=== PATIENT | female | born 1960 ===

== ENCOUNTER → 2018-04-03 10:16 | Outpatient (CLI) | payer OTHER, MEDICAID, SELFPAY ==
--- NOTE | 2018-04-03 10:18 | DI.RAD.S_ITS ---
PROCEDURE: XR KNEE RT 3V INDICATIONS: Knee pain TECHNIQUE: 3 views of the knee were acquired. COMPARISON: None. FINDINGS: Bones: No fractures or dislocations. No suspicious bony lesions. Marginal bony spurring is present overall 3 compartments, most marked at the femoral patellar component with areas marked lateral subluxation of the patella with bony erosions over the posterior margin at the level of the lateral femoral condyle. Soft tissues: No joint effusion. No suspicious soft tissue calcifications. IMPRESSION: 1. No acute bony abnormality or joint effusion. 2. 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 on 04/03/2018 at 10:40 Approved by: Osmin Robertson M.D. on 04/03/2018 at 10:42
--- NOTE | 2018-04-03 10:18 | DI.RAD.S_ITS ---
PROCEDURE: XR KNEE LT 3V INDICATIONS: Knee pain TECHNIQUE: 3 views of the knee were acquired. COMPARISON: None. FINDINGS: Bones: No fractures or dislocations. No suspicious bony lesions. Marginal bone spurs are present overall 3 compartments, most marked at the femoral patellar level where there is mild lateral subluxation of the patella. Soft tissues: No joint effusion. No suspicious soft tissue calcifications. IMPRESSION: 1. No acute bony abnormality or joint effusion. 2. Tricompartmental osteoarthritis Dictated by: Osmin Robertson M.D. on 04/03/2018 at 10:39 Approved by: Osmin Robertson M.D. on 04/03/2018 at 10:40
== END ==
PROVIDERS: PCP Registered Nurse; Visit Provider Registered Nurse
DX: M17.0 Bilateral primary osteoarthritis of knee (principal); M25.561 Pain in right knee; M25.562 Pain in left knee
CPT/HCPCS: 73562

== ENCOUNTER → 2018-05-05 12:25 | Outpatient (CLI) | payer OTHER, MEDICAID, SELFPAY ==
--- NOTE | 2018-05-05 | DI.MG.S_ITS ---
BILATERAL DIGITAL SCREENING MAMMOGRAM 3D/2D WITH CAD: 05/05/2018 CLINICAL: Routine screening. Comparison is made to exams dated: 09/14/2016 mammogram, 08/07/2013 mammogram, and 10/10/2010 mammogram - [facility]. The tissue of both breasts is extremely dense, which lowers the sensitivity of mammography. Current study was also evaluated with a Computer Aided Detection (CAD) system. No significant masses, calcifications, or other findings are seen in either breast. There has been no significant interval change. IMPRESSION: NEGATIVE There is no mammographic evidence of malignancy. A 1 year screening mammogram is recommended. This exam was interpreted at Station ID: [id number]. NOTE: For mammograms, a report in lay terms will be sent to the patient. Approximately 15% of breast malignancies will not be visualized mammographically. In the management of a palpable breast mass, a negative mammogram must not discourage biopsy of a clinically suspicious lesion. Electronically Signed By: Moira barker/nikita:05/05/2018 16:21:59 copy to: Maida Mcmanus letter sent: Normal Exam ACR BI-RADS Category 1: Negative 3341F
== END ==
PROVIDERS: Family Provider Family Medicine; PCP Registered Nurse; Visit Provider Registered Nurse
DX: Z12.31 Encounter for screening mammogram for malignant neoplasm of breast (principal)
CPT/HCPCS: 77063; 77067

== ENCOUNTER → 2019-03-25 08:10 | Outpatient (CLI) | payer OTHER, MEDICAID, SELFPAY ==
[2019-03-25 10:00] LABS: Alanine Aminotransferase 17 IU/L (9-52); Albumin 4.6 g/dL (3.5-5.0); Albumin Globulin Ratio 1.7 (1.0-2.8); Alkaline Phosphatase 68 U/L (38-126); Aspartate Aminotransferase 24 IU/L (14-36); BUN Creatinine Ratio 18.2 (6-22); Bilirubin Total 0.8 mg/dL (0.2-1.3); Blood Urea Nitrogen 20 mg/dL (7-17); Calcium 9.5 mg/dL (8.4-10.2); Carbon Dioxide 27 mmol/L (22-32); Chloride 99 mmol/L (98-107); Cholesterol 238 mg/dL (140-199); Estimated Glomerular Filt Rate 51.2 mL/min (>60); Globulin 2.7 g/dL (1.7-4.1); Glucose 94 mg/dL (70-100); HDL Cholesterol 93 mg/dL (40-60); HEMOLYSIS < 15 (0-50); LDL Cholesterol Calculated 126 mg/dL (<100); Potassium 4.3 mmol/L (3.4-5.1); Sodium 137 mmol/L (137-145); Total Protein 7.3 g/dL (6.3-8.2); Triglycerides 93 mg/dL (35-150)
[2019-03-25 10:01] LABS: C-Reactive Protein Quant < 0.5 mg/dL (<1.0)
[2019-03-25 10:25] LABS: TSH w/ Reflex to FT4 2.48 uIU/mL (0.47-4.68)
[2019-03-25 10:59] LABS: Erythrocyte Sedimentation Rate 3 MM/HR (0-20)
[2019-03-27 11:26] LABS: CCP Antibody (IgG) < 16 Units (< 20)
[2019-03-27 18:41] LABS: ANA Screen, IFA Negative (Negative)
== END ==
PROVIDERS: PCP Registered Nurse; Visit Provider Registered Nurse
DX: Z13.9 Encounter for screening, unspecified (principal); M25.50 Pain in unspecified joint
CPT/HCPCS: 36415; 80053; 80061; 84443; 85651; 86038; 86140; 86200

== ENCOUNTER 2019-08-23 07:52 | Emergency (ER) | payer OTHER, MEDICAID, SELFPAY ==
[2019-08-23 07:55] VITALS: BP 147/70; PULSE 75; RESP 18; TEMP 36.7; O2SAT 98; BMI 25.8
--- NOTE | 2019-08-23 07:59 | ED_ITS ---
HPI - Neuro Symptoms/Deficit General Chief Complaint: Neuro Symptoms/Deficit Stated Complaint: burning tongue now droopy lip and cant blink R dolly Time Seen by Provider: 08/23/19 07:59 Source: patient, family and old records reviewed Mode of arrival: Ambulatory Limitations: no limitations History of Present Illness HPI Narrative: This is a 59-year-old female who comes in with complaint of burning of her right side of her tongue, droop of the right side of her mouth and inability to close her right eye. Patient states she started noticing symptoms within the last 48 hours and yesterday afternoon began to notice that she had liquids dribbling from the right side of her mouth and that when she smiled her face was drooping. She then started to realize that she couldn't close her right eyelid. Patient states she does not have any burning or facial pain she describes burning on the right side of her tongue and on the upper palate. She hasn't noticed any skin changes rashes or ulcerations. She has not had any fevers. She denies headaches, she denies vision changes. She states her right eye does feel dry but is nonpainful. She states no weakness or numbness of her upper extremity or lower extremity on the right or left side. No tingling was noted. Patient has not had symptoms similar to this in the past. She denies any medical issues otherwise. She states she has had appendectomy. She denies any drug allergies. No tobacco, occasional alcohol, no illicit. She is accompanied by her today. Related Data Home Medications Medication Instructions Recorded Confirmed [EYE DROPS] QDAY #0 05/01/11 06/04/19 pseudoephedrine-ibuprofen [Advil 1 tab PO PRN #0 05/01/11 06/04/19 Cold and Sinus] ASCORBIC ACID (VITAMIN C) 500 mg PO QDAY #0 05/08/11 06/04/19 ENZYMES (DIGESTIVE ENZYMES) 1 tab PO QDAY #0 05/08/11 06/04/19 VITAMIN D (Vitamin D3) 1,000 unit PO QDAY #0 05/08/11 06/04/19 Previous Rx's Medication Instructions Recorded CMP Estriol 0.2 See Rx Instructions .ROUTE 04/22/18 .COMPLEX #30 gram oxycodone-acetaminophen 5 mg-325 1 tab PO Q4-6H PRN #10 tab 02/05/19 mg tablet ranitidine HCl 150 mg tablet 150 mg PO QDAY #90 tab 02/05/19 erythromycin 0.5 inch EYE-RIGHT Q6H PRN #1 gram 08/23/19 gabapentin [Neurontin] 300 mg PO TID #30 cap 08/23/19 prednisone See Rx Instructions .ROUTE 08/23/19 .COMPLEX #39 each valacyclovir [Valtrex] 1,000 mg PO BID #14 tab 08/23/19 Allergies Allergy/AdvReac Type Severity Reaction Status Date / Time No Known Drug Allergies Allergy Verified 08/23/19 08:13 Review of Systems Review of Systems ROS Unobtainable: All systems reviewed & are unremarkable except as noted in HPI and below Patient History Medical History Bicornuate uterus (Chronic) Esophageal spasm (Chronic) Surgical History Status post breast biopsy (Resolved 06/2003) Status post breast biopsy (Resolved 09/2005) Status post dilation and curettage (Resolved 04/2011) Social History Smoking Status: Never smoker alcohol intake: current substance use type: does not use Smoking Status: Never smoker Exam Narrative Exam Narrative: GEN: well nourished, well appearing female, alert and oriented x 3, patient appears to be in mild distress. HEENT: Atraumatic, pupils are equal round reactive to light, extraocular movements are intact, patient had does have droop of the right eye, and has difficulty closing the eye passively or with resistance, nares are clear, TMs are clear with no fluid, there is no conjunctival pallor. Throat is clear without any exudates, erythema, tonsillar enlargement or uvular deviation, patient does have droop of the right mouth has decreased movement of the right cheek and forehead. No erythema, no rashes or skin changes to the face or oral mucosa, tongue, patient has one area of erythema that is somewhat circular and 1cm in size on the upper palate that is not raised, no lesions, no vesicles or ulcerations noted. No other lesions noted. HEART: Regular rate and rhythm without murmur, clicks, rubs. LUNGS:Lungs clear to auscultation, no wheezes, rales, crackles, chest moves symmetrically ABD:bowel sounds normal, soft, non-tender, no guarding, rebound, rigidity, no masses noted, no hepatosplenomegaly MSCL: Non-tender, no muscle atrophy, muscles strength 5/5 upper and lower extr emities, full range of motion, normal gait NEURO:CN 2-12 intact, sensation normal, reflexes 2/4 upper and lower extremities. finger nose finger test normal, heel blancas test normal, romberg normal SKIN: no changes noted otherwise. Initial Vital Signs Initial Vital Signs: Vital Signs Temperature 98.1 F 08/23/19 07:55 Pulse Rate 75 08/23/19 07:55 Respiratory Rate 18 08/23/19 07:55 Blood Pressure 147/70 H 08/23/19 07:55 Pulse Oximetry 98 08/23/19 07:55 Scores NIH Stroke Scale Level of Conciousness: Alert, keenly responsive Ask month/age: Answers both questions correctly. Open/close eyes, close hand: Performs both tasks correctly Best gaze horizontal: Normal Visual reyes: No visual loss Facial palsy: Complete paralysis, absence of movement in the upper and lower face (patient has some mild movement but clearly decreased compared to left.) Left arm drift: No drift for full 10 sec Right arm drift: No drift for full 10 sec Left leg drift: No drift for full 10 sec Right leg drift: No drift for full 10 sec Limb ataxia: Absent Sensory on face/arms/legs: Normal, no sensory loss Best language: No aphasia, normal Dysarthria: Normal Extinction or inattention: No abnormality Total NIH Stroke scale score: 3 Course Orders Ordered: Discontinued Medications Erythromycin (Erythromycin Ophth Oint) 1 applic EYE-RIGHT NOW ONE Stop: 08/23/19 08:31 Last Admin: 08/23/19 08:48 Dose: 1 applic Documented by: TOYIN Prednisone (Deltasone) 60 mg PO NOW ONE Stop: 08/23/19 08:31 Last Admin: 08/23/19 08:48 Dose: 60 mg Documented by: TOYIN Vital Signs Vital signs: Vital Signs - 8 hr 08/23/19 07:55 Temperature 98.1 F Pulse Rate 75 Respiratory Rate 18 Blood Pressure 147/70 H Pulse Oximetry 98 MDM - Neuro Symptoms/Deficit MDM Narrative Medical decision making narrative: Discussed with patient 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 We discussed the burning the right side of her tongue and mouth may be related to the nerve palsy. I do not see any changes to the oral mucosa that are suspicious for shingles type change. Patient does not have any other neurologic findings that are concerning for stroke or other intracranial cause of her symptoms at this time. Discussed with patient plan to start her on prednisone, Valtrex as well as eye protection secondary to her difficulty with closing. Plan for saline drops and erythromycin ointment and patching as needed. Patient is to follow-up with her primary care in the next week we discussed likelihood of resolution although there is always a chance that it will not. We discussed signs and symptoms to watch for and reasons to return emergently. Patient has been are both at bedside and aware of plan and all questions answered. Discharge Plan Departure Patient Disposition: Home Clinical Impression: Brantley's palsy Discharge Date/Time: 08/23/19 09:00 Instructions: DI for Brantley's Palsy Activity Restrictions/Additional Instructions: Follow up with your primary care physician in the next week for recheck. Call Saturday for an appointment. Take Valtrex as prescribed daily until gone. Take steroids once daily until gone. You may use saline drops for the affected eye every 2 hours as needed to maintain moisture. If this is not adequate you can tape or patch the eye to keep it closed either during the day as needed and I would recommend to do this nightly. You may put a small amount of erythromycin ointment in her eye when patching to help maintain moisture. Return to the emergency department for fevers, sudden severe headaches, new vision changes, new or developing pain in your eye, weakness or numbness of the opposite side of your face, weakness or numbness of your upper extremities, difficulty with gait or movement, dip stand loader or other new or concerning symptoms. Prescriptions: New valacyclovir [Valtrex] 1 gram tablet 1,000 mg PO BID Qty: 14 RF: 0 prednisone 10 mg tablets,dose pack See Rx Instructions .ROUTE .COMPLEX Qty: 39 RF: 0 erythromycin 5 mg/gram (0.5 %) ointment 0.5 inch EYE-RIGHT Q6H PRN (Reason: dry eye(s)) Qty: 1 RF: 0 gabapentin [Neurontin] 300 mg capsule 300 mg PO TID Qty: 30 RF: 0 No Action [EYE DROPS] QDAY Qty: 0 RF: 0 pseudoephedrine-ibuprofen [Advil Cold and Sinus] 200 MG/30 MG tablet 1 tab PO PRN Qty: 0 RF: 0 ASCORBIC ACID (VITAMIN C) 500 mg PO QDAY Qty: 0 RF: 0 ENZYMES (DIGESTIVE ENZYMES) 1 tab PO QDAY Qty: 0 RF: 0 VITAMIN D (Vitamin D3) 1,000 unit PO QDAY Qty: 0 RF: 0 CMP Estriol 0.2 See Rx Instructions .ROUTE .COMPLEX Qty: 30 RF: 3 oxycodone-acetaminophen 5-325 mg tablet 1 tab PO Q4-6H PRN (Reason: esophageal pain) Qty: 10 RF: 0 ranitidine HCl [Zantac] 150 mg tablet 150 mg PO QDAY Qty: 90 RF: 1 Referrals: Amaya Fuller ARNP [Primary Care Provider] -
[2019-08-23] MEDS: ERYTHROMYCIN OPHTH 1 GM OINT 1 APPLIC EYE-RIGHT (08:48)
[2019-08-23] MEDS: predniSONE 20 MG TABLET 60 MG PO (08:48)
== END 2019-08-23 09:00 | disposition home or self-care (01) ==
PROVIDERS: Emergency Provider Emergency Medicine; PCP Registered Nurse
DX: G51.0 Bell's palsy (principal); R20.8 Other disturbances of skin sensation
CPT/HCPCS: 99283

== ENCOUNTER → 2019-08-29 10:21 | Outpatient (CLI) | payer OTHER, MEDICAID, SELFPAY ==
--- NOTE | 2019-08-29 | DI.MG.S_ITS ---
BILATERAL DIGITAL SCREENING MAMMOGRAM 3D/2D WITH CAD: 08/29/2019 CLINICAL: Routine screening. Family history of breast cancer. Comparison is made to exams dated: 05/05/2018 mammogram, 09/14/2016 mammogram, and 08/18/2013 mammogram - [facility]. The tissue of both breasts is extremely dense, which lowers the sensitivity of mammography. Current study was also evaluated with a Computer Aided Detection (CAD) system. No significant masses, calcifications, or other findings are seen in either breast. There has been no significant interval change. IMPRESSION: NEGATIVE There is no mammographic evidence of malignancy. A 1 year screening mammogram is recommended. This exam was interpreted at Station ID: [id number]. NOTE: For mammograms, a report in lay terms will be sent to the patient. Approximately 15% of breast malignancies will not be visualized mammographically. In the management of a palpable breast mass, a negative mammogram must not discourage biopsy of a clinically suspicious lesion. Electronically Signed By: Moira barker/nikita:08/31/2019 10:35:35 copy to: Maida Mcmanus letter sent: Normal Exam ACR BI-RADS Category 1: Negative 3341F
== END ==
PROVIDERS: PCP Registered Nurse; Visit Provider Obstetrics & Gynecology
DX: Z12.31 Encounter for screening mammogram for malignant neoplasm of breast (principal); Z80.3 Family history of malignant neoplasm of breast
CPT/HCPCS: 77063; 77067

== ENCOUNTER → 2019-10-15 11:55 | Outpatient (CLI) | payer OTHER, MEDICAID, SELFPAY ==
[2019-10-15 13:13] LABS: BUN Creatinine Ratio 12.5 (6-22); Blood Urea Nitrogen 10 mg/dL (7-17); Calcium 10.2 mg/dL (8.4-10.2); Carbon Dioxide 25 mmol/L (22-32); Chloride 99 mmol/L (98-107); Cholesterol 255 mg/dL (140-199); Estimated Glomerular Filt Rate > 60.0 mL/min (>60); Glucose 100 mg/dL (70-100); HDL Cholesterol 97 mg/dL (40-60); HEMOLYSIS < 15 (0-50); LDL Cholesterol Calculated 141 mg/dL (<100); Potassium 4.4 mmol/L (3.4-5.1); Sodium 136 mmol/L (137-145); Triglycerides 85 mg/dL (35-150)
== END ==
PROVIDERS: PCP Registered Nurse; Referring Provider Registered Nurse; Visit Provider Registered Nurse
DX: E78.5 Hyperlipidemia, unspecified (principal)
CPT/HCPCS: 36415; 80048; 80061

== ENCOUNTER → 2019-11-10 12:52 | Outpatient (CLI) | payer OTHER, MEDICAID, SELFPAY ==
[2019-11-11 16:40] LABS: Fecal Immunochemical Test Negative (Negative)
== END ==
PROVIDERS: PCP Registered Nurse; Referring Provider Registered Nurse; Visit Provider Registered Nurse
DX: Z12.11 Encounter for screening for malignant neoplasm of colon (principal)
CPT/HCPCS: 82274

== ENCOUNTER 2019-12-10 14:18 | Emergency (ER) | payer OTHER, MEDICAID, SELFPAY ==
[2019-12-10 14:30] VITALS: BP 160/71; PULSE 72; RESP 14; TEMP 37.1; O2SAT 100
--- NOTE | 2019-12-10 14:45 | DI.RAD.S_ITS ---
PROCEDURE: XR KNEE RT 3V INDICATIONS: swelling and pain TECHNIQUE: 3 views of the knee were acquired. COMPARISON: [facility], CR, XR KNEE LT 3V, 04/03/2018, 9:57. FINDINGS: Bones: No fractures or dislocations. No suspicious bony lesions. Tricompartment degenerative arthritis, with advanced degenerative arthritis of the patellofemoral joint. Soft tissues: Moderate to large knee joint effusion. No suspicious soft tissue calcifications. IMPRESSION: 1. Tricompartment degenerative arthritis, advanced in the patellofemoral compartment. 2. Moderate to large knee joint effusion. Dictated by: Marshall Moeller M.D. on 12/10/2019 at 15:03 Approved by: Marshall Moeller M.D. on 12/10/2019 at 15:05
[2019-12-10 15:20] VITALS: BP 143/83; PULSE 68; RESP 16; O2SAT 100
--- NOTE | 2019-12-10 15:56 | ED.EXTPRO ---
HPI - Extremity Problem <KEITH Kessler - Last Filed: 12/10/19 20:55> General Chief complaint: Extremity Problem,Nontraumatic Stated complaint: right knee swelling today Time Seen by Provider: 12/10/19 14:26 Source: patient Mode of arrival: Wheelchair Limitations: no limitations History of Present Illness HPI Narrative: 59yo female history right knee arthritis, presents to the emergency department for right knee swelling and pain that started today. Patient states she did have a total knee replacement surgery scheduled for her right knee this month but it has been rescheduled due to the COVID-19. Patient denies any trauma to the area, redness, increased temp, fevers, chills, nausea, vomiting, diarrhea, or any other concerns. She states that she took prednisone in the past which significantly helped her joint pain. Patient also reports that she has noticed some intermittent hip pain with walking. Related Data Home Medications Medication Instructions Recorded Confirmed ibuprofen 800 mg PO Q8H PRN 12/10/19 12/10/19 Previous Rx's Medication Instructions Recorded oxycodone-acetaminophen [Percocet] 1 tab PO Q8H PRN #5 tab 12/10/19 prednisone 20 mg PO DAILY 5 Days #5 tab 12/10/19 Allergies Allergy/AdvReac Type Severity Reaction Status Date / Time No Known Drug Allergies Allergy Verified 12/10/19 14:29 Review of Systems <KEITH Kessler - Last Filed: 12/10/19 20:55> Review of Systems Narrative: REVIEW OF SYSTEMS: GENERAL: Denies fever or chills. HENT: No head trauma. EYES: No double vision or vision loss. CARDIOVASCULAR: No chest pain or syncope. RESPIRATORY: No shortness of breath or cough. GASTROINTESTINAL: No nausea, vomiting, diarrhea, or constipation. GENITOURINARY: No flank pain or dysuria. MUSCULOSKELETAL: Complains of right knee pain, see HPI. INTEGUMENTARY: No rash, lesions, or pruritus. NEURO: No numbness, tingling. Patient History <KEITH Kessler - Last Filed: 12/10/19 20:55> Medical History Brantley's palsy (Acute) Bicornuate uterus (Chronic) Esophageal spasm (Chronic) Surgical History Status post breast biopsy (Resolved 06/2003) Status post breast biopsy (Resolved 09/2005) Status post dilation and curettage (Resolved 04/2011) Social History Smoking Status: Never smoker alcohol intake: current substance use type: does not use Smoking Status: Never smoker alcohol intake frequency: 0-2 drinks per day Alcohol type: beer Substance Use Type: does not use Exam <KEITH Kessler - Last Filed: 12/10/19 20:55> Initial Vital Signs Initial Vital Signs: Vital Signs Temperature 98.7 F 12/10/19 14:30 Pulse Rate 72 12/10/19 14:30 Respiratory Rate 14 12/10/19 14:30 Blood Pressure 160/71 H 12/10/19 14:30 Pulse Oximetry 100 12/10/19 14:30 PHYSICAL EXAMINATION: GENERAL: Well groomed, alert, and cooperative. Answers questions promptly and appropriately. Vital signs noted. HENT: Normocephalic, atraumatic. EYES: Symmetrical, sclera white, no periorbital swelling. CARDIOVASCULAR: Regular rate. RESPIRATORY: Normal respiratory rate, trachea midline, airway patent. No stridor, nasal flaring or accessory muscle use. MUSCULOSKELETAL: Moderate to large right knee swelling, most swelling appears centralized above right knee joint, increased swelling to the lateral aspect of this area. Skin temp within normal limits, no erythema, bruising, lesions, or areas of significant tenderness. Decreased flexion due to swelling and pain. Patient has full extension. Mild tenderness along the medial aspect of joint line. Negative Edwardo sign. Negative drawer sign. Patient walks with limp due to right knee pain. EXTREMITIES: CMS intact. No pedal edema. No calf tenderness. SKIN: Warm, dry, soft, appropriate color for ethnicity. No lesions, rashes, or wounds. NEURO: Alert and Oriented X 3. No sensory deficits. PSYCH: Appropriate affect and mood. <Pari Deng DO - Last Filed: 12/11/19 07:44> Initial Vital Signs Initial Vital Signs: Vital Signs Temperature 98.7 F 12/10/19 14:30 Pulse Rate 72 12/10/19 14:30 Respiratory Rate 14 12/10/19 14:30 Blood Pressure 160/71 H 12/10/19 14:30 Pulse Oximetry 100 12/10/19 14:30 Course <KEITH Kessler - Last Filed: 12/10/19 20:55> Course Course Narrative: Patient was given an Hieu bandage in the emergency department to help with swelling and pain. She reported increased pain with ambulation, patient was given Percocet to help with pain. Orders Ordered: Discontinued Medications Oxycodone/Acetaminophen (Percocet 5/325) 1 tab PO NOW ONE Stop: 12/10/19 15:56 Last Admin: 12/10/19 16:08 Dose: 1 tab Documented by: CTRANAND Consultations Consultation #1: Patient staffed with Dr. Deng, discussed discharge plans. Vital Signs Vital signs: Vital Signs - 8 hr 12/10/19 14:30 12/10/19 15:20 12/10/19 16:20 Temperature 98.7 F Pulse Rate 72 68 66 Respiratory Rate 14 16 16 Blood Pressure 160/71 H 143/67 H Blood Pressure [Left Arm] 143/83 H Pulse Oximetry 100 100 100 <Pari Deng DO - Last Filed: 12/11/19 07:44> Orders Ordered: Discontinued Medications Oxycodone/Acetaminophen (Percocet 5/325) 1 tab PO NOW ONE Stop: 12/10/19 15:56 Last Admin: 12/10/19 16:08 Dose: 1 tab Documented by: CTRANAND Vital Signs Vital signs: Vital Signs - 8 hr 12/10/19 14:30 12/10/19 15:20 12/10/19 16:20 Temperature 98.7 F Pulse Rate 72 68 66 Respiratory Rate 14 16 16 Blood Pressure 160/71 H 143/67 H Blood Pressure [Left Arm] 143/83 H Pulse Oximetry 100 100 100 MDM - Extremity (Nontraumatic) <KEITH Kessler - Last Filed: 12/10/19 20:55> Medical Records Attestation: I reviewed the patient's medical records. Lab Data Attestation: I reviewed the patient's lab results. Imaging Data Extremity x-ray #1: Radiologist's Impression: [address] [address] XRay Report Signed Patient: Richa Nino [facility]#: [id number] : 2Acct:[id number] Age/Sex: 59 / FDate of Service: 12/10/19 Loc: ED Accession Number: [id number] Procedure: XR knee RT 3V Ordering Provider: Danelle Quiroz PROCEDURE: XR KNEE RT 3V INDICATIONS: swelling and pain TECHNIQUE: 3 views of the knee were acquired. COMPARISON: [facility], CR, XR KNEE LT 3V, 04/03/2018, 9:57. FINDINGS: Bones: No fractures or dislocations. No suspicious bony lesions. Tricompartment degenerative arthritis, with advanced degenerative arthritis of the patellofemoral joint. Soft tissues: Moderate to large knee joint effusion. No suspicious soft tissue calcifications. IMPRESSION: 1. Tricompartment degenerative arthritis, advanced in the patellofemoral compartment. 2. Moderate to large knee joint effusion. Dictated by: Marshall Moeller M.D. on 12/10/2019 at 15:03 Approved by: Marshall Moeller M.D. on 12/10/2019 at 15:[address] [facility] Narrative Medical decision making narrative: 59-year-old female presenting to the emergency department with right knee swelling that started today. Patient has a history of arthritis an is scheduled for a total knee replacement. Patient does report walking with increasing right sided hip pain over the past few days. I suspect patient's swelling is most likely due to inflammatory reaction related to arthritis, patient's hip pain may have further aggravated the knee as well. Less likely infectious etiology due to lack of increased skin temperature, lack of erythema, and lack of other systemic symptoms such as tachycardia, severe pain, or fevers. Less likely fracture due to negative x-ray, no reports of trauma. I discussed with patient that joints are not drained in the emergency department due to increased risk of infection and most likely swelling will immediately return as it appeared quickly this morning. After much discussion with patient, I suggested elevation, rest, and compression. Patient repeatedly continued to ask for prednisone which she states has helped in the past, after explaining the risks and benefits, patient was given a course of prednisone. Patient did report pain upon walking, she was given a few Percocet pills to help with pain over the next few days. She was encouraged to use a brace with a hinged to help with stabilization upon moving. She was encouraged to call the orthopedic inform them of new acute changes to schedule an appointment. Patient agreed to plan of care verbalized understanding. Discharge Plan Departure Patient Disposition: Home Clinical Impression: Knee swelling Discharge Date/Time: 12/10/19 16:20 Instructions: DI for Knee Effusion Activity Restrictions/Additional Instructions: Thank you for entrusting me with your care today. As discussed, your x-ray was negative for any acute fractures. The swelling is most likely caused by arthritis. I recommend using the Hieu-wrap daily, elevating your leg as much as possible, and taking ibuprofen as needed for pain and swelling. We discussed a course of prednisone and the risks associated with this medication, I have prescribed you a course of prednisone to decrease swelling. I do recommend calling the orthopedic in the next week, please inform them that you have been seen in the ER. Return emergency department for any new or worsening symptoms such as high fevers, redness, uncontrollable vomiting, or any other concerns. Your prescriptions were sent to [facility]. Prescriptions: New prednisone 20 mg tablet 20 mg PO DAILY 5 Days Qty: 5 RF: 0 oxycodone-acetaminophen [Percocet] 5-325 mg tablet 1 tab PO Q8H PRN (Reason: pain) Qty: 5 RF: 0 No Action ibuprofen 800 mg Tablet 800 mg PO Q8H PRN (Reason: Pain (Scale Score 1-3)) RF: 0 Referrals: Amaya Fuller ARNP [Primary Care Provider] -
[2019-12-10] MEDS: OXYCODONE/ACETAMINOPHEN 5/325 TABLET 1 TAB PO (16:08)
[2019-12-10 16:20] VITALS: BP 143/67; PULSE 66; RESP 16; O2SAT 100
--- NOTE | 2019-12-10 17:10 | PC.NURSE ---
6 Hieu wrap applied to right knee as ordered.Instructions given to as to application,verbalized understanding of instructions.CMS good to right foot following application.Good pedal/post tibial pulse.
== END 2019-12-10 16:20 | disposition home or self-care (01) ==
PROVIDERS: Emergency Provider Nurse Practitioner; PCP Registered Nurse
DX: M25.461 Effusion, right knee (principal); M17.11 Unilateral primary osteoarthritis, right knee
CPT/HCPCS: 73562; 99283; 99284

== ENCOUNTER → 2020-02-26 10:10 | Outpatient (CLI) | payer OTHER, MEDICAID, SELFPAY ==
--- NOTE | 2020-02-26 10:15 | DI.RAD.S_ITS ---
PROCEDURE: XR CHEST 2V INDICATIONS: Unintentional weight loss TECHNIQUE: 2 views of the chest were acquired. COMPARISON: [facility], , CHEST 2 VIEW, 12/21/2016, 12:52. FINDINGS: Surgical changes and devices: None. Lungs and pleura: Lungs are clear. No pleural effusions or pneumothorax. Mediastinum: Mediastinal contours are normal. Heart size is normal. Bones and chest wall: No suspicious bony abnormalities. Soft tissues appear unremarkable. IMPRESSION: No acute cardiopulmonary process demonstrated radiographically. Dictated by: Eitan James M.D. on 02/26/2020 at 10:50 Approved by: Eitan James M.D. on 02/26/2020 at 10:51
[2020-02-26 10:51] LABS: Bacteria Urine None Seen; RBC Urine None Seen (0-5/HPF); WBC Urine None Seen (0-5/HPF)
[2020-02-26 11:00] LABS: Add Manual Diff / Slide Review NO; Basophils Absolute Auto 0 /uL (0-100); Eosinophils Absolute Auto 0 /uL (0-450); Hematocrit 41.2 % (36-46); Lymphocytes Absolute Auto 1100 /uL (1100-4500); Lymphocytes Percent Auto 26.2 % (25-40); Mean Corpuscular Hemoglobin 29.5 PG (26-34); Mean Corpuscular Volume 86.9 fL (80-100); Monocytes Absolute Auto 400 /uL (0-900); Monocytes Percent Auto 9.8 % (3-14); Neutrophils Absolute Auto 2500 /uL (1500-7000); Platelet Count 269 X10^3/uL (150-400); Red Blood Cell Count 4.74 X10^6/uL (4.0-5.2); Red Cell Distribution Width 14.4 % (11.6-14.8); White Blood Cell Count 4.1 X10^3/uL (4.5-11.0)
[2020-02-26 11:04] LABS: Appearance Urine UA CLEAR; Bilirubin Urine UA NEGATIVE (NEGATIVE); Color Urine UA YELLOW; Glucose Urine UA NEGATIVE (Negative); Ketones Urine UA NEGATIVE (NEGATIVE); Leukocyte Esterase Urine UA NEGATIVE (NEGATIVE); Nitrite Urine UA NEGATIVE (Negative); Occult Blood Urine UA NEGATIVE (Negative); Protein Urine UA NEGATIVE (Negative); Specific Gravity Urine UA <=1.005 (1.000-1.035); Urobilinogen Urine UA 0.2 E.U./dL (0.2)
[2020-02-26 11:20] LABS: Culture Indicated Urine Cult Not Indicated; Squamous Epithelial Cell Urine 0-1 /HPF (0-5/HPF)
[2020-02-26 11:21] LABS: Erythrocyte Sedimentation Rate 1 MM/HR (0-20)
[2020-02-26 12:03] LABS: Alanine Aminotransferase 16 IU/L (<35); Albumin 4.6 g/dL (3.5-5.0); Albumin Globulin Ratio 1.8 (1.0-2.8); Alkaline Phosphatase 60 U/L (38-126); Aspartate Aminotransferase 23 IU/L (14-36); Bilirubin Total 0.7 mg/dL (0.2-1.3); Blood Urea Nitrogen 7 mg/dL (7-17); Calcium 9.8 mg/dL (8.4-10.2); Carbon Dioxide 26 mmol/L (22-32); Chloride 96 mmol/L (98-107); Estimated Glomerular Filt Rate > 60.0 mL/min (>60); Globulin 2.5 g/dL (1.7-4.1); Glucose 101 mg/dL (70-100); HEMOLYSIS < 15 (0-50); Lactate Dehydrogenase 346 U/L (313-618); Potassium 4.3 mmol/L (3.4-5.1); Sodium 132 mmol/L (137-145); Total Protein 7.1 g/dL (6.3-8.2)
[2020-02-26 12:06] LABS: C-Reactive Protein Quant < 0.5 mg/dL (<1.0)
[2020-02-26 12:10] LABS: Free T3, Triiodothyronine Free 3.45 pg/mL (2.77-5.27); Free T4, Direct Thyroxine 1.49 ng/dL (0.78-2.19)
[2020-02-26 12:24] LABS: Thyroid Stimulating Hormone 1.54 uIU/mL (0.47-4.68)
== END ==
PROVIDERS: PCP Nurse Practitioner; Referring Provider Nurse Practitioner; Visit Provider Nurse Practitioner
DX: F41.1 Generalized anxiety disorder (principal); G51.0 Bell's palsy; R63.4 Abnormal weight loss
CPT/HCPCS: 36415; 71046; 80053; 81001; 83615; 84439; 84443; 84481; 85025; 85651; 86140

== ENCOUNTER 2020-05-19 15:00 | Outpatient (RCR) | payer OTHER, MEDICAID, SELFPAY ==
--- NOTE | 2020-01-07 14:45 | PT.OIE ---
Current Diagnoses Unilateral primary osteoarthritis, right knee (01/07/20) Stiffness of right knee, not elsewhere classified (01/07/20) Muscle weakness (generalized) (01/07/20) Unsteadiness on feet (01/07/20) Other abnormalities of gait and mobility (01/07/20) Presence of right artificial knee joint (01/07/20) Past Medical History (Last Updated 12/15/19 @ 14:48 by KEITH Key) Brantley's palsy (Acute) Bicornuate uterus (Chronic) Esophageal spasm (Chronic) Generalized anxiety disorder (Acute) Past Surgical History (Last Reviewed 12/10/19 @ 20:48 by KEITH Kessler) Status post breast biopsy (Resolved 06/2003) Status post breast biopsy (Resolved 09/2005) Status post dilation and curettage (Resolved 04/2011) Visit Care Team Role Provider Type KEITH Key Attending Provider Advanced Assembler Hydraulic Backhoe Primary Care Provider Referring Provider Specialty: Medical Address: [address] [place] [address] Email: [email or web address] Physical Therapy Initial Evaluation PT-OP-A Visit Information Start: 01/07/20 07:59 Freq: Status: Active Protocol: Document 01/07/20 11:26 LRN (Rec: 01/07/20 12:39 LRN [id number]) Out-Patient Physical Therapy Visit Information Visit Information Visit Type Initial Evaluation Visit Start Time 11:26 Visit Stop Time 12:26 Total Visit Minutes 60 Visit Number 1 Evaluation Information Evaluation Date 01/07/20 Precautions Precautions Back pain due to scoliosis but currently no back pain. [place] Palsy - 08/23/19, R side of face. R eye effected with difficulty vision due to excessive tears. PT-OP-B Current Condition Start: 01/07/20 07:59 Freq: Status: Active Protocol: Document 01/07/20 11:26 LRN (Rec: 01/07/20 12:39 LRN [id number]) Current Condition History of Current Condition Onset Date 12/29/19 Current Complaints Swelling, tightness of knee, using walker History of Current Condition R TKA at [facility] on 12/29/19. She was at [facility] 2 nights, but since home has been doing ex's 1x/ day with assist of spouse. Pt is not sure what the exercises are that she has been doing. She notes considerable swelling & bruising in the R LE, and discomfort in area of bruising . She warns that due to her history of knee problems and dislocating patella's she is apprehensive and hesitant in doing exercises. L knee arthritis. Fatigues quickly since surgery. Prior Treatments and Tests Age 22 had R patella surgery to release lateral tendons ligaments to prevent patella from dislocating, no therapy at that time. She reports resolution of the dislocations but that she has purposely avoids exercises. She reports her L patella dislocated only one time in 2004. Developmental History Developmental History 12/10/19 R knee became swollen requiring ER visit and was told arthritis. Pt reports having difficulty ambulating requiring use of FWW since that time and subsequent R TKA (current diagnosis). Treatment Goals Patient/Caregiver Goals Functional Goals: Walk without a walker, do a squat, Dressing, sit to stand with ease, roll and move in bed without difficulty, stair ambulation with railing. Communtity Goals: One step w/ o railing. 150' gait without walker. Recreational Goals: Hike, power walk. Prior Functional Status Baseline Function- ADL's Independent Baseline Function- Mobility Independent Baseline Function- Gait Gait without assistive device. 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 Baseline Function- Recreation/Hobbies Power walk, hike w/o poles. Baseline Function- Other Trouble with stair ambulation due to pain. Current Functional Impairments (Reported) Functional Limitations- ADL's Walks with FWW. Difficulty stairs, dressing, sit to stand, rolling in bed, squatting. Functional Limitations- Mobility/Gait Walk as far as allowed. Doesn't tire but tissues tight , creates pain in medial R knee sometimes. Functional Limitations- Work/School Not working since Covid 19. Functional Limitations- Recreation/ Not able to power walk, hike. Hobbies Personal Factors Other Personal Factors That May Effect History of Patella Therapy/Recovery dislocations has caused apprehension and fear with exercising her LE's. History of Back pain. Current [place] Palsy affecting vision. PT-OP-C Subjective Start: 01/07/20 07:59 Freq: Status: Active Protocol: Document 01/07/20 11:26 LRN (Rec: 01/07/20 13:23 LRN [id number]) Patient Questionnaires Lower Extremity Functional Scale LEFS Score 17 LEFS Impairment 60 to 79% Impaired (Score 17- 31) OP-PT Pain Assessment Pain Assessment Grid Paper Pain Assessment Grid Completed Yes Location Right Medial Leg Pain Location Details Medial R lower leg with palpation and pressure Description Pressure,Tightness Other Pain Aggravating Factors Pressure palpation. Right Lateral Knee Pain Location Details Generalized Intensity 5 Scale Used Numeric (1 - 10) Description Aching,Tightness Frequency Frequent Pain Aggravating Factors Position,Changing Position,ADL 's,Activity,Exercise,Sitting, Walking,Stair Climbing, Dependent Position Pain Alleviating Factors Lying Supine,Rest PT-OP-D Balance Start: 01/07/20 07:59 Freq: Status: Active Protocol: Document 01/07/20 11:26 LRN (Rec: 01/07/20 13:35 LRN [id number]) Tinetti Balance Assessment Sitting Balance Sitting Balance Steady, safe Arising from Chair Ability to Arise Able, uses arms to help Attempts to Arise Arises on 1st attempt Standing Balance Immediate Standing Balance Steady with support Standing Balance Steady, wide stance Nudged Response Steady Standing with Eyes Closed Steady Turning Step Pattern Turning 360 Degrees Discontinuous steps Stability Turning 360 Degrees Steady Sitting Down Sitting Down Uses arms or unsteady Gait and Step Initiation of Gait No hesitancy Right Foot Step Length Does pass stance foot Right Foot Step Height Does not clear floor Left Foot Step Length Does pass stance foot Left Foot Step Height Completely clears floor Step Description Step Symmetry Step length not equal Step Continuity Steps appear continuous Gait Description Path Description Mild/moderate deviation Trunk Description Marked sway or uses aide Walking Stance Heels apart Scoring and Interpretation Tinetti Composite Score (points) 17 Interpretation of Scores High risk for falls(< 19) Tinetti Impairment Rating from Composite 40 to <60% Impaired (Score 12- Score 16) PT-OP-E Functional Tests Start: 01/07/20 07:59 Freq: Status: Active Protocol: Document 01/07/20 11:26 LRN (Rec: 01/07/20 13:23 LRN [id number]) Functional Tests Other 2' Step Test Name of Test 2' Step Test Score 36x Comment Norm is 57-107 steps for 60-64 year olds. Pt fatigued at end of test. PT-OP-G Mobility & Gait Start: 01/07/20 07:59 Freq: Status: Active Protocol: Document 01/07/20 11:26 LRN (Rec: 01/07/20 12:39 LRN [id number]) OP Mobility Evaluation Bed Mobility Rolling Pt avoids due to pain. Supine to and from Sit Pt requires assist to lift RLE onto plinth. Pt Independently transfer to sit using UE's to assist RLE. Transfers Sit to Stand Independent with R LE in full extension and use of UE's. OP Gait Assessment Gait Gait Assistance Required: Independent Distance (Feet) 100 Able to Maintain Weight Bearing Status Yes During Gait Assistive Devices Assistive Device Front Wheeled Walker Orthotic/Prosthetic Devices or Brace: No Gait Deviations General Gait Pattern Antalgic,Decreased Stride Length,Decreased Feet Clearance,Flexed Trunk,Lateral Trunk Lean,Wide Based Gait Factors Limiting Gait Function Factors Limiting Gait Function Decreased Activity Tolerance, Decreased Strength,Limited Range of Motion,Pain,Poor Balance Comments Gait Comments Pt R toes do not clear floor sometimes even with hip hiking . PT-OP-J Posture/Palpation/Skin Start: 01/07/20 07:59 Freq: Status: Active Protocol: Document 01/07/20 11:26 LRN (Rec: 01/07/20 13:05 LRN [id number]) Posture Evaluation Comments Posture Comments Standing: Pt weight bears more on LLE by ~20% per pt subjective report. Bandage covering anterior R knee, and covered by pt support hose. Palpation Assessment Location One Palpation Location R knee Palpation Findings Edema,Soft Tissue Tightness, Tenderness Palpation Details Pt wearing compressive hose. Mild increased temperature of medial lower leg. Generalized tenderness of R knee joint. Moderate swelling at the R knee joint. Minimal swelling in the R lower leg and upper thigh. PT-OP-K Range of Motion Start: 01/07/20 07:59 Freq: Status: Active Protocol: Document 01/07/20 11:26 LRN (Rec: 01/07/20 13:05 LRN [id number]) Knee Goniometric Range of Motion Knee Right Knee ROM WFL No Patient Position Supine Flexion Active (degrees) 45 Extension Passive (degrees) 0 Left Knee ROM WFL Yes Patient Position Supine Flexion Active (degrees) 130 Extension Active (degrees) 0 Knee ROM Limitations Comments R knee AROM (supine & sitting) : Unable to actively move knee into extension. Sitting: AROM: Left is 0-127 deg's Right: Unable to actively extend. Flex is 45 deg's. Ankle and Foot Goniometric Range of Motion Ankle and Foot Right Active Ankle/Foot ROM WFL No Testing Position Supine Dorsiflexion with Knee Extended 5 Plantarflexion 48 Left Active Ankle/Foot ROM WFL Yes Testing Position Supine Dorsiflexion with Knee Extended 15 Plantarflexion 48 PT-OP-M Strength Start: 01/07/20 07:59 Freq: Status: Active Protocol: Document 01/07/20 11:26 LRN (Rec: 01/07/20 13:05 LRN [id number]) Hip Strength Hip Manual Muscle Testing Right Flexion (L2) 1 Trace Extension (S1) 3 Fair Abduction 3+ Fair+ Adduction 3+ Fair+ Comments Hip AB/AD/Ext approximate measurement in modified position (supine) of due to recent surgery. Left Flexion (L2) 5 Normal Extension (S1) 4 Good Abduction 5 Normal Adduction 5 Normal Comments Hip AB/AD/Ext approximate measurement in modified position (supine) of due to recent surgery. Knee Strength Knee Manual Muscle Testing Right Flexion (S2) 3 Fair Extension (L3) 1 Trace Left Flexion (S2) 3+ Fair+ Extension (L3) 5 Normal Ankle/Foot Strength Ankle and Foot Manual Muscle Testing Right Dorsiflexion (L4) 5 Normal Plantarflexion (S1) 5 Normal Comments Normal strength within available range. Range of motion limited due to soft tissue tightness and pain of R lower leg/knee. Left Dorsiflexion (L4) 5 Normal Plantarflexion (S1) 5 Normal PT-OP-Q Treatments Start: 01/07/20 07:59 Freq: Status: Active Protocol: Document 01/07/20 11:26 LRN (Rec: 01/07/20 13:05 LRN [id number]) Self-Care/Home Management Treatment Education Patient Education Home Exercise Program,Pain Management Other Education Reviewed with pt home ex's and I/S pt in SLR, SAQ and heel slides in supine and sitting. Discussed use of RICE technique for edema control with elevation parameter in sitting and time of 8-10' for use of ice. Pt to cont wearing support hose. Educated pt in gait for RLE of toe off, knee flex and heel strike while leaving exercise room. Handouts issued to review on return. PT-OP-T Assessment and Plan Start: 01/07/20 07:59 Freq: Status: Active Protocol: Document 01/07/20 11:26 LRN (Rec: 01/07/20 12:39 LRN [id number]) Physical Therapy Assessment Rehab Potential Rehabilitation Potential Excellent Evaluation Complexity Number of Personal Factors/Comorbidities 3 or More Number of Body Systems Impaired 4 or More Clinical Presentation at Evaluation Evolving Impairments Impairments Activity Tolerance,Balance, Edema,Functional Mobility,Gait ,Pain,ROM,Strength,Transfers Goals Five Impairment Decreased function per LEFS score of 17/80 (60-79% impaired) Halfway Goal (LTG) Improve functional ability per LEFS score no less than 63/80 . LTG Duration 8 weeks (03/18/20) Four Impairment Decreased balance. 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 LTG Duration 8 weeks (03/18/20) Three Impairment Decreased R knee strength of ext 1/5, flex 3/5 (Left ext 5/ 5, flex 4/5) Short Term Goal (STG) Pt will be able to improve R knee extension strength to 3/5 and flexion 3+/5 in order to move in bed without difficulty , transfer in/out of bed without assist and ambulate with use of cane instead of walker. STG Duration 2 weeks (01/22/20) Halfway Goal (LTG) Pt will improve R knee strength 4/5 for ability to ambulate 1 step without use of railing, and home stairs with use of railing with 80% confidence. LTG Duration 8 weeks (03/18/20) Two Impairment Decreased supine R knee AROM 0 -45 deg's (Left is 0-130 deg's ) Short Term Goal (STG) Pt will be able to achieve R knee flexion of 90 deg's and will demonstrate ability to perform active knee extension and transfer sit to stand with minimal difficulty and dress without assist. STG Duration 2 weeks (01/22/20) [employer] Goal (LTG) Pt will be able to achieve active R knee flexion 115 deg' s to tolerate ambulation on level and stairs, and transfer sit to stand without pain, and to tolerate a functional squat with pain no greater than 1/10. LTG Duration 8 weeks (03/18/20) One Impairment Pt lacks appropriate self care HEP Short Term Goal (STG) Pt will be educated in a home exercise program (HEP) to address decreased R knee ROM/ strength and decreased R hip strength to improve transfer and gait; Balance training exercises. STG Duration 2 weeks (01/22/20) Halfway Goal (LTG) Pt will be independent in a self care HEP for progression towards functional squatting and progressing gait for hiking and power walking. LTG Duration 8 weeks (03/18/20) Assessment Summary Assessment Extra time was taken due to pt apprehension with moving of R knee and slowness of pt. in mobilizing on with therapeutic activities. Physical Therapy Plan Frequency and Duration Frequency of Treatment 2x/wk > 1x/week Plan of Care Start Date 01/07/20 Plan of Care End Date 03/18/20 Therapeutic Interventions Therapeutic Interventions Balance Training,Gait Training ,Home Exercise Program,Manual Therapy,Neuromuscular Re- education,Patient/Caregiver Education,Self-Care/Home Management,Soft Tissue Mobilization,Taping, Therapeutic Activities, Therapeutic Exercises Modalities Cold Pack/Ice Massage Next Visit Focus/Plan Next Note Type Treatment Note Next Visit Plan Review home exercises and self care program to reduce swelling/edema. Measure Circumference if bandage removed. Assess incision if bandage removed. Assess TUG. Gait training on level and stairs, ROM (R knee flex, ankle DF), strengthening (R knee/hip flex, Hip AB, ankle DF) ex's. Progress HEP to include balance and gait activities.
--- NOTE | 2020-01-07 16:12 | PT.OPPOC ---
Physical, Occupational & Speech Therapy At [facility] Current Diagnoses Unilateral primary osteoarthritis, right knee (01/07/20) Stiffness of right knee, not elsewhere classified (01/07/20) Muscle weakness (generalized) (01/07/20) Unsteadiness on feet (01/07/20) Other abnormalities of gait and mobility (01/07/20) Presence of right artificial knee joint (01/07/20) Visit Care Team Role Provider Type KEITH Key Attending Provider Advanced Fuel Pilot Engineer Primary Care Provider Referring Provider Specialty: Medical Address: [address] [place] [address], [facility] Email: [email or web address] Plan Of Care PT-OP-T Assessment and Plan Start: 01/07/20 07:59 Freq: Status: Active Protocol: Document 01/07/20 11:26 LRN (Rec: 01/07/20 12:39 LRN [id number]) Physical Therapy Assessment Rehab Potential Rehabilitation Potential Excellent Evaluation Complexity Number of Personal Factors/Comorbidities 3 or More Number of Body Systems Impaired 4 or More Clinical Presentation at Evaluation Evolving Impairments Impairments Activity Tolerance,Balance, Edema,Functional Mobility,Gait ,Pain,ROM,Strength,Transfers Goals Five Impairment Decreased function per LEFS score of 17/80 (60-79% impaired) Quality Checker Goal (LTG) Improve functional ability per LEFS score no less than 63/80 . LTG Duration 8 weeks (03/18/20) Four Impairment Decreased balance. 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 LTG Duration 8 weeks (03/18/20) Three Impairment Decreased R knee strength of ext 1/5, flex 3/5 (Left ext 5/ 5, flex 4/5) Short Term Goal (STG) Pt will be able to improve R knee extension strength to 3/5 and flexion 3+/5 in order to move in bed without difficulty , transfer in/out of bed without assist and ambulate with use of cane instead of walker. STG Duration 2 weeks (01/22/20) Quality Checker Goal (LTG) Pt will improve R knee strength 4/5 for ability to ambulate 1 step without use of railing, and home stairs with use of railing with 80% confidence. LTG Duration 8 weeks (03/18/20) Two Impairment Decreased supine R knee AROM 0 -45 deg's (Left is 0-130 deg's ) Short Term Goal (STG) Pt will be able to achieve R knee flexion of 90 deg's and will demonstrate ability to perform active knee extension and transfer sit to stand with minimal difficulty and dress without assist. STG Duration 2 weeks (01/22/20) Quality Checker Goal (LTG) Pt will be able to achieve active R knee flexion 115 deg' s to tolerate ambulation on level and stairs, and transfer sit to stand without pain, and to tolerate a functional squat with pain no greater than 1/10. LTG Duration 8 weeks (03/18/20) One Impairment Pt lacks appropriate self care HEP Short Term Goal (STG) Pt will be educated in a home exercise program (HEP) to address decreased R knee ROM/ strength and decreased R hip strength to improve transfer and gait; Balance training exercises. STG Duration 2 weeks (01/22/20) Quality Checker Goal (LTG) Pt will be independent in a self care HEP for progression towards functional squatting and progressing gait for hiking and power walking. LTG Duration 8 weeks (03/18/20) Assessment Summary Assessment Extra time was taken due to pt apprehension with moving of R knee and slowness of pt. in mobilizing on with therapeutic activities. Physical Therapy Plan Frequency and Duration Frequency of Treatment 2x/wk > 1x/week Plan of Care Start Date 01/07/20 Plan of Care End Date 03/18/20 Therapeutic Interventions Therapeutic Interventions Balance Training,Gait Training ,Home Exercise Program,Manual Therapy,Neuromuscular Re- education,Patient/Caregiver Education,Self-Care/Home Management,Soft Tissue Mobilization,Taping, Therapeutic Activities, Therapeutic Exercises Modalities Cold Pack/Ice Massage Next Visit Focus/Plan Next Note Type Treatment Note Next Visit Plan Review home exercises and self care program to reduce swelling/edema. Measure Circumference if bandage removed. Assess incision if bandage removed. Assess TUG. Gait training on level and stairs, ROM (R knee flex, ankle DF), strengthening (R knee/hip flex, Hip AB, ankle DF) ex's. Progress HEP to include balance and gait activities. Plan of Care Dates Plan of Care Start Date 01/07/20 Plan of Care End Date 03/18/20 Electronically Signed by: Moira Son, PT 01/07/20 [id number] Please Sign and Return: I have reviewed this Plan of Care and certify that the skilled therapy services above are required to meet the patient?s needs. Physician Signature Date Printed Name and Credentials Clinical Instructor Signature Printed Name and Credentials
--- NOTE | 2020-01-12 19:12 | PT.OTN ---
Current Diagnoses Unilateral primary osteoarthritis, right knee (01/12/20) Stiffness of right knee, not elsewhere classified (01/12/20) Muscle weakness (generalized) (01/12/20) Unsteadiness on feet (01/12/20) Other abnormalities of gait and mobility (01/12/20) Presence of right artificial knee joint (01/12/20) Physical Therapy Treatment Note PT-OP-A Visit Information Start: 01/07/20 07:59 Freq: Status: Active Protocol: Document 01/12/20 14:30 LRN (Rec: 01/12/20 15:18 LRN [id number]) Out-Patient Physical Therapy Visit Information Visit Information Visit Type Treatment Note Visit Start Time 14:31 Visit Stop Time 15:25 Total Visit Minutes 54 Visit Number 2 Evaluation Information Evaluation Date 01/07/20 Precautions Precautions Back pain due to scoliosis but currently no back pain. Norco Palsy - 08/23/19, R side of face. R eye effected with difficulty vision due to excessive tears. PT-OP-B Current Condition Start: 01/07/20 07:59 Freq: Status: Active Protocol: Document 01/07/20 11:26 LRN (Rec: 01/07/20 12:39 LRN [id number]) Current Condition History of Current Condition Onset Date 12/29/19 Current Complaints Swelling, tightness of knee, using walker History of Current Condition R TKA at [facility] on 12/29/19. She was at [facility] 2 nights, but since home has been doing ex's 1x/ day with assist of spouse. Pt is not sure what the exercises are that she has been doing. She notes considerable swelling & bruising in the R LE, and discomfort in area of bruising . She warns that due to her history of knee problems and dislocating patella's she is apprehensive and hesitant in doing exercises. L knee arthritis. Fatigues quickly since surgery. Prior Treatments and Tests Age 22 had R patella surgery to release lateral tendons ligaments to prevent patella from dislocating, no therapy at that time. She reports resolution of the dislocations but that she has purposely avoids exercises. She reports her L patella dislocated only one time in 2004. Developmental History Developmental History 12/10/19 R knee became swollen requiring ER visit and was told arthritis. Pt reports having difficulty ambulating requiring use of FWW since that time and subsequent R TKA (current diagnosis). Treatment Goals Patient/Caregiver Goals Functional Goals: Walk without a walker, do a squat, Dressing, sit to stand with ease, roll and move in bed without difficulty, stair ambulation with railing. Communtity Goals: One step w/ o railing. 150' gait without walker. Recreational Goals: Hike, power walk. Prior Functional Status Baseline Function- ADL's Independent Baseline Function- Mobility Independent Baseline Function- Gait Gait without assistive device. 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 Baseline Function- Recreation/Hobbies Power walk, hike w/o poles. Baseline Function- Other Trouble with stair ambulation due to pain. Current Functional Impairments (Reported) Functional Limitations- ADL's Walks with FWW. Difficulty stairs, dressing, sit to stand, rolling in bed, squatting. Functional Limitations- Mobility/Gait Walk as far as allowed. Doesn't tire but tissues tight , creates pain in medial R knee sometimes. Functional Limitations- Work/School Not working since Cov. Functional Limitations- Recreation/ Not able to power walk, hike. Hobbies Personal Factors Other Personal Factors That May Effect History of Patella Therapy/Recovery dislocations has caused apprehension and fear with exercising her LE's. History of Back pain. Current Norco Palsy affecting vision. PT-OP-C Subjective Start: 01/07/20 07:59 Freq: Status: Active Protocol: Document 01/12/20 14:30 LRN (Rec: 01/12/20 15:18 LRN [id number]) OP-PT Subjective Patient Comments Patient Comments Saw PA this morning and had bandage removed and was told to keep incision clean and dry . Bruising sensation in R lower leg is less. OP-PT Pain Assessment Pain Assessment Grid Paper Pain Assessment Grid Completed No: Pain [id number] PT-OP-D Balance Start: 01/07/20 07:59 Freq: Status: Active Protocol: Document 01/07/20 11:26 LRN (Rec: 01/07/20 13:35 LRN [id number]) Tinetti Balance Assessment Sitting Balance Sitting Balance Steady, safe Arising from Chair Ability to Arise Able, uses arms to help Attempts to Arise Arises on 1st attempt Standing Balance Immediate Standing Balance Steady with support Standing Balance Steady, wide stance Nudged Response Steady Standing with Eyes Closed Steady Turning Step Pattern Turning 360 Degrees Discontinuous steps Stability Turning 360 Degrees Steady Sitting Down Sitting Down Uses arms or unsteady Gait and Step Initiation of Gait No hesitancy Right Foot Step Length Does pass stance foot Right Foot Step Height Does not clear floor Left Foot Step Length Does pass stance foot Left Foot Step Height Completely clears floor Step Description Step Symmetry Step length not equal Step Continuity Steps appear continuous Gait Description Path Description Mild/moderate deviation Trunk Description Marked sway or uses aide Walking Stance Heels apart Scoring and Interpretation Tinetti Composite Score (points) 17 Interpretation of Scores High risk for falls(< 19) Tinetti Impairment Rating from Composite 40 to <60% Impaired (Score 12- Score 16) PT-OP-E Functional Tests Start: 01/07/20 07:59 Freq: Status: Active Protocol: Document 01/07/20 11:26 LRN (Rec: 01/07/20 13:23 LRN [id number]) Functional Tests Other 2' Step Test Name of Test 2' Step Test Score 36x Comment Norm is 57-107 steps for 60-64 year olds. Pt fatigued at end of test. PT-OP-G Mobility & Gait Start: 01/07/20 07:59 Freq: Status: Active Protocol: Document 01/07/20 11:26 LRN (Rec: 01/07/20 12:39 LRN [id number]) OP Mobility Evaluation Bed Mobility Rolling Pt avoids due to pain. Supine to and from Sit Pt requires assist to lift RLE onto plinth. Pt Independently transfer to sit using UE's to assist RLE. Transfers Sit to Stand Independent with R LE in full extension and use of UE's. OP Gait Assessment Gait Gait Assistance Required: Independent Distance (Feet) 100 Able to Maintain Weight Bearing Status Yes During Gait Assistive Devices Assistive Device Front Wheeled Walker Orthotic/Prosthetic Devices or Brace: No Gait Deviations General Gait Pattern Antalgic,Decreased Stride Length,Decreased Feet Clearance,Flexed Trunk,Lateral Trunk Lean,Wide Based Gait Factors Limiting Gait Function Factors Limiting Gait Function Decreased Activity Tolerance, Decreased Strength,Limited Range of Motion,Pain,Poor Balance Comments Gait Comments Pt R toes do not clear floor sometimes even with hip hiking . PT-OP-J Posture/Palpation/Skin Start: 01/07/20 07:59 Freq: Status: Active Protocol: Document 01/12/20 14:30 LRN (Rec: 01/12/20 15:18 LRN [id number]) Palpation Assessment Location One Palpation Location R knee Palpation Findings Edema,Soft Tissue Tightness, Tenderness Palpation Details Pt wearing compressive hose. Mild increased temperature of medial lower leg. Generalized tenderness of R knee joint. Moderate swelling at the R knee joint. Minimal swelling in the R lower leg and upper thigh. Skin Assessment Incisional Assessment Incision Appearance/Comments Areas of dried blood present along incision. Incision healed. PT-OP-K Range of Motion Start: 01/07/20 07:59 Freq: Status: Active Protocol: Document 01/12/20 14:30 LRN (Rec: 01/12/20 15:18 LRN [id number]) Knee Goniometric Range of Motion Knee Right Knee ROM WFL No Patient Position Supine Flexion Active (degrees) 45 Flexion Passive (degrees) 48 Extension Active (degrees) 15 Knee ROM Limitations Comments R knee AROM (supine): 15 deg' s ext lag. W/O shoes on. PT-OP-M Strength Start: 01/07/20 07:59 Freq: Status: Active Protocol: Document 01/07/20 11:26 LRN (Rec: 01/07/20 13:05 LRN [id number]) Hip Strength Hip Manual Muscle Testing Right Flexion (L2) 1 Trace Extension (S1) 3 Fair Abduction 3+ Fair+ Adduction 3+ Fair+ Comments Hip AB/AD/Ext approximate measurement in modified position (supine) of due to recent surgery. Left Flexion (L2) 5 Normal Extension (S1) 4 Good Abduction 5 Normal Adduction 5 Normal Comments Hip AB/AD/Ext approximate measurement in modified position (supine) of due to recent surgery. Knee Strength Knee Manual Muscle Testing Right Flexion (S2) 3 Fair Extension (L3) 1 Trace Left Flexion (S2) 3+ Fair+ Extension (L3) 5 Normal Ankle/Foot Strength Ankle and Foot Manual Muscle Testing Right Dorsiflexion (L4) 5 Normal Plantarflexion (S1) 5 Normal Comments Normal strength within available range. Range of motion limited due to soft tissue tightness and pain of R lower leg/knee. Left Dorsiflexion (L4) 5 Normal Plantarflexion (S1) 5 Normal PT-OP-Q Treatments Start: 01/07/20 07:59 Freq: Status: Active Protocol: Document 01/12/20 14:30 LRN (Rec: 01/12/20 15:18 LRN [id number]) Therapeutic Exercises Supine Exercises Ball roll up Supine Exercise Name Heel slide on Red T-Ball with & w/o assist Side right Equipment Used Red T-Ball, Blue strap Reps/Minutes 10x Comments Pt moves slowly and requires cuing for proper breathing. Heel slides Supine Exercise Name Heel slide manual assist Side right Reps/Minutes 8x Comments Pt needed much v. cuing for proper breathing and ROM assist SLR Supine Exercise Name SLR Side right Resistance Harbert Reps/Minutes 8x Comments Pt needed training for proper breathing and cuing for body positioning. SAQ Supine Exercise Name SAQ - ECC Side right Reps/Minutes 8x Comments Pt taught breathing with ex Standing Exercises Shallow squat Standing Exercise Name Shallow squat with at least 50 % WBing RLE Side bilateral Equipment Used FWW Reps/Minutes 8x Comments Pt needed correction for posturing and greater WBing on RLE Gait Training Gait Activity R toe ext/knee flex w/toe off phase Description Toe off phase: R toes ext & knee flex to decr hip hike Device Used FWW Level of Assistance SBA Surface Level Treatment Focus 12 Comments Pt needed cuing before and after treatment due to poor habit of walking with R leg straight. Self-Care/Home Management Treatment Education Other Education During supine ex's educated pt in self MWM for medial glide of patella to manage medial knee pain. Activities Self-Care/Home Management Activities Pt to have spouse assist with stabilization of R patella to prevent lateral movment or dislocation due to very weak medial quadricep. Pt to increase ex's to at least 10 reps without assist, and added standing shallow squats to HEP. Pt to continue RICE self treatment. PT-OP-R Modalities Start: 01/07/20 07:59 Freq: Status: Active Protocol: Document 01/12/20 14:30 LRN (Rec: 01/12/20 15:18 LRN [id number]) Hot Pack/Cold Pack Treatment Cold Pack Location R knee Patient Position Supine Treatment Duration (minutes) 10 Comments R leg elevated during treatment PT-OP-T Assessment and Plan Start: 01/07/20 07:59 Freq: Status: Active Protocol: Document 01/12/20 14:30 LRN (Rec: 01/12/20 15:18 LRN [id number]) Physical Therapy Assessment Goals Five Impairment Decreased function per LEFS score of 17/80 (60-79% impaired) [facility] Goal (LTG) Improve functional ability per LEFS score no less than 63/80 . LTG Duration 8 weeks (03/18/20) Four Impairment Decreased balance. (Pt not able to SLS on RLE or perform Rhomberg stance) [facility]ci Goal (LTG) Pt will be able to scrap drop engineer Rhomberg for 10 sec's without difficulty in order to walk safely 150' without a walker and return to low level hiking and power walk activities. LTG Duration 8 weeks (03/18/20) Three Impairment Decreased R knee strength of ext 1/5, flex 3/5 (Left ext 5/ 5, flex 4/5) Short Term Goal (STG) Pt will be able to improve R knee extension strength to 3/5 and flexion 3+/5 in order to move in bed without difficulty , transfer in/out of bed without assist and ambulate with use of cane instead of walker. (01/12/20: Pt able to lift leg onto plinth with difficulty). STG Duration 2 weeks (01/22/20) Program Director Substance Abuse Goal (LTG) Pt will improve R knee strength 4/5 for ability to ambulate 1 step without use of railing, and home stairs with use of railing with 80% confidence. LTG Duration 8 weeks (03/18/20) Two Impairment Decreased supine R knee AROM 0 -45 deg's (Left is 0-130 deg's ) Short Term Goal (STG) Pt will be able to achieve R knee flexion of 90 deg's and will demonstrate ability to perform active knee extension and transfer sit to stand with minimal difficulty and dress without assist. STG Duration 2 weeks (01/22/20) Program Director Substance Abuse Goal (LTG) Pt will be able to achieve active R knee flexion 115 deg' s to tolerate ambulation on level and stairs, and transfer sit to stand without pain, and to tolerate a functional squat with pain no greater than 1/10. LTG Duration 8 weeks (03/18/20) One Impairment Pt lacks appropriate self care HEP Short Term Goal (STG) Pt will be educated in a home exercise program (HEP) to address decreased R knee ROM/ strength and decreased R hip strength to improve transfer and gait; Balance training exercises. STG Duration 2 weeks (01/22/20) Program Director Substance Abuse Goal (LTG) Pt will be independent in a self care HEP for progression towards functional squatting and progressing gait for hiking and power walking. LTG Duration 8 weeks (03/18/20) Progress Towards Goals Progress Comments R knee AROM: pre therapy: 42 deg's, post therapy 45 deg's. PROM: post therapy: 48 deg's. Gt mechanics improved: Pt able walk without holding her R knee stiff and rigid, but she has a habit of walking stiff legged if not concentrating on gait. Assessment Summary Assessment Incision appears healed but scab formation still present indicating not yet fully healed. Pt improved R knee AROM from flex 42 to 45 deg's and passively tolerated 48 deg 's flexion. Walking improved from stiff legged to having a knee flex/toes ext prior to and during swing phase. Hip flex strength improved with pt able to SLR without assist 3x . Quad lag present indicating medial quad weakness. Slow progress in med quad strengthening expected due top pt's history of lateral dislocation of patella. Physical Therapy Plan Frequency and Duration Frequency of Treatment 2x/wk > 1x/week Plan of Care Start Date 01/07/20 Plan of Care End Date 03/18/20 Next Visit Focus/Plan Next Note Type Treatment Note Next Visit Plan Review standing squat and reps for indep SLR. Cont gait training. Measure knee circumference if support hose can be removed bilaterally. K-tape for edema. Assess TUG. ROM (R knee flex, ankle DF), Strengthening (R knee/hip flex , Hip AB, ankle DF) ex's. Progress HEP to include balance and gait activities. Gait training on stairs when appropriate,
--- NOTE | 2020-01-14 14:53 | PT.OTN ---
Current Diagnoses Unilateral primary osteoarthritis, right knee (01/14/20) Stiffness of right knee, not elsewhere classified (01/14/20) Muscle weakness (generalized) (01/14/20) Unsteadiness on feet (01/14/20) Other abnormalities of gait and mobility (01/14/20) Presence of right artificial knee joint (01/14/20) Physical Therapy Treatment Note PT-OP-A Visit Information Start: 01/07/20 07:59 Freq: Status: Active Protocol: Document 01/14/20 09:03 LRN (Rec: 01/14/20 09:50 LRN [id number]) Out-Patient Physical Therapy Visit Information Visit Information Visit Type Treatment Note Visit Start Time 09:03 Visit Stop Time 09:55 Total Visit Minutes 52 Visit Number 3 Evaluation Information Evaluation Date 01/07/20 Precautions Precautions Back pain due to scoliosis but currently no back pain. [place] Palsy - 08/23/19, R side of face. R eye effected with difficulty vision due to excessive tears. PT-OP-B Current Condition Start: 01/07/20 07:59 Freq: Status: Active Protocol: Document 01/07/20 11:26 LRN (Rec: 01/07/20 12:39 LRN [id number]) Current Condition History of Current Condition Onset Date 12/29/19 Current Complaints Swelling, tightness of knee, using walker History of Current Condition R TKA at [facility] on 12/29/19. She was at [facility] 2 nights, but since home has been doing ex's 1x/ day with assist of spouse. Pt is not sure what the exercises are that she has been doing. She notes considerable swelling & bruising in the R LE, and discomfort in area of bruising . She warns that due to her history of knee problems and dislocating patella's she is apprehensive and hesitant in doing exercises. L knee arthritis. Fatigues quickly since surgery. Prior Treatments and Tests Age 22 had R patella surgery to release lateral tendons ligaments to prevent patella from dislocating, no therapy at that time. She reports resolution of the dislocations but that she has purposely avoids exercises. She reports her L patella dislocated only one time in 2004. Developmental History Developmental History 12/10/19 R knee became swollen requiring ER visit and was told arthritis. Pt reports having difficulty ambulating requiring use of FWW since that time and subsequent R TKA (current diagnosis). Treatment Goals Patient/Caregiver Goals Functional Goals: Walk without a walker, do a squat, Dressing, sit to stand with ease, roll and move in bed without difficulty, stair ambulation with railing. Communtity Goals: One step w/ o railing. 150' gait without walker. Recreational Goals: Hike, power walk. Prior Functional Status Baseline Function- ADL's Independent Baseline Function- Mobility Independent Baseline Function- Gait Gait without assistive device. 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 Baseline Function- Recreation/Hobbies Power walk, hike w/o poles. Baseline Function- Other Trouble with stair ambulation due to pain. Current Functional Impairments (Reported) Functional Limitations- ADL's Walks with FWW. Difficulty stairs, dressing, sit to stand, rolling in bed, squatting. Functional Limitations- Mobility/Gait Walk as far as allowed. Doesn't tire but tissues tight , creates pain in medial R knee sometimes. Functional Limitations- Work/School Not working since Covid 19. Functional Limitations- Recreation/ Not able to power walk, hike. Hobbies Personal Factors Other Personal Factors That May Effect History of Patella Therapy/Recovery dislocations has caused apprehension and fear with exercising her LE's. History of Back pain. Current [place] Palsy affecting vision. PT-OP-C Subjective Start: 01/07/20 07:59 Freq: Status: Active Protocol: Document 01/14/20 09:03 LRN (Rec: 01/14/20 09:50 LRN [id number]) OP-PT Subjective Patient Comments Patient Comments States her knee is more swollen and has bruising in her R anterior knee and calf. PT-OP-D Balance Start: 01/07/20 07:59 Freq: Status: Active Protocol: Document 01/07/20 11:26 LRN (Rec: 01/07/20 13:35 LRN [id number]) Tinetti Balance Assessment Sitting Balance Sitting Balance Steady, safe Arising from Chair Ability to Arise Able, uses arms to help Attempts to Arise Arises on 1st attempt Standing Balance Immediate Standing Balance Steady with support Standing Balance Steady, wide stance Nudged Response Steady Standing with Eyes Closed Steady Turning Step Pattern Turning 360 Degrees Discontinuous steps Stability Turning 360 Degrees Steady Sitting Down Sitting Down Uses arms or unsteady Gait and Step Initiation of Gait No hesitancy Right Foot Step Length Does pass stance foot Right Foot Step Height Does not clear floor Left Foot Step Length Does pass stance foot Left Foot Step Height Completely clears floor Step Description Step Symmetry Step length not equal Step Continuity Steps appear continuous Gait Description Path Description Mild/moderate deviation Trunk Description Marked sway or uses aide Walking Stance Heels apart Scoring and Interpretation Tinetti Composite Score (points) 17 Interpretation of Scores High risk for falls(< 19) Tinetti Impairment Rating from Composite 40 to <60% Impaired (Score 12- Score 16) PT-OP-E Functional Tests Start: 01/07/20 07:59 Freq: Status: Active Protocol: Document 01/07/20 11:26 LRN (Rec: 01/07/20 13:23 LRN [id number]) Functional Tests Other 2' Step Test Name of Test 2' Step Test Score 36x Comment Norm is 57-107 steps for 60-64 year olds. Pt fatigued at end of test. PT-OP-G Mobility & Gait Start: 01/07/20 07:59 Freq: Status: Active Protocol: Document 01/07/20 11:26 LRN (Rec: 01/07/20 12:39 LRN [id number]) OP Mobility Evaluation Bed Mobility Rolling Pt avoids due to pain. Supine to and from Sit Pt requires assist to lift RLE onto plinth. Pt Independently transfer to sit using UE's to assist RLE. Transfers Sit to Stand Independent with R LE in full extension and use of UE's. OP Gait Assessment Gait Gait Assistance Required: Independent Distance (Feet) 100 Able to Maintain Weight Bearing Status Yes During Gait Assistive Devices Assistive Device Front Wheeled Walker Orthotic/Prosthetic Devices or Brace: No Gait Deviations General Gait Pattern Antalgic,Decreased Stride Length,Decreased Feet Clearance,Flexed Trunk,Lateral Trunk Lean,Wide Based Gait Factors Limiting Gait Function Factors Limiting Gait Function Decreased Activity Tolerance, Decreased Strength,Limited Range of Motion,Pain,Poor Balance Comments Gait Comments Pt R toes do not clear floor sometimes even with hip hiking . PT-OP-J Posture/Palpation/Skin Start: 01/07/20 07:59 Freq: Status: Active Protocol: Document 01/12/20 14:30 LRN (Rec: 01/12/20 15:18 LRN [id number]) Palpation Assessment Location One Palpation Location R knee Palpation Findings Edema,Soft Tissue Tightness, Tenderness Palpation Details Pt wearing compressive hose. Mild increased temperature of medial lower leg. Generalized tenderness of R knee joint. Moderate swelling at the R knee joint. Minimal swelling in the R lower leg and upper thigh. Skin Assessment Incisional Assessment Incision Appearance/Comments Areas of dried blood present along incision. Incision healed. PT-OP-K Range of Motion Start: 01/07/20 07:59 Freq: Status: Active Protocol: Document 01/14/20 09:03 LRN (Rec: 01/14/20 09:50 LRN [id number]) Knee Goniometric Range of Motion Knee Right Knee ROM WFL No Patient Position Supine Flexion Active (degrees) 45 Flexion Passive (degrees) 48 Extension Active (degrees) 35 Knee ROM Limitations Comments Sitting: active flex: 45 deg' s; active ext: lacking 35 deg' s PT-OP-M Strength Start: 01/07/20 07:59 Freq: Status: Active Protocol: Document 01/07/20 11:26 LRN (Rec: 01/07/20 13:05 LRN [id number]) Hip Strength Hip Manual Muscle Testing Right Flexion (L2) 1 Trace Extension (S1) 3 Fair Abduction 3+ Fair+ Adduction 3+ Fair+ Comments Hip AB/AD/Ext approximate measurement in modified position (supine) of due to recent surgery. Left Flexion (L2) 5 Normal Extension (S1) 4 Good Abduction 5 Normal Adduction 5 Normal Comments Hip AB/AD/Ext approximate measurement in modified position (supine) of due to recent surgery. Knee Strength Knee Manual Muscle Testing Right Flexion (S2) 3 Fair Extension (L3) 1 Trace Left Flexion (S2) 3+ Fair+ Extension (L3) 5 Normal Ankle/Foot Strength Ankle and Foot Manual Muscle Testing Right Dorsiflexion (L4) 5 Normal Plantarflexion (S1) 5 Normal Comments Normal strength within available range. Range of motion limited due to soft tissue tightness and pain of R lower leg/knee. Left Dorsiflexion (L4) 5 Normal Plantarflexion (S1) 5 Normal PT-OP-Q Treatments Start: 01/07/20 07:59 Freq: Status: Active Protocol: Document 01/14/20 09:03 LRN (Rec: 01/14/20 09:50 LRN [id number]) Therapeutic Exercises Supine Exercises Quad Sets leg on T-Ball Supine Exercise Name Quad Sets leg on T-Ball Side right Reps/Minutes 10x Ball roll up Supine Exercise Name Heel slide on Red T-Ball with & w/o assist Side right Equipment Used Red T-Ball, Blue strap Reps/Minutes 13x Comments Pt moves slowly and requires cuing for proper breathing. Heel slides Supine Exercise Name Heel slide manual assist Side right Reps/Minutes 15x Comments Pt needed much v. cuing for proper breathing and ROM assist SLR Supine Exercise Name SLR -Indep Side right Resistance [place] Reps/Minutes 10x Comments Independent lift SAQ Supine Exercise Name SAQ - Conc Side right Reps/Minutes 10x Comments Pt taught breathing only w/ initial lift. Manual Therapy Treatment Soft Tissue Mobilization LE lymph massage Body Location R LE Mobilization Type Manual Lymphatic Drainage Body Position Supine Comments Discussed mechanism of action and significance of sequencing for massage throughout massage. Self-Care/Home Management Treatment Education Patient Education Home Exercise Program Other Education Applied K-tape Patch test on R thigh and I/S pt to monitor closely. I/S pt in safe and proper removal of K-tape with I/S to remove with signs of allergic reaction (discussed symptoms). Pt I/S to remove tape by day 5 if still wearing . Activities Self-Care/Home Management Activities Instructed pt in Self lymphadema LE massage and Handout issued. I/S pt to focus on improving knee ROM I/S pt in modification of ball rolling ex to use wall for heel slides. PT-OP-R Modalities Start: 01/07/20 07:59 Freq: Status: Active Protocol: Document 01/14/20 09:03 LRN (Rec: 01/14/20 09:50 LRN [id number]) Hot Pack/Cold Pack Treatment Cold Pack Location R knee Patient Position Supine Treatment Duration (minutes) 10 Comments Cryocuff R leg elevated PT-OP-T Assessment and Plan Start: 01/07/20 07:59 Freq: Status: Active Protocol: Document 01/14/20 09:03 LRN (Rec: 01/14/20 14:49 LRN [id number]) Physical Therapy Assessment Goals Five Impairment Decreased function per LEFS score of 17/80 (60-79% impaired) Detention Goal (LTG) Improve functional ability per LEFS score no less than 63/80 . LTG Duration 8 weeks (03/18/20) Four Impairment Decreased balance. (Pt not able to SLS on RLE or perform [place] stance) Keeper Helper Goal (LTG) Pt will be able to [employer] consultant [place] for 10 sec's without difficulty in order to walk safely 150' without a walker and return to low level hiking and power walk activities. LTG Duration 8 weeks (03/18/20) Three Impairment Decreased R knee strength of ext 1/5, flex 3/5 (Left ext 5/ 5, flex 4/5) Short Term Goal (STG) Pt will be able to improve R knee extension strength to 3/5 and flexion 3+/5 in order to move in bed without difficulty , transfer in/out of bed without assist and ambulate with use of cane instead of walker. (01/14/20: Pt able to lift leg onto plinth independently with difficulty but able to perform indep SLR as exercise). STG Duration 2 weeks (01/22/20) Keeper Helper Goal (LTG) Pt will improve R knee strength 4/5 for ability to ambulate 1 step without use of railing, and home stairs with use of railing with 80% confidence. LTG Duration 8 weeks (03/18/20) Two Impairment Decreased supine R knee AROM 0 -45 deg's (Left is 0-130 deg's ) Short Term Goal (STG) Pt will be able to achieve R knee flexion of 90 deg's and will demonstrate ability to perform active knee extension and transfer sit to stand with minimal difficulty and dress without assist. STG Duration 2 weeks (01/22/20) Detention Goal (LTG) Pt will be able to achieve active R knee flexion 115 deg' s to tolerate ambulation on level and stairs, and transfer sit to stand without pain, and to tolerate a functional squat with pain no greater than 1/10. LTG Duration 8 weeks (03/18/20) One Impairment Pt lacks appropriate self care HEP Short Term Goal (STG) Pt will be educated in a home exercise program (HEP) to address decreased R knee ROM/ strength and decreased R hip strength to improve transfer and gait; Balance training exercises. STG Duration 2 weeks (01/22/20) Keeper Helper Goal (LTG) Pt will be independent in a self care HEP for progression towards functional squatting and progressing gait for hiking and power walking. LTG Duration 8 weeks (03/18/20) Progress Towards Goals Progress Towards Goals Slow Progress due to Activity Tolerance,Slow Progress due to Medical Issues Progress Comments Pt able to lift RLE independently in SLR and SAQ. ROM progress is slow. Assessment Summary Assessment Improved RLE strength (see above). Pt R knee flared, extension lag greater; therefore ROM not improved and held standing squats. Physical Therapy Plan Frequency and Duration Frequency of Treatment 2x/wk > 1x/week Plan of Care Start Date 01/07/20 Plan of Care End Date 03/18/20 Next Visit Focus/Plan Next Note Type Treatment Note Next Visit Plan Assess response to K-tape patch test. Review standing squat, increase ex tolerance. Gait training. Measure knee circumference if support hose can be removed bilaterally. K-tape for edema. Assess TUG. ROM (R knee flex, ankle DF), Strengthening (R knee/hip flex , Hip AB, ankle DF) ex's. Progress HEP to include balance and gait activities, and gait training on stairs when appropriate,
--- NOTE | 2020-01-21 13:01 | PT.OTN ---
Current Diagnoses Unilateral primary osteoarthritis, right knee (01/21/20) Stiffness of right knee, not elsewhere classified (01/21/20) Muscle weakness (generalized) (01/21/20) Unsteadiness on feet (01/21/20) Other abnormalities of gait and mobility (01/21/20) Presence of right artificial knee joint (01/21/20) Physical Therapy Treatment Note PT-OP-A Visit Information Start: 01/07/20 07:59 Freq: Status: Active Protocol: Document 01/21/20 08:10 LRN (Rec: 01/21/20 09:03 LRN [id number]) Out-Patient Physical Therapy Visit Information Visit Information Visit Type Treatment Note Visit Start Time 08:10 Visit Stop Time 09:00 Total Visit Minutes 50 Visit Number 4 Evaluation Information Evaluation Date 01/07/20 Precautions Precautions Back pain due to scoliosis but currently no back pain. Palmer Palsy - 08/23/19, R side of face. R eye effected with difficulty vision due to excessive tears. PT-OP-B Current Condition Start: 01/07/20 07:59 Freq: Status: Active Protocol: Document 01/07/20 11:26 LRN (Rec: 01/07/20 12:39 LRN [id number]) Current Condition History of Current Condition Onset Date 12/29/19 Current Complaints Swelling, tightness of knee, using walker History of Current Condition R TKA at [facility] on 12/29/19. She was at [facility] 2 nights, but since home has been doing ex's 1x/ day with assist of spouse. Pt is not sure what the exercises are that she has been doing. She notes considerable swelling & bruising in the R LE, and discomfort in area of bruising . She warns that due to her history of knee problems and dislocating patella's she is apprehensive and hesitant in doing exercises. L knee arthritis. Fatigues quickly since surgery. Prior Treatments and Tests Age 22 had R patella surgery to release lateral tendons ligaments to prevent patella from dislocating, no therapy at that time. She reports resolution of the dislocations but that she has purposely avoids exercises. She reports her L patella dislocated only one time in 2004. Developmental History Developmental History 12/10/19 R knee became swollen requiring ER visit and was told arthritis. Pt reports having difficulty ambulating requiring use of FWW since that time and subsequent R TKA (current diagnosis). Treatment Goals Patient/Caregiver Goals Functional Goals: Walk without a walker, do a squat, Dressing, sit to stand with ease, roll and move in bed without difficulty, stair ambulation with railing. Communtity Goals: One step w/ o railing. 150' gait without walker. Recreational Goals: Hike, power walk. Prior Functional Status Baseline Function- ADL's Independent Baseline Function- Mobility Independent Baseline Function- Gait Gait without assistive device. 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 Baseline Function- Recreation/Hobbies Power walk, hike w/o poles. Baseline Function- Other Trouble with stair ambulation due to pain. Current Functional Impairments (Reported) Functional Limitations- ADL's Walks with FWW. Difficulty stairs, dressing, sit to stand, rolling in bed, squatting. Functional Limitations- Mobility/Gait Walk as far as allowed. Doesn't tire but tissues tight , creates pain in medial R knee sometimes. Functional Limitations- Work/School Not working since Covid 19. Functional Limitations- Recreation/ Not able to power walk, hike. Hobbies Personal Factors Other Personal Factors That May Effect History of Patella Therapy/Recovery dislocations has caused apprehension and fear with exercising her LE's. History of Back pain. Current Palmer Palsy affecting vision. PT-OP-C Subjective Start: 01/07/20 07:59 Freq: Status: Active Protocol: Document 01/21/20 08:10 LRN (Rec: 01/21/20 09:03 LRN [id number]) OP-PT Subjective Patient Comments Patient Comments States her knee is feeling better. No problem with K- tape, didn't even know it was there. She is wanting to walk without walker in the home some of the time. PT-OP-D Balance Start: 01/07/20 07:59 Freq: Status: Active Protocol: Document 01/07/20 11:26 LRN (Rec: 01/07/20 13:35 LRN [id number]) Tinetti Balance Assessment Sitting Balance Sitting Balance Steady, safe Arising from Chair Ability to Arise Able, uses arms to help Attempts to Arise Arises on 1st attempt Standing Balance Immediate Standing Balance Steady with support Standing Balance Steady, wide stance Nudged Response Steady Standing with Eyes Closed Steady Turning Step Pattern Turning 360 Degrees Discontinuous steps Stability Turning 360 Degrees Steady Sitting Down Sitting Down Uses arms or unsteady Gait and Step Initiation of Gait No hesitancy Right Foot Step Length Does pass stance foot Right Foot Step Height Does not clear floor Left Foot Step Length Does pass stance foot Left Foot Step Height Completely clears floor Step Description Step Symmetry Step length not equal Step Continuity Steps appear continuous Gait Description Path Description Mild/moderate deviation Trunk Description Marked sway or uses aide Walking Stance Heels apart Scoring and Interpretation Tinetti Composite Score (points) 17 Interpretation of Scores High risk for falls(< 19) Tinetti Impairment Rating from Composite 40 to <60% Impaired (Score 12- Score 16) PT-OP-E Functional Tests Start: 01/07/20 07:59 Freq: Status: Active Protocol: Document 01/21/20 08:10 LRN (Rec: 01/21/20 12:59 LRN [id number]) Functional Tests Timed Up and Go (TUG) Score 19 Comments No AD, used hands, R leg held forw of L. L LE started 10' distance robb TUG Impairment Rating 80 to <100% Impaired (Score 18 -19) PT-OP-G Mobility & Gait Start: 01/07/20 07:59 Freq: Status: Active Protocol: Document 01/07/20 11:26 LRN (Rec: 01/07/20 12:39 LRN [id number]) OP Mobility Evaluation Bed Mobility Rolling Pt avoids due to pain. Supine to and from Sit Pt requires assist to lift RLE onto plinth. Pt Independently transfer to sit using UE's to assist RLE. Transfers Sit to Stand Independent with R LE in full extension and use of UE's. OP Gait Assessment Gait Gait Assistance Required: Independent Distance (Feet) 100 Able to Maintain Weight Bearing Status Yes During Gait Assistive Devices Assistive Device Front Wheeled Walker Orthotic/Prosthetic Devices or Brace: No Gait Deviations General Gait Pattern Antalgic,Decreased Stride Length,Decreased Feet Clearance,Flexed Trunk,Lateral Trunk Lean,Wide Based Gait Factors Limiting Gait Function Factors Limiting Gait Function Decreased Activity Tolerance, Decreased Strength,Limited Range of Motion,Pain,Poor Balance Comments Gait Comments Pt R toes do not clear floor sometimes even with hip hiking . PT-OP-J Posture/Palpation/Skin Start: 01/07/20 07:59 Freq: Status: Active Protocol: Document 01/12/20 14:30 LRN (Rec: 01/12/20 15:18 LRN [id number]) Palpation Assessment Location One Palpation Location R knee Palpation Findings Edema,Soft Tissue Tightness, Tenderness Palpation Details Pt wearing compressive hose. Mild increased temperature of medial lower leg. Generalized tenderness of R knee joint. Moderate swelling at the R knee joint. Minimal swelling in the R lower leg and upper thigh. Skin Assessment Incisional Assessment Incision Appearance/Comments Areas of dried blood present along incision. Incision healed. PT-OP-K Range of Motion Start: 01/07/20 07:59 Freq: Status: Active Protocol: Document 01/21/20 08:10 LRN (Rec: 01/21/20 12:58 LRN [id number]) Knee Goniometric Range of Motion Knee S/P therapy Right Knee ROM WFL No Patient Position Supine Flexion Active (degrees) 58 Extension Active (degrees) 15 Right Knee ROM WFL No Patient Position Supine Flexion Active (degrees) 55 Extension Active (degrees) 18 Knee ROM Limitations Comments Extension is lacking neutral positioning. PT-OP-M Strength Start: 01/07/20 07:59 Freq: Status: Active Protocol: Document 01/07/20 11:26 LRN (Rec: 01/07/20 13:05 LRN [id number]) Hip Strength Hip Manual Muscle Testing Right Flexion (L2) 1 Trace Extension (S1) 3 Fair Abduction 3+ Fair+ Adduction 3+ Fair+ Comments Hip AB/AD/Ext approximate measurement in modified position (supine) of due to recent surgery. Left Flexion (L2) 5 Normal Extension (S1) 4 Good Abduction 5 Normal Adduction 5 Normal Comments Hip AB/AD/Ext approximate measurement in modified position (supine) of due to recent surgery. Knee Strength Knee Manual Muscle Testing Right Flexion (S2) 3 Fair Extension (L3) 1 Trace Left Flexion (S2) 3+ Fair+ Extension (L3) 5 Normal Ankle/Foot Strength Ankle and Foot Manual Muscle Testing Right Dorsiflexion (L4) 5 Normal Plantarflexion (S1) 5 Normal Comments Normal strength within available range. Range of motion limited due to soft tissue tightness and pain of R lower leg/knee. Left Dorsiflexion (L4) 5 Normal Plantarflexion (S1) 5 Normal PT-OP-Q Treatments Start: 01/07/20 07:59 Freq: Status: Active Protocol: Document 01/21/20 08:10 LRN (Rec: 01/21/20 09:03 LRN [id number]) Therapeutic Exercises Supine Exercises Foot wall slides Supine Exercise Name Foot slides off wall Side right Equipment Used Towel on wall for foot to slide Reps/Minutes 4' Comments Extra time for set up and pt training. Heel slides Supine Exercise Name Heel slide manual assist Side right Reps/Minutes 15x Comments Pain at medial knee limiting flex SLR Supine Exercise Name SLR -Indep Side right Resistance [place] Reps/Minutes 15x 2 Comments Independent lift, cuing for proper breathing SAQ Supine Exercise Name SAQ - Conc Side right Reps/Minutes 10x 3 Comments Good breathing. Standing Exercises Shallow squat Standing Exercise Name Shallow squat with at least 50 % WBing RLE Side bilateral Equipment Used FWW Reps/Minutes 10x Comments Pt needed correction for posturing and greater WBing on RLE Gait Training Gait Activity R toe ext/knee flex w/toe off phase Description Toe off phase: R toes ext & knee flex to decr hip hike Device Used FWW Level of Assistance Liz > SBA Surface Level Treatment Focus 12 Comments Pt needed physical cuing for knee flex at toe off and through swing through throughtout therapy time. Self-Care/Home Management Treatment Education Patient Education Home Exercise Program Activities Self-Care/Home Management Activities Pt I/S to do standing squats without support, incr ex for goal of 10rep x 3, and to practice gait 3x/day minimal with use of walker for proper gait as trained. Pt main goal is to improve knee flexion. PT-OP-R Modalities Start: 01/07/20 07:59 Freq: Status: Active Protocol: Document 01/21/20 08:10 LRN (Rec: 01/21/20 09:03 LRN [id number]) Hot Pack/Cold Pack Treatment Cold Pack Location R knee Patient Position Supine Treatment Duration (minutes) 10 Comments Cryocuff R leg elevated PT-OP-T Assessment and Plan Start: 01/07/20 07:59 Freq: Status: Active Protocol: Document 01/21/20 08:10 LRN (Rec: 01/21/20 09:03 LRN [id number]) Physical Therapy Assessment Progress Towards Goals Progress Towards Goals Slow Progress due to Activity Tolerance Progress Comments Pt able to lift RLE independently with minimal difficulty. Knee flexion (sup ) improved to 55 deg's & ext ( sup) 18 deg's lag to start. Ending flex is 58 deg's & ext is lacking 15 deg's. Assessment Summary Assessment Improved ability to flex the R knee during gait after training and with pt concentrating on gait. Poor habitual gait when pt is talking. Review of lymph massage not needed. TUG is 19 sec's. Knee mobility and strength improving (see progress comments above). Physical Therapy Plan Frequency and Duration Frequency of Treatment 1x/Week Plan of Care Start Date 01/07/20 Plan of Care End Date 03/18/20 Next Visit Focus/Plan Next Note Type Treatment Note Next Visit Plan Assess response to K-tape patch test. Review standing squat, increase ex tolerance. Gait training. Measure knee circumference if support hose can be removed bilaterally. K-tape for edema. Assess TUG. ROM (R knee flex, ankle DF), Strengthening (R knee/hip flex , Hip AB, ankle DF) ex's. Progress HEP to include balance activities, and gait training on stairs when appropriate,
--- NOTE | 2020-01-28 19:21 | PT.OTN ---
Current Diagnoses Unilateral primary osteoarthritis, right knee (01/28/20) Stiffness of right knee, not elsewhere classified (01/28/20) Muscle weakness (generalized) (01/28/20) Unsteadiness on feet (01/28/20) Other abnormalities of gait and mobility (01/28/20) Presence of right artificial knee joint (01/28/20) Physical Therapy Treatment Note PT-OP-A Visit Information Start: 01/07/20 07:59 Freq: Status: Active Protocol: Document 01/28/20 08:17 LRN (Rec: 01/28/20 09:01 LRN [id number]) Out-Patient Physical Therapy Visit Information Visit Information Visit Type Treatment Note Visit Start Time 08:18 Visit Stop Time 09:06 Total Visit Minutes 58 Visit Number 5 Evaluation Information Evaluation Date 01/07/20 Precautions Precautions Back pain due to scoliosis but currently no back pain. [place] Palsy - 08/23/19, R side of face. R eye effected with difficulty vision due to excessive tears. PT-OP-B Current Condition Start: 01/07/20 07:59 Freq: Status: Active Protocol: Document 01/07/20 11:26 LRN (Rec: 01/07/20 12:39 LRN [id number]) Current Condition History of Current Condition Onset Date 12/29/19 Current Complaints Swelling, tightness of knee, using walker History of Current Condition R TKA at [facility] on 12/29/19. She was at [facility] 2 nights, but since home has been doing ex's 1x/ day with assist of spouse. Pt is not sure what the exercises are that she has been doing. She notes considerable swelling & bruising in the R LE, and discomfort in area of bruising . She warns that due to her history of knee problems and dislocating patella's she is apprehensive and hesitant in doing exercises. L knee arthritis. Fatigues quickly since surgery. Prior Treatments and Tests Age 22 had R patella surgery to release lateral tendons ligaments to prevent patella from dislocating, no therapy at that time. She reports resolution of the dislocations but that she has purposely avoids exercises. She reports her L patella dislocated only one time in 2004. Developmental History Developmental History 12/10/19 R knee became swollen requiring ER visit and was told arthritis. Pt reports having difficulty ambulating requiring use of FWW since that time and subsequent R TKA (current diagnosis). Treatment Goals Patient/Caregiver Goals Functional Goals: Walk without a walker, do a squat, Dressing, sit to stand with ease, roll and move in bed without difficulty, stair ambulation with railing. Communtity Goals: One step w/ o railing. 150' gait without walker. Recreational Goals: Hike, power walk. Prior Functional Status Baseline Function- ADL's Independent Baseline Function- Mobility Independent Baseline Function- Gait Gait without assistive device. 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 Baseline Function- Recreation/Hobbies Power walk, hike w/o poles. Baseline Function- Other Trouble with stair ambulation due to pain. Current Functional Impairments (Reported) Functional Limitations- ADL's Walks with FWW. Difficulty stairs, dressing, sit to stand, rolling in bed, squatting. Functional Limitations- Mobility/Gait Walk as far as allowed. Doesn't tire but tissues tight , creates pain in medial R knee sometimes. Functional Limitations- Work/School Not working since Covid 19. Functional Limitations- Recreation/ Not able to power walk, hike. Hobbies Personal Factors Other Personal Factors That May Effect History of Patella Therapy/Recovery dislocations has caused apprehension and fear with exercising her LE's. History of Back pain. Current [place] Palsy affecting vision. PT-OP-C Subjective Start: 01/07/20 07:59 Freq: Status: Active Protocol: Document 01/28/20 08:17 LRN (Rec: 01/28/20 09:01 LRN [id number]) OP-PT Subjective Patient Comments Patient Comments States she was standing and turned to reach something and upon return she felt pain in the medial knee that was similar to when her patella dislocated. She is concerned her kneecap will dislocate. She states her mobility has made a setback because of this incident. PT-OP-D Balance Start: 01/07/20 07:59 Freq: Status: Active Protocol: Document 01/07/20 11:26 LRN (Rec: 01/07/20 13:35 LRN [id number]) Tinetti Balance Assessment Sitting Balance Sitting Balance Steady, safe Arising from Chair Ability to Arise Able, uses arms to help Attempts to Arise Arises on 1st attempt Standing Balance Immediate Standing Balance Steady with support Standing Balance Steady, wide stance Nudged Response Steady Standing with Eyes Closed Steady Turning Step Pattern Turning 360 Degrees Discontinuous steps Stability Turning 360 Degrees Steady Sitting Down Sitting Down Uses arms or unsteady Gait and Step Initiation of Gait No hesitancy Right Foot Step Length Does pass stance foot Right Foot Step Height Does not clear floor Left Foot Step Length Does pass stance foot Left Foot Step Height Completely clears floor Step Description Step Symmetry Step length not equal Step Continuity Steps appear continuous Gait Description Path Description Mild/moderate deviation Trunk Description Marked sway or uses aide Walking Stance Heels apart Scoring and Interpretation Tinetti Composite Score (points) 17 Interpretation of Scores High risk for falls(< 19) Tinetti Impairment Rating from Composite 40 to <60% Impaired (Score 12- Score 16) PT-OP-E Functional Tests Start: 01/07/20 07:59 Freq: Status: Active Protocol: Document 01/21/20 08:10 LRN (Rec: 01/21/20 12:59 LRN [id number]) Functional Tests Timed Up and Go (TUG) Score 19 Comments No AD, used hands, R leg held forw of L. L LE started 10' distance robb TUG Impairment Rating 80 to <100% Impaired (Score 18 -19) PT-OP-G Mobility & Gait Start: 01/07/20 07:59 Freq: Status: Active Protocol: Document 01/07/20 11:26 LRN (Rec: 01/07/20 12:39 LRN [id number]) OP Mobility Evaluation Bed Mobility Rolling Pt avoids due to pain. Supine to and from Sit Pt requires assist to lift RLE onto plinth. Pt Independently transfer to sit using UE's to assist RLE. Transfers Sit to Stand Independent with R LE in full extension and use of UE's. OP Gait Assessment Gait Gait Assistance Required: Independent Distance (Feet) 100 Able to Maintain Weight Bearing Status Yes During Gait Assistive Devices Assistive Device Front Wheeled Walker Orthotic/Prosthetic Devices or Brace: No Gait Deviations General Gait Pattern Antalgic,Decreased Stride Length,Decreased Feet Clearance,Flexed Trunk,Lateral Trunk Lean,Wide Based Gait Factors Limiting Gait Function Factors Limiting Gait Function Decreased Activity Tolerance, Decreased Strength,Limited Range of Motion,Pain,Poor Balance Comments Gait Comments Pt R toes do not clear floor sometimes even with hip hiking . PT-OP-J Posture/Palpation/Skin Start: 01/07/20 07:59 Freq: Status: Active Protocol: Document 01/12/20 14:30 LRN (Rec: 01/12/20 15:18 LRN [id number]) Palpation Assessment Location One Palpation Location R knee Palpation Findings Edema,Soft Tissue Tightness, Tenderness Palpation Details Pt wearing compressive hose. Mild increased temperature of medial lower leg. Generalized tenderness of R knee joint. Moderate swelling at the R knee joint. Minimal swelling in the R lower leg and upper thigh. Skin Assessment Incisional Assessment Incision Appearance/Comments Areas of dried blood present along incision. Incision healed. PT-OP-K Range of Motion Start: 01/07/20 07:59 Freq: Status: Active Protocol: Document 01/28/20 08:17 LRN (Rec: 01/28/20 09:01 LRN [id number]) Knee Goniometric Range of Motion Knee Right Knee ROM WFL No Patient Position Sitting Flexion Active (degrees) 59 Extension Active (degrees) 5 PT-OP-M Strength Start: 01/07/20 07:59 Freq: Status: Active Protocol: Document 01/07/20 11:26 LRN (Rec: 01/07/20 13:05 LRN [id number]) Hip Strength Hip Manual Muscle Testing Right Flexion (L2) 1 Trace Extension (S1) 3 Fair Abduction 3+ Fair+ Adduction 3+ Fair+ Comments Hip AB/AD/Ext approximate measurement in modified position (supine) of due to recent surgery. Left Flexion (L2) 5 Normal Extension (S1) 4 Good Abduction 5 Normal Adduction 5 Normal Comments Hip AB/AD/Ext approximate measurement in modified position (supine) of due to recent surgery. Knee Strength Knee Manual Muscle Testing Right Flexion (S2) 3 Fair Extension (L3) 1 Trace Left Flexion (S2) 3+ Fair+ Extension (L3) 5 Normal Ankle/Foot Strength Ankle and Foot Manual Muscle Testing Right Dorsiflexion (L4) 5 Normal Plantarflexion (S1) 5 Normal Comments Normal strength within available range. Range of motion limited due to soft tissue tightness and pain of R lower leg/knee. Left Dorsiflexion (L4) 5 Normal Plantarflexion (S1) 5 Normal PT-OP-Q Treatments Start: 01/07/20 07:59 Freq: Status: Active Protocol: Document 01/28/20 08:17 LRN (Rec: 01/28/20 09:01 LRN [id number]) Cardio Equipment Recumbent Elliptical (Biodex) Duration (Minutes) 10 Resistance 0 Seat Position 14 Other Foot started at 2nd support from bottom robb and progressed to bottom. Therapeutic Exercises Standing Exercises Shallow squat Standing Exercise Name Shallow squat with at least 50 % WBing RLE Side bilateral Equipment Used FWW Reps/Minutes 15x Comments Advanced UE support to no support Gait Training Gait Activity R toe ext/knee flex w/toe off phase Description Working on R knee flexion during toe off and swing through Device Used FWW Level of Assistance Indep with walker Surface Level Distance/Duration 3' Comments Pt needed physical cuing for knee flex at toe off and through swing through throughtout therapy time. Manual Therapy Treatment Taping R knee stabilization Body Location Lateral side of patella Treatment Focus Lateral support to patella to stabilize in patella groove location. Comments 1 I-Strip with 60% tension. R knee Ms Relaxation Body Location R medial quad of knee Treatment Focus Facilitate R medial quad contraction Comments Medial Quads: Ms Facilitation , fan stips, extra tape needed due to anchor lifting R knee edema Body Location R knee Treatment Focus Edema management Type of Tape Kinesio Tape Skin Inspection Good Comments 2 I-strips on sides adjacent to scar. Neuro Re-Education Treatment Balance Activities Standing wgt shifting Details Standing wgt shifting Equipment Walker Reps/Duration 3' Comments Progressed from use of walker to hands hovering over walker. Self-Care/Home Management Treatment Education Patient Education Home Exercise Program Other Education Pt I/S in removal of K-tape within 5 days and showed pt how to remove properly. Activities Self-Care/Home Management Activities Handout issued for do's & don' ts of LE lymph massage. PT-OP-R Modalities Start: 01/07/20 07:59 Freq: Status: Active Protocol: Document 01/21/20 08:10 LRN (Rec: 01/21/20 09:03 LRN [id number]) Hot Pack/Cold Pack Treatment Cold Pack Location R knee Patient Position Supine Treatment Duration (minutes) 10 Comments Cryocuff R leg elevated PT-OP-T Assessment and Plan Start: 01/07/20 07:59 Freq: Status: Active Protocol: Document 01/28/20 08:17 LRN (Rec: 01/28/20 09:01 ELLIE [id number]) Physical Therapy Assessment Goals Five Impairment Decreased function per LEFS score of 17/80 (60-79% impaired) Half-Way Goal (LTG) Improve functional ability per LEFS score no less than 63/80 . LTG Duration 8 weeks (03/18/20) Four Impairment Decreased balance. (Pt not able to SLS on RLE or perform Rhomberg stance) Manager Stone Goal (LTG) Pt will be able to bellstand attendant Rhomberg for 10 sec's without difficulty in order to walk safely 150' without a walker and return to low level hiking and power walk activities. LTG Duration 8 weeks (03/18/20) Three Impairment Decreased R knee strength of ext 1/5, flex 3/5 (Left ext 5/ 5, flex 4/5) Short Term Goal (STG) Pt will be able to improve R knee extension strength to 3/5 and flexion 3+/5 in order to move in bed without difficulty , transfer in/out of bed without assist and ambulate with use of cane instead of walker. (01/14/20: Pt able to lift leg onto plinth independently with difficulty but able to perform indep SLR as exercise). 12/28/19: R knee ext is 3-/5. STG Duration 2 weeks (12/28/19 Improving strength) Half-Way Goal (LTG) Pt will improve R knee strength 4/5 for ability to ambulate 1 step without use of railing, and home stairs with use of railing with 80% confidence. LTG Duration 8 weeks (03/18/20) Two Impairment Decreased supine R knee AROM 0 -45 deg's (Left is 0-130 deg's ) Short Term Goal (STG) Pt will be able to achieve R knee flexion of 90 deg's and will demonstrate ability to perform active knee extension and transfer sit to stand with minimal difficulty and dress without assist. STG Duration 2 weeks (01/22/20) Half-Way Goal (LTG) Pt will be able to achieve active R knee flexion 115 deg' s to tolerate ambulation on level and stairs, and transfer sit to stand without pain, and to tolerate a functional squat with pain no greater than 1/10. LTG Duration 8 weeks (03/18/20) One Impairment Pt lacks appropriate self care HEP Short Term Goal (STG) Pt will be educated in a home exercise program (HEP) to address decreased R knee ROM/ strength and decreased R hip strength to improve transfer and gait; Balance training exercises. STG Duration 2 weeks (01/22/20) Half-Way Goal (LTG) Pt will be independent in a self care HEP for progression towards functional squatting and progressing gait for hiking and power walking. LTG Duration 8 weeks (03/18/20) Assessment Summary Assessment Pt was not able to achieve 90 deg's of R knee active flexion due to a setback from an incident at home (see subjective report). She did improve her R knee AROM to 5- 59 deg's post therapy. She can now do a standing squat without UE support. Pt is very apprehensive of all ex due to normal pain response following a TKA. Physical Therapy Plan Frequency and Duration Frequency of Treatment 1x/Week Plan of Care Start Date 01/07/20 Plan of Care End Date 03/18/20 Next Visit Focus/Plan Next Note Type Treatment Note Next Visit Plan `Cont Gait training towards a cane. `Measure knee circumference if support hose can be removed bilaterally. `K-tape for edema, facilitation of medial quad and medial patellar glide. `Progress ROM (R knee flex, ankle DF) `Strengthening (R knee/hip flex, Hip AB, ankle DF) ex's. `Progress HEP to include balance activities, and gait training on stairs when appropriate
--- NOTE | 2020-02-15 10:07 | PT.OTN ---
Current Diagnoses Unilateral primary osteoarthritis, right knee (02/15/20) Stiffness of right knee, not elsewhere classified (02/15/20) Muscle weakness (generalized) (02/15/20) Unsteadiness on feet (02/15/20) Other abnormalities of gait and mobility (02/15/20) Presence of right artificial knee joint (02/15/20) Physical Therapy Treatment Note PT-OP-A Visit Information Start: 01/07/20 07:59 Freq: Status: Active Protocol: Document 02/15/20 08:55 LRN (Rec: 02/15/20 10:07 LRN [id number]) Out-Patient Physical Therapy Visit Information Visit Information Visit Type Treatment Note Visit Start Time 08:55 Visit Stop Time 09:50 Total Visit Minutes 55 Visit Number 7 Evaluation Information Evaluation Date 01/07/20 Precautions Precautions Back pain due to scoliosis but currently no back pain. S [place] Palsy - 08/23/19, R side of face. R eye effected with difficulty vision due to excessive tears. PT-OP-B Current Condition Start: 01/07/20 07:59 Freq: Status: Active Protocol: Document 01/07/20 11:26 LRN (Rec: 01/07/20 12:39 LRN [id number]) Current Condition History of Current Condition Onset Date 12/29/19 Current Complaints Swelling, tightness of knee, using walker History of Current Condition R TKA at [facility] on 12/29/19. She was at [facility] 2 nights, but since home has been doing ex's 1x/ day with assist of spouse. Pt is not sure what the exercises are that she has been doing. She notes considerable swelling & bruising in the R LE, and discomfort in area of bruising . She warns that due to her history of knee problems and dislocating patella's she is apprehensive and hesitant in doing exercises. L knee arthritis. Fatigues quickly since surgery. Prior Treatments and Tests Age 22 had R patella surgery to release lateral tendons ligaments to prevent patella from dislocating, no therapy at that time. She reports resolution of the dislocations but that she has purposely avoids exercises. She reports her L patella dislocated only one time in 2004. Developmental History Developmental History 12/10/19 R knee became swollen requiring ER visit and was told arthritis. Pt reports having difficulty ambulating requiring use of FWW since that time and subsequent R TKA (current diagnosis). Treatment Goals Patient/Caregiver Goals Functional Goals: Walk without a walker, do a squat, Dressing, sit to stand with ease, roll and move in bed without difficulty, stair ambulation with railing. Communtity Goals: One step w/ o railing. 150' gait without walker. Recreational Goals: Hike, power walk. Prior Functional Status Baseline Function- ADL's Independent Baseline Function- Mobility Independent Baseline Function- Gait Gait without assistive device. 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 Baseline Function- Recreation/Hobbies Power walk, hike w/o poles. Baseline Function- Other Trouble with stair ambulation due to pain. Current Functional Impairments (Reported) Functional Limitations- ADL's Walks with FWW. Difficulty stairs, dressing, sit to stand, rolling in bed, squatting. Functional Limitations- Mobility/Gait Walk as far as allowed. Doesn't tire but tissues tight , creates pain in medial R knee sometimes. Functional Limitations- Work/School Not working since Covid 19. Functional Limitations- Recreation/ Not able to power walk, hike. Hobbies Personal Factors Other Personal Factors That May Effect History of Patella Therapy/Recovery dislocations has caused apprehension and fear with exercising her LE's. History of Back pain. Current [place] Palsy affecting vision. PT-OP-C Subjective Start: 01/07/20 07:59 Freq: Status: Active Protocol: Document 02/15/20 08:55 LRN (Rec: 02/15/20 10:07 LRN [id number]) OP-PT Subjective Patient Comments Patient Comments States she went to see her physician and was told if she did not improve then she would need another surgery ( manipulation), she states I don't want surgery. States she was at 60-70 degs and now can bend to 100 deg's. PT-OP-D Balance Start: 01/07/20 07:59 Freq: Status: Active Protocol: Document 01/07/20 11:26 LRN (Rec: 01/07/20 13:35 LRN [id number]) Tinetti Balance Assessment Sitting Balance Sitting Balance Steady, safe Arising from Chair Ability to Arise Able, uses arms to help Attempts to Arise Arises on 1st attempt Standing Balance Immediate Standing Balance Steady with support Standing Balance Steady, wide stance Nudged Response Steady Standing with Eyes Closed Steady Turning Step Pattern Turning 360 Degrees Discontinuous steps Stability Turning 360 Degrees Steady Sitting Down Sitting Down Uses arms or unsteady Gait and Step Initiation of Gait No hesitancy Right Foot Step Length Does pass stance foot Right Foot Step Height Does not clear floor Left Foot Step Length Does pass stance foot Left Foot Step Height Completely clears floor Step Description Step Symmetry Step length not equal Step Continuity Steps appear continuous Gait Description Path Description Mild/moderate deviation Trunk Description Marked sway or uses aide Walking Stance Heels apart Scoring and Interpretation Tinetti Composite Score (points) 17 Interpretation of Scores High risk for falls(< 19) Tinetti Impairment Rating from Composite 40 to <60% Impaired (Score 12- Score 16) PT-OP-E Functional Tests Start: 01/07/20 07:59 Freq: Status: Active Protocol: Document 01/21/20 08:10 LRN (Rec: 01/21/20 12:59 LRN [id number]) Functional Tests Timed Up and Go (TUG) Score 19 Comments No AD, used hands, R leg held forw of L. L LE started 10' distance robb TUG Impairment Rating 80 to <100% Impaired (Score 18 -19) PT-OP-G Mobility & Gait Start: 01/07/20 07:59 Freq: Status: Active Protocol: Document 01/07/20 11:26 LRN (Rec: 01/07/20 12:39 LRN [id number]) OP Mobility Evaluation Bed Mobility Rolling Pt avoids due to pain. Supine to and from Sit Pt requires assist to lift RLE onto plinth. Pt Independently transfer to sit using UE's to assist RLE. Transfers Sit to Stand Independent with R LE in full extension and use of UE's. OP Gait Assessment Gait Gait Assistance Required: Independent Distance (Feet) 100 Able to Maintain Weight Bearing Status Yes During Gait Assistive Devices Assistive Device Front Wheeled Walker Orthotic/Prosthetic Devices or Brace: No Gait Deviations General Gait Pattern Antalgic,Decreased Stride Length,Decreased Feet Clearance,Flexed Trunk,Lateral Trunk Lean,Wide Based Gait Factors Limiting Gait Function Factors Limiting Gait Function Decreased Activity Tolerance, Decreased Strength,Limited Range of Motion,Pain,Poor Balance Comments Gait Comments Pt R toes do not clear floor sometimes even with hip hiking . PT-OP-J Posture/Palpation/Skin Start: 01/07/20 07:59 Freq: Status: Active Protocol: Document 01/12/20 14:30 LRN (Rec: 01/12/20 15:18 LRN [id number]) Palpation Assessment Location One Palpation Location R knee Palpation Findings Edema,Soft Tissue Tightness, Tenderness Palpation Details Pt wearing compressive hose. Mild increased temperature of medial lower leg. Generalized tenderness of R knee joint. Moderate swelling at the R knee joint. Minimal swelling in the R lower leg and upper thigh. Skin Assessment Incisional Assessment Incision Appearance/Comments Areas of dried blood present along incision. Incision healed. PT-OP-K Range of Motion Start: 01/07/20 07:59 Freq: Status: Active Protocol: Document 02/15/20 08:55 LRN (Rec: 02/15/20 10:07 LRN [id number]) Knee Goniometric Range of Motion Knee Right Patient Position Supine Flexion Active (degrees) 98 Left Knee ROM WFL Yes Patient Position Supine Flexion Active (degrees) 122 Knee ROM Limitations Comments s/p therapy: R knee active flex supine is 98 degs. Passive flex on SCIfit 104 deg 's (passive sitting) PT-OP-M Strength Start: 01/07/20 07:59 Freq: Status: Active Protocol: Document 01/07/20 11:26 LRN (Rec: 01/07/20 13:05 LRN [id number]) Hip Strength Hip Manual Muscle Testing Right Flexion (L2) 1 Trace Extension (S1) 3 Fair Abduction 3+ Fair+ Adduction 3+ Fair+ Comments Hip AB/AD/Ext approximate measurement in modified position (supine) of due to recent surgery. Left Flexion (L2) 5 Normal Extension (S1) 4 Good Abduction 5 Normal Adduction 5 Normal Comments Hip AB/AD/Ext approximate measurement in modified position (supine) of due to recent surgery. Knee Strength Knee Manual Muscle Testing Right Flexion (S2) 3 Fair Extension (L3) 1 Trace Left Flexion (S2) 3+ Fair+ Extension (L3) 5 Normal Ankle/Foot Strength Ankle and Foot Manual Muscle Testing Right Dorsiflexion (L4) 5 Normal Plantarflexion (S1) 5 Normal Comments Normal strength within available range. Range of motion limited due to soft tissue tightness and pain of R lower leg/knee. Left Dorsiflexion (L4) 5 Normal Plantarflexion (S1) 5 Normal PT-OP-Q Treatments Start: 01/07/20 07:59 Freq: Status: Active Protocol: Document 02/15/20 08:55 LRN (Rec: 02/15/20 10:07 LRN [id number]) Cardio Equipment Recumbent Stepper (Sci-Fit) Duration (Minutes) 13 Resistance 1 Seat Position Started @ seat 12, ended @ 10 Therapeutic Exercises Prone Exercises R knee flex strengthening Prone Exercise Name Knee flex strengthening Side right Resistance 2# Equipment Used ankle wgt & towel roll above patella Reps/Minutes 10 x 5 R knee flex stretch Prone Exercise Name C/R stretch into Knee flex f/b AAROM x 10 Side right Sitting Exercises knee flex Sitting Exercise Name Knee flex strengthening Side right Resistance Lev 2 TB Comments Training for home ex LAQ Sitting Exercise Name LAQ holding full ext review w/ use of TB Side right Reps/Minutes 5x Comments Foot held at 2 O'Clock position Gait Training Gait Activity Proper wgt shift/posture Description Weight shifting yamilex with proper mechanics Device Used SPC Level of Assistance phy cuing Surface firm Distance/Duration 50' x6 Treatment Focus Shifting COG over foot and proper UB posture. Comments 25' Self-Care/Home Management Treatment Activities Self-Care/Home Management Activities Verbal review of HEP: Shallow squats LAQ, knee flex with TB Prone knee flex stretch and strengthening with ideas given for resistance and straight line of pull with TB. PT-OP-R Modalities Start: 01/07/20 07:59 Freq: Status: Active Protocol: Document 02/09/20 09:05 LRN (Rec: 02/09/20 09:53 LRN [id number]) Hot Pack/Cold Pack Treatment Cold Pack Location R knee Patient Position Supine Treatment Duration (minutes) 10 Comments R Leg on wedge for full tolerated flexion. PT-OP-T Assessment and Plan Start: 01/07/20 07:59 Freq: Status: Active Protocol: Document 02/15/20 08:55 LRN (Rec: 02/15/20 10:07 LRN [id number]) Physical Therapy Assessment Goals Five Impairment Decreased function per LEFS score of 17/80 (60-79% impaired) Mcc Goal (LTG) Improve functional ability per LEFS score no less than 63/80 . LTG Duration 8 weeks (03/18/20) Four Impairment Decreased balance. 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 LTG Duration 8 weeks (03/18/20) Three Impairment Decreased R knee strength of ext 1/5, flex 3/5 (Left ext 5/ 5, flex 4/5) Short Term Goal (STG) Pt will be able to improve R knee extension strength to 3/5 and flexion 3+/5 in order to move in bed without difficulty , transfer in/out of bed without assist and ambulate with use of cane instead of walker. (01/14/20: Pt able to lift leg onto plinth independently with difficulty but able to perform indep SLR as exercise). 12/28/19: R knee ext is 3-/5. STG Duration 2 weeks (12/28/19 Improving strength) Wood Model Maker Goal (LTG) Pt will improve R knee strength 4/5 for ability to ambulate 1 step without use of railing, and home stairs with use of railing with 80% confidence. LTG Duration 8 weeks (03/18/20) Two Impairment Decreased supine R knee AROM 0 -45 deg's (Left is 0-130 deg's ) Short Term Goal (STG) Pt will be able to achieve R knee flexion of 90 deg's and will demonstrate ability to perform active knee extension and transfer sit to stand with minimal difficulty and dress without assist. STG Duration 2 weeks (01/22/20) (02/15/20: GOAL MET) Mcc Goal (LTG) Pt will be able to achieve active R knee flexion 115 deg' s to tolerate ambulation on level and stairs, and transfer sit to stand without pain, and to tolerate a functional squat with pain no greater than 1/10. LTG Duration 8 weeks (03/18/20) 02/15/20: Flex is 98 deg's) One Impairment Pt lacks appropriate self care HEP Short Term Goal (STG) Pt will be educated in a home exercise program (HEP) to address decreased R knee ROM/ strength and decreased R hip strength to improve transfer and gait; Balance training exercises. (6/22/20: Pt I/S in knee ROM & strengthening, discussed ankle/hip strenghtening in standing & started wgt shift for balance). STG Duration 2 weeks (01/22/20) (02/15/20 Goal partially met; needs balance program) Mcc Goal (LTG) Pt will be independent in a self care HEP for progression towards functional squatting and progressing gait for hiking and power walking. LTG Duration 8 weeks (03/18/20) (03/18/20) Progress Towards Goals Progress Towards Goals Progressing Toward Goals Progress Comments R knee flex: supine is PROM: 104 deg's; AROM: 98 deg's ( initial was 45 deg's; last session sitting was 60 deg's). Assessment Summary Assessment Pt has greatly improved in R knee mobility. Gait greatly improved with training. Pt using FWW but can use cane safely, pt having trouble progressing due to fear of falling and giving out of LLE. Physical Therapy Plan Frequency and Duration Frequency of Treatment 1x/Week Plan of Care Start Date 01/07/20 Plan of Care End Date 03/18/20 Next Visit Focus/Plan Next Note Type Treatment Note Next Visit Plan Check if more visits provided by insurance. Need LEFS, TUG, Pain Assessment. If this is the last visit, assess progress to goals, stair ambulation & focus on issuing HEP for progression of strengthening and ROM of R knee and for strengthening of hip/ankle as needed. Review proper gait.
--- NOTE | 2020-02-23 17:50 | PT.OTN ---
Current Diagnoses Unilateral primary osteoarthritis, right knee (02/23/20) Stiffness of right knee, not elsewhere classified (02/23/20) Muscle weakness (generalized) (02/23/20) Unsteadiness on feet (02/23/20) Other abnormalities of gait and mobility (02/23/20) Presence of right artificial knee joint (02/23/20) Physical Therapy Treatment Note PT-OP-A Visit Information Start: 01/07/20 07:59 Freq: Status: Active Protocol: Document 02/23/20 09:45 LRN (Rec: 02/23/20 10:35 LRN [id number]) Out-Patient Physical Therapy Visit Information Visit Information Visit Type Treatment Note Visit Note 12 more visits authorized. Visit Start Time 09:45 Visit Stop Time 10:45 Total Visit Minutes 60 Visit Number 8 Evaluation Information Evaluation Date 01/07/20 Precautions Precautions Back pain due to scoliosis but currently no back pain. [place] Palsy - 08/23/19, R side of face. R eye effected with difficulty vision due to excessive tears. PT-OP-B Current Condition Start: 01/07/20 07:59 Freq: Status: Active Protocol: Document 01/07/20 11:26 LRN (Rec: 01/07/20 12:39 LRN [id number]) Current Condition History of Current Condition Onset Date 12/29/19 Current Complaints Swelling, tightness of knee, using walker History of Current Condition R TKA at [facility] on 12/29/19. She was at [facility] 2 nights, but since home has been doing ex's 1x/ day with assist of spouse. Pt is not sure what the exercises are that she has been doing. She notes considerable swelling & bruising in the R LE, and discomfort in area of bruising . She warns that due to her history of knee problems and dislocating patella's she is apprehensive and hesitant in doing exercises. L knee arthritis. Fatigues quickly since surgery. Prior Treatments and Tests Age 22 had R patella surgery to release lateral tendons ligaments to prevent patella from dislocating, no therapy at that time. She reports resolution of the dislocations but that she has purposely avoids exercises. She reports her L patella dislocated only one time in 2004. Developmental History Developmental History 12/10/19 R knee became swollen requiring ER visit and was told arthritis. Pt reports having difficulty ambulating requiring use of FWW since that time and subsequent R TKA (current diagnosis). Treatment Goals Patient/Caregiver Goals Functional Goals: Walk without a walker, do a squat, Dressing, sit to stand with ease, roll and move in bed without difficulty, stair ambulation with railing. Communtity Goals: One step w/ o railing. 150' gait without walker. Recreational Goals: Hike, power walk. Prior Functional Status Baseline Function- ADL's Independent Baseline Function- Mobility Independent Baseline Function- Gait Gait without assistive device. 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 Baseline Function- Recreation/Hobbies Power walk, hike w/o poles. Baseline Function- Other Trouble with stair ambulation due to pain. Current Functional Impairments (Reported) Functional Limitations- ADL's Walks with FWW. Difficulty stairs, dressing, sit to stand, rolling in bed, squatting. Functional Limitations- Mobility/Gait Walk as far as allowed. Doesn't tire but tissues tight , creates pain in medial R knee sometimes. Functional Limitations- Work/School Not working since Covid 19. Functional Limitations- Recreation/ Not able to power walk, hike. Hobbies Personal Factors Other Personal Factors That May Effect History of Patella Therapy/Recovery dislocations has caused apprehension and fear with exercising her LE's. History of Back pain. Current [place] Palsy affecting vision. PT-OP-C Subjective Start: 01/07/20 07:59 Freq: Status: Active Protocol: Document 02/23/20 09:45 LRN (Rec: 02/23/20 10:35 LRN [id number]) OP-PT Subjective Patient Comments Patient Comments States she measured her ROM this morning at 120 deg's. States yesterday was first time going out to stores, a couple hours. R hip has been bothering her. Patient Questionnaires Lower Extremity Functional Scale LEFS Score 31 LEFS Impairment 60 to 79% Impaired (Score 17- 31) PT-OP-D Balance Start: 01/07/20 07:59 Freq: Status: Active Protocol: Document 01/07/20 11:26 LRN (Rec: 01/07/20 13:35 LRN [id number]) Tinetti Balance Assessment Sitting Balance Sitting Balance Steady, safe Arising from Chair Ability to Arise Able, uses arms to help Attempts to Arise Arises on 1st attempt Standing Balance Immediate Standing Balance Steady with support Standing Balance Steady, wide stance Nudged Response Steady Standing with Eyes Closed Steady Turning Step Pattern Turning 360 Degrees Discontinuous steps Stability Turning 360 Degrees Steady Sitting Down Sitting Down Uses arms or unsteady Gait and Step Initiation of Gait No hesitancy Right Foot Step Length Does pass stance foot Right Foot Step Height Does not clear floor Left Foot Step Length Does pass stance foot Left Foot Step Height Completely clears floor Step Description Step Symmetry Step length not equal Step Continuity Steps appear continuous Gait Description Path Description Mild/moderate deviation Trunk Description Marked sway or uses aide Walking Stance Heels apart Scoring and Interpretation Tinetti Composite Score (points) 17 Interpretation of Scores High risk for falls(< 19) Tinetti Impairment Rating from Composite 40 to <60% Impaired (Score 12- Score 16) PT-OP-E Functional Tests Start: 01/07/20 07:59 Freq: Status: Active Protocol: Document 01/21/20 08:10 LRN (Rec: 01/21/20 12:59 LRN [id number]) Functional Tests Timed Up and Go (TUG) Score 19 Comments No AD, used hands, R leg held forw of L. L LE started 10' distance robb TUG Impairment Rating 80 to <100% Impaired (Score 18 -19) PT-OP-G Mobility & Gait Start: 01/07/20 07:59 Freq: Status: Active Protocol: Document 01/07/20 11:26 LRN (Rec: 01/07/20 12:39 LRN [id number]) OP Mobility Evaluation Bed Mobility Rolling Pt avoids due to pain. Supine to and from Sit Pt requires assist to lift RLE onto plinth. Pt Independently transfer to sit using UE's to assist RLE. Transfers Sit to Stand Independent with R LE in full extension and use of UE's. OP Gait Assessment Gait Gait Assistance Required: Independent Distance (Feet) 100 Able to Maintain Weight Bearing Status Yes During Gait Assistive Devices Assistive Device Front Wheeled Walker Orthotic/Prosthetic Devices or Brace: No Gait Deviations General Gait Pattern Antalgic,Decreased Stride Length,Decreased Feet Clearance,Flexed Trunk,Lateral Trunk Lean,Wide Based Gait Factors Limiting Gait Function Factors Limiting Gait Function Decreased Activity Tolerance, Decreased Strength,Limited Range of Motion,Pain,Poor Balance Comments Gait Comments Pt R toes do not clear floor sometimes even with hip hiking . PT-OP-J Posture/Palpation/Skin Start: 01/07/20 07:59 Freq: Status: Active Protocol: Document 01/12/20 14:30 LRN (Rec: 01/12/20 15:18 LRN [id number]) Palpation Assessment Location One Palpation Location R knee Palpation Findings Edema,Soft Tissue Tightness, Tenderness Palpation Details Pt wearing compressive hose. Mild increased temperature of medial lower leg. Generalized tenderness of R knee joint. Moderate swelling at the R knee joint. Minimal swelling in the R lower leg and upper thigh. Skin Assessment Incisional Assessment Incision Appearance/Comments Areas of dried blood present along incision. Incision healed. PT-OP-K Range of Motion Start: 01/07/20 07:59 Freq: Status: Active Protocol: Document 02/23/20 09:45 LRN (Rec: 02/23/20 10:35 LRN [id number]) Knee Goniometric Range of Motion Knee S/P therapy Right Patient Position Supine Flexion Active (degrees) 125 Flexion Passive (degrees) 127 Extension Active (degrees) 0 Knee ROM Limitations Comments R knee AROM: Sitting: pre therapy: flex 110 deg's, passive flex 117 deg's; Post therapy: flex 115 deg's, passsive flex 120 deg's. PT-OP-M Strength Start: 01/07/20 07:59 Freq: Status: Active Protocol: Document 02/23/20 09:45 LRN (Rec: 02/23/20 17:49 LRN [id number]) Knee Strength Knee Manual Muscle Testing Right Flexion (S2) 4+ Good+ Extension (L3) 5 Normal PT-OP-Q Treatments Start: 01/07/20 07:59 Freq: Status: Active Protocol: Document 02/23/20 09:45 LRN (Rec: 02/23/20 10:35 LRN [id number]) Cardio Equipment Recumbent Stepper (Sci-Fit) Duration (Minutes) 10 Resistance 3 Seat Position Seat started 10, ended 9. Therapeutic Exercises Sitting Exercises Ankle IV Sitting Exercise Name Ankle IV Side right Equipment Used Lev 2 TB Reps/Minutes 3' Comments Extra time needed for training on positioning and use of TB Ankle EV Sitting Exercise Name Ankle EV Side right Equipment Used Lev 2 TB Reps/Minutes 3' Comments Extra time needed for training on positioning and use of TB Standing Exercises Ankle DF Standing Exercise Name Active ankle DF Side bilateral Reps/Minutes 10x 3 Ankle PF Standing Exercise Name Active ankle PF Side bilateral Reps/Minutes 10x 3 Hamstring curl Side bilateral Reps/Minutes 6' Shallow squat Standing Exercise Name Squats Reps/Minutes 10 x Gait Training Gait Activity R toe ext/knee flex w/toe off phase Description Working on R knee flexion during toe off and swing through Device Used cane/no assist device Level of Assistance SBA Surface Level Distance/Duration 5' Treatment Focus see below Comments Pt needed physical cuing for knee toe off and through swing through throughout therapy time. Self-Care/Home Management Treatment Education Patient Education Home Exercise Program Activities Self-Care/Home Management Activities Issued & reviewed HEP: Ankle PF/DF/EV/IV strengthening with Lev 2 TB issued for EV/IV. PT-OP-R Modalities Start: 01/07/20 07:59 Freq: Status: Active Protocol: Document 02/23/20 09:45 LRN (Rec: 02/23/20 17:25 LRN [id number]) Hot Pack/Cold Pack Treatment Cold Pack Location R knee Patient Position Supine Treatment Duration (minutes) 10 Comments R Leg on wedge for edema. PT-OP-T Assessment and Plan Start: 01/07/20 07:59 Freq: Status: Active Protocol: Document 02/23/20 09:45 LRN (Rec: 02/23/20 10:35 LRN [id number]) Physical Therapy Assessment Goals Five Impairment Decreased function per LEFS score of 17/80 (60-79% impaired) Lining Repairer Goal (LTG) Improve functional ability per LEFS score no less than 63/80 . (02/23/20: LEFS is 31/80; ) LTG Duration 8 weeks (03/18/20) 02/23/20: Improving. Four Impairment Decreased balance. 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 LTG Duration 8 weeks (03/18/20) Three Impairment Decreased R knee strength of ext 1/5, flex 3/5 (Left ext 5/ 5, flex 4/5) Short Term Goal (STG) Pt will be able to improve R knee extension strength to 3/5 and flexion 3+/5 in order to move in bed without difficulty , transfer in/out of bed without assist and ambulate with use of cane instead of walker. (01/14/20: Pt able to lift leg onto plinth independently with difficulty but able to perform indep SLR as exercise). 12/28/19: R knee ext is 3-/5. STG Duration 2 weeks (02/23/20: MET GOAL) Lining Repairer Goal (LTG) Pt will improve R knee strength 4/5 for ability to ambulate 1 step without use of railing, and home stairs with use of railing with 80% confidence. LTG Duration 8 weeks (03/18/20) Two Impairment Decreased supine R knee AROM 0 -45 deg's (Left is 0-130 deg's ) Short Term Goal (STG) Pt will be able to achieve R knee flexion of 90 deg's and will demonstrate ability to perform active knee extension and transfer sit to stand with minimal difficulty and dress without assist. STG Duration 2 weeks (01/22/20) (02/15/20: GOAL MET) Lining Repairer Goal (LTG) Pt will be able to achieve active R knee flexion 115 deg' s to tolerate ambulation on level and stairs, and transfer sit to stand without pain, and to tolerate a functional squat with pain no greater than 1/10. LTG Duration 8 weeks (03/18/20) (02/23/20: Flex is 110 deg's) One Impairment Pt lacks appropriate self care HEP Short Term Goal (STG) Pt will be educated in a home exercise program (HEP) to address decreased R knee ROM/ strength and decreased R hip strength to improve transfer and gait; Balance training exercises. (02/15/20: Pt I/S in knee ROM & strengthening, discussed ankle/hip strenghtening in standing & started wgt shift for balance). STG Duration 2 weeks (01/22/20) (02/15/20 Goal partially met; needs balance program) Lining Repairer Goal (LTG) Pt will be independent in a self care HEP for progression towards functional squatting and progressing gait for hiking and power walking. LTG Duration 8 weeks (03/18/20) (03/18/20) Progress Towards Goals Progress Towards Goals Progressing Toward Goals Progress Comments R knee ROM improved: AROM (sitting) flexion: 110 to 115 degs; (sup) is 125 degs) PROM (sitting) flexion: 117 to 120 deg's. (sup is 127 degs) Assessment Summary Assessment Pt demonstrates good R knee AROM/PROM and her quad strength is 5/5 with MMT. Functionally she feels weak in the knees; therefore affecting her balance and stability with gait. Her R hamstring strength has improved from 3/5 to 4+/5. Physical Therapy Plan Frequency and Duration Frequency of Treatment 1x/Week Plan of Care Start Date 01/07/20 Plan of Care End Date 03/18/20 Next Visit Focus/Plan Next Note Type Treatment Note Next Visit Plan Continue with 12 more visits authorized. Assess TUG. Assess stair ambulation & focus on issuing HEP for progression of strengthening of R knee, hip/ankle. Continue gait training.
--- NOTE | 2020-03-01 17:40 | PT.OTN ---
Current Diagnoses Unilateral primary osteoarthritis, right knee (03/01/20) Stiffness of right knee, not elsewhere classified (03/01/20) Muscle weakness (generalized) (03/01/20) Unsteadiness on feet (03/01/20) Other abnormalities of gait and mobility (03/01/20) Presence of right artificial knee joint (03/01/20) Physical Therapy Treatment Note PT-OP-A Visit Information Start: 01/07/20 07:59 Freq: Status: Active Protocol: Document 03/01/20 09:49 LRN (Rec: 03/01/20 10:30 LRN [id number]) Out-Patient Physical Therapy Visit Information Visit Information Visit Type Treatment Note Visit Start Time 09:49 Visit Stop Time 10:37 Total Visit Minutes 58 Visit Number 9 Evaluation Information Evaluation Date 01/07/20 Precautions Precautions Back pain due to scoliosis but currently no back pain. [place] Palsy - 08/23/19, R side of face. R eye effected with difficulty vision due to excessive tears. PT-OP-B Current Condition Start: 01/07/20 07:59 Freq: Status: Active Protocol: Document 01/07/20 11:26 LRN (Rec: 01/07/20 12:39 LRN [id number]) Current Condition History of Current Condition Onset Date 12/29/19 Current Complaints Swelling, tightness of knee, using walker History of Current Condition R TKA at [facility] on 12/29/19. She was at [facility] 2 nights, but since home has been doing ex's 1x/ day with assist of spouse. Pt is not sure what the exercises are that she has been doing. She notes considerable swelling & bruising in the R LE, and discomfort in area of bruising . She warns that due to her history of knee problems and dislocating patella's she is apprehensive and hesitant in doing exercises. L knee arthritis. Fatigues quickly since surgery. Prior Treatments and Tests Age 22 had R patella surgery to release lateral tendons ligaments to prevent patella from dislocating, no therapy at that time. She reports resolution of the dislocations but that she has purposely avoids exercises. She reports her L patella dislocated only one time in 2004. Developmental History Developmental History 12/10/19 R knee became swollen requiring ER visit and was told arthritis. Pt reports having difficulty ambulating requiring use of FWW since that time and subsequent R TKA (current diagnosis). Treatment Goals Patient/Caregiver Goals Functional Goals: Walk without a walker, do a squat, Dressing, sit to stand with ease, roll and move in bed without difficulty, stair ambulation with railing. Communtity Goals: One step w/ o railing. 150' gait without walker. Recreational Goals: Hike, power walk. Prior Functional Status Baseline Function- ADL's Independent Baseline Function- Mobility Independent Baseline Function- Gait Gait without assistive device. 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 Baseline Function- Recreation/Hobbies Power walk, hike w/o poles. Baseline Function- Other Trouble with stair ambulation due to pain. Current Functional Impairments (Reported) Functional Limitations- ADL's Walks with FWW. Difficulty stairs, dressing, sit to stand, rolling in bed, squatting. Functional Limitations- Mobility/Gait Walk as far as allowed. Doesn't tire but tissues tight , creates pain in medial R knee sometimes. Functional Limitations- Work/School Not working since Covid 19. Functional Limitations- Recreation/ Not able to power walk, hike. Hobbies Personal Factors Other Personal Factors That May Effect History of Patella Therapy/Recovery dislocations has caused apprehension and fear with exercising her LE's. History of Back pain. Current [place] Palsy affecting vision. PT-OP-C Subjective Start: 01/07/20 07:59 Freq: Status: Active Protocol: Document 03/01/20 09:49 LRN (Rec: 03/01/20 10:30 LRN [id number]) OP-PT Subjective Patient Comments Patient Comments Walking without cane, only sometimes. States sometimes has knee pain standing. Sometimes the knee pops, without pain. Walks consciously taking longer steps. PT-OP-D Balance Start: 01/07/20 07:59 Freq: Status: Active Protocol: Document 01/07/20 11:26 LRN (Rec: 01/07/20 13:35 LRN [id number]) Tinetti Balance Assessment Sitting Balance Sitting Balance Steady, safe Arising from Chair Ability to Arise Able, uses arms to help Attempts to Arise Arises on 1st attempt Standing Balance Immediate Standing Balance Steady with support Standing Balance Steady, wide stance Nudged Response Steady Standing with Eyes Closed Steady Turning Step Pattern Turning 360 Degrees Discontinuous steps Stability Turning 360 Degrees Steady Sitting Down Sitting Down Uses arms or unsteady Gait and Step Initiation of Gait No hesitancy Right Foot Step Length Does pass stance foot Right Foot Step Height Does not clear floor Left Foot Step Length Does pass stance foot Left Foot Step Height Completely clears floor Step Description Step Symmetry Step length not equal Step Continuity Steps appear continuous Gait Description Path Description Mild/moderate deviation Trunk Description Marked sway or uses aide Walking Stance Heels apart Scoring and Interpretation Tinetti Composite Score (points) 17 Interpretation of Scores High risk for falls(< 19) Tinetti Impairment Rating from Composite 40 to <60% Impaired (Score 12- Score 16) PT-OP-E Functional Tests Start: 01/07/20 07:59 Freq: Status: Active Protocol: Document 01/21/20 08:10 LRN (Rec: 01/21/20 12:59 LRN [id number]) Functional Tests Timed Up and Go (TUG) Score 19 Comments No AD, used hands, R leg held forw of L. L LE started 10' distance robb TUG Impairment Rating 80 to <100% Impaired (Score 18 -19) PT-OP-G Mobility & Gait Start: 01/07/20 07:59 Freq: Status: Active Protocol: Document 01/07/20 11:26 LRN (Rec: 01/07/20 12:39 LRN [id number]) OP Mobility Evaluation Bed Mobility Rolling Pt avoids due to pain. Supine to and from Sit Pt requires assist to lift RLE onto plinth. Pt Independently transfer to sit using UE's to assist RLE. Transfers Sit to Stand Independent with R LE in full extension and use of UE's. OP Gait Assessment Gait Gait Assistance Required: Independent Distance (Feet) 100 Able to Maintain Weight Bearing Status Yes During Gait Assistive Devices Assistive Device Front Wheeled Walker Orthotic/Prosthetic Devices or Brace: No Gait Deviations General Gait Pattern Antalgic,Decreased Stride Length,Decreased Feet Clearance,Flexed Trunk,Lateral Trunk Lean,Wide Based Gait Factors Limiting Gait Function Factors Limiting Gait Function Decreased Activity Tolerance, Decreased Strength,Limited Range of Motion,Pain,Poor Balance Comments Gait Comments Pt R toes do not clear floor sometimes even with hip hiking . PT-OP-J Posture/Palpation/Skin Start: 01/07/20 07:59 Freq: Status: Active Protocol: Document 01/12/20 14:30 LRN (Rec: 01/12/20 15:18 LRN [id number]) Palpation Assessment Location One Palpation Location R knee Palpation Findings Edema,Soft Tissue Tightness, Tenderness Palpation Details Pt wearing compressive hose. Mild increased temperature of medial lower leg. Generalized tenderness of R knee joint. Moderate swelling at the R knee joint. Minimal swelling in the R lower leg and upper thigh. Skin Assessment Incisional Assessment Incision Appearance/Comments Areas of dried blood present along incision. Incision healed. PT-OP-K Range of Motion Start: 01/07/20 07:59 Freq: Status: Active Protocol: Document 03/01/20 09:49 LRN (Rec: 03/01/20 10:30 LRN [id number]) Knee Goniometric Range of Motion Knee S/P therapy Right Patient Position Supine Flexion Active (degrees) 128 Extension Active (degrees) 0 Right Patient Position Sitting Flexion Active (degrees) 125 PT-OP-M Strength Start: 01/07/20 07:59 Freq: Status: Active Protocol: Document 02/23/20 09:45 LRN (Rec: 02/23/20 17:49 LRN [id number]) Knee Strength Knee Manual Muscle Testing Right Flexion (S2) 4+ Good+ Extension (L3) 5 Normal PT-OP-Q Treatments Start: 01/07/20 07:59 Freq: Status: Active Protocol: Document 03/01/20 09:49 LRN (Rec: 03/01/20 10:30 LRN [id number]) Cardio Equipment Recumbent Stepper (Sci-Fit) Duration (Minutes) 10 Resistance 3 Seat Position Seat started 9, ended 8. Therapeutic Exercises Sidelying Exercises Hip AD Sidelying Exercise Name Hip AD Reps/Minutes 15 x 2 Comments Controlling descent R hip AB Sidelying Exercise Name R hip AB Side right Reps/Minutes 15 x 2 Standing Exercises Step ups Standing Exercise Name Step ups on 6 step Side bilateral Reps/Minutes 15 x each Ankle DF Standing Exercise Name Active ankle DF Side bilateral Reps/Minutes 15x 2 Ankle PF Standing Exercise Name Active ankle PF with start position: heel off step Side bilateral Resistance Stairs Reps/Minutes 15x 2 Hamstring curl Standing Exercise Name Hamstring curl hanging onto banister Side bilateral Resistance 2# Equipment Used Stair banister Reps/Minutes 10x 3 Gait Training Gait Activity Stairs Description Stair training Device Used 6 steps Distance/Duration Progressively removed UE support to build pt confidence . PT-OP-R Modalities Start: 01/07/20 07:59 Freq: Status: Active Protocol: Document 03/01/20 09:49 LRN (Rec: 03/01/20 10:30 LRN [id number]) Hot Pack/Cold Pack Treatment Cold Pack Location R knee Patient Position Supine Treatment Duration (minutes) 10 Comments R Leg on wedge for edema. PT-OP-T Assessment and Plan Start: 01/07/20 07:59 Freq: Status: Active Protocol: Document 03/01/20 09:49 LRN (Rec: 03/01/20 10:30 LRN [id number]) Physical Therapy Assessment Goals Five Impairment Decreased function per LEFS score of 17/80 (60-79% impaired) Ignition Expert Goal (LTG) Improve functional ability per LEFS score no less than 63/80 . (02/23/20: LEFS is 31/80; ) LTG Duration 8 weeks (03/18/20) 02/23/20: Improving. Four Impairment Decreased balance. (Pt not able to SLS on RLE or perform Rhomberg stance) Mcc Goal (LTG) Pt will be able to residential finish carpenter Rhomberg for 10 sec's without difficulty in order to walk safely 150' without a walker and return to low level hiking and power walk activities. LTG Duration 8 weeks (03/18/20) Three Impairment Decreased R knee strength of ext 1/5, flex 3/5 (Left ext 5/ 5, flex 4/5) Short Term Goal (STG) Pt will be able to improve R knee extension strength to 3/5 and flexion 3+/5 in order to move in bed without difficulty , transfer in/out of bed without assist and ambulate with use of cane instead of walker. (01/14/20: Pt able to lift leg onto plinth independently with difficulty but able to perform indep SLR as exercise). 12/28/19: R knee ext is 3-/5. STG Duration 2 weeks (02/23/20: MET GOAL) Mcc Goal (LTG) Pt will improve R knee strength 4/5 for ability to ambulate 1 step without use of railing, and home stairs with use of railing with 80% confidence. (03/01/20: Normal stair ambulation with 1 railing, low confidence level) LTG Duration 8 weeks (03/18/20) Two Impairment Decreased supine R knee AROM 0 -45 deg's (Left is 0-130 deg's ) Short Term Goal (STG) Pt will be able to achieve R knee flexion of 90 deg's and will demonstrate ability to perform active knee extension and transfer sit to stand with minimal difficulty and dress without assist. STG Duration 2 weeks (01/22/20) (02/15/20: GOAL MET) Mcc Goal (LTG) Pt will be able to achieve active R knee flexion 115 deg' s to tolerate ambulation on level and stairs, and transfer sit to stand without pain, and to tolerate a functional squat with pain no greater than 1/10. LTG Duration 8 weeks (03/18/20) (02/23/20: Flex is 110 deg's) One Impairment Pt lacks appropriate self care HEP Short Term Goal (STG) Pt will be educated in a home exercise program (HEP) to address decreased R knee ROM/ strength and decreased R hip strength to improve transfer and gait; Balance training exercises. (02/15/20: Pt I/S in knee ROM & strengthening, discussed ankle/hip strenghtening in standing & started wgt shift for balance). STG Duration 2 weeks (01/22/20) (02/15/20 Goal partially met; needs balance program) Ignition Expert Goal (LTG) Pt will be independent in a self care HEP for progression towards functional squatting and progressing gait for hiking and power walking. LTG Duration 8 weeks (03/18/20) (03/18/20) Progress Towards Goals Progress Towards Goals Progressing Toward Goals Progress Comments Pt ambs without an assistive device. R knee AROM improved from ( sitting) 125 deg's to (supine) 128 deg's. Goal #3: STG: Progressing. Pt able to stair ambulate with 1 rail, but confidence level is low. Assessment Summary Assessment Pt has Trendelenburg type gait on R, good equal step lengths when conscientiously walking. Pt attends first time today without assistive device. R knee AROM improving. Physical Therapy Plan Frequency and Duration Frequency of Treatment 1x/Week Plan of Care Start Date 01/07/20 Plan of Care End Date 03/18/20 Next Visit Focus/Plan Next Note Type Progress Note Next Visit Plan Continue with 11 more visits authorized. Assess TUG & progress to LTG of Goal #2 Focus on issuing HEP for hip AB strengthening & progression of strengthening of R knee. Balance training (Rhomberg/SLS ) Gait training level & stairs.
--- NOTE | 2020-03-08 17:07 | PT.OTN ---
Current Diagnoses Unilateral primary osteoarthritis, right knee (03/08/20) Stiffness of right knee, not elsewhere classified (03/08/20) Muscle weakness (generalized) (03/08/20) Unsteadiness on feet (03/08/20) Other abnormalities of gait and mobility (03/08/20) Presence of right artificial knee joint (03/08/20) Physical Therapy Treatment Note PT-OP-A Visit Information Start: 01/07/20 07:59 Freq: Status: Active Protocol: Document 03/08/20 09:52 LRN (Rec: 03/08/20 10:36 LRN [id number]) Out-Patient Physical Therapy Visit Information Visit Information Visit Type Progress Note Visit Start Time 09:52 Visit Stop Time 10:43 Total Visit Minutes 51 Visit Number 10 Evaluation Information Evaluation Date 01/07/20 Precautions Precautions Back pain due to scoliosis but currently no back pain. [place] Palsy - 08/23/19, R side of face. R eye effected with difficulty vision due to excessive tears. PT-OP-B Current Condition Start: 01/07/20 07:59 Freq: Status: Active Protocol: Document 01/07/20 11:26 LRN (Rec: 01/07/20 12:39 LRN [id number]) Current Condition History of Current Condition Onset Date 12/29/19 Current Complaints Swelling, tightness of knee, using walker History of Current Condition R TKA at [facility] on 12/29/19. She was at [facility] 2 nights, but since home has been doing ex's 1x/ day with assist of spouse. Pt is not sure what the exercises are that she has been doing. She notes considerable swelling & bruising in the R LE, and discomfort in area of bruising . She warns that due to her history of knee problems and dislocating patella's she is apprehensive and hesitant in doing exercises. L knee arthritis. Fatigues quickly since surgery. Prior Treatments and Tests Age 22 had R patella surgery to release lateral tendons ligaments to prevent patella from dislocating, no therapy at that time. She reports resolution of the dislocations but that she has purposely avoids exercises. She reports her L patella dislocated only one time in 2004. Developmental History Developmental History 12/10/19 R knee became swollen requiring ER visit and was told arthritis. Pt reports having difficulty ambulating requiring use of FWW since that time and subsequent R TKA (current diagnosis). Treatment Goals Patient/Caregiver Goals Functional Goals: Walk without a walker, do a squat, Dressing, sit to stand with ease, roll and move in bed without difficulty, stair ambulation with railing. Communtity Goals: One step w/ o railing. 150' gait without walker. Recreational Goals: Hike, power walk. Prior Functional Status Baseline Function- ADL's Independent Baseline Function- Mobility Independent Baseline Function- Gait Gait without assistive device. 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 Baseline Function- Recreation/Hobbies Power walk, hike w/o poles. Baseline Function- Other Trouble with stair ambulation due to pain. Current Functional Impairments (Reported) Functional Limitations- ADL's Walks with FWW. Difficulty stairs, dressing, sit to stand, rolling in bed, squatting. Functional Limitations- Mobility/Gait Walk as far as allowed. Doesn't tire but tissues tight , creates pain in medial R knee sometimes. Functional Limitations- Work/School Not working since Covid 19. Functional Limitations- Recreation/ Not able to power walk, hike. Hobbies Personal Factors Other Personal Factors That May Effect History of Patella Therapy/Recovery dislocations has caused apprehension and fear with exercising her LE's. History of Back pain. Current [place] Palsy affecting vision. PT-OP-C Subjective Start: 01/07/20 07:59 Freq: Status: Active Protocol: Document 03/08/20 09:52 LRN (Rec: 03/08/20 10:36 LRN [id number]) OP-PT Subjective Patient Comments Patient Comments Has questions to discuss at start regarding swelling, increased heat, ROM. States the L knee limits more than the R sometimes. States she is 50% confident in stair ambulation. Patient Questionnaires Lower Extremity Functional Scale LEFS Score 33 LEFS Impairment 40 to 59% Impaired (Score 32- 47) PT-OP-D Balance Start: 01/07/20 07:59 Freq: Status: Active Protocol: Document 01/07/20 11:26 LRN (Rec: 01/07/20 13:35 LRN [id number]) Tinetti Balance Assessment Sitting Balance Sitting Balance Steady, safe Arising from Chair Ability to Arise Able, uses arms to help Attempts to Arise Arises on 1st attempt Standing Balance Immediate Standing Balance Steady with support Standing Balance Steady, wide stance Nudged Response Steady Standing with Eyes Closed Steady Turning Step Pattern Turning 360 Degrees Discontinuous steps Stability Turning 360 Degrees Steady Sitting Down Sitting Down Uses arms or unsteady Gait and Step Initiation of Gait No hesitancy Right Foot Step Length Does pass stance foot Right Foot Step Height Does not clear floor Left Foot Step Length Does pass stance foot Left Foot Step Height Completely clears floor Step Description Step Symmetry Step length not equal Step Continuity Steps appear continuous Gait Description Path Description Mild/moderate deviation Trunk Description Marked sway or uses aide Walking Stance Heels apart Scoring and Interpretation Tinetti Composite Score (points) 17 Interpretation of Scores High risk for falls(< 19) Tinetti Impairment Rating from Composite 40 to <60% Impaired (Score 12- Score 16) PT-OP-E Functional Tests Start: 01/07/20 07:59 Freq: Status: Active Protocol: Document 01/21/20 08:10 LRN (Rec: 01/21/20 12:59 LRN [id number]) Functional Tests Timed Up and Go (TUG) Score 19 Comments No AD, used hands, R leg held forw of L. L LE started 10' distance robb TUG Impairment Rating 80 to <100% Impaired (Score 18 -19) PT-OP-G Mobility & Gait Start: 01/07/20 07:59 Freq: Status: Active Protocol: Document 01/07/20 11:26 LRN (Rec: 01/07/20 12:39 LRN [id number]) OP Mobility Evaluation Bed Mobility Rolling Pt avoids due to pain. Supine to and from Sit Pt requires assist to lift RLE onto plinth. Pt Independently transfer to sit using UE's to assist RLE. Transfers Sit to Stand Independent with R LE in full extension and use of UE's. OP Gait Assessment Gait Gait Assistance Required: Independent Distance (Feet) 100 Able to Maintain Weight Bearing Status Yes During Gait Assistive Devices Assistive Device Front Wheeled Walker Orthotic/Prosthetic Devices or Brace: No Gait Deviations General Gait Pattern Antalgic,Decreased Stride Length,Decreased Feet Clearance,Flexed Trunk,Lateral Trunk Lean,Wide Based Gait Factors Limiting Gait Function Factors Limiting Gait Function Decreased Activity Tolerance, Decreased Strength,Limited Range of Motion,Pain,Poor Balance Comments Gait Comments Pt R toes do not clear floor sometimes even with hip hiking . PT-OP-J Posture/Palpation/Skin Start: 01/07/20 07:59 Freq: Status: Active Protocol: Document 01/12/20 14:30 LRN (Rec: 01/12/20 15:18 LRN [id number]) Palpation Assessment Location One Palpation Location R knee Palpation Findings Edema,Soft Tissue Tightness, Tenderness Palpation Details Pt wearing compressive hose. Mild increased temperature of medial lower leg. Generalized tenderness of R knee joint. Moderate swelling at the R knee joint. Minimal swelling in the R lower leg and upper thigh. Skin Assessment Incisional Assessment Incision Appearance/Comments Areas of dried blood present along incision. Incision healed. PT-OP-K Range of Motion Start: 01/07/20 07:59 Freq: Status: Active Protocol: Document 03/08/20 09:52 LRN (Rec: 03/08/20 10:36 LRN [id number]) Knee Goniometric Range of Motion Knee L knee supine Knee ROM WFL Yes Patient Position Supine Flexion Active (degrees) 137 Extension Active (degrees) 0 R knee supine Knee ROM WFL No Patient Position Supine Flexion Active (degrees) 133 Extension Active (degrees) 3 S/P therapy Right Patient Position Sitting Right Knee ROM WFL No Patient Position Sitting Flexion Active (degrees) 115 Extension Active (degrees) 3 Left Knee ROM WFL Yes Patient Position Sitting Flexion Active (degrees) 121 Extension Active (degrees) 0 PT-OP-M Strength Start: 01/07/20 07:59 Freq: Status: Active Protocol: Document 02/23/20 09:45 LRN (Rec: 02/23/20 17:49 LRN [id number]) Knee Strength Knee Manual Muscle Testing Right Flexion (S2) 4+ Good+ Extension (L3) 5 Normal PT-OP-Q Treatments Start: 01/07/20 07:59 Freq: Status: Active Protocol: Document 03/08/20 09:52 LRN (Rec: 03/08/20 10:36 LRN [id number]) Cardio Equipment Recumbent Stepper (Sci-Fit) Duration (Minutes) 8 Seat Position Started 8 Other Leaving L LE out of stirrup due to knee pain. Therapeutic Exercises Supine Exercises R knee ext stretch Supine Exercise Name Ankle on 08/27 roll for stretch into ext f/b active QS Side right Reps/Minutes 4' Comments Training w/pt on max stretch position and guidelines to holding. Heel slides Supine Exercise Name Heel slides Side bilateral Reps/Minutes 4x R, 1x L Comments ROM taken Sitting Exercises knee flex Sitting Exercise Name Active R knee flex stretch Side right Reps/Minutes 10x Comments Slow cautious movement with hold at end. ROM taken x 2 LAQ Sitting Exercise Name LAQ w/extension hold Side right Reps/Minutes 10x Comments ROM measurement taken Standing Exercises Step ups Standing Exercise Name Step ups on 6 & 8 step Side bilateral Reps/Minutes 15 x each Gait Training Gait Activity Stairs Description Stair training Device Used 6 steps Distance/Duration 10' Treatment Focus Improving pt confidence in stair ambulation Comments Easier to lead with LLE than RLE. Started using 1 railing and ended using no railing. Neuro Re-Education Treatment Balance Activities Tandem Stance Details Tandem Stance Surface Level Reps/Duration 3' Comments Pt able to stand > 1' with either foot behind. Rhomberg stance Details Rhomberg stance Surface Level Reps/Duration 3' Comments Pt able to stand > 1 minute without LOB. Self-Care/Home Management Treatment Education Patient Education Home Exercise Program Activities Self-Care/Home Management Activities Discussed at length swelling in R knee and self care actions pt can take (RICE, various compression devices, activity tolerance and modifications, ROM precaution for too much flex) PT-OP-R Modalities Start: 01/07/20 07:59 Freq: Status: Active Protocol: Document 03/08/20 09:52 LRN (Rec: 03/08/20 10:36 LRN [id number]) Hot Pack/Cold Pack Treatment Cold Pack Location R knee Patient Position Supine Treatment Duration (minutes) 10 Comments R Leg on wedge for edema. PT-OP-T Assessment and Plan Start: 01/07/20 07:59 Freq: Status: Active Protocol: Document 03/08/20 09:52 LRN (Rec: 03/08/20 10:36 LRN [id number]) Physical Therapy Assessment Goals Five Impairment Decreased function per LEFS score of 17/80 (60-79% impaired) Prison Goal (LTG) Improve functional ability per LEFS score no less than 63/80 . (03/08/20: LEFS is 33/80; ) LTG Duration 8 weeks (03/18/20) 03/08/20: Improving. Four Impairment Decreased balance. 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 LTG Duration 03/18/20 (03/08/20: Rhomberg goal met, pt not returned to activities) Three Impairment Decreased R knee strength of ext 1/5, flex 3/5 (Left ext 5/ 5, flex 4/5) Short Term Goal (STG) Pt will be able to improve R knee extension strength to 3/5 and flexion 3+/5 in order to move in bed without difficulty , transfer in/out of bed without assist and ambulate with use of cane instead of walker. (01/14/20: Pt able to lift leg onto plinth independently with difficulty but able to perform indep SLR as exercise). 12/28/19: R knee ext is 3-/5. STG Duration 2 weeks (02/23/20: MET GOAL) Part Time Goal (LTG) Pt will improve R knee strength 4/5 for ability to ambulate 1 step without use of railing, and home stairs with use of railing with 80% confidence. (03/08/20: Normal stair ambulation with 50% confidence .) LTG Duration 8 weeks (03/18/20) Two Impairment Decreased supine R knee AROM 0 -45 deg's (Left is 0-130 deg's ) Short Term Goal (STG) Pt will be able to achieve R knee flexion of 90 deg's and will demonstrate ability to perform active knee extension and transfer sit to stand with minimal difficulty and dress without assist. STG Duration 2 weeks (01/22/20) (02/15/20: MET GOAL) Part Time Goal (LTG) Pt will be able to achieve active R knee flexion 115 deg' s to tolerate ambulation on level and stairs, and transfer sit to stand without pain, and to tolerate a functional squat with pain no greater than 1/10. LTG Duration 8 weeks (03/18/20) (03/08/20: MET GOAL) One Impairment Pt lacks appropriate self care HEP Short Term Goal (STG) Pt will be educated in a home exercise program (HEP) to address decreased R knee ROM/ strength and decreased R hip strength to improve transfer and gait; Balance training exercises. (02/15/20: Pt I/S in knee ROM & strengthening, discussed ankle/hip strenghtening in standing & started wgt shift for balance). STG Duration 2 weeks (01/22/20) (02/15/20 Goal partially met; needs balance program) Part Time Goal (LTG) Pt will be independent in a self care HEP for progression towards functional squatting and progressing gait for hiking and power walking. LTG Duration 8 weeks (03/18/20) Progress Towards Goals Progress Comments Pt ambs without assist device and minimal to no limp. Goal #2: STG & LTG: MET. R knee AROM improved from ( sitting) 115 deg's, Supine 133 deg's. Goal #3: STG: Progressing. Pt able to stair ambulate with 1 rail, confidence level is 50%. Goal #4: Balance improved, not returned to activities yet . Goal #5: LEFS score is improving. Assessment Summary Assessment Pt level of confidence in stair ambulation is improving. Function improved in past 2 weeks per LEFS score or 33, 40 -59% impaired (was 31, 60-79% impaired). Physical Therapy Plan Frequency and Duration Frequency of Treatment 1x/Week Plan of Care Start Date 01/07/20 Plan of Care End Date 03/18/20 Next Visit Focus/Plan Next Note Type Treatment Note Next Visit Plan 9 more visits authorized. Progress to LTG of Goal #2 Focus on issuing HEP for hip AB strengthening & progression of strengthening of R knee. Balance training (Rhomberg/SLS ) Gait training level & stairs.
--- NOTE | 2020-03-15 17:51 | PT.OTN ---
Current Diagnoses Unilateral primary osteoarthritis, right knee (03/15/20) Stiffness of right knee, not elsewhere classified (03/15/20) Muscle weakness (generalized) (03/15/20) Unsteadiness on feet (03/15/20) Other abnormalities of gait and mobility (03/15/20) Presence of right artificial knee joint (03/15/20) Physical Therapy Treatment Note PT-OP-A Visit Information Start: 01/07/20 07:59 Freq: Status: Active Protocol: Document 03/15/20 09:49 LRN (Rec: 03/15/20 10:33 LRN [id number]) Out-Patient Physical Therapy Visit Information Visit Information Visit Type Treatment Note Visit Note 9 vists since last PN Visit Start Time 09:49 Visit Stop Time 10:39 Total Visit Minutes 50 Visit Number 11 Evaluation Information Evaluation Date 01/07/20 Precautions Precautions Back pain due to scoliosis but currently no back pain. Warren Palsy - 08/23/19, R side of face. R eye effected with difficulty vision due to excessive tears. PT-OP-B Current Condition Start: 01/07/20 07:59 Freq: Status: Active Protocol: Document 01/07/20 11:26 LRN (Rec: 01/07/20 12:39 LRN [id number]) Current Condition History of Current Condition Onset Date 12/29/19 Current Complaints Swelling, tightness of knee, using walker History of Current Condition R TKA at [facility] on 12/29/19. She was at [facility] 2 nights, but since home has been doing ex's 1x/ day with assist of spouse. Pt is not sure what the exercises are that she has been doing. She notes considerable swelling & bruising in the R LE, and discomfort in area of bruising . She warns that due to her history of knee problems and dislocating patella's she is apprehensive and hesitant in doing exercises. L knee arthritis. Fatigues quickly since surgery. Prior Treatments and Tests Age 22 had R patella surgery to release lateral tendons ligaments to prevent patella from dislocating, no therapy at that time. She reports resolution of the dislocations but that she has purposely avoids exercises. She reports her L patella dislocated only one time in 2004. Developmental History Developmental History 12/10/19 R knee became swollen requiring ER visit and was told arthritis. Pt reports having difficulty ambulating requiring use of FWW since that time and subsequent R TKA (current diagnosis). Treatment Goals Patient/Caregiver Goals Functional Goals: Walk without a walker, do a squat, Dressing, sit to stand with ease, roll and move in bed without difficulty, stair ambulation with railing. Communtity Goals: One step w/ o railing. 150' gait without walker. Recreational Goals: Hike, power walk. Prior Functional Status Baseline Function- ADL's Independent Baseline Function- Mobility Independent Baseline Function- Gait Gait without assistive device. 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 Baseline Function- Recreation/Hobbies Power walk, hike w/o poles. Baseline Function- Other Trouble with stair ambulation due to pain. Current Functional Impairments (Reported) Functional Limitations- ADL's Walks with FWW. Difficulty stairs, dressing, sit to stand, rolling in bed, squatting. Functional Limitations- Mobility/Gait Walk as far as allowed. Doesn't tire but tissues tight , creates pain in medial R knee sometimes. Functional Limitations- Work/School Not working since Covid . Functional Limitations- Recreation/ Not able to power walk, hike. Hobbies Personal Factors Other Personal Factors That May Effect History of Patella Therapy/Recovery dislocations has caused apprehension and fear with exercising her LE's. History of Back pain. Current Warren Palsy affecting vision. PT-OP-C Subjective Start: 01/07/20 07:59 Freq: Status: Active Protocol: Document 03/15/20 09:49 LRN (Rec: 03/15/20 10:33 LRN [id number]) OP-PT Subjective Patient Comments Patient Comments Sore in the R knee because of doing lots of cleaning. Walking still not normal because she has to think about it. Feeling stronger every day, working strength. Saw Orthopedic surgeon 03/09/20 and thought everything looked good. No further follow up visits planned. PT-OP-D Balance Start: 01/07/20 07:59 Freq: Status: Active Protocol: Document 01/07/20 11:26 LRN (Rec: 01/07/20 13:35 LRN [id number]) Tinetti Balance Assessment Sitting Balance Sitting Balance Steady, safe Arising from Chair Ability to Arise Able, uses arms to help Attempts to Arise Arises on 1st attempt Standing Balance Immediate Standing Balance Steady with support Standing Balance Steady, wide stance Nudged Response Steady Standing with Eyes Closed Steady Turning Step Pattern Turning 360 Degrees Discontinuous steps Stability Turning 360 Degrees Steady Sitting Down Sitting Down Uses arms or unsteady Gait and Step Initiation of Gait No hesitancy Right Foot Step Length Does pass stance foot Right Foot Step Height Does not clear floor Left Foot Step Length Does pass stance foot Left Foot Step Height Completely clears floor Step Description Step Symmetry Step length not equal Step Continuity Steps appear continuous Gait Description Path Description Mild/moderate deviation Trunk Description Marked sway or uses aide Walking Stance Heels apart Scoring and Interpretation Tinetti Composite Score (points) 17 Interpretation of Scores High risk for falls(< 19) Tinetti Impairment Rating from Composite 40 to <60% Impaired (Score 12- Score 16) PT-OP-E Functional Tests Start: 01/07/20 07:59 Freq: Status: Active Protocol: Document 01/21/20 08:10 LRN (Rec: 01/21/20 12:59 LRN [id number]) Functional Tests Timed Up and Go (TUG) Score 19 Comments No AD, used hands, R leg held forw of L. L LE started 10' distance robb TUG Impairment Rating 80 to <100% Impaired (Score 18 -19) PT-OP-G Mobility & Gait Start: 01/07/20 07:59 Freq: Status: Active Protocol: Document 01/07/20 11:26 LRN (Rec: 01/07/20 12:39 LRN [id number]) OP Mobility Evaluation Bed Mobility Rolling Pt avoids due to pain. Supine to and from Sit Pt requires assist to lift RLE onto plinth. Pt Independently transfer to sit using UE's to assist RLE. Transfers Sit to Stand Independent with R LE in full extension and use of UE's. OP Gait Assessment Gait Gait Assistance Required: Independent Distance (Feet) 100 Able to Maintain Weight Bearing Status Yes During Gait Assistive Devices Assistive Device Front Wheeled Walker Orthotic/Prosthetic Devices or Brace: No Gait Deviations General Gait Pattern Antalgic,Decreased Stride Length,Decreased Feet Clearance,Flexed Trunk,Lateral Trunk Lean,Wide Based Gait Factors Limiting Gait Function Factors Limiting Gait Function Decreased Activity Tolerance, Decreased Strength,Limited Range of Motion,Pain,Poor Balance Comments Gait Comments Pt R toes do not clear floor sometimes even with hip hiking . PT-OP-J Posture/Palpation/Skin Start: 01/07/20 07:59 Freq: Status: Active Protocol: Document 01/12/20 14:30 LRN (Rec: 01/12/20 15:18 LRN [id number]) Palpation Assessment Location One Palpation Location R knee Palpation Findings Edema,Soft Tissue Tightness, Tenderness Palpation Details Pt wearing compressive hose. Mild increased temperature of medial lower leg. Generalized tenderness of R knee joint. Moderate swelling at the R knee joint. Minimal swelling in the R lower leg and upper thigh. Skin Assessment Incisional Assessment Incision Appearance/Comments Areas of dried blood present along incision. Incision healed. PT-OP-K Range of Motion Start: 01/07/20 07:59 Freq: Status: Active Protocol: Document 03/08/20 09:52 LRN (Rec: 03/08/20 10:36 LRN [id number]) Knee Goniometric Range of Motion Knee L knee supine Knee ROM WFL Yes Patient Position Supine Flexion Active (degrees) 137 Extension Active (degrees) 0 R knee supine Knee ROM WFL No Patient Position Supine Flexion Active (degrees) 133 Extension Active (degrees) 3 S/P therapy Right Patient Position Sitting Right Knee ROM WFL No Patient Position Sitting Flexion Active (degrees) 115 Extension Active (degrees) 3 Left Knee ROM WFL Yes Patient Position Sitting Flexion Active (degrees) 121 Extension Active (degrees) 0 PT-OP-M Strength Start: 01/07/20 07:59 Freq: Status: Active Protocol: Document 02/23/20 09:45 LRN (Rec: 02/23/20 17:49 LRN [id number]) Knee Strength Knee Manual Muscle Testing Right Flexion (S2) 4+ Good+ Extension (L3) 5 Normal PT-OP-Q Treatments Start: 01/07/20 07:59 Freq: Status: Active Protocol: Document 03/15/20 09:49 LRN (Rec: 03/15/20 10:33 LRN [id number]) Cardio Equipment Recumbent Stepper (Sci-Fit) Duration (Minutes) 10 Seat Position 8 Other Leaving L LE out Gym Equipment Shuttle Recovery Unilateral Squats Details R knee Resistance 50#, 37# Shuttle Recovery Platform Stable Reps/Time 10x, 30x respectively Therapeutic Exercises Standing Exercises Hip AD Standing Exercise Name Hip AD to neutral Side bilateral Resistance Lev 2 TB Equipment Used Stair railing Reps/Minutes 15x each Hip AB Standing Exercise Name Hip AB Side bilateral Resistance Lev 2 TB Equipment Used Stair railing Reps/Minutes 15x each Hip Ext Standing Exercise Name Hip Ext Side bilateral Resistance Lev 2 TB Equipment Used Stair railing Reps/Minutes 15 x each Step ups Standing Exercise Name Step ups 8 step Side bilateral Reps/Minutes 15 x 2 Comments Modified 2nd set: up R, down R , due to L knee pain. Gait Training Gait Activity Stairs Description Stair training Device Used 8 steps ups and step backs Distance/Duration 10' Treatment Focus Improving pt confidence in stair ambulation Comments Easier to lead with RLE due to L knee pain. Neuro Re-Education Treatment Balance Activities Rhomberg stance Details Rhomberg stance: Arms across chest: EO, EC, on foam EO Surface Level Reps/Duration 10' Comments Pt able to stand > 1 minute without LOB. PT-OP-R Modalities Start: 01/07/20 07:59 Freq: Status: Active Protocol: Document 03/08/20 09:52 LRN (Rec: 03/08/20 10:36 LRN [id number]) Hot Pack/Cold Pack Treatment Cold Pack Location R knee Patient Position Supine Treatment Duration (minutes) 10 Comments R Leg on wedge for edema. PT-OP-T Assessment and Plan Start: 01/07/20 07:59 Freq: Status: Active Protocol: Document 03/15/20 09:49 LRN (Rec: 03/15/20 10:33 LRN [id number]) Physical Therapy Assessment Goals Five Impairment Decreased function per LEFS score of 17/80 (60-79% impaired) [facility] Goal (LTG) Improve functional ability per LEFS score no less than 63/80 . (03/08/20: LEFS is 33/80; ) LTG Duration 8 weeks (03/18/20) 03/08/20: Improving. Four Impairment Decreased balance. (Pt not able to SLS on RLE or perform Rhomberg stance) [facility] Goal (LTG) Pt will be able to machine trimmer Rhomberg for 10 sec's without difficulty in order to walk safely 150' without a walker and return to low level hiking and power walk activities. LTG Duration 03/18/20 (03/08/20: Rhomberg goal met, pt not returned to activities) Three Impairment Decreased R knee strength of ext 1/5, flex 3/5 (Left ext 5/ 5, flex 4/5) Short Term Goal (STG) Pt will be able to improve R knee extension strength to 3/5 and flexion 3+/5 in order to move in bed without difficulty , transfer in/out of bed without assist and ambulate with use of cane instead of walker. (01/14/20: Pt able to lift leg onto plinth independently with difficulty but able to perform indep SLR as exercise). 12/28/19: R knee ext is 3-/5. STG Duration 2 weeks (02/23/20: MET GOAL) [facility] Goal (LTG) Pt will improve R knee strength 4/5 for ability to ambulate 1 step without use of railing, and home stairs with use of railing with 80% confidence. (03/08/20: Normal stair ambulation with 50% confidence .) LTG Duration 8 weeks (03/18/20) Two Impairment Decreased supine R knee AROM 0 -45 deg's (Left is 0-130 deg's ) Short Term Goal (STG) Pt will be able to achieve R knee flexion of 90 deg's and will demonstrate ability to perform active knee extension and transfer sit to stand with minimal difficulty and dress without assist. STG Duration 2 weeks (01/22/20) (02/15/20: MET GOAL) Child Welfare Social Worker Goal (LTG) Pt will be able to achieve active R knee flexion 115 deg' s to tolerate ambulation on level and stairs, and transfer sit to stand without pain, and to tolerate a functional squat with pain no greater than 1/10. LTG Duration 8 weeks (03/18/20) (03/08/20: MET GOAL) One Impairment Pt lacks appropriate self care HEP Short Term Goal (STG) Pt will be educated in a home exercise program (HEP) to address decreased R knee ROM/ strength and decreased R hip strength to improve transfer and gait; Balance training exercises. (02/15/20: Pt I/S in knee ROM & strengthening, discussed ankle/hip strenghtening in standing & started wgt shift for balance). STG Duration 2 weeks (01/22/20) (02/15/20 Goal partially met; needs balance program) [facility] Goal (LTG) Pt will be independent in a self care HEP for progression towards functional squatting and progressing gait for hiking and power walking. LTG Duration 8 weeks (03/18/20) Progress Towards Goals Progress Comments Pt does not appear to limp when she is concentration on gait. Assessment Summary Assessment Pt appears to be walking normal, but she does feel she has to think out her gait in order to be normal. Pt was able to amb 8 steps (like at home) with use of railing on one side and is limited mainly by opposite knee (left side). Physical Therapy Plan Frequency and Duration Frequency of Treatment 1x/Week Plan of Care Start Date 01/07/20 Plan of Care End Date 03/18/20 Next Visit Focus/Plan Next Note Type Progress Note Next Visit Plan 8 more visits authorized. Progress to LTG of Goal #3 Encourage pt to begin power walking Focus on issuing HEP for hip AB strengthening & progression of strengthening of R knee. Balance training (Rhomberg/SLS ) Gait training level & stairs.
--- NOTE | 2020-03-24 17:23 | PT.OTN ---
Current Diagnoses Unilateral primary osteoarthritis, right knee (03/24/20) Stiffness of right knee, not elsewhere classified (03/24/20) Muscle weakness (generalized) (03/24/20) Unsteadiness on feet (03/24/20) Other abnormalities of gait and mobility (03/24/20) Presence of right artificial knee joint (03/24/20) Physical Therapy Treatment Note PT-OP-A Visit Information Start: 01/07/20 07:59 Freq: Status: Active Protocol: Document 03/24/20 14:22 LRN (Rec: 03/24/20 15:01 LRN [id number]) Out-Patient Physical Therapy Visit Information Visit Information Visit Type Progress Note Visit Start Time 14:22 Visit Stop Time 15:11 Total Visit Minutes 49 Visit Number 12 Evaluation Information Evaluation Date 01/07/20 Precautions Precautions Back pain due to scoliosis but currently no back pain. [place] Palsy - 08/23/19, R side of face. R eye effected with difficulty vision due to excessive tears. PT-OP-B Current Condition Start: 01/07/20 07:59 Freq: Status: Active Protocol: Document 01/07/20 11:26 LRN (Rec: 01/07/20 12:39 LRN [id number]) Current Condition History of Current Condition Onset Date 12/29/19 Current Complaints Swelling, tightness of knee, using walker History of Current Condition R TKA at [facility] on 12/29/19. She was at [facility] 2 nights, but since home has been doing ex's 1x/ day with assist of spouse. Pt is not sure what the exercises are that she has been doing. She notes considerable swelling & bruising in the R LE, and discomfort in area of bruising . She warns that due to her history of knee problems and dislocating patella's she is apprehensive and hesitant in doing exercises. L knee arthritis. Fatigues quickly since surgery. Prior Treatments and Tests Age 22 had R patella surgery to release lateral tendons ligaments to prevent patella from dislocating, no therapy at that time. She reports resolution of the dislocations but that she has purposely avoids exercises. She reports her L patella dislocated only one time in 2004. Developmental History Developmental History 12/10/19 R knee became swollen requiring ER visit and was told arthritis. Pt reports having difficulty ambulating requiring use of FWW since that time and subsequent R TKA (current diagnosis). Treatment Goals Patient/Caregiver Goals Functional Goals: Walk without a walker, do a squat, Dressing, sit to stand with ease, roll and move in bed without difficulty, stair ambulation with railing. Communtity Goals: One step w/ o railing. 150' gait without walker. Recreational Goals: Hike, power walk. Prior Functional Status Baseline Function- ADL's Independent Baseline Function- Mobility Independent Baseline Function- Gait Gait without assistive device. 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 Baseline Function- Recreation/Hobbies Power walk, hike w/o poles. Baseline Function- Other Trouble with stair ambulation due to pain. Current Functional Impairments (Reported) Functional Limitations- ADL's Walks with FWW. Difficulty stairs, dressing, sit to stand, rolling in bed, squatting. Functional Limitations- Mobility/Gait Walk as far as allowed. Doesn't tire but tissues tight , creates pain in medial R knee sometimes. Functional Limitations- Work/School Not working since Covid 19. Functional Limitations- Recreation/ Not able to power walk, hike. Hobbies Personal Factors Other Personal Factors That May Effect History of Patella Therapy/Recovery dislocations has caused apprehension and fear with exercising her LE's. History of Back pain. Current [place] Palsy affecting vision. PT-OP-C Subjective Start: 01/07/20 07:59 Freq: Status: Active Protocol: Document 03/24/20 14:22 LRN (Rec: 03/24/20 15:01 LRN [id number]) OP-PT Subjective Patient Comments Patient Comments Started working a week ago tomorrow. States her L knee is more the problem than the surgical side. So surgery planned for L knee at the end of March. States she believes she can do her low level hike and can probably do power walking, although hasn' t yet. [place] Palsy limits her stair ambulation confidence more than anything. States she has on avg 60% confidence in her gait. She still worries of lack of strength in her legs, L>R. PT-OP-D Balance Start: 01/07/20 07:59 Freq: Status: Active Protocol: Document 01/07/20 11:26 LRN (Rec: 01/07/20 13:35 LRN [id number]) Tinetti Balance Assessment Sitting Balance Sitting Balance Steady, safe Arising from Chair Ability to Arise Able, uses arms to help Attempts to Arise Arises on 1st attempt Standing Balance Immediate Standing Balance Steady with support Standing Balance Steady, wide stance Nudged Response Steady Standing with Eyes Closed Steady Turning Step Pattern Turning 360 Degrees Discontinuous steps Stability Turning 360 Degrees Steady Sitting Down Sitting Down Uses arms or unsteady Gait and Step Initiation of Gait No hesitancy Right Foot Step Length Does pass stance foot Right Foot Step Height Does not clear floor Left Foot Step Length Does pass stance foot Left Foot Step Height Completely clears floor Step Description Step Symmetry Step length not equal Step Continuity Steps appear continuous Gait Description Path Description Mild/moderate deviation Trunk Description Marked sway or uses aide Walking Stance Heels apart Scoring and Interpretation Tinetti Composite Score (points) 17 Interpretation of Scores High risk for falls(< 19) Tinetti Impairment Rating from Composite 40 to <60% Impaired (Score 12- Score 16) PT-OP-E Functional Tests Start: 01/07/20 07:59 Freq: Status: Active Protocol: Document 01/21/20 08:10 LRN (Rec: 01/21/20 12:59 LRN [id number]) Functional Tests Timed Up and Go (TUG) Score 19 Comments No AD, used hands, R leg held forw of L. L LE started 10' distance robb TUG Impairment Rating 80 to <100% Impaired (Score 18 -19) PT-OP-G Mobility & Gait Start: 01/07/20 07:59 Freq: Status: Active Protocol: Document 01/07/20 11:26 LRN (Rec: 01/07/20 12:39 LRN [id number]) OP Mobility Evaluation Bed Mobility Rolling Pt avoids due to pain. Supine to and from Sit Pt requires assist to lift RLE onto plinth. Pt Independently transfer to sit using UE's to assist RLE. Transfers Sit to Stand Independent with R LE in full extension and use of UE's. OP Gait Assessment Gait Gait Assistance Required: Independent Distance (Feet) 100 Able to Maintain Weight Bearing Status Yes During Gait Assistive Devices Assistive Device Front Wheeled Walker Orthotic/Prosthetic Devices or Brace: No Gait Deviations General Gait Pattern Antalgic,Decreased Stride Length,Decreased Feet Clearance,Flexed Trunk,Lateral Trunk Lean,Wide Based Gait Factors Limiting Gait Function Factors Limiting Gait Function Decreased Activity Tolerance, Decreased Strength,Limited Range of Motion,Pain,Poor Balance Comments Gait Comments Pt R toes do not clear floor sometimes even with hip hiking . PT-OP-J Posture/Palpation/Skin Start: 01/07/20 07:59 Freq: Status: Active Protocol: Document 01/12/20 14:30 LRN (Rec: 01/12/20 15:18 LRN [id number]) Palpation Assessment Location One Palpation Location R knee Palpation Findings Edema,Soft Tissue Tightness, Tenderness Palpation Details Pt wearing compressive hose. Mild increased temperature of medial lower leg. Generalized tenderness of R knee joint. Moderate swelling at the R knee joint. Minimal swelling in the R lower leg and upper thigh. Skin Assessment Incisional Assessment Incision Appearance/Comments Areas of dried blood present along incision. Incision healed. PT-OP-K Range of Motion Start: 01/07/20 07:59 Freq: Status: Active Protocol: Document 03/24/20 14:22 LRN (Rec: 03/24/20 15:01 LRN [id number]) Knee Goniometric Range of Motion Knee Right Patient Position Supine Flexion Active (degrees) 131 Hyper-Extension Active 3 Left Knee ROM WFL Yes Patient Position Supine Flexion Active (degrees) 133 Hyper-Extension Active 8 PT-OP-M Strength Start: 01/07/20 07:59 Freq: Status: Active Protocol: Document 03/24/20 14:22 LRN (Rec: 03/24/20 15:01 LRN [id number]) Knee Strength Knee Manual Muscle Testing Right Flexion (S2) 5 Normal Extension (L3) 5 Normal Left Flexion (S2) 4+ Good+ Extension (L3) 4+ Good+ PT-OP-Q Treatments Start: 01/07/20 07:59 Freq: Status: Active Protocol: Document 03/24/20 14:22 LRN (Rec: 03/24/20 15:01 LRN [id number]) Cardio Equipment Recumbent Stepper (Sci-Fit) Duration (Minutes) 10 Seat Position 8 Other Leaving L LE out Therapeutic Exercises Supine Exercises Heel slides Supine Exercise Name Heel slides with knee flex stretch Side right Comments ROM: Flex 131 deg's, Ext 0 deg's. Sitting Exercises knee flex Sitting Exercise Name Knee flex strengthening Side right Equipment Used 6# Reps/Minutes 15x 2 Comments MMT taken LAQ Sitting Exercise Name LAQ w/extension hold Side right Equipment Used 6# Reps/Minutes 30 Comments MMT taken Gait Training Gait Activity Stairs Description Stair training Device Used 8 & 6 steps ups and step backs Distance/Duration 10' Treatment Focus Improving pt confidence in stair ambulation Comments Easier to lead with RLE due to L knee pain. Neuro Re-Education Treatment Balance Activities Quick stair stepping Details Stairs up/downs with increasing speed Equipment 6 steps Reps/Duration 4' Comments Practiced progressive increase in speed of gait on stairs to improve coordination and proprioception with stair ambulation. Rhomberg stance Details Rhomberg stance: Arms across chest: EO, EC, on foam EO Surface Level Reps/Duration 3' Comments Pt able to stand > 1 minute without LOB. PT-OP-R Modalities Start: 01/07/20 07:59 Freq: Status: Active Protocol: Document 03/24/20 14:22 LRN (Rec: 03/24/20 17:05 LRN [id number]) Hot Pack/Cold Pack Treatment Cold Pack Location R knee Patient Position Supine Treatment Duration (minutes) 10 Comments R Leg on wedge for edema. PT-OP-T Assessment and Plan Start: 01/07/20 07:59 Freq: Status: Active Protocol: Document 03/24/20 14:22 LRN (Rec: 03/24/20 15:01 LRN [id number]) Physical Therapy Assessment Rehab Potential Rehabilitation Potential Excellent Evaluation Complexity Number of Personal Factors/Comorbidities 3 or More Number of Body Systems Impaired 4 or More Clinical Presentation at Evaluation Evolving Impairments Impairments Activity Tolerance,Balance, Edema,Functional Mobility,Gait ,Strength Goals Five Impairment Decreased function per LEFS score of 17/80 (60-79% impaired) [facility] Goal (LTG) Improve functional ability per LEFS score no less than 63/80 . (03/08/20: LEFS is 33/80; ) LTG Duration 04/15/20 03/08/20: Improving. Four Impairment Decreased balance. (Pt not able to SLS on RLE or perform Rhomberg stance) Call Center Dispatcher Goal (LTG) Pt will be able to reference investigator Rhomberg for 10 sec's without difficulty in order to walk safely 150' without a walker and return to low level hiking and power walk activities. LTG Duration 03/18/20 (03/24/20: MET GOALS for Romberg) Three Impairment Decreased R knee strength of ext 1/5, flex 3/5 (Left ext 5/ 5, flex 4/5) Short Term Goal (STG) Pt will be able to improve R knee extension strength to 3/5 and flexion 3+/5 in order to move in bed without difficulty , transfer in/out of bed without assist and ambulate with use of cane instead of walker. (01/14/20: Pt able to lift leg onto plinth independently with difficulty but able to perform indep SLR as exercise). 12/28/19: R knee ext is 3-/5. STG Duration 2 weeks (02/23/20: MET GOAL) Call Center Dispatcher Goal (LTG) Pt will improve R knee strength 4/5 for ability to ambulate 1 step without use of railing, and home stairs with use of railing with 80% confidence. (03/24/20: Normal stair ambulation with 60% confidence .) LTG Duration 04/15/20 (03/24/20: Improving) Two Impairment Decreased supine R knee AROM 0 -45 deg's (Left is 0-130 deg's ) Short Term Goal (STG) Pt will be able to achieve R knee flexion of 90 deg's and will demonstrate ability to perform active knee extension and transfer sit to stand with minimal difficulty and dress without assist. STG Duration 2 weeks (01/22/20) (02/15/20: MET GOAL) [facility] Goal (LTG) Pt will be able to achieve active R knee flexion 115 deg' s to tolerate ambulation on level and stairs, and transfer sit to stand without pain, and to tolerate a functional squat with pain no greater than 1/10. LTG Duration 8 weeks (03/18/20) (03/08/20: MET GOAL) One Impairment Pt lacks appropriate self care HEP Short Term Goal (STG) Pt will be educated in a home exercise program (HEP) to address decreased R knee ROM/ strength and decreased R hip strength to improve transfer and gait; Balance training exercises. (02/15/20: Pt I/S in knee ROM & strengthening, discussed ankle/hip strenghtening in standing & started wgt shift for balance). STG Duration 2 weeks (01/22/20) (02/15/20 Goal partially met; needs balance program) [facility] Goal (LTG) Pt will be independent in a self care HEP for progression towards functional squatting and progressing gait for hiking and power walking. LTG Duration 04/15/20 Assessment Summary Assessment Pt gait is much improved, pt ambulating without an assistive device safely with a very slow and cautious gait. Her R knee AROM is almost normal compared to the left LE . She could benefit from continued skille physical therapy for progression of her HEP and progression with her balance and coordination to improve her functional ability and confidence level for gait on level and stairs. Physical Therapy Plan Frequency and Duration Frequency of Treatment 1x/Week Plan of Care Start Date 01/07/20 Plan of Care End Date 04/18/20 Therapeutic Interventions Therapeutic Interventions Balance Training,Home Exercise Program,Manual Therapy, Neuromuscular Re-education, Patient/Caregiver Education, Self-Care/Home Management, Therapeutic Activities, Therapeutic Exercises Modalities Cold Pack/Ice Massage Next Visit Focus/Plan Next Note Type Discharge Summary Next Visit Plan (7 more visits authorized) Reassess return to prior level of function of hiking and power walking. Progress to LTG of Goal #3, Gait training level & stairs. Issue HEP for hip AB strengthening & R knee strengthening if needed for DC to HEP.
--- NOTE | 2020-05-19 16:31 | PT.OTN ---
Current Diagnoses Unilateral primary osteoarthritis, right knee (05/19/20) Stiffness of right knee, not elsewhere classified (05/19/20) Muscle weakness (generalized) (05/19/20) Unsteadiness on feet (05/19/20) Other abnormalities of gait and mobility (05/19/20) Presence of right artificial knee joint (05/19/20) Physical Therapy Treatment Note PT-OP-A Visit Information Start: 01/07/20 07:59 Freq: Status: Active Protocol: Document 05/19/20 15:07 LRN (Rec: 05/19/20 16:31 LRN [id number]) Out-Patient Physical Therapy Visit Information Visit Information Visit Type Treatment Note Visit Start Time 15:07 Visit Stop Time 15:08 Total Visit Minutes 61 Visit Number 13 Evaluation Information Evaluation Date 01/07/20 Precautions Precautions Back pain due to scoliosis but currently no back pain. [place] Palsy - 08/23/19, R side of face. R eye effected with difficulty vision due to excessive tears. PT-OP-B Current Condition Start: 01/07/20 07:59 Freq: Status: Active Protocol: Document 01/07/20 11:26 LRN (Rec: 01/07/20 12:39 LRN [id number]) Current Condition History of Current Condition Onset Date 12/29/19 Current Complaints Swelling, tightness of knee, using walker History of Current Condition R TKA at [facility] on 12/29/19. She was at [facility] 2 nights, but since home has been doing ex's 1x/ day with assist of spouse. Pt is not sure what the exercises are that she has been doing. She notes considerable swelling & bruising in the R LE, and discomfort in area of bruising . She warns that due to her history of knee problems and dislocating patella's she is apprehensive and hesitant in doing exercises. L knee arthritis. Fatigues quickly since surgery. Prior Treatments and Tests Age 22 had R patella surgery to release lateral tendons ligaments to prevent patella from dislocating, no therapy at that time. She reports resolution of the dislocations but that she has purposely avoids exercises. She reports her L patella dislocated only one time in 2004. Developmental History Developmental History 12/10/19 R knee became swollen requiring ER visit and was told arthritis. Pt reports having difficulty ambulating requiring use of FWW since that time and subsequent R TKA (current diagnosis). Treatment Goals Patient/Caregiver Goals Functional Goals: Walk without a walker, do a squat, Dressing, sit to stand with ease, roll and move in bed without difficulty, stair ambulation with railing. Communtity Goals: One step w/ o railing. 150' gait without walker. Recreational Goals: Hike, power walk. Prior Functional Status Baseline Function- ADL's Independent Baseline Function- Mobility Independent Baseline Function- Gait Gait without assistive device. 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 Baseline Function- Recreation/Hobbies Power walk, hike w/o poles. Baseline Function- Other Trouble with stair ambulation due to pain. Current Functional Impairments (Reported) Functional Limitations- ADL's Walks with FWW. Difficulty stairs, dressing, sit to stand, rolling in bed, squatting. Functional Limitations- Mobility/Gait Walk as far as allowed. Doesn't tire but tissues tight , creates pain in medial R knee sometimes. Functional Limitations- Work/School Not working since Covid . Functional Limitations- Recreation/ Not able to power walk, hike. Hobbies Personal Factors Other Personal Factors That May Effect History of Patella Therapy/Recovery dislocations has caused apprehension and fear with exercising her LE's. History of Back pain. Current [place] Palsy affecting vision. PT-OP-C Subjective Start: 01/07/20 07:59 Freq: Status: Active Protocol: Document 05/19/20 15:07 LRN (Rec: 05/19/20 16:31 LRN [id number]) OP-PT Subjective Patient Comments Patient Comments May 31, 2020 is planned for L TKA. States her R knee has been stiff. Has great ROM and nothing if doing stationary. Can walk stairs and squat without issue. Wallking is an issue because of stiffness. Was able to hike 1/4 mile and did great. Patient Questionnaires Lower Extremity Functional Scale LEFS Score 42 LEFS Impairment 40 to 59% Impaired (Score 32- 47) PT-OP-D Balance Start: 01/07/20 07:59 Freq: Status: Active Protocol: Document 01/07/20 11:26 LRN (Rec: 01/07/20 13:35 LRN [id number]) Tinetti Balance Assessment Sitting Balance Sitting Balance Steady, safe Arising from Chair Ability to Arise Able, uses arms to help Attempts to Arise Arises on 1st attempt Standing Balance Immediate Standing Balance Steady with support Standing Balance Steady, wide stance Nudged Response Steady Standing with Eyes Closed Steady Turning Step Pattern Turning 360 Degrees Discontinuous steps Stability Turning 360 Degrees Steady Sitting Down Sitting Down Uses arms or unsteady Gait and Step Initiation of Gait No hesitancy Right Foot Step Length Does pass stance foot Right Foot Step Height Does not clear floor Left Foot Step Length Does pass stance foot Left Foot Step Height Completely clears floor Step Description Step Symmetry Step length not equal Step Continuity Steps appear continuous Gait Description Path Description Mild/moderate deviation Trunk Description Marked sway or uses aide Walking Stance Heels apart Scoring and Interpretation Tinetti Composite Score (points) 17 Interpretation of Scores High risk for falls(< 19) Tinetti Impairment Rating from Composite 40 to <60% Impaired (Score 12- Score 16) PT-OP-E Functional Tests Start: 01/07/20 07:59 Freq: Status: Active Protocol: Document 05/19/20 15:07 LRN (Rec: 05/19/20 16:31 LRN [id number]) Functional Tests Timed Up and Go (TUG) Score 10.27 Comments 2nd attempt. 9 sec with use of hands TUG Impairment Rating 0% Impaired (Score 10) Other 2' Step Test Name of Test 2' Step Test Score 68 PT-OP-G Mobility & Gait Start: 01/07/20 07:59 Freq: Status: Active Protocol: Document 05/19/20 15:07 LRN (Rec: 05/19/20 16:31 LRN [id number]) OP Gait Assessment Comments Gait Comments Gait with heavy trunk lean left, decreased lateral sway of hips L>R. Pt holds her R knee stiff out of habit. Stair Climbing Evaluation Comments Stair Climbing Comments Normal gait pattern with use of one rail. PT-OP-J Posture/Palpation/Skin Start: 01/07/20 07:59 Freq: Status: Active Protocol: Document 01/12/20 14:30 LRN (Rec: 01/12/20 15:18 LRN [id number]) Palpation Assessment Location One Palpation Location R knee Palpation Findings Edema,Soft Tissue Tightness, Tenderness Palpation Details Pt wearing compressive hose. Mild increased temperature of medial lower leg. Generalized tenderness of R knee joint. Moderate swelling at the R knee joint. Minimal swelling in the R lower leg and upper thigh. Skin Assessment Incisional Assessment Incision Appearance/Comments Areas of dried blood present along incision. Incision healed. PT-OP-K Range of Motion Start: 01/07/20 07:59 Freq: Status: Active Protocol: Document 05/19/20 15:07 LRN (Rec: 05/19/20 16:31 LRN [id number]) Knee Goniometric Range of Motion Knee R knee flex sitting Patient Position Sitting Flexion Passive (degrees) 130 Comments L knee is: Flex 132 deg's. L knee supine Patient Position Supine Flexion Active (degrees) 141 Flexion Passive (degrees) 142 Extension Active (degrees) 0 R knee supine Patient Position Supine Flexion Active (degrees) 128 Flexion Passive (degrees) 129 Extension Active (degrees) 0 PT-OP-M Strength Start: 01/07/20 07:59 Freq: Status: Active Protocol: Document 05/19/20 15:07 LRN (Rec: 05/19/20 16:31 LRN [id number]) Knee Strength Knee Manual Muscle Testing Right Comments Generally 5/5 Left Flexion (S2) 5 Normal Extension (L3) 4+ Good+ PT-OP-Q Treatments Start: 01/07/20 07:59 Freq: Status: Active Protocol: Document 05/19/20 15:07 LRN (Rec: 05/19/20 16:31 LRN [id number]) Cardio Equipment Recumbent Stepper (Sci-Fit) Duration (Minutes) 10 Resistance 3 Seat Position 14 Therapeutic Exercises Supine Exercises R knee ext stretch Supine Exercise Name Adithya knee ext Side bilateral Reps/Minutes 2' Comments ROM measurment taken Heel slides Supine Exercise Name Knee flex stretch Side bilateral Reps/Minutes 6' Comments AROM/PROM measurements taken Sitting Exercises knee flex Sitting Exercise Name Knee flex stretching Side right Reps/Minutes 3' Gait Training Gait Activity Stairs Description Stair training Device Used 8 steps ups and step backs Distance/Duration 5' Treatment Focus Improving pt confidence in stair ambulation Comments Easier to lead with RLE due to L knee pain. Proper wgt shift/posture Description Weight shifting adithya with proper mechanics Device Used Hand railing Level of Assistance phy cuing Surface firm Distance/Duration 15' Treatment Focus Shifting COG over foot and proper UB posture. Self-Care/Home Management Treatment Education Patient Education Home Exercise Program Activities Self-Care/Home Management Activities Issued & reviewed HEP: Balance chair holding exercises. PT-OP-R Modalities Start: 01/07/20 07:59 Freq: Status: Active Protocol: Document 05/19/20 15:07 LRN (Rec: 05/19/20 16:31 LRN [id number]) Hot Pack/Cold Pack Treatment Cold Pack Location Adithya knees Patient Position Prone Comments Legs on bolster PT-OP-T Assessment and Plan Start: 01/07/20 07:59 Freq: Status: Active Protocol: Document 05/19/20 15:07 LRN (Rec: 05/19/20 16:31 LRN [id number]) Physical Therapy Assessment Goals Five Impairment Decreased function per LEFS score of 17/80 (60-79% impaired) Manager Banking Goal (LTG) Improve functional ability per LEFS score no less than 63/80 . (05/19/20: LEFS is 42/80) LTG Duration 04/15/20 (05/19/20: NOT MET GOAL) Four Impairment Decreased balance. (Pt not able to SLS on RLE or perform Rhomberg stance) Manager Banking Goal (LTG) Pt will be able to dip stand loader Rhomberg for 10 sec's without difficulty in order to walk safely 150' without a walker and return to low level hiking and power walk activities. (05/19/20: SLS: 41 secs left, 59 secs right) LTG Duration 03/18/20 (03/24/20: MET GOALS for Romberg) Three Impairment Decreased R knee strength of ext 1/5, flex 3/5 (Left ext 5/ 5, flex 4/5) Short Term Goal (STG) Pt will be able to improve R knee extension strength to 3/5 and flexion 3+/5 in order to move in bed without difficulty , transfer in/out of bed without assist and ambulate with use of cane instead of walker. (01/14/20: Pt able to lift leg onto plinth independently with difficulty but able to perform indep SLR as exercise). 12/28/19: R knee ext is 3-/5. STG Duration 2 weeks (02/23/20: MET GOAL) Care Home Goal (LTG) Pt will improve R knee strength 4/5 for ability to ambulate 1 step without use of railing, and home stairs with use of railing with 80% confidence. (03/24/20: Normal stair ambulation with 60% confidence .) LTG Duration 04/15/20 (05/19/20: NOT MET GOAL. 75% confidence, because of L knee) Two Impairment Decreased supine R knee AROM 0 -45 deg's (Left is 0-130 deg's ) Short Term Goal (STG) Pt will be able to achieve R knee flexion of 90 deg's and will demonstrate ability to perform active knee extension and transfer sit to stand with minimal difficulty and dress without assist. STG Duration 2 weeks (01/22/20) (02/15/20: MET GOAL) Manager Banking Goal (LTG) Pt will be able to achieve active R knee flexion 115 deg' s to tolerate ambulation on level and stairs, and transfer sit to stand without pain, and to tolerate a functional squat with pain no greater than 1/10. LTG Duration 8 weeks (03/18/20) (03/08/20: MET GOAL) One Impairment Pt lacks appropriate self care HEP Short Term Goal (STG) Pt will be educated in a home exercise program (HEP) to address decreased R knee ROM/ strength and decreased R hip strength to improve transfer and gait; Balance training exercises. (02/15/20: Pt I/S in knee ROM & strengthening, discussed ankle/hip strenghtening in standing & started wgt shift for balance, added balance ex' s 05/19/20). STG Duration 2 weeks (01/22/20) (05/19/20: MET GOAL) Manager Banking Goal (LTG) Pt will be independent in a self care HEP for progression towards functional squatting and progressing gait for hiking and power walking. (05/19/20: Can do hikes and strolls. Not able to power walk because muscles don't feel fluid.) LTG Duration 04/15/20 (05/19/20: NOT MET. Pt has not returned to power walking) Progress Towards Goals Progress Comments Balance improved, Rhomberg not assessed, but much improvement in SLS: R is 59, L is 41 sec. Function improved per LEFS from 17/80 to 42/80. Stability with gait improved per TUG score 19 to 10.2. Endurance improved per 2 minute step test from 36 to 68 steps. Assessment Summary Assessment Pt was seen today after being on her HEP since her last visit on 03/24/20. She shows improvement in balance, function, stability with gait and endurance. She has improved on a self care HEP and should be able to continue towards meeting her balance and functional goals not yet achieved. If she is diligent in her home program I believe she could meet her goal prior to her planned L TKA surgery. Physical Therapy Plan Discharge Physical Therapy Discharge Comments Pt is being discharged to her HEP due to her good progress she has made on her independent HEP and due to her pending L TKA. The pt has done very well with therapy. Thank you for your referral.
== END 2020-05-27 09:15 ==
LOC: PHYS 15:00
PROVIDERS: PCP Registered Nurse; Referring Provider Registered Nurse; Visit Provider Registered Nurse
DX: M17.11 Unilateral primary osteoarthritis, right knee (principal); Z96.651 Presence of right artificial knee joint; M62.81 Muscle weakness (generalized); M25.661 Stiffness of right knee, not elsewhere classified; R26.89 Other abnormalities of gait and mobility; R26.81 Unsteadiness on feet
CPT/HCPCS: 97010; 97110; 97112; 97116; 97140; 97162; 97535

== ENCOUNTER → 2020-09-13 10:12 | Outpatient (CLI) | payer OTHER, MEDICAID, SELFPAY ==
[2020-09-13 11:41] LABS: Add Manual Diff / Slide Review NO; Basophils Absolute Auto 0 /uL (0-100); Basophils Percent Auto 1.1 % (0-2); Eosinophils Absolute Auto 100 /uL (0-450); Eosinophils Percent Auto 3.2 % (2-4); Hematocrit 41.7 % (36-46); Hemoglobin 14.1 g/dL (12.0-16.0); Lymphocytes Absolute Auto 1200 /uL (1100-4500); Lymphocytes Percent Auto 35.6 % (25-40); Mean Corpuscular HGB Conc 33.9 % (30-36); Mean Corpuscular Hemoglobin 29.4 PG (26-34); Mean Corpuscular Volume 86.7 fL (80-100); Monocytes Absolute Auto 400 /uL (0-900); Neutrophils Absolute Auto 1600 /uL (1500-7000); Neutrophils Percent Auto 48.1 % (50-75); Platelet Count 211 X10^3/uL (150-400); Red Blood Cell Count 4.81 X10^6/uL (4.0-5.2); Red Cell Distribution Width 14.4 % (11.6-14.8); White Blood Cell Count 3.4 X10^3/uL (4.5-11.0)
[2020-09-13 11:57] LABS: Erythrocyte Sedimentation Rate 1 MM/HR (0-20)
[2020-09-13 11:57] LABS: Hemoglobin A1C% w Est Avg Glu 5.6 % (4.0-6.0)
[2020-09-13 12:11] LABS: Alanine Aminotransferase 23 IU/L (<35); Albumin 4.4 g/dL (3.5-5.0); Albumin Globulin Ratio 1.7 (1.0-2.8); Alkaline Phosphatase 64 U/L (38-126); Aspartate Aminotransferase 32 IU/L (14-36); BUN Creatinine Ratio 18.5 (6-22); Bilirubin Total 0.6 mg/dL (0.2-1.3); Blood Urea Nitrogen 15 mg/dL (7-17); Calcium 9.5 mg/dL (8.4-10.2); Carbon Dioxide 31 mmol/L (22-32); Chloride 100 mmol/L (98-107); Estimated Glomerular Filt Rate > 60.0 mL/min (>60); Globulin 2.6 g/dL (1.7-4.1); Glucose 99 mg/dL (70-100); HEMOLYSIS < 15 (0-50); Potassium 4.2 mmol/L (3.4-5.1); Sodium 134 mmol/L (137-145)
[2020-09-13 12:25] LABS: Cholesterol 229 mg/dL (140-199); HDL Cholesterol 88 mg/dL (40-60); LDL Cholesterol Calculated 126 mg/dL (<100); Rheumatoid Factor 8.7 IU/mL (<12.0); Triglycerides 77 mg/dL (35-150)
[2020-09-13 12:28] LABS: C-Reactive Protein Quant < 0.5 mg/dL (<1.0)
[2020-09-13 12:39] LABS: Free T3, Triiodothyronine Free 3.18 pg/mL (2.77-5.27); Free T4, Direct Thyroxine 1.14 ng/dL (0.78-2.19)
[2020-09-13 12:52] LABS: Thyroid Stimulating Hormone 2.04 uIU/mL (0.47-4.68)
== END ==
PROVIDERS: Family Provider Nurse Practitioner; PCP Nurse Practitioner; Referring Provider Nurse Practitioner; Visit Provider Nurse Practitioner
DX: E87.1 Hypo-osmolality and hyponatremia (principal); F32.9 Major depressive disorder, single episode, unspecified; F41.1 Generalized anxiety disorder; R63.4 Abnormal weight loss; R73.9 Hyperglycemia, unspecified; E78.5 Hyperlipidemia, unspecified; M25.50 Pain in unspecified joint
CPT/HCPCS: 36415; 80053; 80061; 83036; 84439; 84443; 84481; 85025; 85651; 86140; 86430

== ENCOUNTER 2020-09-20 10:30 | Outpatient (RCR) | payer OTHER, MEDICAID, SELFPAY ==
--- NOTE | 2020-06-07 11:00 | PT.OIE ---
Current Diagnoses Unilateral primary osteoarthritis, left knee (06/07/20) Muscle weakness (generalized) (06/07/20) Unsteadiness on feet (06/07/20) Past Medical History (Last Reviewed 03/17/20 @ 16:12 by KEITH Krueger) Brantley's palsy (Acute) Bicornuate uterus (Chronic) Depression (Acute) Esophageal spasm (Chronic) Generalized anxiety disorder (Acute) Hyperglycemia (Acute) Hyponatremia (Acute) Patient new to provider (Acute) Unintentional weight loss (Acute) Past Surgical History (Last Reviewed 03/17/20 @ 16:12 by KEITH Krueger) Status post breast biopsy (Resolved 06/2003) Status post breast biopsy (Resolved 09/2005) Status post dilation and curettage (Resolved 04/2011) Visit Care Team Role Provider Type KEITH Krueger Family Provider Advanced Environmental Lead Primary Care Provider Specialty: Family Practice Address: [address] [place] [address], [facility] Email: [email or web address] Marcelo Daley DO Attending Provider Non-Staff Referring Provider Specialty: Orthopedics Address: [address] [place] [address], [id number] Email: Physical Therapy Initial Evaluation PT-OP-A Visit Information Start: 06/07/20 08:05 Freq: Status: Active Protocol: Document 06/07/20 09:03 LRN (Rec: 06/07/20 10:31 LRN [id number]) Out-Patient Physical Therapy Visit Information Visit Information Visit Type Initial Evaluation Visit Start Time 09:03 Visit Stop Time 09:55 Total Visit Minutes 52 Visit Number 1 Evaluation Information Evaluation Date 06/07/20 Precautions Precautions Hx of back pain due to scoliosis. Stowell Palsy - 08/23/19, R side of face. R eye effected with difficulty vision due to excessive tears. PT-OP-B Current Condition Start: 06/07/20 08:05 Freq: Status: Active Protocol: Document 06/07/20 09:03 LRN (Rec: 06/07/20 10:31 LRN [id number]) Current Condition History of Current Condition Onset Date 05/31/20 Current Complaints L knee, lower leg & medial thigh throbbing pain. History of Current Condition Elective surgery for L TKA from history of patella dislocation causing arthritis Prior Treatments and Tests None Future Testing and Treatments Planned F/U post-operative visit on with Dr. Foster in Nov for 6 week f/u visit. Developmental History Developmental History According to pt: L knee dislocation history causing arthritis and bone on bone condition. Treatment Goals Patient/Caregiver Goals Work out in gym: Use bike or stepper with 2-3/ 10 pain. Stairs without difficulty using 1 rail. Strength: Stair amb 100% confidence with railing Walk to/from grocery/[employer] ( 30') store without walker. Use of cane in 2 weeks. L knee ROM: transfer normal, ease of getting into a car. Prior Functional Status Baseline Function- ADL's Independent Baseline Function- Mobility Independent Baseline Function- Gait Gait without assistive device. Current Functional Impairments (Reported) Functional Limitations- ADL's Not able to cook/food prep. Not able to grocery shop. Functional Limitations- Mobility/Gait Walker needed for gait. Use of hands to transfer. Needs self-assist to L LE to get in/out of bed. Showers with stool and grab bars. Functional Limitations- Work/School Not able to perform some form of employed work. Personal Factors Other Personal Factors That May Effect History of Patella Therapy/Recovery dislocations has caused apprehension and fear with exercising her LE's. History of Back pain. Current Stowell Palsy affecting vision. R TKA surgery 01/07/20 PT-OP-C Subjective Start: 06/07/20 08:05 Freq: Status: Active Protocol: Document 06/07/20 09:03 LRN (Rec: 06/07/20 10:31 LRN [id number]) Patient Questionnaires Lower Extremity Functional Scale LEFS Score 16 LEFS Impairment 80 to 99% Impaired (Score 1-16 ) OP-PT Pain Assessment Pain Assessment Grid Paper Pain Assessment Grid Completed Yes Location L knee Pain Location Details Around the entire L knee joint , calf and medial thigh Intensity 5 Scale Used Numeric (0 - 10) Description Throbbing Description- Other Less pain with elevation of leg. Frequency Constant Pain Alleviating Factors Cold,Massage,Elevation Other Pain Alleviating Factors Hydrocodone PT-OP-G Mobility & Gait Start: 06/07/20 08:05 Freq: Status: Active Protocol: Document 06/07/20 09:03 LRN (Rec: 06/07/20 10:31 LRN [id number]) OP Mobility Evaluation Transfers Sit to Stand Independent with use of hands and holding L knee in full extension. Bed to Chair Transfers Assist needed to lift L LE onto plinth. OP Gait Assessment Gait Gait Assistance Required: Independent Distance (Feet) 150 Able to Maintain Weight Bearing Status Yes During Gait Assistive Devices Assistive Device Front Wheeled Walker Gait Deviations General Gait Pattern Antalgic Factors Limiting Gait Function Factors Limiting Gait Function Decreased Activity Tolerance, Decreased Strength,Limited Range of Motion,Pain,Poor Balance PT-OP-J Posture/Palpation/Skin Start: 06/07/20 08:05 Freq: Status: Active Protocol: Document 06/07/20 09:03 LRN (Rec: 06/07/20 10:31 LRN [id number]) Posture Evaluation Position Standing Evaluation View Lateral Weight Distribution Weight Shifted Right Hip Posture (L) Flexed,(R) Flexed Palpation Assessment Location Two Palpation Location Lower leg Palpation Findings Edema One Palpation Location L knee Palpation Findings Edema,Muscle Guarding, Tenderness PT-OP-K Range of Motion Start: 06/07/20 08:05 Freq: Status: Active Protocol: Document 06/07/20 09:03 LRN (Rec: 06/07/20 10:31 LRN [id number]) Hip Goniometric Range of Motion Hip Left Active Hip ROM WFL No Testing Position Supine Flexion w/Knee Flexed 60 Straight Leg Raise 0 Knee Goniometric Range of Motion Knee L knee supine Knee ROM WFL No Patient Position Supine Flexion Active (degrees) 65 Extension Active (degrees) 0 R knee supine Knee ROM WFL Yes Patient Position Supine Flexion Active (degrees) 122 Hyper-Extension Active 0 Right Patient Position Sitting Flexion Active (degrees) 112 Extension Active (degrees) 0 Comments AROM Left Patient Position Sitting Flexion Active (degrees) 70 Extension Active (degrees) 40 Comments AROM Ankle and Foot Goniometric Range of Motion Ankle and Foot Right Active Ankle/Foot ROM WFL Yes Testing Position Supine Dorsiflexion with Knee Extended 17 Comments Shoes on Left Active Testing Position Supine Dorsiflexion with Knee Extended 10 Comments Shoes on PT-OP-M Strength Start: 06/07/20 08:05 Freq: Status: Active Protocol: Document 06/07/20 09:03 LRN (Rec: 06/07/20 10:31 LRN [id number]) Hip Strength Hip Manual Muscle Testing Right Flexion (L2) 5 Normal Extension (S1) 4 Good Left Flexion (L2) 1 Trace Extension (S1) 3- Fair- Abduction 3- Fair- Adduction 3- Fair- Comments Hip AD assessed in supine Knee Strength Knee Manual Muscle Testing Right Flexion (S2) 5 Normal Extension (L3) 5 Normal Left Flexion (S2) 2+ Poor+ Extension (L3) 2- Poor- Ankle/Foot Strength Ankle and Foot Manual Muscle Testing Left Comments Generally 5/5 Right Comments Generally 5/5 PT-OP-Q Treatments Start: 06/07/20 08:05 Freq: Status: Active Protocol: Document 06/07/20 09:03 LRN (Rec: 06/07/20 10:31 LRN [id number]) Self-Care/Home Management Treatment Education Patient Education Pain Management Other Education Reviewed with pt edema management of compression, cryotherapy, rest with LLE elevation, ankle pumps. PT-OP-R Modalities Start: 06/07/20 08:05 Freq: Status: Active Protocol: Document 06/07/20 09:03 LRN (Rec: 06/07/20 10:31 LRN [id number]) Hot Pack/Cold Pack Treatment Cold Pack Location L knee Patient Position Hooklying Treatment Duration (minutes) 8 Patient Tolerance Good Comments Leg in elevation on bolster PT-OP-T Assessment and Plan Start: 06/07/20 08:05 Freq: Status: Active Protocol: Document 06/07/20 09:03 LRN (Rec: 06/07/20 10:31 LRN [id number]) Physical Therapy Assessment Rehab Potential Rehabilitation Potential Good Evaluation Complexity Number of Personal Factors/Comorbidities 3 or More Number of Body Systems Impaired 3 Clinical Presentation at Evaluation Evolving Impairments Impairments Activity Tolerance,Balance, Edema,Functional Mobility,Gait ,Pain,ROM,Soft Tissue Mobility ,Strength,Transfers Goals Six Impairment Decreased endurance (pt not leaving home) Short Term Goal (STG) Pt will be able to tolerate 10 ' on stationary exercise bike. STG Duration 08/21/20 Supervisor Laboratory Animal Facility Goal (LTG) Pt will be able to ambulate around a large warehouse store 30 minutes; without walker prior to fatigue. LTG Duration 09/05/20 Five Impairment Decreased function per LEFS score of 16 (prior level was 42) Supervisor Laboratory Animal Facility Goal (LTG) Improve functional ability per LEFS score to no less than 42 . LTG Duration 09/05/20 Four Impairment Decreased balance (not able to perform SLS or Rhomberg stance). Short Term Goal (STG) Pt will be able to calender wind up helper Rhomberg for 10 sec's without difficulty in order to walk safely 150' with a cane or without a walker. STG Duration 07/25/20 Supervisor Laboratory Animal Facility Goal (LTG) Pt will be able to L SLS at prior level (SLS 41 secs left, 59 secs right). LTG Duration 09/05/20 Three Impairment Decreased L knee strength ( Flex 2+/5, Ext 2-/5, R is generally 5/5) Short Term Goal (STG) Pt will be able to improve L knee extension strength to 3/5 and flexion 3+/5 in order to transfer in/out of bed (lift L leg independently onto the plinth) without assist and ambulate safely with use of cane. STG Duration 08/21/20 Supervisor Laboratory Animal Facility Goal (LTG) Pt will be able to improve L knee strength to 4/5 for ability to ambulate stairs with use of railing with 100% confidence. LTG Duration 09/05/20 Two Impairment Decreased L knee mobility ( Supine AROM in deg's: 40-70 L , 0-112 R) Short Term Goal (STG) Pt will be able to achieve L knee passive flexion of 100 deg's and will demonstrate the ability to perform active knee ext to at most 10 deg's lacking (sitting) for independent transfer sit to stand with minimal difficulty and minor use of hands, ability to tolerate riding a stationary bike going full revolution, and ease of getting into a car. STG Duration 08/21/20 Jail Goal (LTG) Pt will be able to achieve active L knee flexion 115 deg' s to tolerate ambulation on stairs with one rail without difficulty, transfer sit <> stand without pain, and tolerate full revolution on ex bike with pain no greater than 2-3/10. 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 LTG Duration 09/05/20 Assessment Summary Assessment Pt presents to therapy s/p L TKA on 05/31/20. As expected the pt is limited in L knee mobility, strength and function and per LEFS scoring she is 80<90% impaired. There is moderate plus amount of swelling in her LLE,but the pt is being conscientious about minimizing the swelling using the RICE method. The lower leg edema 15 cm below fibular head is: 38 cm girth right; 40 cm girth left (measure with legs not resting on surface). The pt demonstrates a dysfunctional gait with a walker, with shortened step length with the left and holding her LLE in full extension. The pt will benefit from skilled physical therapy to address her areas of dysfunction and return her to her prior level of function . Physical Therapy Plan Frequency and Duration Plan of Care Start Date 06/07/20 Plan of Care End Date 09/05/20 Therapeutic Interventions Therapeutic Interventions Balance Training,Gait Training ,Home Exercise Program,Joint Mobilizations,Manual Therapy, Neuromuscular Re-education, Patient/Caregiver Education, Self-Care/Home Management,Soft Tissue Mobilization,Taping, Therapeutic Activities, Therapeutic Exercises Modalities Cold Pack/Ice Massage,Hot Packs Next Visit Focus/Plan Next Note Type Treatment Note Next Visit Plan TUG, Stair and balance training, L knee ROM and progressive strengthening appropriate for s/p L TKA rehab. As tolerated, progress the pt onto back/forth motion on the upright bike for ROM & gradually aerobic ex. End with time for cryotherapy if pt chooses.
--- NOTE | 2020-06-07 11:00 | PT.OPPOC ---
Physical, Occupational & Speech Therapy At [facility] Current Diagnoses Unilateral primary osteoarthritis, left knee (06/07/20) Muscle weakness (generalized) (06/07/20) Unsteadiness on feet (06/07/20) Visit Care Team Role Provider Type KEITH Krueger Family Provider Advanced [employer] Associate Primary Care Provider Specialty: Family Practice Address: [address] [place] [address], [id number] Email: [email or web address] Marcelo Daley DO Attending Provider Non-Staff Referring Provider Specialty: Orthopedics Address: [address] [place] [address], [place], [address] Email: Plan Of Care PT-OP-T Assessment and Plan Start: 06/07/20 08:05 Freq: Status: Active Protocol: Document 06/07/20 09:03 LRN (Rec: 06/07/20 10:31 LRN [id number]) Physical Therapy Assessment Rehab Potential Rehabilitation Potential Good Evaluation Complexity Number of Personal Factors/Comorbidities 3 or More Number of Body Systems Impaired 3 Clinical Presentation at Evaluation Evolving Impairments Impairments Activity Tolerance,Balance, Edema,Functional Mobility,Gait ,Pain,ROM,Soft Tissue Mobility ,Strength,Transfers Goals Six Impairment Decreased endurance (pt not leaving home) Short Term Goal (STG) Pt will be able to tolerate 10 ' on stationary exercise bike. STG Duration 08/21/20 Senior Living Goal (LTG) Pt will be able to ambulate around a large [employer] store 30 minutes; without walker prior to fatigue. LTG Duration 09/05/20 Five Impairment Decreased function per LEFS score of 16 (prior level was 42) President And Chief Operating Officer Goal (LTG) Improve functional ability per LEFS score to no less than 42 . LTG Duration 09/05/20 Four Impairment Decreased balance (not able to perform SLS or Rhomberg stance). Short Term Goal (STG) Pt will be able to inclusion special education teacher Rhomberg for 10 sec's without difficulty in order to walk safely 150' with a cane or without a walker. STG Duration 07/25/20 Senior Living Goal (LTG) Pt will be able to L SLS at prior level (SLS 41 secs left, 59 secs right). LTG Duration 09/05/20 Three Impairment Decreased L knee strength ( Flex 2+/5, Ext 2-/5, R is generally 5/5) Short Term Goal (STG) Pt will be able to improve L knee extension strength to 3/5 and flexion 3+/5 in order to transfer in/out of bed (lift L leg independently onto the plinth) without assist and ambulate safely with use of cane. STG Duration 08/21/20 President And Chief Operating Officer Goal (LTG) Pt will be able to improve L knee strength to 4/5 for ability to ambulate stairs with use of railing with 100% confidence. LTG Duration 09/05/20 Two Impairment Decreased L knee mobility ( Supine AROM in deg's: 40-70 L , 0-112 R) Short Term Goal (STG) Pt will be able to achieve L knee passive flexion of 100 deg's and will demonstrate the ability to perform active knee ext to at most 10 deg's lacking (sitting) for independent transfer sit to stand with minimal difficulty and minor use of hands, ability to tolerate riding a stationary bike going full revolution, and ease of getting into a car. STG Duration 08/21/20 Senior Living Goal (LTG) Pt will be able to achieve active L knee flexion 115 deg' s to tolerate ambulation on stairs with one rail without difficulty, transfer sit <> stand without pain, and tolerate full revolution on ex bike with pain no greater than 2-3/10. LTG Duration 09/05/20 One Impairment Limited tolerance to HEP President And Chief Operating Officer Goal (LTG) Pt will be independent in a self care HEP for continued ROM and strengthening to achieve alf pt goal of returning to ex in a local gym , riding an outdoor bike, and hiking. LTG Duration 09/05/20 Assessment Summary Assessment Pt presents to therapy s/p L TKA on 05/31/20. As expected the pt is limited in L knee mobility, strength and function and per LEFS scoring she is 80<90% impaired. There is moderate plus amount of swelling in her LLE,but the pt is being conscientious about minimizing the swelling using the RICE method. The lower leg edema 15 cm below fibular head is: 38 cm girth right; 40 cm girth left (measure with legs not resting on surface). The pt demonstrates a dysfunctional gait with a walker, with shortened step length with the left and holding her LLE in full extension. The pt will benefit from skilled physical therapy to address her areas of dysfunction and return her to her prior level of function . Physical Therapy Plan Frequency and Duration Plan of Care Start Date 06/07/20 Plan of Care End Date 09/05/20 Therapeutic Interventions Therapeutic Interventions Balance Training,Gait Training ,Home Exercise Program,Joint Mobilizations,Manual Therapy, Neuromuscular Re-education, Patient/Caregiver Education, Self-Care/Home Management,Soft Tissue Mobilization,Taping, Therapeutic Activities, Therapeutic Exercises Modalities Cold Pack/Ice Massage,Hot Packs Next Visit Focus/Plan Next Note Type Treatment Note Next Visit Plan TUG, Stair and balance training, L knee ROM and progressive strengthening appropriate for s/p L TKA rehab. As tolerated, progress the pt onto back/forth motion on the upright bike for ROM & gradually aerobic ex. End with time for cryotherapy if pt chooses. Plan of Care Dates Plan of Care Start Date 06/07/20 Plan of Care End Date 09/05/20 Electronically Signed by: Moira Son, PT 06/07/20 1100 Please Sign and Return: I have reviewed this Plan of Care and certify that the skilled therapy services above are required to meet the patient?s needs. Physician Signature Date Printed Name and Credentials Clinical Instructor Signature Printed Name and Credentials
--- NOTE | 2020-06-09 13:26 | PT.OTN ---
Current Diagnoses Unilateral primary osteoarthritis, left knee (06/09/20) Muscle weakness (generalized) (06/09/20) Unsteadiness on feet (06/09/20) Physical Therapy Treatment Note PT-OP-A Visit Information Start: 06/07/20 08:05 Freq: Status: Active Protocol: Document 06/09/20 10:38 LRN (Rec: 06/09/20 11:29 LRN [id number]) Out-Patient Physical Therapy Visit Information Visit Information Visit Type Treatment Note Visit Start Time 10:36 Visit Stop Time 11:28 Total Visit Minutes 52 Visit Number 2 Evaluation Information Evaluation Date 06/07/20 Precautions Precautions Hx of back pain due to scoliosis. [place] Palsy - 08/23/19, R side of face. R eye effected with difficulty vision due to excessive tears. PT-OP-B Current Condition Start: 06/07/20 08:05 Freq: Status: Active Protocol: Document 06/07/20 09:03 LRN (Rec: 06/07/20 10:31 LRN [id number]) Current Condition History of Current Condition Onset Date 05/31/20 Current Complaints L knee, lower leg & medial thigh throbbing pain. History of Current Condition Elective surgery for L TKA from history of patella dislocation causing arthritis Prior Treatments and Tests None Future Testing and Treatments Planned F/U post-operative visit on with Dr. Foster in [place] for 6 week f/u visit. Developmental History Developmental History According to pt: L knee dislocation history causing arthritis and bone on bone condition. Treatment Goals Patient/Caregiver Goals Work out in gym: Use bike or stepper with 2-3/ 10 pain. Stairs without difficulty using 1 rail. Strength: Stair amb 100% confidence with railing Walk to/from grocery/[employer] ( 30') store without walker. Use of cane in 2 weeks. L knee ROM: transfer normal, ease of getting into a car. Prior Functional Status Baseline Function- ADL's Independent Baseline Function- Mobility Independent Baseline Function- Gait Gait without assistive device. Current Functional Impairments (Reported) Functional Limitations- ADL's Not able to cook/food prep. Not able to grocery shop. Functional Limitations- Mobility/Gait Walker needed for gait. Use of hands to transfer. Needs self-assist to L LE to get in/out of bed. Showers with stool and grab bars. Functional Limitations- Work/School Not able to perform some form of employed work. Personal Factors Other Personal Factors That May Effect History of Patella Therapy/Recovery dislocations has caused apprehension and fear with exercising her LE's. History of Back pain. Current [place] Palsy affecting vision. R TKA surgery 01/07/20 PT-OP-C Subjective Start: 06/07/20 08:05 Freq: Status: Active Protocol: Document 06/09/20 10:38 LRN (Rec: 06/09/20 11:29 LRN [id number]) OP-PT Subjective Patient Comments Patient Comments Last session did really good. Day before did a really good PT session at home , but yesterday needed to take it easy and didn't do ex. Feels better today after 1 day of rest. PT-OP-E Functional Tests Start: 06/07/20 08:05 Freq: Status: Active Protocol: Document 06/09/20 10:38 LRN (Rec: 06/09/20 11:29 LRN [id number]) Functional Tests Timed Up and Go (TUG) Score 28.36 Comments Use of UE's, walker, gait w/ straight L LE. TUG Impairment Rating 100% Impaired (Score 20) PT-OP-G Mobility & Gait Start: 06/07/20 08:05 Freq: Status: Active Protocol: Document 06/07/20 09:03 LRN (Rec: 06/07/20 10:31 LRN [id number]) OP Mobility Evaluation Transfers Sit to Stand Independent with use of hands and holding L knee in full extension. Bed to Chair Transfers Assist needed to lift L LE onto plinth. OP Gait Assessment Gait Gait Assistance Required: Independent Distance (Feet) 150 Able to Maintain Weight Bearing Status Yes During Gait Assistive Devices Assistive Device Front Wheeled Walker Gait Deviations General Gait Pattern Antalgic Factors Limiting Gait Function Factors Limiting Gait Function Decreased Activity Tolerance, Decreased Strength,Limited Range of Motion,Pain,Poor Balance PT-OP-J Posture/Palpation/Skin Start: 06/07/20 08:05 Freq: Status: Active Protocol: Document 06/07/20 09:03 LRN (Rec: 06/07/20 10:31 LRN [id number]) Posture Evaluation Position Standing Evaluation View Lateral Weight Distribution Weight Shifted Right Hip Posture (L) Flexed,(R) Flexed Palpation Assessment Location Two Palpation Location Lower leg Palpation Findings Edema One Palpation Location L knee Palpation Findings Edema,Muscle Guarding, Tenderness PT-OP-K Range of Motion Start: 06/07/20 08:05 Freq: Status: Active Protocol: Document 06/09/20 10:38 LRN (Rec: 06/09/20 11:29 LRN [id number]) Knee Goniometric Range of Motion Knee L knee supine Knee ROM WFL No Patient Position Supine knee over bolster Flexion Active (degrees) 74 Extension Active (degrees) 22 PT-OP-M Strength Start: 06/07/20 08:05 Freq: Status: Active Protocol: Document 06/07/20 09:03 LRN (Rec: 06/07/20 10:31 LRN [id number]) Hip Strength Hip Manual Muscle Testing Right Flexion (L2) 5 Normal Extension (S1) 4 Good Left Flexion (L2) 1 Trace Extension (S1) 3- Fair- Abduction 3- Fair- Adduction 3- Fair- Comments Hip AD assessed in supine Knee Strength Knee Manual Muscle Testing Right Flexion (S2) 5 Normal Extension (L3) 5 Normal Left Flexion (S2) 2+ Poor+ Extension (L3) 2- Poor- Ankle/Foot Strength Ankle and Foot Manual Muscle Testing Left Comments Generally 5/5 Right Comments Generally 5/5 PT-OP-Q Treatments Start: 06/07/20 08:05 Freq: Status: Active Protocol: Document 06/09/20 10:38 LRN (Rec: 06/09/20 11:29 LRN [id number]) Cardio Equipment Recumbent Bicycle Duration (Minutes) 6 Resistance 0 Seat Position 11 Other Back forth motion only. Therapeutic Exercises Supine Exercises Bridging Supine Exercise Name Bridging Side bilateral Reps/Minutes 2' Quad Sets leg on T-Ball Supine Exercise Name Quad set Side left Equipment Used Small Blue T-Ball Reps/Minutes 3' Heel slides Supine Exercise Name Heel slides Side left Equipment Used towel for foot to slide on Reps/Minutes 3' SLR Supine Exercise Name Assisted SLR Side left Reps/Minutes 3' SAQ Supine Exercise Name SAQ Side left Equipment Used Bolster Reps/Minutes 3' Sitting Exercises knee flex Sitting Exercise Name Active knee flex Side left Reps/Minutes 3' LAQ Sitting Exercise Name LAQ: Active and active assisted Side left Reps/Minutes 3' Gait Training Gait Activity Flex of L knee on swing through phase Description L knee flexion on swing through Device Used FWW Level of Assistance V cuing Surface Level Treatment Focus L knee flexion Comments Tends to hold LLE rigidly straight. PT-OP-R Modalities Start: 06/07/20 08:05 Freq: Status: Active Protocol: Document 06/09/20 10:38 LRN (Rec: 06/09/20 13:23 LRN [id number]) Hot Pack/Cold Pack Treatment Cold Pack Location L knee Patient Position Hooklying Treatment Duration (minutes) 10 Patient Tolerance Good Comments Bolster under legs PT-OP-T Assessment and Plan Start: 06/07/20 08:05 Freq: Status: Active Protocol: Document 06/09/20 10:38 LRN (Rec: 06/09/20 11:29 LRN [id number]) Physical Therapy Assessment Goals Six Impairment Decreased endurance (pt not leaving home) Short Term Goal (STG) Pt will be able to tolerate 10 ' on stationary exercise bike. STG Duration 08/21/20 Manager Market Development Goal (LTG) Pt will be able to ambulate around a large [employer] store 30 minutes; without walker prior to fatigue. LTG Duration 09/05/20 Five Impairment Decreased function per LEFS score of 16 (prior level was 42) Half-Way Goal (LTG) Improve functional ability per LEFS score to no less than 42 . LTG Duration 09/05/20 Four Impairment Decreased balance (not able to perform SLS or Rhomberg stance). 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 STG Duration 07/25/20 Half-Way Goal (LTG) Pt will be able to L SLS at prior level (SLS 41 secs left, 59 secs right). LTG Duration 09/05/20 Three Impairment Decreased L knee strength ( Flex 2+/5, Ext 2-/5, R is generally 5/5) Short Term Goal (STG) Pt will be able to improve L knee extension strength to 3/5 and flexion 3+/5 in order to transfer in/out of bed (lift L leg independently onto the plinth) without assist and ambulate safely with use of cane. STG Duration 08/21/20 Half-Way Goal (LTG) Pt will be able to improve L knee strength to 4/5 for ability to ambulate stairs with use of railing with 100% confidence. LTG Duration 09/05/20 Two Impairment Decreased L knee mobility ( Supine AROM in deg's: 40-70 L , 0-112 R) Short Term Goal (STG) Pt will be able to achieve L knee passive flexion of 100 deg's and will demonstrate the ability to perform active knee ext to at most 10 deg's lacking (sitting) for independent transfer sit to stand with minimal difficulty and minor use of hands, ability to tolerate riding a stationary bike going full revolution, and ease of getting into a car. STG Duration 08/21/20 Manager Market Development Goal (LTG) Pt will be able to achieve active L knee flexion 115 deg' s to tolerate ambulation on stairs with one rail without difficulty, transfer sit <> stand without pain, and tolerate full revolution on ex bike with pain no greater than 2-3/10. 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 LTG Duration 09/05/20 Progress Towards Goals Progress Comments AROM supine improved to 22-74 deg's from 40-65 deg's Assessment Summary Assessment L knee AROM improving. Good tolerance to ex, pt was able to perform new ex's. Pt stability with gait is poor per TUG score of 28.36 sec's. Pt feels her knee will be sore later today. Physical Therapy Plan Frequency and Duration Frequency of Treatment 2x/Week Plan of Care Start Date 06/07/20 Plan of Care End Date 09/05/20 Next Visit Focus/Plan Next Note Type Treatment Note Next Visit Plan Stair and balance training, L knee ROM and progressive strengthening appropriate for s/p L TKA rehab. As tolerated , progress the pt onto back/ forth motion on the upright bike for ROM & gradually aerobic ex. End with time for cryotherapy if pt chooses.
--- NOTE | 2020-06-14 11:19 | PT.OTN ---
Current Diagnoses Unilateral primary osteoarthritis, left knee (06/14/20) Muscle weakness (generalized) (06/14/20) Unsteadiness on feet (06/14/20) Physical Therapy Treatment Note PT-OP-A Visit Information Start: 06/07/20 08:05 Freq: Status: Active Protocol: Document 06/14/20 10:33 LRN (Rec: 06/14/20 11:18 LRN [id number]) Out-Patient Physical Therapy Visit Information Visit Information Visit Type Treatment Note Visit Start Time 10:33 Visit Stop Time 11:13 Total Visit Minutes 40 Visit Number 3 Evaluation Information Evaluation Date 06/07/20 Precautions Precautions Hx of back pain due to scoliosis. [place] Palsy - 08/23/19, R side of face. R eye effected with difficulty vision due to excessive tears. PT-OP-B Current Condition Start: 06/07/20 08:05 Freq: Status: Active Protocol: Document 06/07/20 09:03 LRN (Rec: 06/07/20 10:31 LRN [id number]) Current Condition History of Current Condition Onset Date 05/31/20 Current Complaints L knee, lower leg & medial thigh throbbing pain. History of Current Condition Elective surgery for L TKA from history of patella dislocation causing arthritis Prior Treatments and Tests None Future Testing and Treatments Planned F/U post-operative visit on with Dr. Foster in [place] for 6 week f/u visit. Developmental History Developmental History According to pt: L knee dislocation history causing arthritis and bone on bone condition. Treatment Goals Patient/Caregiver Goals Work out in gym: Use bike or stepper with 2-3/ 10 pain. Stairs without difficulty using 1 rail. Strength: Stair amb 100% confidence with railing Walk to/from grocery/[employer] ( 30') store without walker. Use of cane in 2 weeks. L knee ROM: transfer normal, ease of getting into a car. Prior Functional Status Baseline Function- ADL's Independent Baseline Function- Mobility Independent Baseline Function- Gait Gait without assistive device. Current Functional Impairments (Reported) Functional Limitations- ADL's Not able to cook/food prep. Not able to grocery shop. Functional Limitations- Mobility/Gait Walker needed for gait. Use of hands to transfer. Needs self-assist to L LE to get in/out of bed. Showers with stool and grab bars. Functional Limitations- Work/School Not able to perform some form of employed work. Personal Factors Other Personal Factors That May Effect History of Patella Therapy/Recovery dislocations has caused apprehension and fear with exercising her LE's. History of Back pain. Current [place] Palsy affecting vision. R TKA surgery 01/07/20 PT-OP-C Subjective Start: 06/07/20 08:05 Freq: Status: Active Protocol: Document 06/14/20 10:33 LRN (Rec: 06/14/20 11:18 LRN [id number]) OP-PT Subjective Patient Comments Patient Comments No complaints. PT-OP-E Functional Tests Start: 06/07/20 08:05 Freq: Status: Active Protocol: Document 06/09/20 10:38 LRN (Rec: 06/09/20 11:29 LRN [id number]) Functional Tests Timed Up and Go (TUG) Score 28.36 Comments Use of UE's, walker, gait w/ straight L LE. TUG Impairment Rating 100% Impaired (Score 20) PT-OP-G Mobility & Gait Start: 06/07/20 08:05 Freq: Status: Active Protocol: Document 06/07/20 09:03 LRN (Rec: 06/07/20 10:31 LRN [id number]) OP Mobility Evaluation Transfers Sit to Stand Independent with use of hands and holding L knee in full extension. Bed to Chair Transfers Assist needed to lift L LE onto plinth. OP Gait Assessment Gait Gait Assistance Required: Independent Distance (Feet) 150 Able to Maintain Weight Bearing Status Yes During Gait Assistive Devices Assistive Device Front Wheeled Walker Gait Deviations General Gait Pattern Antalgic Factors Limiting Gait Function Factors Limiting Gait Function Decreased Activity Tolerance, Decreased Strength,Limited Range of Motion,Pain,Poor Balance PT-OP-J Posture/Palpation/Skin Start: 06/07/20 08:05 Freq: Status: Active Protocol: Document 06/07/20 09:03 LRN (Rec: 06/07/20 10:31 LRN [id number]) Posture Evaluation Position Standing Evaluation View Lateral Weight Distribution Weight Shifted Right Hip Posture (L) Flexed,(R) Flexed Palpation Assessment Location Two Palpation Location Lower leg Palpation Findings Edema One Palpation Location L knee Palpation Findings Edema,Muscle Guarding, Tenderness PT-OP-K Range of Motion Start: 06/07/20 08:05 Freq: Status: Active Protocol: Document 06/14/20 10:33 LRN (Rec: 06/14/20 11:18 LRN [id number]) Knee Goniometric Range of Motion Knee L knee supine Knee ROM WFL No Patient Position Supine Flexion Active (degrees) 92 Flexion Passive (degrees) 95 Extension Active (degrees) 15 Extension Passive (degrees) 0 Right Patient Position Sitting Flexion Active (degrees) 112 Extension Active (degrees) 0 Comments AROM Left Patient Position Sitting Flexion Active (degrees) 98 Extension Active (degrees) 15 PT-OP-M Strength Start: 06/07/20 08:05 Freq: Status: Active Protocol: Document 06/07/20 09:03 LRN (Rec: 06/07/20 10:31 LRN [id number]) Hip Strength Hip Manual Muscle Testing Right Flexion (L2) 5 Normal Extension (S1) 4 Good Left Flexion (L2) 1 Trace Extension (S1) 3- Fair- Abduction 3- Fair- Adduction 3- Fair- Comments Hip AD assessed in supine Knee Strength Knee Manual Muscle Testing Right Flexion (S2) 5 Normal Extension (L3) 5 Normal Left Flexion (S2) 2+ Poor+ Extension (L3) 2- Poor- Ankle/Foot Strength Ankle and Foot Manual Muscle Testing Left Comments Generally 5/5 Right Comments Generally 5/5 PT-OP-Q Treatments Start: 06/07/20 08:05 Freq: Status: Active Protocol: Document 06/14/20 10:33 LRN (Rec: 06/14/20 11:18 LRN [id number]) Cardio Equipment Recumbent Stepper (Sci-Fit) Duration (Minutes) 8 Resistance 0 Seat Position 13 Therapeutic Exercises Supine Exercises Isolated QS Supine Exercise Name QS in isolation of Gluteal ms Side left Equipment Used towel roll under ankle Reps/Minutes 3' Bridging Supine Exercise Name Bridging Side bilateral Reps/Minutes 2' R knee ext stretch Supine Exercise Name Knee ext stretch Side left Equipment Used Towel roll under ankle Reps/Minutes 2' Quad Sets leg on T-Ball Supine Exercise Name Quad set Side left Equipment Used Small T-Ball Reps/Minutes 3' Ball roll up Supine Exercise Name T-Ball Flex/Ext Side left Equipment Used Sm Red T-Ball & gait belt Reps/Minutes 10x Comments Pt moves slow and cautious. Heel slides Supine Exercise Name Heel slides inclined ~45 deg's Side left Equipment Used Gait belt & towel for foot to slide on Reps/Minutes 3' SLR Supine Exercise Name Assisted SLR Side left Reps/Minutes 3' SAQ Supine Exercise Name SAQ Side left Equipment Used Bolster Reps/Minutes 3' Sitting Exercises knee flex Sitting Exercise Name Active knee flex Side left Reps/Minutes 3' LAQ Sitting Exercise Name LAQ: Active and active assisted Side left Reps/Minutes 3' Gait Training Gait Activity Flex of L knee on swing through phase Description L knee flexion on swing through Device Used FWW Level of Assistance V cuing Surface Level Treatment Focus L knee flexion Comments Holds LLE rigidly straight. Training while walking between ex's. PT-OP-R Modalities Start: 06/07/20 08:05 Freq: Status: Active Protocol: Document 06/09/20 10:38 LRN (Rec: 06/09/20 13:23 LRN [id number]) Hot Pack/Cold Pack Treatment Cold Pack Location L knee Patient Position Hooklying Treatment Duration (minutes) 10 Patient Tolerance Good Comments Bolster under legs PT-OP-T Assessment and Plan Start: 06/07/20 08:05 Freq: Status: Active Protocol: Document 06/14/20 10:33 LRN (Rec: 06/14/20 11:18 LRN [id number]) Physical Therapy Assessment Goals Six Impairment Decreased endurance (pt not leaving home) Short Term Goal (STG) Pt will be able to tolerate 10 ' on stationary exercise bike. 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 LTG Duration 09/05/20 Five Impairment Decreased function per LEFS score of 16 (prior level was 42) See Supervisor Goal (LTG) Improve functional ability per LEFS score to no less than 42 . LTG Duration 09/05/20 Four Impairment Decreased balance (not able to perform SLS or Rhomberg stance). Short Term Goal (STG) Pt will be able to photovoltaic testing technician Rhomberg for 10 sec's without difficulty in order to walk safely 150' with a cane or without a walker. STG Duration 07/25/20 Half-Way Goal (LTG) Pt will be able to L SLS at prior level (SLS 41 secs left, 59 secs right). LTG Duration 09/05/20 Three Impairment Decreased L knee strength ( Flex 2+/5, Ext 2-/5, R is generally 5/5) Short Term Goal (STG) Pt will be able to improve L knee extension strength to 3/5 and flexion 3+/5 in order to transfer in/out of bed (lift L leg independently onto the plinth) without assist and ambulate safely with use of cane. STG Duration 08/21/20 See Supervisor Goal (LTG) Pt will be able to improve L knee strength to 4/5 for ability to ambulate stairs with use of railing with 100% confidence. LTG Duration 09/05/20 Two Impairment Decreased L knee mobility ( Supine AROM in deg's: 40-70 L , 0-112 R) Short Term Goal (STG) Pt will be able to achieve L knee passive flexion of 100 deg's and will demonstrate the ability to perform active knee ext to at most 10 deg's lacking (sitting) for independent transfer sit to stand with minimal difficulty and minor use of hands, ability to tolerate riding a stationary bike going full revolution, and ease of getting into a car. STG Duration 08/21/20 Half-Way Goal (LTG) Pt will be able to achieve active L knee flexion 115 deg' s to tolerate ambulation on stairs with one rail without difficulty, transfer sit <> stand without pain, and tolerate full revolution on ex bike with pain no greater than 2-3/10. 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 LTG Duration 09/05/20 Progress Towards Goals Progress Comments AROM supine improved to 15-92 deg's from 22-74 deg's. Assessment Summary Assessment Pt getting a comfortable stretch on the [place]. Good tolerance to ex, with pt noting she was going to be sore later. L knee ROM improving. Physical Therapy Plan Frequency and Duration Frequency of Treatment 2x/Week Plan of Care Start Date 06/07/20 Plan of Care End Date 09/05/20 Next Visit Focus/Plan Next Note Type Treatment Note Next Visit Plan L knee ROM and progressive strengthening appropriate for s/p L TKA rehab. Progress the pt with back/forth motion on the upright bike or Recumbent bike for ROM & gradually increase aerobic ex. Stair and balance training. End with time for cryotherapy if pt chooses.
--- NOTE | 2020-06-17 17:24 | PT.OTN ---
Current Diagnoses Unilateral primary osteoarthritis, left knee (06/17/20) Muscle weakness (generalized) (06/17/20) Unsteadiness on feet (06/17/20) Physical Therapy Treatment Note PT-OP-A Visit Information Start: 06/07/20 08:05 Freq: Status: Active Protocol: Document 06/17/20 17:11 MA (Rec: 06/17/20 17:24 MA [email or web address]) Out-Patient Physical Therapy Visit Information Visit Information Visit Type Treatment Note Visit Start Time 16:01 Visit Stop Time 16:45 Total Visit Minutes 44 Visit Number 4 Number of SENIOR COPYWRITER Visits 1 PT-OP-B Current Condition Start: 06/07/20 08:05 Freq: Status: Active Protocol: Document 06/07/20 09:03 LRN (Rec: 06/07/20 10:31 LRN [id number]) Current Condition History of Current Condition Onset Date 05/31/20 Current Complaints L knee, lower leg & medial thigh throbbing pain. History of Current Condition Elective surgery for L TKA from history of patella dislocation causing arthritis Prior Treatments and Tests None Future Testing and Treatments Planned F/U post-operative visit on with Dr. Foster in Nov for 6 week f/u visit. Developmental History Developmental History According to pt: L knee dislocation history causing arthritis and bone on bone condition. Treatment Goals Patient/Caregiver Goals Work out in gym: Use bike or stepper with 2-3/ 10 pain. Stairs without difficulty using 1 rail. Strength: Stair amb 100% confidence with railing Walk to/from grocery/[employer] ( 30') store without walker. Use of cane in 2 weeks. L knee ROM: transfer normal, ease of getting into a car. Prior Functional Status Baseline Function- ADL's Independent Baseline Function- Mobility Independent Baseline Function- Gait Gait without assistive device. Current Functional Impairments (Reported) Functional Limitations- ADL's Not able to cook/food prep. Not able to grocery shop. Functional Limitations- Mobility/Gait Walker needed for gait. Use of hands to transfer. Needs self-assist to L LE to get in/out of bed. Showers with stool and grab bars. Functional Limitations- Work/School Not able to perform some form of employed work. Personal Factors Other Personal Factors That May Effect History of Patella Therapy/Recovery dislocations has caused apprehension and fear with exercising her LE's. History of Back pain. Current [place] Palsy affecting vision. R TKA surgery 01/07/20 PT-OP-C Subjective Start: 06/07/20 08:05 Freq: Status: Active Protocol: Document 06/17/20 17:11 MA (Rec: 06/17/20 17:24 MA [email or web address]) OP-PT Subjective Patient Comments Patient Comments Pt says she saw for two week post op follow up and had 98 degrees of knee flexion on the L PT-OP-E Functional Tests Start: 06/07/20 08:05 Freq: Status: Active Protocol: Document 06/09/20 10:38 LRN (Rec: 06/09/20 11:29 LRN [id number]) Functional Tests Timed Up and Go (TUG) Score 28.36 Comments Use of UE's, walker, gait w/ straight L LE. TUG Impairment Rating 100% Impaired (Score 20) PT-OP-G Mobility & Gait Start: 06/07/20 08:05 Freq: Status: Active Protocol: Document 06/07/20 09:03 LRN (Rec: 06/07/20 10:31 LRN [id number]) OP Mobility Evaluation Transfers Sit to Stand Independent with use of hands and holding L knee in full extension. Bed to Chair Transfers Assist needed to lift L LE onto plinth. OP Gait Assessment Gait Gait Assistance Required: Independent Distance (Feet) 150 Able to Maintain Weight Bearing Status Yes During Gait Assistive Devices Assistive Device Front Wheeled Walker Gait Deviations General Gait Pattern Antalgic Factors Limiting Gait Function Factors Limiting Gait Function Decreased Activity Tolerance, Decreased Strength,Limited Range of Motion,Pain,Poor Balance PT-OP-J Posture/Palpation/Skin Start: 06/07/20 08:05 Freq: Status: Active Protocol: Document 06/07/20 09:03 LRN (Rec: 06/07/20 10:31 LRN [id number]) Posture Evaluation Position Standing Evaluation View Lateral Weight Distribution Weight Shifted Right Hip Posture (L) Flexed,(R) Flexed Palpation Assessment Location Two Palpation Location Lower leg Palpation Findings Edema One Palpation Location L knee Palpation Findings Edema,Muscle Guarding, Tenderness PT-OP-K Range of Motion Start: 06/07/20 08:05 Freq: Status: Active Protocol: Document 06/14/20 10:33 LRN (Rec: 06/14/20 11:18 LRN [id number]) Knee Goniometric Range of Motion Knee L knee supine Knee ROM WFL No Patient Position Supine Flexion Active (degrees) 92 Flexion Passive (degrees) 95 Extension Active (degrees) 15 Extension Passive (degrees) 0 Right Patient Position Sitting Flexion Active (degrees) 112 Extension Active (degrees) 0 Comments AROM Left Patient Position Sitting Flexion Active (degrees) 98 Extension Active (degrees) 15 PT-OP-M Strength Start: 06/07/20 08:05 Freq: Status: Active Protocol: Document 06/07/20 09:03 LRN (Rec: 06/07/20 10:31 LRN [id number]) Hip Strength Hip Manual Muscle Testing Right Flexion (L2) 5 Normal Extension (S1) 4 Good Left Flexion (L2) 1 Trace Extension (S1) 3- Fair- Abduction 3- Fair- Adduction 3- Fair- Comments Hip AD assessed in supine Knee Strength Knee Manual Muscle Testing Right Flexion (S2) 5 Normal Extension (L3) 5 Normal Left Flexion (S2) 2+ Poor+ Extension (L3) 2- Poor- Ankle/Foot Strength Ankle and Foot Manual Muscle Testing Left Comments Generally 5/5 Right Comments Generally 5/5 PT-OP-Q Treatments Start: 06/07/20 08:05 Freq: Status: Active Protocol: Document 06/17/20 17:11 MA (Rec: 06/17/20 17:24 MA [email or web address]) Cardio Equipment Recumbent Stepper (Sci-Fit) Duration (Minutes) 8 Resistance 0 Seat Position 13 Therapeutic Exercises Supine Exercises R knee ext stretch Supine Exercise Name Knee ext stretch Side left Equipment Used Towel roll under ankle Reps/Minutes 2' Quad Sets leg on T-Ball Supine Exercise Name Quad set Side left Equipment Used Small T-Ball Reps/Minutes 3' Heel slides Supine Exercise Name Heel slides inclined ~45 deg's Side left Equipment Used Gait belt & towel for foot to slide on Reps/Minutes 3' SLR Supine Exercise Name Assisted SLR Side left Equipment Used gait belt Reps/Minutes 3' Gait Training Gait Activity Stairs Distance/Duration 3x4 steps Comments Stair training Neuro Re-Education Treatment Balance Activities SLS Details SLS LLE Comments first time-23 seconds Second time-32sec CGA Tandem Stance Reps/Duration 60 seconds Comments RLE infront of LLE Coordination Activities Hip/Knee Flexion Details LLE single leg october Comments Standing RLE, flexing L knee/ hip to practice stepping due to pt's decreased knee flexion during gait PT-OP-R Modalities Start: 06/07/20 08:05 Freq: Status: Active Protocol: Document 06/09/20 10:38 LRN (Rec: 06/09/20 13:23 LRN [id number]) Hot Pack/Cold Pack Treatment Cold Pack Location L knee Patient Position Hooklying Treatment Duration (minutes) 10 Patient Tolerance Good Comments Bolster under legs PT-OP-T Assessment and Plan Start: 06/07/20 08:05 Freq: Status: Active Protocol: Document 06/17/20 17:11 MA (Rec: 06/17/20 17:24 MA [email or web address]) Physical Therapy Assessment Goals Six Impairment Decreased endurance (pt not leaving home) Short Term Goal (STG) Pt will be able to tolerate 10 ' on stationary exercise bike. STG Duration 08/21/20 Half-Way Goal (LTG) Pt will be able to ambulate around a large [email or web address] store 30 minutes; without walker prior to fatigue. LTG Duration 09/05/20 Five Impairment Decreased function per LEFS score of 16 (prior level was 42) Tax Audit Manager Goal (LTG) Improve functional ability per LEFS score to no less than 42 . LTG Duration 09/05/20 Four Impairment Decreased balance (not able to perform SLS or Rhomberg stance). Short Term Goal (STG) Pt will be able to greenhouse instructor Rhomberg for 10 sec's without difficulty in order to walk safely 150' with a cane or without a walker. STG Duration 07/25/20 Half-Way Goal (LTG) Pt will be able to L SLS at prior level (SLS 41 secs left, 59 secs right). LTG Duration 09/05/20 Three Impairment Decreased L knee strength ( Flex 2+/5, Ext 2-/5, R is generally 5/5) Short Term Goal (STG) Pt will be able to improve L knee extension strength to 3/5 and flexion 3+/5 in order to transfer in/out of bed (lift L leg independently onto the plinth) without assist and ambulate safely with use of cane. STG Duration 08/21/20 Tax Audit Manager Goal (LTG) Pt will be able to improve L knee strength to 4/5 for ability to ambulate stairs with use of railing with 100% confidence. LTG Duration 09/05/20 Two Impairment Decreased L knee mobility ( Supine AROM in deg's: 40-70 L , 0-112 R) Short Term Goal (STG) Pt will be able to achieve L knee passive flexion of 100 deg's and will demonstrate the ability to perform active knee ext to at most 10 deg's lacking (sitting) for independent transfer sit to stand with minimal difficulty and minor use of hands, ability to tolerate riding a stationary bike going full revolution, and ease of getting into a car. STG Duration 08/21/20 Tax Audit Manager Goal (LTG) Pt will be able to achieve active L knee flexion 115 deg' s to tolerate ambulation on stairs with one rail without difficulty, transfer sit <> stand without pain, and tolerate full revolution on ex bike with pain no greater than 2-3/10. LTG Duration 09/05/20 One Impairment Limited tolerance to HEP Tax Audit Manager Goal (LTG) Pt will be independent in a self care HEP for continued ROM and strengthening to achieve senior living pt goal of returning to ex in a local gym , riding an outdoor bike, and hiking. LTG Duration 09/05/20 Assessment Summary Assessment Pt continues to have decreased hip/knee flexion during gait on LLE. No increased pain during stair training or SLS balance work. Pt was able to get full knee extension and ~ 95 degrees of knee flexion during ther ex Physical Therapy Plan Frequency and Duration Frequency of Treatment 2x/Week Plan of Care Start Date 06/07/20 Plan of Care End Date 09/05/20 Next Visit Focus/Plan Next Note Type Treatment Note Next Visit Plan Continue work on L knee ROM and progressive strengthening exercises. Work on gait training exercises to increase L hip/knee flexion during swing phase of gait.
--- NOTE | 2020-06-21 11:36 | PT.OTN ---
Current Diagnoses Unilateral primary osteoarthritis, left knee (06/21/20) Muscle weakness (generalized) (06/21/20) Unsteadiness on feet (06/21/20) Physical Therapy Treatment Note PT-OP-A Visit Information Start: 06/07/20 08:05 Freq: Status: Active Protocol: Document 06/21/20 10:29 LRN (Rec: 06/21/20 11:34 LRN [id number]) Out-Patient Physical Therapy Visit Information Visit Information Visit Type Treatment Note Visit Start Time 10: Visit Stop Time 11:16 Total Visit Minutes 46 Visit Number 5 Evaluation Information Evaluation Date 06/07/20 Precautions Precautions Hx of back pain due to scoliosis. [place] Palsy - 08/23/19, R side of face. R eye effected with difficulty vision due to excessive tears. PT-OP-B Current Condition Start: 06/07/20 08:05 Freq: Status: Active Protocol: Document 06/07/20 09:03 LRN (Rec: 06/07/20 10:31 LRN [id number]) Current Condition History of Current Condition Onset Date 05/31/20 Current Complaints L knee, lower leg & medial thigh throbbing pain. History of Current Condition Elective surgery for L TKA from history of patella dislocation causing arthritis Prior Treatments and Tests None Future Testing and Treatments Planned F/U post-operative visit on with Dr. Foster in [place] for 6 week f/u visit. Developmental History Developmental History According to pt: L knee dislocation history causing arthritis and bone on bone condition. Treatment Goals Patient/Caregiver Goals Work out in gym: Use bike or stepper with 2-3/ 10 pain. Stairs without difficulty using 1 rail. Strength: Stair amb 100% confidence with railing Walk to/from grocery/[employer] ( 30') store without walker. Use of cane in 2 weeks. L knee ROM: transfer normal, ease of getting into a car. Prior Functional Status Baseline Function- ADL's Independent Baseline Function- Mobility Independent Baseline Function- Gait Gait without assistive device. Current Functional Impairments (Reported) Functional Limitations- ADL's Not able to cook/food prep. Not able to grocery shop. Functional Limitations- Mobility/Gait Walker needed for gait. Use of hands to transfer. Needs self-assist to L LE to get in/out of bed. Showers with stool and grab bars. Functional Limitations- Work/School Not able to perform some form of employed work. Personal Factors Other Personal Factors That May Effect History of Patella Therapy/Recovery dislocations has caused apprehension and fear with exercising her LE's. History of Back pain. Current [place] Palsy affecting vision. R TKA surgery 01/07/20 PT-OP-C Subjective Start: 06/07/20 08:05 Freq: Status: Active Protocol: Document 06/21/20 10:29 LRN (Rec: 06/21/20 11:34 LRN [id number]) OP-PT Subjective Patient Comments Patient Comments Not too sore after last session. Looks forward to therapy. Able to stand on legs 20-30' before the back of the leg starts to hurt too much requiring her to sit. States her balance is better. She isn't using the walker everywhere in the home. Swelling is much better than the other, PT-OP-E Functional Tests Start: 06/07/20 08:05 Freq: Status: Active Protocol: Document 06/09/20 10:38 LRN (Rec: 06/09/20 11:29 LRN [id number]) Functional Tests Timed Up and Go (TUG) Score 28.36 Comments Use of UE's, walker, gait w/ straight L LE. TUG Impairment Rating 100% Impaired (Score 20) PT-OP-G Mobility & Gait Start: 06/07/20 08:05 Freq: Status: Active Protocol: Document 06/21/20 10:29 LRN (Rec: 06/21/20 11:34 LRN [id number]) OP Mobility Evaluation Bed Mobility Supine to and from Sit Independent with lifting and moving L LE. Transfers Sit to Stand Independent PT-OP-J Posture/Palpation/Skin Start: 06/07/20 08:05 Freq: Status: Active Protocol: Document 06/07/20 09:03 LRN (Rec: 06/07/20 10:31 LRN [id number]) Posture Evaluation Position Standing Evaluation View Lateral Weight Distribution Weight Shifted Right Hip Posture (L) Flexed,(R) Flexed Palpation Assessment Location Two Palpation Location Lower leg Palpation Findings Edema One Palpation Location L knee Palpation Findings Edema,Muscle Guarding, Tenderness PT-OP-K Range of Motion Start: 06/07/20 08:05 Freq: Status: Active Protocol: Document 06/21/20 10:29 LRN (Rec: 06/21/20 11:34 LRN [id number]) Knee Goniometric Range of Motion Knee L knee supine Knee ROM WFL No Patient Position Supine Flexion Active (degrees) 105 Flexion Passive (degrees) 101 Extension Active (degrees) 4 Extension Passive (degrees) 0 Comments PROM flex measured with foot on TBall. AROM measured at max heel slide. PT-OP-M Strength Start: 06/07/20 08:05 Freq: Status: Active Protocol: Document 06/07/20 09:03 LRN (Rec: 06/07/20 10:31 LRN [id number]) Hip Strength Hip Manual Muscle Testing Right Flexion (L2) 5 Normal Extension (S1) 4 Good Left Flexion (L2) 1 Trace Extension (S1) 3- Fair- Abduction 3- Fair- Adduction 3- Fair- Comments Hip AD assessed in supine Knee Strength Knee Manual Muscle Testing Right Flexion (S2) 5 Normal Extension (L3) 5 Normal Left Flexion (S2) 2+ Poor+ Extension (L3) 2- Poor- Ankle/Foot Strength Ankle and Foot Manual Muscle Testing Left Comments Generally 5/5 Right Comments Generally 5/5 PT-OP-Q Treatments Start: 06/07/20 08:05 Freq: Status: Active Protocol: Document 06/21/20 10:29 LRN (Rec: 06/21/20 11:34 LRN [id number]) Cardio Equipment Recumbent Stepper (Sci-Fit) Duration (Minutes) 9 Resistance 2 Seat Position 11 Therapeutic Exercises Supine Exercises Quad Sets leg on T-Ball Supine Exercise Name Quad set Side left Equipment Used Small T-Ball Reps/Minutes 2' Ball roll up Supine Exercise Name T-Ball Flex/Ext Side left Equipment Used Sm Red T-Ball & gait belt Reps/Minutes 4' Comments Pt moves slow and cautious. Heel slides Supine Exercise Name Heel slides inclined ~45 deg's Side left Equipment Used Gait belt & towel for foot to slide on Reps/Minutes 3' SLR Supine Exercise Name Independent SLR Side left Reps/Minutes 4' Comments Extra time for determining lift ex tolerance SAQ Supine Exercise Name SAQ Side left Equipment Used Bolster Reps/Minutes 3' Sidelying Exercises Hip AD Sidelying Exercise Name Assisted Hip AD Side left Reps/Minutes 10x R hip AB Sidelying Exercise Name Hip AB Side left Reps/Minutes 10x Comments Phys cuing needed to start for proper form with ex Sitting Exercises knee flex Sitting Exercise Name Active knee flex Side left Equipment Used Lev 1 TB Reps/Minutes 3' Standing Exercises Gastroc stretch Standing Exercise Name Runners stretch Side left Reps/Minutes 2' Gait Training Gait Activity Flex of L knee on swing through phase Description L knee flexion on swing through Device Used FWW Level of Assistance V cuing Surface Level Treatment Focus L knee flexion Comments Holds LLE rigidly straight. Training while walking between ex's. Self-Care/Home Management Treatment Education Patient Education Home Exercise Program Activities Self-Care/Home Management Activities Issued & reviewed HEP: Gastroc stretch, strengthening : sidelie hip AB/AD & sitting knee flex with TBand. PT-OP-R Modalities Start: 06/07/20 08:05 Freq: Status: Active Protocol: Document 06/09/20 10:38 LRN (Rec: 06/09/20 13:23 LRN [id number]) Hot Pack/Cold Pack Treatment Cold Pack Location L knee Patient Position Hooklying Treatment Duration (minutes) 10 Patient Tolerance Good Comments Bolster under legs PT-OP-T Assessment and Plan Start: 06/07/20 08:05 Freq: Status: Active Protocol: Document 06/21/20 10:29 LRN (Rec: 06/21/20 11:34 LRN [id number]) Physical Therapy Assessment Goals Six Impairment Decreased endurance (pt not leaving home) Short Term Goal (STG) Pt will be able to tolerate 10 ' on stationary exercise bike. STG Duration 08/21/20 Data Management Engineer Goal (LTG) Pt will be able to ambulate around a large [email or web address] store 30 minutes; without walker prior to fatigue. LTG Duration 09/05/20 Five Impairment Decreased function per LEFS score of 16 (prior level was 42) Nursing Home Goal (LTG) Improve functional ability per LEFS score to no less than 42 . LTG Duration 09/05/20 Four Impairment Decreased balance (not able to perform SLS or Rhomberg stance). Short Term Goal (STG) Pt will be able to product marketing coordinator Rhomberg for 10 sec's without difficulty in order to walk safely 150' with a cane or without a walker. STG Duration 07/25/20 (Late Entry: : MET GOAL) Data Management Engineer Goal (LTG) Pt will be able to L SLS at prior level (SLS 41 secs left, 59 secs right). LTG Duration 09/05/20 Two Impairment Decreased L knee mobility ( Supine AROM in deg's: 40-70 L , 0-112 R) Short Term Goal (STG) Pt will be able to achieve L knee passive flexion of 100 deg's and will demonstrate the ability to perform active knee ext to at most 10 deg's lacking (sitting) for independent transfer sit to stand with minimal difficulty and minor use of hands, ability to tolerate riding a stationary bike going full revolution, and ease of getting into a car. STG Duration 08/21/20 (06/21/20: Partially Met, not full revolution on ex bike) Data Management Engineer Goal (LTG) Pt will be able to achieve active L knee flexion 115 deg' s to tolerate ambulation on stairs with one rail without difficulty, transfer sit <> stand without pain, and tolerate full revolution on ex bike with pain no greater than 2-3/10. 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 LTG Duration 09/05/20 (06/21/20: Progressing) Progress Towards Goals Progress Comments AROM supine improved from 15- 92 deg's to 4-105 deg's. Last session left SLS improved from 23 to 32 secs during therapy with CGA. Assessment Summary Assessment L knee ROM improving, moved seat up in [employer] from 13 to 11 for greater knee flexion. Pt continues to need gait training for changing habit of holding L leg stiff with gait . Physical Therapy Plan Frequency and Duration Frequency of Treatment 2x/Week Plan of Care Start Date 06/07/20 Plan of Care End Date 09/05/20 Next Visit Focus/Plan Next Note Type Treatment Note Next Visit Plan Try ex bike for full revolution. Review balance ex 's. Continue work on L knee ROM and progressive strengthening exercises appropriate for s/p L TKA rehab. Work on gait training exercises to increase L hip/ knee flexion during swing phase of gait. Gradually increase aerobic ex. Stair and balance training. End with time for cryotherapy if pt chooses.
--- NOTE | 2020-06-24 13:03 | PT.OTN ---
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 Visit Start Time 12:17 Visit Stop Time 13:03 Total Visit Minutes 46 Visit Number 6 Number of MARKETING SALES MANAGER Visits 1 PT-OP-B Current Condition Start: 06/07/20 08:05 Freq: Status: Active Protocol: Document 06/07/20 09:03 LRN (Rec: 06/07/20 10:31 LRN [id number]) Current Condition History of Current Condition Onset Date 05/31/20 Current Complaints L knee, lower leg & medial thigh throbbing pain. History of Current Condition Elective surgery for L TKA from history of patella dislocation causing arthritis Prior Treatments and Tests None Future Testing and Treatments Planned F/U post-operative visit on with Dr. Foster in Nov for 6 week f/u visit. Developmental History Developmental History According to pt: L knee dislocation history causing arthritis and bone on bone condition. Treatment Goals Patient/Caregiver Goals Work out in gym: Use bike or stepper with 2-3/ 10 pain. Stairs without difficulty using 1 rail. Strength: Stair amb 100% confidence with railing Walk to/from grocery/[employer] ( 30') store without walker. Use of cane in 2 weeks. L knee ROM: transfer normal, ease of getting into a car. Prior Functional Status Baseline Function- ADL's Independent Baseline Function- Mobility Independent Baseline Function- Gait Gait without assistive device. Current Functional Impairments (Reported) Functional Limitations- ADL's Not able to cook/food prep. Not able to grocery shop. Functional Limitations- Mobility/Gait Walker needed for gait. Use of hands to transfer. Needs self-assist to L LE to get in/out of bed. Showers with stool and grab bars. Functional Limitations- Work/School Not able to perform some form of employed work. Personal Factors Other Personal Factors That May Effect History of Patella Therapy/Recovery dislocations has caused apprehension and fear with exercising her LE's. History of Back pain. Current [place] Palsy affecting vision. R TKA surgery 01/07/20 PT-OP-C Subjective Start: 06/07/20 08:05 Freq: Status: Active Protocol: Document 06/24/20 12:17 SP (Rec: 06/24/20 16:34 SP [id number]) OP-PT Subjective Patient Comments Patient Comments Pt states she is stiff. Trying to walk with increased knee flexion, compliant w/ exercises. No concerns. PT-OP-E Functional Tests Start: 06/07/20 08:05 Freq: Status: Active Protocol: Document 06/09/20 10:38 LRN (Rec: 06/09/20 11:29 LRN [id number]) Functional Tests Timed Up and Go (TUG) Score 28.36 Comments Use of UE's, walker, gait w/ straight L LE. TUG Impairment Rating 100% Impaired (Score 20) PT-OP-G Mobility & Gait Start: 06/07/20 08:05 Freq: Status: Active Protocol: Document 06/21/20 10:29 LRN (Rec: 06/21/20 11:34 LRN [id number]) OP Mobility Evaluation Bed Mobility Supine to and from Sit Independent with lifting and moving L LE. Transfers Sit to Stand Independent PT-OP-J Posture/Palpation/Skin Start: 06/07/20 08:05 Freq: Status: Active Protocol: Document 06/07/20 09:03 LRN (Rec: 06/07/20 10:31 LRN [id number]) Posture Evaluation Position Standing Evaluation View Lateral Weight Distribution Weight Shifted Right Hip Posture (L) Flexed,(R) Flexed Palpation Assessment Location Two Palpation Location Lower leg Palpation Findings Edema One Palpation Location L knee Palpation Findings Edema,Muscle Guarding, Tenderness PT-OP-K Range of Motion Start: 06/07/20 08:05 Freq: Status: Active Protocol: Document 06/24/20 12:17 SP (Rec: 06/24/20 16:36 SP [id number]) Knee Goniometric Range of Motion Knee L knee supine Knee ROM WFL No Patient Position Supine Flexion Active (degrees) 112 Flexion Passive (degrees) 114 Extension Active (degrees) 0 Extension Passive (degrees) 0 Comments PROM flex measured with foot on TBall w/strap assist. AROM ext measured at max heel slide. PT-OP-M Strength Start: 06/07/20 08:05 Freq: Status: Active Protocol: Document 06/07/20 09:03 LRN (Rec: 06/07/20 10:31 LRN [id number]) Hip Strength Hip Manual Muscle Testing Right Flexion (L2) 5 Normal Extension (S1) 4 Good Left Flexion (L2) 1 Trace Extension (S1) 3- Fair- Abduction 3- Fair- Adduction 3- Fair- Comments Hip AD assessed in supine Knee Strength Knee Manual Muscle Testing Right Flexion (S2) 5 Normal Extension (L3) 5 Normal Left Flexion (S2) 2+ Poor+ Extension (L3) 2- Poor- Ankle/Foot Strength Ankle and Foot Manual Muscle Testing Left Comments Generally 5/5 Right Comments Generally 5/5 PT-OP-Q Treatments Start: 06/07/20 08:05 Freq: Status: Active Protocol: Document 06/24/20 12:17 SP (Rec: 06/24/20 16:34 SP [id number]) Cardio Equipment Recumbent Stepper (Sci-Fit) Duration (Minutes) 9 Resistance 2 Seat Position 11 Other 35 rpm, 0.87 mi Therapeutic Exercises Supine Exercises Quad Sets leg on T-Ball Supine Exercise Name Quad set Side left Equipment Used blue lao ball Reps/Minutes 2' Ball roll up Supine Exercise Name lao ball flex/ext Side left Equipment Used blue lao ball Reps/Minutes 3' SLR Supine Exercise Name Independent SLR Side left Reps/Minutes 5 sec hold x 5, 5 rep Comments cued tke quality w/ controlled pacing PT-OP-R Modalities Start: 06/07/20 08:05 Freq: Status: Active Protocol: Document 06/09/20 10:38 LRN (Rec: 06/09/20 13:23 LRN [id number]) Hot Pack/Cold Pack Treatment Cold Pack Location L knee Patient Position Hooklying Treatment Duration (minutes) 10 Patient Tolerance Good Comments Bolster under legs PT-OP-T Assessment and Plan Start: 06/07/20 08:05 Freq: Status: Active Protocol: Document 06/24/20 12:17 SP (Rec: 06/24/20 16:34 SP [id number]) Physical Therapy Assessment Goals Six Impairment Decreased endurance (pt not leaving home) Short Term Goal (STG) Pt will be able to tolerate 10 ' on stationary exercise bike. 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 LTG Duration 09/05/20 Five Impairment Decreased function per LEFS score of 16 (prior level was 42) Long-Term Goal (LTG) Improve functional ability per LEFS score to no less than 42 . LTG Duration 09/05/20 Four Impairment Decreased balance (not able to perform SLS or Rhomberg stance). 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 STG Duration 07/25/20 (Late Entry: : MET GOAL) Long-Term Goal (LTG) Pt will be able to L SLS at prior level (SLS 41 secs left, 59 secs right). LTG Duration 09/05/20 Three Impairment Decreased L knee strength ( Flex 2+/5, Ext 2-/5, R is generally 5/5) Short Term Goal (STG) Pt will be able to improve L knee extension strength to 3/5 and flexion 3+/5 in order to transfer in/out of bed (lift L leg independently onto the plinth) without assist and ambulate safely with use of cane. STG Duration 08/21/20 Tin Can Laborer Goal (LTG) Pt will be able to improve L knee strength to 4/5 for ability to ambulate stairs with use of railing with 100% confidence. LTG Duration 09/05/20 Two Impairment Decreased L knee mobility ( Supine AROM in deg's: 40-70 L , 0-112 R) Short Term Goal (STG) Pt will be able to achieve L knee passive flexion of 100 deg's and will demonstrate the ability to perform active knee ext to at most 10 deg's lacking (sitting) for independent transfer sit to stand with minimal difficulty and minor use of hands, ability to tolerate riding a stationary bike going full revolution, and ease of getting into a car. STG Duration 08/21/20 (06/21/20: Partially Met, not full revolution on ex bike) Tin Can Laborer Goal (LTG) Pt will be able to achieve active L knee flexion 115 deg' s to tolerate ambulation on stairs with one rail without difficulty, transfer sit <> stand without pain, and tolerate full revolution on ex bike with pain no greater than 2-3/10. 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 LTG Duration 09/05/20 (06/21/20: Progressing) Assessment Summary Assessment Pt improved in L knee flexion ROM: 7 deg AROM, 9 deg PROM using strap foot over ball, extension gained 4 deg passive and active (0 deg) propped ankle propped on rolled towel. Tx focused and spent more time on supine HEP review with proper form durign ther ex today, cued quad facilitation during SLR able to complete today with 0 deg lag small range and increased focus. Educated if notes a knee bend then to stop, verbal understanding. Physical Therapy Plan Frequency and Duration Frequency of Treatment 2x/Week Plan of Care Start Date 06/07/20 Plan of Care End Date 09/05/20 Therapeutic Interventions Therapeutic Interventions Balance Training,Gait Training ,Home Exercise Program,Joint Mobilizations,Manual Therapy, Neuromuscular Re-education, Patient/Caregiver Education, Self-Care/Home Management,Soft Tissue Mobilization,Taping, Therapeutic Activities, Therapeutic Exercises Modalities Cold Pack/Ice Massage,Hot Packs Next Visit Focus/Plan Next Note Type Treatment Note Next Visit Plan Assess response to last tx. Try ex bike for full revolution. Review balance ex 's. Continue work on L knee ROM and progressive strengthening exercises appropriate for s/p L TKA rehab. Work on gait training exercises to increase L hip/ knee flexion during swing phase of gait. Gradually increase aerobic ex. Stair and balance training. End with time for cryotherapy if pt chooses.
--- NOTE | 2020-06-28 11:23 | PT.OTN ---
Current Diagnoses Unilateral primary osteoarthritis, left knee (06/28/20) Muscle weakness (generalized) (06/28/20) Unsteadiness on feet (06/28/20) Physical Therapy Treatment Note PT-OP-A Visit Information Start: 06/07/20 08:05 Freq: Status: Active Protocol: Document 06/28/20 10:38 LRN (Rec: 06/28/20 11:20 LRN [id number]) Out-Patient Physical Therapy Visit Information Visit Information Visit Type Treatment Note Visit Start Time 10:38 Visit Stop Time 11:19 Total Visit Minutes 41 Visit Number 7 Evaluation Information Evaluation Date 06/07/20 Precautions Precautions Hx of back pain due to scoliosis. [place] Palsy - 08/23/19, R side of face. R eye effected with difficulty vision due to excessive tears. PT-OP-B Current Condition Start: 06/07/20 08:05 Freq: Status: Active Protocol: Document 06/07/20 09:03 LRN (Rec: 06/07/20 10:31 LRN [id number]) Current Condition History of Current Condition Onset Date 05/31/20 Current Complaints L knee, lower leg & medial thigh throbbing pain. History of Current Condition Elective surgery for L TKA from history of patella dislocation causing arthritis Prior Treatments and Tests None Future Testing and Treatments Planned F/U post-operative visit on with Dr. Foster in [place] for 6 week f/u visit. Developmental History Developmental History According to pt: L knee dislocation history causing arthritis and bone on bone condition. Treatment Goals Patient/Caregiver Goals Work out in gym: Use bike or stepper with 2-3/ 10 pain. Stairs without difficulty using 1 rail. Strength: Stair amb 100% confidence with railing Walk to/from grocery/[employer] ( 30') store without walker. Use of cane in 2 weeks. L knee ROM: transfer normal, ease of getting into a car. Prior Functional Status Baseline Function- ADL's Independent Baseline Function- Mobility Independent Baseline Function- Gait Gait without assistive device. Current Functional Impairments (Reported) Functional Limitations- ADL's Not able to cook/food prep. Not able to grocery shop. Functional Limitations- Mobility/Gait Walker needed for gait. Use of hands to transfer. Needs self-assist to L LE to get in/out of bed. Showers with stool and grab bars. Functional Limitations- Work/School Not able to perform some form of employed work. Personal Factors Other Personal Factors That May Effect History of Patella Therapy/Recovery dislocations has caused apprehension and fear with exercising her LE's. History of Back pain. Current [place] Palsy affecting vision. R TKA surgery 01/07/20 PT-OP-C Subjective Start: 06/07/20 08:05 Freq: Status: Active Protocol: Document 06/28/20 10:38 LRN (Rec: 06/28/20 11:20 LRN [id number]) OP-PT Subjective Patient Comments Patient Comments Switched to the cane. Uses hands to transfer sit to stand . Can get into car pretty normally. PT-OP-E Functional Tests Start: 06/07/20 08:05 Freq: Status: Active Protocol: Document 06/28/20 10:38 LRN (Rec: 06/28/20 11:20 LRN [id number]) Functional Tests Other SLS Name of Test SLS Score Left is 5 secs with arms across chest. 27 secs arms free to move. PT-OP-G Mobility & Gait Start: 06/07/20 08:05 Freq: Status: Active Protocol: Document 06/21/20 10:29 LRN (Rec: 06/21/20 11:34 LRN [id number]) OP Mobility Evaluation Bed Mobility Supine to and from Sit Independent with lifting and moving L LE. Transfers Sit to Stand Independent PT-OP-J Posture/Palpation/Skin Start: 06/07/20 08:05 Freq: Status: Active Protocol: Document 06/07/20 09:03 LRN (Rec: 06/07/20 10:31 LRN [id number]) Posture Evaluation Position Standing Evaluation View Lateral Weight Distribution Weight Shifted Right Hip Posture (L) Flexed,(R) Flexed Palpation Assessment Location Two Palpation Location Lower leg Palpation Findings Edema One Palpation Location L knee Palpation Findings Edema,Muscle Guarding, Tenderness PT-OP-K Range of Motion Start: 06/07/20 08:05 Freq: Status: Active Protocol: Document 06/28/20 10:38 LRN (Rec: 06/28/20 11:20 LRN [id number]) Knee Goniometric Range of Motion Knee L knee supine Knee ROM WFL No Patient Position Supine Flexion Active (degrees) 118 Flexion Passive (degrees) 120 Comments ROM measured with foot on table. PT-OP-M Strength Start: 06/07/20 08:05 Freq: Status: Active Protocol: Document 06/07/20 09:03 LRN (Rec: 06/07/20 10:31 LRN [id number]) Hip Strength Hip Manual Muscle Testing Right Flexion (L2) 5 Normal Extension (S1) 4 Good Left Flexion (L2) 1 Trace Extension (S1) 3- Fair- Abduction 3- Fair- Adduction 3- Fair- Comments Hip AD assessed in supine Knee Strength Knee Manual Muscle Testing Right Flexion (S2) 5 Normal Extension (L3) 5 Normal Left Flexion (S2) 2+ Poor+ Extension (L3) 2- Poor- Ankle/Foot Strength Ankle and Foot Manual Muscle Testing Left Comments Generally 5/5 Right Comments Generally 5/5 PT-OP-Q Treatments Start: 06/07/20 08:05 Freq: Status: Active Protocol: Document 06/28/20 10:38 LRN (Rec: 06/28/20 11:20 LRN [id number]) Cardio Equipment Recumbent Stepper (Sci-Fit) Duration (Minutes) 10 Resistance 2 Seat Position 11 - 6', 10 - 4' Other 35 rpm Therapeutic Exercises Supine Exercises Bridging Supine Exercise Name Bridging Reps/Minutes 30x Heel slides Supine Exercise Name Heel slides SLR Supine Exercise Name Independent SLR Side left Reps/Minutes 5 sec hold x 5, 5 rep Comments cued tke quality w/ controlled pacing SAQ Supine Exercise Name SAQ Side left Resistance 2# Equipment Used Bolster Reps/Minutes 15x 2 Sitting Exercises LAQ Sitting Exercise Name LAQ Side left Equipment Used 2# Reps/Minutes 15x Comments R leg used to visually improve ROM of left Gait Training Gait Activity Stairs Description Up/Down 4 steps with railing for balance Distance/Duration 3' Treatment Focus Balance, proper gait Comments Step over step gait PT-OP-R Modalities Start: 06/07/20 08:05 Freq: Status: Active Protocol: Document 06/09/20 10:38 LRN (Rec: 06/09/20 13:23 LRN [id number]) Hot Pack/Cold Pack Treatment Cold Pack Location L knee Patient Position Hooklying Treatment Duration (minutes) 10 Patient Tolerance Good Comments Bolster under legs PT-OP-T Assessment and Plan Start: 06/07/20 08:05 Freq: Status: Active Protocol: Document 06/28/20 10:38 LRN (Rec: 06/28/20 11:20 LRN [id number]) Physical Therapy Assessment Goals Six Impairment Decreased endurance (pt not leaving home) Short Term Goal (STG) Pt will be able to tolerate 10 ' on stationary exercise bike. STG Duration 08/21/20 Halfway Goal (LTG) Pt will be able to ambulate around a large warehouse store 30 minutes; without walker prior to fatigue. LTG Duration 09/05/20 Five Impairment Decreased function per LEFS score of 16 (prior level was 42) Halfway Goal (LTG) Improve functional ability per LEFS score to no less than 42 . LTG Duration 09/05/20 Four Impairment Decreased balance (not able to perform SLS or Rhomberg stance). 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 STG Duration 07/25/20 (Late Entry: : MET GOAL) Cook Specialty [employer] Goal (LTG) Pt will be able to L SLS at prior level (SLS 41 secs left, 59 secs right). (06/28/20: Left SLS is 5 secs with hands across chest). LTG Duration 09/05/20 Three Impairment Decreased L knee strength ( Flex 2+/5, Ext 2-/5, R is generally 5/5) Short Term Goal (STG) Pt will be able to improve L knee extension strength to 3/5 and flexion 3+/5 in order to transfer in/out of bed (lift L leg independently onto the plinth) without assist and ambulate safely with use of cane. STG Duration 08/21/20 (06/28/20: MET GOAL) Halfway Goal (LTG) Pt will be able to improve L knee strength to 4/5 for ability to ambulate stairs with use of railing with 100% confidence. LTG Duration 09/05/20 Two Impairment Decreased L knee mobility ( Supine AROM in deg's: 40-70 L , 0-112 R) Short Term Goal (STG) Pt will be able to achieve L knee passive flexion of 100 deg's and will demonstrate the ability to perform active knee ext to at most 10 deg's lacking (sitting) for independent transfer sit to stand with minimal difficulty and minor use of hands, ability to tolerate riding a stationary bike going full revolution, and ease of getting into a car. STG Duration 08/21/20 (06/21/20: Partially Met, not full revolution on ex bike) Halfway Goal (LTG) Pt will be able to achieve active L knee flexion 115 deg' s to tolerate ambulation on stairs with one rail without difficulty, transfer sit <> stand without pain, and tolerate full revolution on ex bike with pain no greater than 2-3/10. LTG Duration 09/05/20 One Impairment Limited tolerance to HEP Halfway Goal (LTG) Pt will be independent in a self care HEP for continued ROM and strengthening to achieve long-term pt goal of returning to ex in a local gym , riding an outdoor bike, and hiking. LTG Duration 09/05/20 (06/21/20: Progressing) Progress Towards Goals Progress Comments AROM supine improved from 4- 105 deg's to 2-118 deg's. Assessment Summary Assessment L SLS was poor with hands across chest at 5 secs, with hands free to move 27 secs. L knee AROM improved (see progress above). Pt able to tolerate step over step gait on 4 stairs. Physical Therapy Plan Frequency and Duration Frequency of Treatment 2x/Week Plan of Care Start Date 06/07/20 Plan of Care End Date 09/05/20 Next Visit Focus/Plan Next Note Type Treatment Note Next Visit Plan Try ex bike for full revolution. Add SLS balance ex's. Continue work on L knee ROM and progressive strengthening exercises appropriate for s/p L TKA rehab. Work on gait training on strairs, progressing to 6 step & exercises to increase L hip/knee flexion during swing phase of gait. End with time for cryotherapy if pt chooses .
--- NOTE | 2020-07-01 13:49 | PT.OTN ---
Current Diagnoses Unilateral primary osteoarthritis, left knee (07/01/20) Muscle weakness (generalized) (07/01/20) Unsteadiness on feet (07/01/20) Physical Therapy Treatment Note PT-OP-A Visit Information Start: 06/07/20 08:05 Freq: Status: Active Protocol: Document 07/01/20 10:40 LRN (Rec: 07/01/20 11:21 LRN [id number]) Out-Patient Physical Therapy Visit Information Visit Information Visit Type Treatment Note Visit Start Time 10:40 Visit Stop Time 11:20 Total Visit Minutes 40 Visit Number 8 Evaluation Information Evaluation Date 06/07/20 Precautions Precautions Hx of back pain due to scoliosis. [place] Palsy - 08/23/19, R side of face. R eye effected with difficulty vision due to excessive tears. PT-OP-B Current Condition Start: 06/07/20 08:05 Freq: Status: Active Protocol: Document 06/07/20 09:03 LRN (Rec: 06/07/20 10:31 LRN [id number]) Current Condition History of Current Condition Onset Date 05/31/20 Current Complaints L knee, lower leg & medial thigh throbbing pain. History of Current Condition Elective surgery for L TKA from history of patella dislocation causing arthritis Prior Treatments and Tests None Future Testing and Treatments Planned F/U post-operative visit on with Dr. Foster in [place] for 6 week f/u visit. Developmental History Developmental History According to pt: L knee dislocation history causing arthritis and bone on bone condition. Treatment Goals Patient/Caregiver Goals Work out in gym: Use bike or stepper with 2-3/ 10 pain. Stairs without difficulty using 1 rail. Strength: Stair amb 100% confidence with railing Walk to/from grocery/[employer] ( 30') store without walker. Use of cane in 2 weeks. L knee ROM: transfer normal, ease of getting into a car. Prior Functional Status Baseline Function- ADL's Independent Baseline Function- Mobility Independent Baseline Function- Gait Gait without assistive device. Current Functional Impairments (Reported) Functional Limitations- ADL's Not able to cook/food prep. Not able to grocery shop. Functional Limitations- Mobility/Gait Walker needed for gait. Use of hands to transfer. Needs self-assist to L LE to get in/out of bed. Showers with stool and grab bars. Functional Limitations- Work/School Not able to perform some form of employed work. Personal Factors Other Personal Factors That May Effect History of Patella Therapy/Recovery dislocations has caused apprehension and fear with exercising her LE's. History of Back pain. Current [place] Palsy affecting vision. R TKA surgery 01/07/20 PT-OP-C Subjective Start: 06/07/20 08:05 Freq: Status: Active Protocol: Document 07/01/20 10:40 LRN (Rec: 07/01/20 11:21 LRN [id number]) OP-PT Subjective Patient Comments Patient Comments Progressing. Walked ~20' in [employer]. PT-OP-E Functional Tests Start: 06/07/20 08:05 Freq: Status: Active Protocol: Document 06/28/20 10:38 LRN (Rec: 06/28/20 11:20 LRN [id number]) Functional Tests Other SLS Name of Test SLS Score Left is 5 secs with arms across chest. 27 secs arms free to move. PT-OP-G Mobility & Gait Start: 06/07/20 08:05 Freq: Status: Active Protocol: Document 06/21/20 10:29 LRN (Rec: 06/21/20 11:34 LRN [id number]) OP Mobility Evaluation Bed Mobility Supine to and from Sit Independent with lifting and moving L LE. Transfers Sit to Stand Independent PT-OP-J Posture/Palpation/Skin Start: 06/07/20 08:05 Freq: Status: Active Protocol: Document 06/07/20 09:03 LRN (Rec: 06/07/20 10:31 LRN [id number]) Posture Evaluation Position Standing Evaluation View Lateral Weight Distribution Weight Shifted Right Hip Posture (L) Flexed,(R) Flexed Palpation Assessment Location Two Palpation Location Lower leg Palpation Findings Edema One Palpation Location L knee Palpation Findings Edema,Muscle Guarding, Tenderness PT-OP-K Range of Motion Start: 06/07/20 08:05 Freq: Status: Active Protocol: Document 06/28/20 10:38 LRN (Rec: 06/28/20 11:20 LRN [id number]) Knee Goniometric Range of Motion Knee L knee supine Knee ROM WFL No Patient Position Supine Flexion Active (degrees) 118 Flexion Passive (degrees) 120 Comments ROM measured with foot on table. PT-OP-M Strength Start: 06/07/20 08:05 Freq: Status: Active Protocol: Document 06/07/20 09:03 LRN (Rec: 06/07/20 10:31 LRN [id number]) Hip Strength Hip Manual Muscle Testing Right Flexion (L2) 5 Normal Extension (S1) 4 Good Left Flexion (L2) 1 Trace Extension (S1) 3- Fair- Abduction 3- Fair- Adduction 3- Fair- Comments Hip AD assessed in supine Knee Strength Knee Manual Muscle Testing Right Flexion (S2) 5 Normal Extension (L3) 5 Normal Left Flexion (S2) 2+ Poor+ Extension (L3) 2- Poor- Ankle/Foot Strength Ankle and Foot Manual Muscle Testing Left Comments Generally 5/5 Right Comments Generally 5/5 PT-OP-Q Treatments Start: 06/07/20 08:05 Freq: Status: Active Protocol: Document 07/01/20 10:40 LRN (Rec: 07/01/20 11:21 LRN [id number]) Cardio Equipment Bicycle (Upright) Duration (Minutes) 8 Resistance 0 Seat Position 7 Therapeutic Exercises Supine Exercises Bridging Supine Exercise Name Bridging Reps/Minutes 30x Ball roll up Supine Exercise Name brazilian ball flex/ext Side left Equipment Used blue brazilian ball Reps/Minutes 3' Heel slides Supine Exercise Name Heel slides Side left Equipment Used belt to assist Reps/Minutes 30x, hold at end-range SLR Supine Exercise Name Independent SLR Side left Reps/Minutes 10x 3 SAQ Supine Exercise Name SAQ Side left Resistance 3# Equipment Used Bolster Reps/Minutes 15x Sitting Exercises knee flex Sitting Exercise Name Knee flex stretch Side left Reps/Minutes 3' LAQ Sitting Exercise Name LAQ Side left Equipment Used 2# Reps/Minutes 15x Comments R leg used to visually improve ROM of left Standing Exercises Hamstring curl Standing Exercise Name Hamstring Curls Side left Reps/Minutes 3' (15x 2) PT-OP-R Modalities Start: 06/07/20 08:05 Freq: Status: Active Protocol: Document 06/09/20 10:38 LRN (Rec: 06/09/20 13:23 LRN [id number]) Hot Pack/Cold Pack Treatment Cold Pack Location L knee Patient Position Hooklying Treatment Duration (minutes) 10 Patient Tolerance Good Comments Bolster under legs PT-OP-T Assessment and Plan Start: 06/07/20 08:05 Freq: Status: Active Protocol: Document 07/01/20 10:40 LRN (Rec: 07/01/20 11:21 LRN [id number]) Physical Therapy Assessment Goals Six Impairment Decreased endurance (pt not leaving home) Short Term Goal (STG) Pt will be able to tolerate 10 ' on stationary exercise bike. STG Duration 08/21/20 Fdc Goal (LTG) Pt will be able to ambulate around a large warehouse store 30 minutes; without walker prior to fatigue. LTG Duration 09/05/20 Five Impairment Decreased function per LEFS score of 16 (prior level was 42) Fdc Goal (LTG) Improve functional ability per LEFS score to no less than 42 . LTG Duration 09/05/20 Four Impairment Decreased balance (not able to perform SLS or Rhomberg stance). Short Term Goal (STG) Pt will be able to technician support engineer Rhomberg for 10 sec's without difficulty in order to walk safely 150' with a cane or without a walker. STG Duration 07/25/20 (Late Entry: : MET GOAL) Pin Drafting Machine Operator Goal (LTG) Pt will be able to L SLS at prior level (SLS 41 secs left, 59 secs right). (06/28/20: Left SLS is 5 secs with hands across chest). LTG Duration 09/05/20 Three Impairment Decreased L knee strength ( Flex 2+/5, Ext 2-/5, R is generally 5/5) Short Term Goal (STG) Pt will be able to improve L knee extension strength to 3/5 and flexion 3+/5 in order to transfer in/out of bed (lift L leg independently onto the plinth) without assist and ambulate safely with use of cane. STG Duration 08/21/20 (06/28/20: MET GOAL) Pin Drafting Machine Operator Goal (LTG) Pt will be able to improve L knee strength to 4/5 for ability to ambulate stairs with use of railing with 100% confidence. LTG Duration 09/05/20 Two Impairment Decreased L knee mobility ( Supine AROM in deg's: 40-70 L , 0-112 R) Short Term Goal (STG) Pt will be able to achieve L knee passive flexion of 100 deg's and will demonstrate the ability to perform active knee ext to at most 10 deg's lacking (sitting) for independent transfer sit to stand with minimal difficulty and minor use of hands, ability to tolerate riding a stationary bike going full revolution, and ease of getting into a car. STG Duration 08/21/20 (06/21/20: Partially Met, not full revolution on ex bike) Fdc Goal (LTG) Pt will be able to achieve active L knee flexion 115 deg' s to tolerate ambulation on stairs with one rail without difficulty, transfer sit <> stand without pain, and tolerate full revolution on ex bike with pain no greater than 2-3/10. LTG Duration 09/05/20 One Impairment Limited tolerance to HEP Pin Drafting Machine Operator Goal (LTG) Pt will be independent in a self care HEP for continued ROM and strengthening to achieve buttermaker pt goal of returning to ex in a local gym , riding an outdoor bike, and hiking. LTG Duration 09/05/20 (06/21/20: Progressing) Progress Towards Goals Progress Comments AROM L knee: 0-120. PROM is 0-121 Assessment Summary Assessment Pt able to actively straighten L knee to 0 deg's. Pt able to tolerate full revolution around upright bike at a normal seat setting with end- range stretch at L knee. Pt going straight home and will ice at home. Physical Therapy Plan Frequency and Duration Frequency of Treatment 2x/Week Plan of Care Start Date 06/07/20 Plan of Care End Date 09/05/20 Next Visit Focus/Plan Next Note Type Treatment Note Next Visit Plan Add SLS balance ex's. Lower seat on upright bike. Continue work on L knee ROM and progressive strengthening exercises appropriate for s/p L TKA rehab. Work on gait training on strairs, progressing to 6 step & exercises to increase L hip/ knee flexion during swing phase of gait. End with time for cryotherapy if pt chooses.
--- NOTE | 2020-07-05 13:32 | PT.OTN ---
Current Diagnoses Unilateral primary osteoarthritis, left knee (07/05/20) Muscle weakness (generalized) (07/05/20) Unsteadiness on feet (07/05/20) Physical Therapy Treatment Note PT-OP-A Visit Information Start: 06/07/20 08:05 Freq: Status: Active Protocol: Document 07/05/20 12:45 LRN (Rec: 07/05/20 13:32 LRN [id number]) Out-Patient Physical Therapy Visit Information Visit Information Visit Type Treatment Note Visit Start Time 12:45 Visit Stop Time 13:30 Total Visit Minutes 45 Visit Number 9 Evaluation Information Evaluation Date 06/07/20 Precautions Precautions Hx of back pain due to scoliosis. [place] Palsy - 08/23/19, R side of face. R eye effected with difficulty vision due to excessive tears. PT-OP-B Current Condition Start: 06/07/20 08:05 Freq: Status: Active Protocol: Document 06/07/20 09:03 LRN (Rec: 06/07/20 10:31 LRN [id number]) Current Condition History of Current Condition Onset Date 05/31/20 Current Complaints L knee, lower leg & medial thigh throbbing pain. History of Current Condition Elective surgery for L TKA from history of patella dislocation causing arthritis Prior Treatments and Tests None Future Testing and Treatments Planned F/U post-operative visit on with Dr. Foster in [place] for 6 week f/u visit. Developmental History Developmental History According to pt: L knee dislocation history causing arthritis and bone on bone condition. Treatment Goals Patient/Caregiver Goals Work out in gym: Use bike or stepper with 2-3/ 10 pain. Stairs without difficulty using 1 rail. Strength: Stair amb 100% confidence with railing Walk to/from grocery/[employer] ( 30') store without walker. Use of cane in 2 weeks. L knee ROM: transfer normal, ease of getting into a car. Prior Functional Status Baseline Function- ADL's Independent Baseline Function- Mobility Independent Baseline Function- Gait Gait without assistive device. Current Functional Impairments (Reported) Functional Limitations- ADL's Not able to cook/food prep. Not able to grocery shop. Functional Limitations- Mobility/Gait Walker needed for gait. Use of hands to transfer. Needs self-assist to L LE to get in/out of bed. Showers with stool and grab bars. Functional Limitations- Work/School Not able to perform some form of employed work. Personal Factors Other Personal Factors That May Effect History of Patella Therapy/Recovery dislocations has caused apprehension and fear with exercising her LE's. History of Back pain. Current [place] Palsy affecting vision. R TKA surgery 01/07/20 PT-OP-C Subjective Start: 06/07/20 08:05 Freq: Status: Active Protocol: Document 07/05/20 12:45 LRN (Rec: 07/05/20 13:32 LRN [id number]) OP-PT Subjective Patient Comments Patient Comments Stiff, ran out of Celebrix medication. Stair (8) ambulation was difficulty, required use of railing. Alternate legs up, one step down. PT-OP-E Functional Tests Start: 06/07/20 08:05 Freq: Status: Active Protocol: Document 06/28/20 10:38 LRN (Rec: 06/28/20 11:20 LRN [id number]) Functional Tests Other SLS Name of Test SLS Score Left is 5 secs with arms across chest. 27 secs arms free to move. PT-OP-G Mobility & Gait Start: 06/07/20 08:05 Freq: Status: Active Protocol: Document 06/21/20 10:29 LRN (Rec: 06/21/20 11:34 LRN [id number]) OP Mobility Evaluation Bed Mobility Supine to and from Sit Independent with lifting and moving L LE. Transfers Sit to Stand Independent PT-OP-J Posture/Palpation/Skin Start: 06/07/20 08:05 Freq: Status: Active Protocol: Document 06/07/20 09:03 LRN (Rec: 06/07/20 10:31 LRN [id number]) Posture Evaluation Position Standing Evaluation View Lateral Weight Distribution Weight Shifted Right Hip Posture (L) Flexed,(R) Flexed Palpation Assessment Location Two Palpation Location Lower leg Palpation Findings Edema One Palpation Location L knee Palpation Findings Edema,Muscle Guarding, Tenderness PT-OP-K Range of Motion Start: 06/07/20 08:05 Freq: Status: Active Protocol: Document 07/05/20 12:45 LRN (Rec: 07/05/20 13:32 LRN [id number]) Knee Goniometric Range of Motion Knee L knee supine Knee ROM WFL No Patient Position Supine Flexion Active (degrees) 120 Flexion Passive (degrees) 122 Comments ROM measured with foot on table. PT-OP-M Strength Start: 06/07/20 08:05 Freq: Status: Active Protocol: Document 06/07/20 09:03 LRN (Rec: 06/07/20 10:31 LRN [id number]) Hip Strength Hip Manual Muscle Testing Right Flexion (L2) 5 Normal Extension (S1) 4 Good Left Flexion (L2) 1 Trace Extension (S1) 3- Fair- Abduction 3- Fair- Adduction 3- Fair- Comments Hip AD assessed in supine Knee Strength Knee Manual Muscle Testing Right Flexion (S2) 5 Normal Extension (L3) 5 Normal Left Flexion (S2) 2+ Poor+ Extension (L3) 2- Poor- Ankle/Foot Strength Ankle and Foot Manual Muscle Testing Left Comments Generally 5/5 Right Comments Generally 5/5 PT-OP-Q Treatments Start: 06/07/20 08:05 Freq: Status: Active Protocol: Document 07/05/20 12:45 LRN (Rec: 07/05/20 13:32 LRN [id number]) Cardio Equipment Bicycle (Upright) Duration (Minutes) 9 Resistance 3 Seat Position 7 Gym Equipment Shuttle Recovery Unilateral Squats Details 100#, 75#, 62# Resistance 62# alternating legs Shuttle Recovery Platform Stable Reps/Time Pt not able to alessia 100#, lessened alessia to 75# (few reps) Bilateral Squats Details 90/90 Resistance 100# Shuttle Recovery Platform Stable Reps/Time 10x Therapeutic Exercises Supine Exercises Heel slides Supine Exercise Name Heel slides Side left Equipment Used belt to assist Reps/Minutes 30x, hold at end-range Sitting Exercises knee flex Sitting Exercise Name Knee flex strengthening Side left Equipment Used Lev2 TB Reps/Minutes 10x 3 LAQ Sitting Exercise Name LAQ Side left Equipment Used 3# Reps/Minutes 10x Comments R leg used to visually improve ROM of left Standing Exercises Step ups/down Standing Exercise Name 6 & 8 steps Reps/Minutes 6 & 8 step: 10x each Comments Attempting to hover with 6 steps, use of railiing w/8 steps. CKC knee ext Standing Exercise Name CKC Knee ext (TB around posterior knee for QS) Side left Reps/Minutes 10 hold x 10 PT-OP-R Modalities Start: 06/07/20 08:05 Freq: Status: Active Protocol: Document 06/09/20 10:38 LRN (Rec: 06/09/20 13:23 LRN [id number]) Hot Pack/Cold Pack Treatment Cold Pack Location L knee Patient Position Hooklying Treatment Duration (minutes) 10 Patient Tolerance Good Comments Bolster under legs PT-OP-T Assessment and Plan Start: 06/07/20 08:05 Freq: Status: Active Protocol: Document 07/05/20 12:45 LRN (Rec: 07/05/20 13:32 LRN [id number]) Physical Therapy Assessment Goals Six Impairment Decreased endurance (pt not leaving home) Short Term Goal (STG) Pt will be able to tolerate 10 ' on stationary exercise bike. STG Duration 08/21/20 Custom Bow Maker Goal (LTG) Pt will be able to ambulate around a large warehouse store 30 minutes; without walker prior to fatigue. LTG Duration 09/05/20 Five Impairment Decreased function per LEFS score of 16 (prior level was 42) Shelter Goal (LTG) Improve functional ability per LEFS score to no less than 42 . LTG Duration 09/05/20 Four Impairment Decreased balance (not able to perform SLS or Rhomberg stance). Short Term Goal (STG) Pt will be able to ceramics test engineer Rhomberg for 10 sec's without difficulty in order to walk safely 150' with a cane or without a walker. STG Duration 07/25/20 (Late Entry: : MET GOAL) Custom Bow Maker Goal (LTG) Pt will be able to L SLS at prior level (SLS 41 secs left, 59 secs right). (06/28/20: Left SLS is 5 secs with hands across chest). LTG Duration 09/05/20 Three Impairment Decreased L knee strength ( Flex 2+/5, Ext 2-/5, R is generally 5/5) Short Term Goal (STG) Pt will be able to improve L knee extension strength to 3/5 and flexion 3+/5 in order to transfer in/out of bed (lift L leg independently onto the plinth) without assist and ambulate safely with use of cane. STG Duration 08/21/20 (06/28/20: MET GOAL) Custom Bow Maker Goal (LTG) Pt will be able to improve L knee strength to 4/5 for ability to ambulate stairs with use of railing with 100% confidence. LTG Duration 09/05/20 Two Impairment Decreased L knee mobility ( Supine AROM in deg's: 40-70 L , 0-112 R) Short Term Goal (STG) Pt will be able to achieve L knee passive flexion of 100 deg's and will demonstrate the ability to perform active knee ext to at most 10 deg's lacking (sitting) for independent transfer sit to stand with minimal difficulty and minor use of hands, ability to tolerate riding a stationary bike going full revolution, and ease of getting into a car. STG Duration 08/21/20 (06/21/20: Partially Met, not full revolution on ex bike) Custom Bow Maker Goal (LTG) Pt will be able to achieve active L knee flexion 115 deg' s to tolerate ambulation on stairs with one rail without difficulty, transfer sit <> stand without pain, and tolerate full revolution on ex bike with pain no greater than 2-3/10. LTG Duration 09/05/20 One Impairment Limited tolerance to HEP Shelter Goal (LTG) Pt will be independent in a self care HEP for continued ROM and strengthening to achieve intermediate pt goal of returning to ex in a local gym , riding an outdoor bike, and hiking. LTG Duration 09/05/20 (06/21/20: Progressing) Assessment Summary Assessment Max tolerance with unilateral squats on shuttle was 65#, tolerating 10 reps max. Physical Therapy Plan Frequency and Duration Frequency of Treatment 2x/Week Plan of Care Start Date 06/07/20 Plan of Care End Date 09/05/20 Next Visit Focus/Plan Next Note Type Treatment Note Next Visit Plan Add SLS balance ex's. Lower seat on upright bike. Continue work on L knee ROM and progressive strengthening exercises appropriate for s/p L TKA rehab. Work on gait training on strairs, progressing to 8 steps with hands hovering & exercises to increase L hip/knee flexion during swing phase of gait. End with time for cryotherapy if pt chooses.
--- NOTE | 2020-07-08 12:34 | PT.OTN ---
Current Diagnoses Unilateral primary osteoarthritis, left knee (07/08/20) Muscle weakness (generalized) (07/08/20) Unsteadiness on feet (07/08/20) Physical Therapy Treatment Note PT-OP-A Visit Information Start: 06/07/20 08:05 Freq: Status: Active Protocol: Document 07/08/20 10:36 LRN (Rec: 07/08/20 09:51 LRN [id number]) Out-Patient Physical Therapy Visit Information Visit Information Visit Type Progress Note Visit Start Time 10:36 Visit Stop Time 11:21 Total Visit Minutes 45 Visit Number 10 Evaluation Information Evaluation Date 06/07/20 Precautions Precautions Hx of back pain due to scoliosis. [place] Palsy - 08/23/19, R side of face. R eye effected with difficulty vision due to excessive tears. PT-OP-B Current Condition Start: 06/07/20 08:05 Freq: Status: Active Protocol: Document 06/07/20 09:03 LRN (Rec: 06/07/20 10:31 LRN [id number]) Current Condition History of Current Condition Onset Date 05/31/20 Current Complaints L knee, lower leg & medial thigh throbbing pain. History of Current Condition Elective surgery for L TKA from history of patella dislocation causing arthritis Prior Treatments and Tests None Future Testing and Treatments Planned F/U post-operative visit on with Dr. Foster in [place] for 6 week f/u visit. Developmental History Developmental History According to pt: L knee dislocation history causing arthritis and bone on bone condition. Treatment Goals Patient/Caregiver Goals Work out in gym: Use bike or stepper with 2-3/ 10 pain. Stairs without difficulty using 1 rail. Strength: Stair amb 100% confidence with railing Walk to/from grocery/[employer] ( 30') store without walker. Use of cane in 2 weeks. L knee ROM: transfer normal, ease of getting into a car. Prior Functional Status Baseline Function- ADL's Independent Baseline Function- Mobility Independent Baseline Function- Gait Gait without assistive device. Current Functional Impairments (Reported) Functional Limitations- ADL's Not able to cook/food prep. Not able to grocery shop. Functional Limitations- Mobility/Gait Walker needed for gait. Use of hands to transfer. Needs self-assist to L LE to get in/out of bed. Showers with stool and grab bars. Functional Limitations- Work/School Not able to perform some form of employed work. Personal Factors Other Personal Factors That May Effect History of Patella Therapy/Recovery dislocations has caused apprehension and fear with exercising her LE's. History of Back pain. Current [place] Palsy affecting vision. R TKA surgery 01/07/20 PT-OP-C Subjective Start: 06/07/20 08:05 Freq: Status: Active Protocol: Document 07/08/20 10:36 LRN (Rec: 07/08/20 09:51 LRN [id number]) OP-PT Subjective Patient Comments Patient Comments States she feels she walks better without the cane. Patient Questionnaires Lower Extremity Functional Scale LEFS Score 33 LEFS Impairment 40 to 59% Impaired (Score 32- 47) OP-PT Pain Assessment Pain Assessment Grid Paper Pain Assessment Grid Completed Yes Location L knee Pain Location Details Posterior L knee (4/5 anteriorly, 3/5 lateral & medially) Intensity 5 Scale Used Numeric (0 - 10) PT-OP-E Functional Tests Start: 06/07/20 08:05 Freq: Status: Active Protocol: Document 06/28/20 10:38 LRN (Rec: 06/28/20 11:20 LRN [id number]) Functional Tests Other SLS Name of Test SLS Score Left is 5 secs with arms across chest. 27 secs arms free to move. PT-OP-G Mobility & Gait Start: 06/07/20 08:05 Freq: Status: Active Protocol: Document 06/21/20 10:29 LRN (Rec: 06/21/20 11:34 LRN [id number]) OP Mobility Evaluation Bed Mobility Supine to and from Sit Independent with lifting and moving L LE. Transfers Sit to Stand Independent PT-OP-J Posture/Palpation/Skin Start: 06/07/20 08:05 Freq: Status: Active Protocol: Document 06/07/20 09:03 LRN (Rec: 06/07/20 10:31 LRN [id number]) Posture Evaluation Position Standing Evaluation View Lateral Weight Distribution Weight Shifted Right Hip Posture (L) Flexed,(R) Flexed Palpation Assessment Location Two Palpation Location Lower leg Palpation Findings Edema One Palpation Location L knee Palpation Findings Edema,Muscle Guarding, Tenderness PT-OP-K Range of Motion Start: 06/07/20 08:05 Freq: Status: Active Protocol: Document 07/08/20 10:36 LRN (Rec: 07/08/20 11:20 LRN [id number]) Knee Goniometric Range of Motion Knee L knee supine Knee ROM WFL No Patient Position Supine Flexion Active (degrees) 122 Flexion Passive (degrees) 122 Extension Active (degrees) 0 Extension Passive (degrees) 0 Comments ROM measured with foot on table. R knee supine Knee ROM WFL Yes Patient Position Supine Flexion Active (degrees) 128 Hyper-Extension Active 2 PT-OP-M Strength Start: 06/07/20 08:05 Freq: Status: Active Protocol: Document 06/07/20 09:03 LRN (Rec: 06/07/20 10:31 LRN [id number]) Hip Strength Hip Manual Muscle Testing Right Flexion (L2) 5 Normal Extension (S1) 4 Good Left Flexion (L2) 1 Trace Extension (S1) 3- Fair- Abduction 3- Fair- Adduction 3- Fair- Comments Hip AD assessed in supine Knee Strength Knee Manual Muscle Testing Right Flexion (S2) 5 Normal Extension (L3) 5 Normal Left Flexion (S2) 2+ Poor+ Extension (L3) 2- Poor- Ankle/Foot Strength Ankle and Foot Manual Muscle Testing Left Comments Generally 5/5 Right Comments Generally 5/5 PT-OP-Q Treatments Start: 06/07/20 08:05 Freq: Status: Active Protocol: Document 07/08/20 10:36 LRN (Rec: 07/08/20 11:20 LRN [id number]) Cardio Equipment Recumbent Bicycle Duration (Minutes) 10 Resistance 5 Seat Position 8 Therapeutic Exercises Supine Exercises Isolated QS Supine Exercise Name QS Side left Reps/Minutes Hold 10 x 10 Heel slides Supine Exercise Name Heel slides Side left Equipment Used belt to assist Reps/Minutes 10x, hold at end-range Comments PROM: flex is 122 degs Sitting Exercises knee flex Sitting Exercise Name Knee flex strengthening Side left Equipment Used Lev2 TB Reps/Minutes 10x 3 LAQ Sitting Exercise Name LAQ Side left Equipment Used 3# Reps/Minutes 15x 2 Comments R leg used to visually improve ROM of left Standing Exercises CKC knee ext Standing Exercise Name CKC Knee ext (TB around posterior knee for QS) Side left Reps/Minutes 10 hold x 15 Comments Independent standing Shallow squat Standing Exercise Name Shallow Squat Side left Reps/Minutes 15x Gait Training Gait Activity Flex of L knee on swing through phase Description L knee flexion on swing through Device Used SPC Level of Assistance V cuing Surface Level Treatment Focus L knee flexion Comments Holds LLE rigidly straight. Training while walking between ex's. PT-OP-R Modalities Start: 06/07/20 08:05 Freq: Status: Active Protocol: Document 07/08/20 10:36 LRN (Rec: 07/08/20 12:27 LRN [id number]) Hot Pack/Cold Pack Treatment Cold Pack Location L knee Patient Position Sitting Treatment Duration (minutes) 5 Comments Cold pack to knee while pt completed Questionnaire forms. PT-OP-T Assessment and Plan Start: 06/07/20 08:05 Freq: Status: Active Protocol: Document 07/08/20 10:36 LRN (Rec: 07/08/20 11: LRN [id number]) Physical Therapy Assessment Rehab Potential Rehabilitation Potential Good Evaluation Complexity Number of Personal Factors/Comorbidities 3 or More Number of Body Systems Impaired 3 Clinical Presentation at Evaluation Evolving Impairments Impairments Activity Tolerance,Balance, Edema,Functional Mobility,Gait ,Pain,ROM,Soft Tissue Mobility ,Strength,Transfers Goals Six Impairment Decreased endurance (pt not leaving home) Short Term Goal (STG) Pt will be able to tolerate 10 ' on stationary exercise bike. STG Duration 08/21/20 (07/08/20: MET GOAL) Medical Management Trainer Goal (LTG) Pt will be able to ambulate around a large warehouse store 30 minutes; without walker prior to fatigue. LTG Duration 09/05/20 Five Impairment Decreased function per LEFS score of 16 (prior level was 42) Mcfp Goal (LTG) Improve functional ability per LEFS score to no less than 42 . (07/08/20: LEFS score is 33) LTG Duration 09/05/20 (07/08/20: Improving) Four Impairment Decreased balance (not able to perform SLS or Rhomberg stance). Short Term Goal (STG) Pt will be able to accounts administrator Rhomberg for 10 sec's without difficulty in order to walk safely 150' with a cane or without a walker. STG Duration 07/25/20 (Late Entry: : MET GOAL) Medical Management Trainer Goal (LTG) Pt will be able to L SLS at prior level (SLS 41 secs left, 59 secs right). (06/28/20: Left SLS is 5 secs with hands across chest). LTG Duration 09/05/20 Three Impairment Decreased L knee strength ( Flex 2+/5, Ext 2-/5, R is generally 5/5) Short Term Goal (STG) Pt will be able to improve L knee extension strength to 3/5 and flexion 3+/5 in order to transfer in/out of bed (lift L leg independently onto the plinth) without assist and ambulate safely with use of cane. STG Duration 08/21/20 (06/28/20: MET GOAL) Medical Management Trainer Goal (LTG) Pt will be able to improve L knee strength to 4/5 for ability to ambulate stairs with use of railing with 100% confidence. LTG Duration 09/05/20 Two Impairment Decreased L knee mobility ( Supine AROM in deg's: 40-70 L , 0-112 R) Short Term Goal (STG) Pt will be able to achieve L knee passive flexion of 100 deg's and will demonstrate the ability to perform active knee ext to at most 10 deg's lacking (sitting) for independent transfer sit to stand with minimal difficulty and minor use of hands, ability to tolerate riding a stationary bike going full revolution, and ease of getting into a car. (07/08/20 : 80% with ease STG Duration 08/21/20 (07/08/20: Partially Met, 80% better with getting into car) Mcfp Goal (LTG) Pt will be able to achieve active L knee flexion 125 deg' s to tolerate ambulation on stairs with one rail without difficulty, transfer sit <> stand without pain, and tolerate full revolution on ex bike with pain no greater than 2-3/10. LTG Duration 09/05/20 One Impairment Limited tolerance to HEP Mcfp Goal (LTG) Pt will be independent in a self care HEP for continued ROM and strengthening to achieve long term care phlebotomist pt goal of returning to ex in a local gym , riding an outdoor bike, and hiking. LTG Duration 09/05/20 (06/21/20: Progressing) Progress Towards Goals Progress Comments STG #6 MET. Pt now able to tolerate 10' on ex bike with full revolution. Assessment Summary Assessment Pt L knee AROM & PROM is improving (see above). Her strength is also slowly improving. The pt has the most trouble with her gait mechanics due to her habitual holding of her knees straight as she walks. She is able to change her gait mechanics with considerable concentration; therefore further therapy to improve gait mechanics, & L knee ROM and strength is appropriate. Physical Therapy Plan Frequency and Duration Frequency of Treatment 2x/Week Plan of Care Start Date 06/07/20 Plan of Care End Date 09/05/20 Therapeutic Interventions Therapeutic Interventions Balance Training,Gait Training ,Home Exercise Program,Joint Mobilizations,Manual Therapy, Neuromuscular Re-education, Patient/Caregiver Education, Self-Care/Home Management,Soft Tissue Mobilization,Taping, Therapeutic Activities, Therapeutic Exercises Modalities Cold Pack/Ice Massage,Hot Packs Next Visit Focus/Plan Next Note Type Treatment Note Next Visit Plan Add SLS balance ex's. Lower seat on upright bike. Continue work on L knee ROM and progressive strengthening exercises appropriate for s/p L TKA rehab. Work on gait training on strairs, progressing to 8 steps with hands hovering & exercises to increase L hip/knee flexion during swing phase of gait. End with time for cryotherapy if pt chooses.
--- NOTE | 2020-07-12 11:15 | PT.OTN ---
Current Diagnoses Unilateral primary osteoarthritis, left knee (07/12/20) Muscle weakness (generalized) (07/12/20) Unsteadiness on feet (07/12/20) Physical Therapy Treatment Note PT-OP-A Visit Information Start: 06/07/20 08:05 Freq: Status: Active Protocol: Document 07/12/20 12:16 MA (Rec: 07/12/20 12:33 MA [id number]) Out-Patient Physical Therapy Visit Information Visit Information Visit Type Treatment Note Visit Start Time 10:30 Visit Stop Time 11:12 Total Visit Minutes 42 Visit Number 11 Number of SORTER OPERATOR Visits 1 PT-OP-B Current Condition Start: 06/07/20 08:05 Freq: Status: Active Protocol: Document 06/07/20 09:03 LRN (Rec: 06/07/20 10:31 LRN [id number]) Current Condition History of Current Condition Onset Date 05/31/20 Current Complaints L knee, lower leg & medial thigh throbbing pain. History of Current Condition Elective surgery for L TKA from history of patella dislocation causing arthritis Prior Treatments and Tests None Future Testing and Treatments Planned F/U post-operative visit on with Dr. Foster in Nov for 6 week f/u visit. Developmental History Developmental History According to pt: L knee dislocation history causing arthritis and bone on bone condition. Treatment Goals Patient/Caregiver Goals Work out in gym: Use bike or stepper with 2-3/ 10 pain. Stairs without difficulty using 1 rail. Strength: Stair amb 100% confidence with railing Walk to/from grocery/[employer] ( 30') store without walker. Use of cane in 2 weeks. L knee ROM: transfer normal, ease of getting into a car. Prior Functional Status Baseline Function- ADL's Independent Baseline Function- Mobility Independent Baseline Function- Gait Gait without assistive device. Current Functional Impairments (Reported) Functional Limitations- ADL's Not able to cook/food prep. Not able to grocery shop. Functional Limitations- Mobility/Gait Walker needed for gait. Use of hands to transfer. Needs self-assist to L LE to get in/out of bed. Showers with stool and grab bars. Functional Limitations- Work/School Not able to perform some form of employed work. Personal Factors Other Personal Factors That May Effect History of Patella Therapy/Recovery dislocations has caused apprehension and fear with exercising her LE's. History of Back pain. Current [place] Palsy affecting vision. R TKA surgery 01/07/20 PT-OP-C Subjective Start: 06/07/20 08:05 Freq: Status: Active Protocol: Document 07/12/20 12:16 MA (Rec: 07/12/20 12:33 MA [id number]) OP-PT Subjective Patient Comments Patient Comments Pt states she has been using the cane more in her LUE instead of her RUE because she feels like it helps her limp less. She is still icing her knee due to swelling on lateral side of L knee PT-OP-E Functional Tests Start: 06/07/20 08:05 Freq: Status: Active Protocol: Document 06/28/20 10:38 LRN (Rec: 06/28/20 11:20 LRN [id number]) Functional Tests Other SLS Name of Test SLS Score Left is 5 secs with arms across chest. 27 secs arms free to move. PT-OP-G Mobility & Gait Start: 06/07/20 08:05 Freq: Status: Active Protocol: Document 06/21/20 10:29 LRN (Rec: 06/21/20 11:34 LRN [id number]) OP Mobility Evaluation Bed Mobility Supine to and from Sit Independent with lifting and moving L LE. Transfers Sit to Stand Independent PT-OP-J Posture/Palpation/Skin Start: 06/07/20 08:05 Freq: Status: Active Protocol: Document 06/07/20 09:03 LRN (Rec: 06/07/20 10:31 LRN [id number]) Posture Evaluation Position Standing Evaluation View Lateral Weight Distribution Weight Shifted Right Hip Posture (L) Flexed,(R) Flexed Palpation Assessment Location Two Palpation Location Lower leg Palpation Findings Edema One Palpation Location L knee Palpation Findings Edema,Muscle Guarding, Tenderness PT-OP-K Range of Motion Start: 06/07/20 08:05 Freq: Status: Active Protocol: Document 07/08/20 10:36 LRN (Rec: 07/08/20 11:20 LRN [id number]) Knee Goniometric Range of Motion Knee L knee supine Knee ROM WFL No Patient Position Supine Flexion Active (degrees) 122 Flexion Passive (degrees) 122 Extension Active (degrees) 0 Extension Passive (degrees) 0 Comments ROM measured with foot on table. R knee supine Knee ROM WFL Yes Patient Position Supine Flexion Active (degrees) 128 Hyper-Extension Active 2 PT-OP-M Strength Start: 06/07/20 08:05 Freq: Status: Active Protocol: Document 06/07/20 09:03 LRN (Rec: 06/07/20 10:31 LRN [id number]) Hip Strength Hip Manual Muscle Testing Right Flexion (L2) 5 Normal Extension (S1) 4 Good Left Flexion (L2) 1 Trace Extension (S1) 3- Fair- Abduction 3- Fair- Adduction 3- Fair- Comments Hip AD assessed in supine Knee Strength Knee Manual Muscle Testing Right Flexion (S2) 5 Normal Extension (L3) 5 Normal Left Flexion (S2) 2+ Poor+ Extension (L3) 2- Poor- Ankle/Foot Strength Ankle and Foot Manual Muscle Testing Left Comments Generally 5/5 Right Comments Generally 5/5 PT-OP-Q Treatments Start: 06/07/20 08:05 Freq: Status: Active Protocol: Document 07/12/20 12:16 MA (Rec: 07/12/20 12:33 MA [id number]) Cardio Equipment Bicycle (Upright) Duration (Minutes) 6 Resistance 5 Seat Position 6 Therapeutic Exercises Standing Exercises Step Downs Side left Equipment Used 4 step w/mirror Reps/Minutes 2x8 Comments working on eccentric lower with control, focusing on proper knee tracking Step ups/down Standing Exercise Name 8 Side left Reps/Minutes 2x10 Comments has 8 stairs at home Gait Training Gait Activity Walking Device Used Quad cane Surface level Distance/Duration 4x50 feet Treatment Focus focusing on increasing stance time on LLE and knee flexion Comments Watched patient with quad cane on RUE and LUE. Attempted to adjust cane but did not like pt form when it was higher. Continue use in RUE. Pt has decreased stance time LLE during gait training. Flex of L knee on swing through phase Description Stepping over esposito and 4 step Device Used Parallel Bars Level of Assistance with hands on parallel bars, with hands hovering Surface Level Distance/Duration 10 Treatment Focus L knee flexion Comments Knocked esposito over on first two laps, needing verbal cues to bend knee to clear foot. Stairs Device Used Adithya Rails Distance/Duration 3x Comments 6 steps, focusing on knee tracking and lowering with control when descending Self-Care/Home Management Treatment Education Patient Education Safety Other Education Educated pt on importance of keeping cane in RUE. Pt feels more comfortable with it in her LUE most likely due to R knee surgery earlier this year . PT-OP-R Modalities Start: 06/07/20 08:05 Freq: Status: Active Protocol: Document 07/08/20 10:36 LRN (Rec: 07/08/20 12:27 LRN [id number]) Hot Pack/Cold Pack Treatment Cold Pack Location L knee Patient Position Sitting Treatment Duration (minutes) 5 Comments Cold pack to knee while pt completed Questionnaire forms. PT-OP-T Assessment and Plan Start: 06/07/20 08:05 Freq: Status: Active Protocol: Document 07/12/20 12:16 MA (Rec: 07/12/20 12:33 MA [id number]) Physical Therapy Assessment Goals Six Impairment Decreased endurance (pt not leaving home) Short Term Goal (STG) Pt will be able to tolerate 10 ' on stationary exercise bike. STG Duration 08/21/20 (07/08/20: MET GOAL) Ssis Architect Goal (LTG) Pt will be able to ambulate around a large warehouse store 30 minutes; without walker prior to fatigue. LTG Duration 09/05/20 Five Impairment Decreased function per LEFS score of 16 (prior level was 42) Halfway Goal (LTG) Improve functional ability per LEFS score to no less than 42 . (07/08/20: LEFS score is 33) LTG Duration 09/05/20 (07/08/20: Improving) Four Impairment Decreased balance (not able to perform SLS or Rhomberg stance). Short Term Goal (STG) Pt will be able to clinical laboratory medical director Rhomberg for 10 sec's without difficulty in order to walk safely 150' with a cane or without a walker. STG Duration 07/25/20 (Late Entry: : MET GOAL) Ssis Architect Goal (LTG) Pt will be able to L SLS at prior level (SLS 41 secs left, 59 secs right). (06/28/20: Left SLS is 5 secs with hands across chest). LTG Duration 09/05/20 Three Impairment Decreased L knee strength ( Flex 2+/5, Ext 2-/5, R is generally 5/5) Short Term Goal (STG) Pt will be able to improve L knee extension strength to 3/5 and flexion 3+/5 in order to transfer in/out of bed (lift L leg independently onto the plinth) without assist and ambulate safely with use of cane. STG Duration 08/21/20 (06/28/20: MET GOAL) Halfway Goal (LTG) Pt will be able to improve L knee strength to 4/5 for ability to ambulate stairs with use of railing with 100% confidence. LTG Duration 09/05/20 Two Impairment Decreased L knee mobility ( Supine AROM in deg's: 40-70 L , 0-112 R) Short Term Goal (STG) Pt will be able to achieve L knee passive flexion of 100 deg's and will demonstrate the ability to perform active knee ext to at most 10 deg's lacking (sitting) for independent transfer sit to stand with minimal difficulty and minor use of hands, ability to tolerate riding a stationary bike going full revolution, and ease of getting into a car. (07/08/20 : 80% with ease STG Duration 08/21/20 (07/08/20: Partially Met, 80% better with getting into car) Halfway Goal (LTG) Pt will be able to achieve active L knee flexion 125 deg' s to tolerate ambulation on stairs with one rail without difficulty, transfer sit <> stand without pain, and tolerate full revolution on ex bike with pain no greater than 2-3/10. LTG Duration 09/05/20 One Impairment Limited tolerance to HEP Ssis Architect Goal (LTG) Pt will be independent in a self care HEP for continued ROM and strengthening to achieve halfway pt goal of returning to ex in a local gym , riding an outdoor bike, and hiking. LTG Duration 09/05/20 (06/21/20: Progressing) Assessment Summary Assessment Pt with decreased knee flexion bilaterally and decreased LLE stance time during gait. After practicing knee flexion, clearing esposito, pt's gait did improve with increased knee flexion seen bilaterally during hallway walk. Pt likes to hold onto something for comfort during gait training with therapist encouraging pt to hover her hands over parallel bars today. Educated pt on keeping cane in RUE at this time. Physical Therapy Plan Frequency and Duration Frequency of Treatment 2x/Week Plan of Care Start Date 06/07/20 Plan of Care End Date 09/05/20 Therapeutic Interventions Therapeutic Interventions Balance Training,Gait Training ,Home Exercise Program,Joint Mobilizations,Manual Therapy, Neuromuscular Re-education, Patient/Caregiver Education, Self-Care/Home Management,Soft Tissue Mobilization,Taping, Therapeutic Activities, Therapeutic Exercises Modalities Cold Pack/Ice Massage,Hot Packs Next Visit Focus/Plan Next Note Type Treatment Note Next Visit Plan Continue gait training focusing on increasing LLE stance time and bilateral knee flexion. Practice stepping over objects and possibly begin balance work on LLE to increase stance time.
--- NOTE | 2020-07-15 14:57 | PT.OTN ---
Current Diagnoses Unilateral primary osteoarthritis, left knee (07/15/20) Muscle weakness (generalized) (07/15/20) Unsteadiness on feet (07/15/20) Physical Therapy Treatment Note PT-OP-A Visit Information Start: 06/07/20 08:05 Freq: Status: Active Protocol: Document 07/15/20 10:37 LRN (Rec: 07/15/20 11:21 LRN [id number]) Out-Patient Physical Therapy Visit Information Visit Information Visit Type Treatment Note Visit Start Time 10:37 Visit Stop Time 11:16 Total Visit Minutes 39 Visit Number 12 Evaluation Information Evaluation Date 06/07/20 Precautions Precautions Hx of back pain due to scoliosis. [place] Palsy - 08/23/19, R side of face. R eye effected with difficulty vision due to excessive tears. PT-OP-B Current Condition Start: 06/07/20 08:05 Freq: Status: Active Protocol: Document 06/07/20 09:03 LRN (Rec: 06/07/20 10:31 LRN [id number]) Current Condition History of Current Condition Onset Date 05/31/20 Current Complaints L knee, lower leg & medial thigh throbbing pain. History of Current Condition Elective surgery for L TKA from history of patella dislocation causing arthritis Prior Treatments and Tests None Future Testing and Treatments Planned F/U post-operative visit on with Dr. Foster in [place] for 6 week f/u visit. Developmental History Developmental History According to pt: L knee dislocation history causing arthritis and bone on bone condition. Treatment Goals Patient/Caregiver Goals Work out in gym: Use bike or stepper with 2-3/ 10 pain. Stairs without difficulty using 1 rail. Strength: Stair amb 100% confidence with railing Walk to/from grocery/[employer] ( 30') store without walker. Use of cane in 2 weeks. L knee ROM: transfer normal, ease of getting into a car. Prior Functional Status Baseline Function- ADL's Independent Baseline Function- Mobility Independent Baseline Function- Gait Gait without assistive device. Current Functional Impairments (Reported) Functional Limitations- ADL's Not able to cook/food prep. Not able to grocery shop. Functional Limitations- Mobility/Gait Walker needed for gait. Use of hands to transfer. Needs self-assist to L LE to get in/out of bed. Showers with stool and grab bars. Functional Limitations- Work/School Not able to perform some form of employed work. Personal Factors Other Personal Factors That May Effect History of Patella Therapy/Recovery dislocations has caused apprehension and fear with exercising her LE's. History of Back pain. Current [place] Palsy affecting vision. R TKA surgery 01/07/20 PT-OP-C Subjective Start: 06/07/20 08:05 Freq: Status: Active Protocol: Document 07/15/20 10:37 LRN (Rec: 07/15/20 11:21 LRN [id number]) OP-PT Subjective Patient Comments Patient Comments Forgot where she left her cane at, at home. PT-OP-E Functional Tests Start: 06/07/20 08:05 Freq: Status: Active Protocol: Document 06/28/20 10:38 LRN (Rec: 06/28/20 11:20 LRN [id number]) Functional Tests Other SLS Name of Test SLS Score Left is 5 secs with arms across chest. 27 secs arms free to move. PT-OP-G Mobility & Gait Start: 06/07/20 08:05 Freq: Status: Active Protocol: Document 06/21/20 10:29 LRN (Rec: 06/21/20 11:34 LRN [id number]) OP Mobility Evaluation Bed Mobility Supine to and from Sit Independent with lifting and moving L LE. Transfers Sit to Stand Independent PT-OP-J Posture/Palpation/Skin Start: 06/07/20 08:05 Freq: Status: Active Protocol: Document 06/07/20 09:03 LRN (Rec: 06/07/20 10:31 LRN [id number]) Posture Evaluation Position Standing Evaluation View Lateral Weight Distribution Weight Shifted Right Hip Posture (L) Flexed,(R) Flexed Palpation Assessment Location Two Palpation Location Lower leg Palpation Findings Edema One Palpation Location L knee Palpation Findings Edema,Muscle Guarding, Tenderness PT-OP-K Range of Motion Start: 06/07/20 08:05 Freq: Status: Active Protocol: Document 07/15/20 10:37 LRN (Rec: 07/15/20 11:21 LRN [id number]) Knee Goniometric Range of Motion Knee L knee supine Knee ROM WFL No Patient Position Supine Flexion Active (degrees) 123 Flexion Passive (degrees) 130 Extension Active (degrees) 0 Extension Passive (degrees) 0 Comments Active knee flex after stretching is 127 deg's. Left Knee ROM WFL No Patient Position Sitting Flexion Active (degrees) 108 Extension Active (degrees) 0 PT-OP-M Strength Start: 06/07/20 08:05 Freq: Status: Active Protocol: Document 06/07/20 09:03 LRN (Rec: 06/07/20 10:31 LRN [id number]) Hip Strength Hip Manual Muscle Testing Right Flexion (L2) 5 Normal Extension (S1) 4 Good Left Flexion (L2) 1 Trace Extension (S1) 3- Fair- Abduction 3- Fair- Adduction 3- Fair- Comments Hip AD assessed in supine Knee Strength Knee Manual Muscle Testing Right Flexion (S2) 5 Normal Extension (L3) 5 Normal Left Flexion (S2) 2+ Poor+ Extension (L3) 2- Poor- Ankle/Foot Strength Ankle and Foot Manual Muscle Testing Left Comments Generally 5/5 Right Comments Generally 5/5 PT-OP-Q Treatments Start: 06/07/20 08:05 Freq: Status: Active Protocol: Document 07/15/20 10:37 LRN (Rec: 07/15/20 11:21 LRN [id number]) Cardio Equipment Bicycle (Upright) Duration (Minutes) 10 Resistance 5 Seat Position 5 Gym Equipment Cable Column (Body Solid) Leg Curl Details Leg curl Resistance 20# Reps/Time 20x Therapeutic Exercises Sitting Exercises knee flex Sitting Exercise Name Knee flex strengthening Side left Equipment Used 1# High/low table for L foot to swing Reps/Minutes Hold end-range 1-2, 10x 4 LAQ Sitting Exercise Name LAQ Side left Equipment Used 3# Reps/Minutes 15x 2 Comments R leg used to visually improve ROM of left Standing Exercises Step Downs Side left Equipment Used 6 step w/mirror Reps/Minutes 2x8 Comments working on eccentric lower with control, focusing on proper knee tracking Step ups/down Standing Exercise Name 6 & 8 Side left Reps/Minutes 2x15 Comments has 8 stairs at home Hamstring curl Standing Exercise Name Hamstring curl Side left Reps/Minutes 15x 2 Self-Care/Home Management Treatment Education Patient Education Home Exercise Program Activities Self-Care/Home Management Activities I/S pt to start a walking program at home daily 25-30'. Level and firm ground. PT-OP-R Modalities Start: 06/07/20 08:05 Freq: Status: Active Protocol: Document 07/08/20 10:36 LRN (Rec: 07/08/20 12:27 LRN [id number]) Hot Pack/Cold Pack Treatment Cold Pack Location L knee Patient Position Sitting Treatment Duration (minutes) 5 Comments Cold pack to knee while pt completed Questionnaire forms. PT-OP-T Assessment and Plan Start: 06/07/20 08:05 Freq: Status: Active Protocol: Document 07/15/20 10:37 LRN (Rec: 07/15/20 11:21 LRN [id number]) Physical Therapy Assessment Goals Six Impairment Decreased endurance (pt not leaving home) Short Term Goal (STG) Pt will be able to tolerate 10 ' on stationary exercise bike. STG Duration 08/21/20 (07/08/20: MET GOAL) Senior Care Goal (LTG) Pt will be able to ambulate around a large warehouse store 30 minutes; without walker prior to fatigue. LTG Duration 09/05/20 (07/15/20: Partially met, able to walk Victorino Alfred, but fatigued) Five Impairment Decreased function per LEFS score of 16 (prior level was 42) Senior Care Goal (LTG) Improve functional ability per LEFS score to no less than 42 . (07/08/20: LEFS score is 33) LTG Duration 09/05/20 (07/08/20: Improving) Four Impairment Decreased balance (not able to perform SLS or Rhomberg stance). 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 STG Duration 07/25/20 (Late Entry: : MET GOAL) Senior Care Goal (LTG) Pt will be able to L SLS at prior level (SLS 41 secs left, 59 secs right). (06/28/20: Left SLS is 5 secs with hands across chest). LTG Duration 09/05/20 Three Impairment Decreased L knee strength ( Flex 2+/5, Ext 2-/5, R is generally 5/5) Short Term Goal (STG) Pt will be able to improve L knee extension strength to 3/5 and flexion 3+/5 in order to transfer in/out of bed (lift L leg independently onto the plinth) without assist and ambulate safely with use of cane. STG Duration 08/21/20 (06/28/20: MET GOAL) Senior Care Goal (LTG) Pt will be able to improve L knee strength to 4/5 for ability to ambulate stairs with use of railing with 100% confidence. LTG Duration 09/05/20 Two Impairment Decreased L knee mobility ( Supine AROM in deg's: 40-70 L , 0-112 R) Short Term Goal (STG) Pt will be able to achieve L knee passive flexion of 100 deg's and will demonstrate the ability to perform active knee ext to at most 10 deg's lacking (sitting) for independent transfer sit to stand with minimal difficulty and minor use of hands, ability to tolerate riding a stationary bike going full revolution, and ease of getting into a car. (07/15/20 : Habitual use of hands to get up from sitting, pt able to ride stationary bike for full revolution, easy getting into car) STG Duration 08/21/20 (07/08/20: Partially Met, 80% better with getting into car) Lead Generator Goal (LTG) Pt will be able to achieve active L knee flexion 125 deg' s to tolerate ambulation on stairs with one rail without difficulty, transfer sit <> stand without pain, and tolerate full revolution on ex bike with pain no greater than 2-3/10. LTG Duration 09/05/20 One Impairment Limited tolerance to HEP Senior Care Goal (LTG) Pt will be independent in a self care HEP for continued ROM and strengthening to achieve nursing home pt goal of returning to ex in a local gym , riding an outdoor bike, and hiking. LTG Duration 09/05/20 (06/21/20: Progressing) Progress Towards Goals Progress Comments L knee flex PROM after stretching 0-130 degs, before stretching 0-123 degs, previoiusly was 0-122 degs. Assessment Summary Assessment Improved mobility as noted on pt able to bike with seat at hgt 5 vs previously at 6. Pt shows improved L knee flex ROM after stretching. Physical Therapy Plan Frequency and Duration Frequency of Treatment 2x/Week Plan of Care Start Date 06/07/20 Plan of Care End Date 09/05/20 Next Visit Focus/Plan Next Note Type Treatment Note Next Visit Plan Assess pt consistency to walking home program. Continue gait training focusing on increasing LLE stance time and bilateral knee flexion. Practice stepping over objects and possibly begin balance work on LLE to increase stance time.
--- NOTE | 2020-07-20 17:07 | PT.OTN ---
Current Diagnoses Unilateral primary osteoarthritis, left knee (07/20/20) Muscle weakness (generalized) (07/20/20) Unsteadiness on feet (07/20/20) Physical Therapy Treatment Note PT-OP-A Visit Information Start: 06/07/20 08:05 Freq: Status: Active Protocol: Document 07/20/20 15:26 MA (Rec: 07/20/20 16:02 MA [id number]) Out-Patient Physical Therapy Visit Information Visit Information Visit Type Treatment Note Visit Start Time 13:18 Visit Stop Time 13:59 Total Visit Minutes 41 Visit Number 13 Number of RADIATION CONTROL WORKER Visits 1 PT-OP-B Current Condition Start: 06/07/20 08:05 Freq: Status: Active Protocol: Document 06/07/20 09:03 LRN (Rec: 06/07/20 10:31 LRN [id number]) Current Condition History of Current Condition Onset Date 05/31/20 Current Complaints L knee, lower leg & medial thigh throbbing pain. History of Current Condition Elective surgery for L TKA from history of patella dislocation causing arthritis Prior Treatments and Tests None Future Testing and Treatments Planned F/U post-operative visit on with Dr. Foster in Nov for 6 week f/u visit. Developmental History Developmental History According to pt: L knee dislocation history causing arthritis and bone on bone condition. Treatment Goals Patient/Caregiver Goals Work out in gym: Use bike or stepper with 2-3/ 10 pain. Stairs without difficulty using 1 rail. Strength: Stair amb 100% confidence with railing Walk to/from grocery/[employer] ( 30') store without walker. Use of cane in 2 weeks. L knee ROM: transfer normal, ease of getting into a car. Prior Functional Status Baseline Function- ADL's Independent Baseline Function- Mobility Independent Baseline Function- Gait Gait without assistive device. Current Functional Impairments (Reported) Functional Limitations- ADL's Not able to cook/food prep. Not able to grocery shop. Functional Limitations- Mobility/Gait Walker needed for gait. Use of hands to transfer. Needs self-assist to L LE to get in/out of bed. Showers with stool and grab bars. Functional Limitations- Work/School Not able to perform some form of employed work. Personal Factors Other Personal Factors That May Effect History of Patella Therapy/Recovery dislocations has caused apprehension and fear with exercising her LE's. History of Back pain. Current [place] Palsy affecting vision. R TKA surgery 01/07/20 PT-OP-C Subjective Start: 06/07/20 08:05 Freq: Status: Active Protocol: Document 07/20/20 16:08 MA (Rec: 07/20/20 16:10 MA [id number]) OP-PT Subjective Patient Comments Patient Comments Pt arrives with cane but states that she hasn't been using it. Was able to walk around store without it, only using her for balance occassionally. She would like to work on stairs today because she still feels apprehensive at home. PT-OP-E Functional Tests Start: 06/07/20 08:05 Freq: Status: Active Protocol: Document 06/28/20 10:38 LRN (Rec: 06/28/20 11:20 LRN [id number]) Functional Tests Other SLS Name of Test SLS Score Left is 5 secs with arms across chest. 27 secs arms free to move. PT-OP-G Mobility & Gait Start: 06/07/20 08:05 Freq: Status: Active Protocol: Document 06/21/20 10:29 LRN (Rec: 06/21/20 11:34 LRN [id number]) OP Mobility Evaluation Bed Mobility Supine to and from Sit Independent with lifting and moving L LE. Transfers Sit to Stand Independent PT-OP-J Posture/Palpation/Skin Start: 06/07/20 08:05 Freq: Status: Active Protocol: Document 06/07/20 09:03 LRN (Rec: 06/07/20 10:31 LRN [id number]) Posture Evaluation Position Standing Evaluation View Lateral Weight Distribution Weight Shifted Right Hip Posture (L) Flexed,(R) Flexed Palpation Assessment Location Two Palpation Location Lower leg Palpation Findings Edema One Palpation Location L knee Palpation Findings Edema,Muscle Guarding, Tenderness PT-OP-K Range of Motion Start: 06/07/20 08:05 Freq: Status: Active Protocol: Document 07/15/20 10:37 LRN (Rec: 07/15/20 11:21 LRN [id number]) Knee Goniometric Range of Motion Knee L knee supine Knee ROM WFL No Patient Position Supine Flexion Active (degrees) 123 Flexion Passive (degrees) 130 Extension Active (degrees) 0 Extension Passive (degrees) 0 Comments Active knee flex after stretching is 127 deg's. Left Knee ROM WFL No Patient Position Sitting Flexion Active (degrees) 108 Extension Active (degrees) 0 PT-OP-M Strength Start: 06/07/20 08:05 Freq: Status: Active Protocol: Document 06/07/20 09:03 LRN (Rec: 06/07/20 10:31 LRN [id number]) Hip Strength Hip Manual Muscle Testing Right Flexion (L2) 5 Normal Extension (S1) 4 Good Left Flexion (L2) 1 Trace Extension (S1) 3- Fair- Abduction 3- Fair- Adduction 3- Fair- Comments Hip AD assessed in supine Knee Strength Knee Manual Muscle Testing Right Flexion (S2) 5 Normal Extension (L3) 5 Normal Left Flexion (S2) 2+ Poor+ Extension (L3) 2- Poor- Ankle/Foot Strength Ankle and Foot Manual Muscle Testing Left Comments Generally 5/5 Right Comments Generally 5/5 PT-OP-Q Treatments Start: 06/07/20 08:05 Freq: Status: Active Protocol: Document 07/20/20 15:26 MA (Rec: 07/20/20 16:02 MA [id number]) Cardio Equipment Bicycle (Upright) Duration (Minutes) 6 Resistance 6 Seat Position 5 Gym Equipment Shuttle Recovery Unilateral Squats Resistance 62# alternating legs Shuttle Recovery Platform Stable Reps/Time 2x10 Bilateral Squats Resistance 75# Shuttle Recovery Platform Stable Reps/Time 2x10 Therapeutic Exercises Supine Exercises Vidal Stretch Side bilateral Reps/Minutes 60 sec yamilex Comments Added to HEP Standing Exercises Step ups/down Standing Exercise Name 8 Side left Reps/Minutes 10x Gait Training Gait Activity Stairs Device Used R rail for descend, no rails ascend Distance/Duration 3x Comments 6 steps, focusing on knee tracking and lowering with control when descending; Neuro Re-Education Treatment Balance Activities SLS Details L SLS Surface Solid Reps/Duration 2x30 sec Comments hovering hand off bar PT-OP-R Modalities Start: 06/07/20 08:05 Freq: Status: Active Protocol: Document 07/08/20 10:36 LRN (Rec: 07/08/20 12:27 LRN [id number]) Hot Pack/Cold Pack Treatment Cold Pack Location L knee Patient Position Sitting Treatment Duration (minutes) 5 Comments Cold pack to knee while pt completed Questionnaire forms. PT-OP-T Assessment and Plan Start: 06/07/20 08:05 Freq: Status: Active Protocol: Document 07/20/20 15:26 MA (Rec: 07/20/20 16:02 MA [id number]) Physical Therapy Assessment Goals Six Impairment Decreased endurance (pt not leaving home) Short Term Goal (STG) Pt will be able to tolerate 10 ' on stationary exercise bike. STG Duration 08/21/20 (07/08/20: MET GOAL) Skilled Nursing Goal (LTG) Pt will be able to ambulate around a large warehouse store 30 minutes; without walker prior to fatigue. LTG Duration 09/05/20 (07/15/20: Partially met, able to walk Victorino Alfred, but fatigued) Five Impairment Decreased function per LEFS score of 16 (prior level was 42) Skilled Nursing Goal (LTG) Improve functional ability per LEFS score to no less than 42 . (07/08/20: LEFS score is 33) LTG Duration 09/05/20 (07/08/20: Improving) Four Impairment Decreased balance (not able to perform SLS or Rhomberg stance). 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 STG Duration 07/25/20 (Late Entry: : MET GOAL) Hand Button Splitter Goal (LTG) Pt will be able to L SLS at prior level (SLS 41 secs left, 59 secs right). (06/28/20: Left SLS is 5 secs with hands across chest). LTG Duration 09/05/20 Three Impairment Decreased L knee strength ( Flex 2+/5, Ext 2-/5, R is generally 5/5) Short Term Goal (STG) Pt will be able to improve L knee extension strength to 3/5 and flexion 3+/5 in order to transfer in/out of bed (lift L leg independently onto the plinth) without assist and ambulate safely with use of cane. STG Duration 08/21/20 (06/28/20: MET GOAL) Hand Button Splitter Goal (LTG) Pt will be able to improve L knee strength to 4/5 for ability to ambulate stairs with use of railing with 100% confidence. LTG Duration 09/05/20 Two Impairment Decreased L knee mobility ( Supine AROM in deg's: 40-70 L , 0-112 R) Short Term Goal (STG) Pt will be able to achieve L knee passive flexion of 100 deg's and will demonstrate the ability to perform active knee ext to at most 10 deg's lacking (sitting) for independent transfer sit to stand with minimal difficulty and minor use of hands, ability to tolerate riding a stationary bike going full revolution, and ease of getting into a car. (07/15/20 : Habitual use of hands to get up from sitting, pt able to ride stationary bike for full revolution, easy getting into car) STG Duration 08/21/20 (07/08/20: Partially Met, 80% better with getting into car) Skilled Nursing Goal (LTG) Pt will be able to achieve active L knee flexion 125 deg' s to tolerate ambulation on stairs with one rail without difficulty, transfer sit <> stand without pain, and tolerate full revolution on ex bike with pain no greater than 2-3/10. 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 LTG Duration 09/05/20 (06/21/20: Progressing) Assessment Summary Assessment Pt is showing improved confidence after stair training. Added Vidal stretch to HEP for quad tightness after pt could not tolerate prone for passive quad stretching or standing quad stretch due to discomfort. Pt did not do her home walking program yesterday due to weather but did do a lap around the neighborhood on Saturday and will continue to try walking outside more consistently. Physical Therapy Plan Frequency and Duration Frequency of Treatment 2x/Week Plan of Care Start Date 06/07/20 Plan of Care End Date 09/05/20 Next Visit Focus/Plan Next Note Type Treatment Note Next Visit Plan Assess how Vidal stretch and stairs went at home. Continue gait training focusing on increasing LLE stance time and bilateral knee flexion.
--- NOTE | 2020-07-26 12:24 | PT.OTN ---
Current Diagnoses Unilateral primary osteoarthritis, left knee (07/26/20) Muscle weakness (generalized) (07/26/20) Unsteadiness on feet (07/26/20) Physical Therapy Treatment Note PT-OP-A Visit Information Start: 06/07/20 08:05 Freq: Status: Active Protocol: Document 07/26/20 11:19 LRN (Rec: 07/26/20 12:23 LRN [id number]) Out-Patient Physical Therapy Visit Information Visit Information Visit Type Treatment Note Visit Start Time 11:19 Visit Stop Time 12:09 Total Visit Minutes 50 Visit Number 14 Evaluation Information Evaluation Date 06/07/20 Precautions Precautions Hx of back pain due to scoliosis. [place] Palsy - 08/23/19, R side of face. R eye effected with difficulty vision due to excessive tears. PT-OP-B Current Condition Start: 06/07/20 08:05 Freq: Status: Active Protocol: Document 06/07/20 09:03 LRN (Rec: 06/07/20 10:31 LRN [id number]) Current Condition History of Current Condition Onset Date 05/31/20 Current Complaints L knee, lower leg & medial thigh throbbing pain. History of Current Condition Elective surgery for L TKA from history of patella dislocation causing arthritis Prior Treatments and Tests None Future Testing and Treatments Planned F/U post-operative visit on with Dr. Foster in [place] for 6 week f/u visit. Developmental History Developmental History According to pt: L knee dislocation history causing arthritis and bone on bone condition. Treatment Goals Patient/Caregiver Goals Work out in gym: Use bike or stepper with 2-3/ 10 pain. Stairs without difficulty using 1 rail. Strength: Stair amb 100% confidence with railing Walk to/from grocery/[employer] ( 30') store without walker. Use of cane in 2 weeks. L knee ROM: transfer normal, ease of getting into a car. Prior Functional Status Baseline Function- ADL's Independent Baseline Function- Mobility Independent Baseline Function- Gait Gait without assistive device. Current Functional Impairments (Reported) Functional Limitations- ADL's Not able to cook/food prep. Not able to grocery shop. Functional Limitations- Mobility/Gait Walker needed for gait. Use of hands to transfer. Needs self-assist to L LE to get in/out of bed. Showers with stool and grab bars. Functional Limitations- Work/School Not able to perform some form of employed work. Personal Factors Other Personal Factors That May Effect History of Patella Therapy/Recovery dislocations has caused apprehension and fear with exercising her LE's. History of Back pain. Current [place] Palsy affecting vision. R TKA surgery 01/07/20 PT-OP-C Subjective Start: 06/07/20 08:05 Freq: Status: Active Protocol: Document 07/26/20 11:19 LRN (Rec: 07/26/20 12:23 LRN [id number]) OP-PT Subjective Patient Comments Patient Comments Hasn't used her cane since last session. States her R knee has been bothering her with walking lately. States she thought the hip flexor stretch is helpful with the tightness around the R knee. Will ice at home after therapy . PT-OP-E Functional Tests Start: 06/07/20 08:05 Freq: Status: Active Protocol: Document 07/26/20 11:19 LRN (Rec: 07/26/20 12:23 LRN [id number]) Functional Tests Other SLS Score Left is 60+ secs with arms across chest. 15 secs arms free to move. PT-OP-G Mobility & Gait Start: 06/07/20 08:05 Freq: Status: Active Protocol: Document 06/21/20 10:29 LRN (Rec: 06/21/20 11:34 LRN [id number]) OP Mobility Evaluation Bed Mobility Supine to and from Sit Independent with lifting and moving L LE. Transfers Sit to Stand Independent PT-OP-J Posture/Palpation/Skin Start: 06/07/20 08:05 Freq: Status: Active Protocol: Document 06/07/20 09:03 LRN (Rec: 06/07/20 10:31 LRN [id number]) Posture Evaluation Position Standing Evaluation View Lateral Weight Distribution Weight Shifted Right Hip Posture (L) Flexed,(R) Flexed Palpation Assessment Location Two Palpation Location Lower leg Palpation Findings Edema One Palpation Location L knee Palpation Findings Edema,Muscle Guarding, Tenderness PT-OP-K Range of Motion Start: 06/07/20 08:05 Freq: Status: Active Protocol: Document 07/26/20 11:19 LRN (Rec: 07/26/20 12:23 LRN [id number]) Knee Goniometric Range of Motion Knee L knee supine Knee ROM WFL No Patient Position Supine Flexion Active (degrees) 128 Flexion Passive (degrees) 128 Extension Active (degrees) 0 Extension Passive (degrees) 0 PT-OP-M Strength Start: 06/07/20 08:05 Freq: Status: Active Protocol: Document 06/07/20 09:03 LRN (Rec: 06/07/20 10:31 LRN [id number]) Hip Strength Hip Manual Muscle Testing Right Flexion (L2) 5 Normal Extension (S1) 4 Good Left Flexion (L2) 1 Trace Extension (S1) 3- Fair- Abduction 3- Fair- Adduction 3- Fair- Comments Hip AD assessed in supine Knee Strength Knee Manual Muscle Testing Right Flexion (S2) 5 Normal Extension (L3) 5 Normal Left Flexion (S2) 2+ Poor+ Extension (L3) 2- Poor- Ankle/Foot Strength Ankle and Foot Manual Muscle Testing Left Comments Generally 5/5 Right Comments Generally 5/5 PT-OP-Q Treatments Start: 06/07/20 08:05 Freq: Status: Active Protocol: Document 07/26/20 11:19 LRN (Rec: 07/26/20 12:23 LRN [id number]) Cardio Equipment Bicycle (Upright) Duration (Minutes) 10 Resistance 6 Seat Position 5 Gym Equipment Cable Column (Body Solid) Leg Curl Details Leg curl Resistance 20#, 30# Reps/Time 3x, & 10x 3 respectively Therapeutic Exercises Supine Exercises Heel slides Supine Exercise Name Heel slides for L knee flexion stretch Side left Reps/Minutes 5' Comments ROM taken SAQ Supine Exercise Name SAQ Side left Reps/Minutes 5' Comments ROM taken Standing Exercises Sit to stand Standing Exercise Name Sit to Stand to Sit Reps/Minutes 5' Comments Slow transfer working balance and control. Shallow squat Standing Exercise Name Shallow squat Side bilateral Reps/Minutes 10x Gait Training Gait Activity Walking Description Straight swing through with LLE to normalize SURJIT Surface Level Distance/Duration 8' Proper wgt shift/posture Description Proper weight shifting Surface level Distance/Duration 2' PT-OP-R Modalities Start: 06/07/20 08:05 Freq: Status: Active Protocol: Document 07/08/20 10:36 LRN (Rec: 07/08/20 12:27 LRN [id number]) Hot Pack/Cold Pack Treatment Cold Pack Location L knee Patient Position Sitting Treatment Duration (minutes) 5 Comments Cold pack to knee while pt completed Questionnaire forms. PT-OP-T Assessment and Plan Start: 06/07/20 08:05 Freq: Status: Active Protocol: Document 07/26/20 11:19 LRN (Rec: 07/26/20 12:23 LRN [id number]) Physical Therapy Assessment Goals Six Impairment Decreased endurance (pt not leaving home) Short Term Goal (STG) Pt will be able to tolerate 10 ' on stationary exercise bike. STG Duration 08/21/20 (07/08/20: MET GOAL) Web Content & Social Media Manager Goal (LTG) Pt will be able to ambulate around a large warehouse store 30 minutes; without walker prior to fatigue. LTG Duration 09/05/20 (07/26/20: MET GOAL) Five Impairment Decreased function per LEFS score of 16 (prior level was 42) Web Content & Social Media Manager Goal (LTG) Improve functional ability per LEFS score to no less than 42 . (07/08/20: LEFS score is 33) LTG Duration 09/05/20 (07/08/20: Improving) Four Impairment Decreased balance (not able to perform SLS or Rhomberg stance). Short Term Goal (STG) Pt will be able to regional airline pilot Rhomberg for 10 sec's without difficulty in order to walk safely 150' with a cane or without a walker. STG Duration 07/25/20 (Late Entry: : MET GOAL) Correction Goal (LTG) Pt will be able to L SLS at prior level (SLS 41 secs left, 59 secs right). (07/26/20: Left SLS is 60 secs with hands across chest). LTG Duration 09/05/20 (07/26/20: MET GOAL) Three Impairment Decreased L knee strength ( Flex 2+/5, Ext 2-/5, R is generally 5/5) Short Term Goal (STG) Pt will be able to improve L knee extension strength to 3/5 and flexion 3+/5 in order to transfer in/out of bed (lift L leg independently onto the plinth) without assist and ambulate safely with use of cane. STG Duration 08/21/20 (06/28/20: MET GOAL) Web Content & Social Media Manager Goal (LTG) Pt will be able to improve L knee strength to 4/5 for ability to ambulate stairs with use of railing with 100% confidence. LTG Duration 09/05/20 Two Impairment Decreased L knee mobility ( Supine AROM in deg's: 40-70 L , 0-112 R) Short Term Goal (STG) Pt will be able to achieve L knee passive flexion of 100 deg's and will demonstrate the ability to perform active knee ext to at most 10 deg's lacking (sitting) for independent transfer sit to stand with minimal difficulty and minor use of hands, ability to tolerate riding a stationary bike going full revolution, and ease of getting into a car. STG Duration 08/21/20 (07/26/20: MET GOAL) Web Content & Social Media Manager Goal (LTG) Pt will be able to achieve active L knee flexion 125 deg' s to tolerate ambulation on stairs with one rail without difficulty, transfer sit <> stand without pain, and tolerate full revolution on ex bike with pain no greater than 2-3/10. (07/26/20: L knee AROM flex is 128 deg's; Up stairs without difficulty, Down stairs with railing due to lack of confidence in L leg, sit to stand: pain in inferomedial knee 3-4/10. Full revolution around bike with pain rated 2/ 10 behind the L knee, normally stiff, not pain) LTG Duration 09/05/20 (07/26/20: Progressing) One Impairment Limited tolerance to HEP Correction Goal (LTG) Pt will be independent in a self care HEP for continued ROM and strengthening to achieve group home pt goal of returning to ex in a local gym , riding an outdoor bike, and hiking. LTG Duration 09/05/20 (06/21/20: Progressing) Progress Towards Goals Progress Comments LTG 6: MET. LTG 4: MET LTG 2: Improved L knee active flexion in supine is 128 degs (was 123 degs) after therapy. Assessment Summary Assessment + response to Vidal stretch. Descending stairs is hindering pt due to lack of confidence in her LLE strength and balance. Physical Therapy Plan Frequency and Duration Frequency of Treatment 2x/Week Plan of Care Start Date 06/07/20 Plan of Care End Date 09/05/20 Next Visit Focus/Plan Next Note Type Treatment Note Next Visit Plan Continue gait training focusing on increasing LLE stance time, proper hip shift and normal swing through (not laterally swinging LLE out to increase SURJIT), improve L knee flexion range and strength to improve confidence on descending stairs.
--- NOTE | 2020-07-29 11:28 | PT.OTN ---
Current Diagnoses Unilateral primary osteoarthritis, left knee (07/29/20) Muscle weakness (generalized) (07/29/20) Unsteadiness on feet (07/29/20) Physical Therapy Treatment Note PT-OP-A Visit Information Start: 06/07/20 08:05 Freq: Status: Active Protocol: Document 07/29/20 10:39 LRN (Rec: 07/29/20 11:28 LRN [id number]) Out-Patient Physical Therapy Visit Information Visit Information Visit Type Treatment Note Visit Start Time 10:39 Visit Stop Time 11:21 Total Visit Minutes 42 Evaluation Information Evaluation Date 06/07/20 Precautions Precautions Hx of back pain due to scoliosis. [place] Palsy - 08/23/19, R side of face. R eye effected with difficulty vision due to excessive tears. PT-OP-B Current Condition Start: 06/07/20 08:05 Freq: Status: Active Protocol: Document 06/07/20 09:03 LRN (Rec: 06/07/20 10:31 LRN [id number]) Current Condition History of Current Condition Onset Date 05/31/20 Current Complaints L knee, lower leg & medial thigh throbbing pain. History of Current Condition Elective surgery for L TKA from history of patella dislocation causing arthritis Prior Treatments and Tests None Future Testing and Treatments Planned F/U post-operative visit on with Dr. Foster in [place] for 6 week f/u visit. Developmental History Developmental History According to pt: L knee dislocation history causing arthritis and bone on bone condition. Treatment Goals Patient/Caregiver Goals Work out in gym: Use bike or stepper with 2-3/ 10 pain. Stairs without difficulty using 1 rail. Strength: Stair amb 100% confidence with railing Walk to/from grocery/[employer] ( 30') store without walker. Use of cane in 2 weeks. L knee ROM: transfer normal, ease of getting into a car. Prior Functional Status Baseline Function- ADL's Independent Baseline Function- Mobility Independent Baseline Function- Gait Gait without assistive device. Current Functional Impairments (Reported) Functional Limitations- ADL's Not able to cook/food prep. Not able to grocery shop. Functional Limitations- Mobility/Gait Walker needed for gait. Use of hands to transfer. Needs self-assist to L LE to get in/out of bed. Showers with stool and grab bars. Functional Limitations- Work/School Not able to perform some form of employed work. Personal Factors Other Personal Factors That May Effect History of Patella Therapy/Recovery dislocations has caused apprehension and fear with exercising her LE's. History of Back pain. Current [place] Palsy affecting vision. R TKA surgery 01/07/20 PT-OP-C Subjective Start: 06/07/20 08:05 Freq: Status: Active Protocol: Document 07/29/20 10:39 LRN (Rec: 07/29/20 11:28 LRN [id number]) OP-PT Subjective Patient Comments Patient Comments Doing well, always thinking about my walking. Patient Questionnaires Lower Extremity Functional Scale LEFS Score 36 LEFS Impairment 40 to 59% Impaired (Score 32- 47) PT-OP-E Functional Tests Start: 06/07/20 08:05 Freq: Status: Active Protocol: Document 07/26/20 11:19 LRN (Rec: 07/26/20 12:23 LRN [id number]) Functional Tests Other SLS Score Left is 60+ secs with arms across chest. 15 secs arms free to move. PT-OP-G Mobility & Gait Start: 06/07/20 08:05 Freq: Status: Active Protocol: Document 06/21/20 10:29 LRN (Rec: 06/21/20 11:34 LRN [id number]) OP Mobility Evaluation Bed Mobility Supine to and from Sit Independent with lifting and moving L LE. Transfers Sit to Stand Independent PT-OP-J Posture/Palpation/Skin Start: 06/07/20 08:05 Freq: Status: Active Protocol: Document 06/07/20 09:03 LRN (Rec: 06/07/20 10:31 LRN [id number]) Posture Evaluation Position Standing Evaluation View Lateral Weight Distribution Weight Shifted Right Hip Posture (L) Flexed,(R) Flexed Palpation Assessment Location Two Palpation Location Lower leg Palpation Findings Edema One Palpation Location L knee Palpation Findings Edema,Muscle Guarding, Tenderness PT-OP-K Range of Motion Start: 06/07/20 08:05 Freq: Status: Active Protocol: Document 07/26/20 11:19 LRN (Rec: 07/26/20 12:23 LRN [id number]) Knee Goniometric Range of Motion Knee L knee supine Knee ROM WFL No Patient Position Supine Flexion Active (degrees) 128 Flexion Passive (degrees) 128 Extension Active (degrees) 0 Extension Passive (degrees) 0 PT-OP-M Strength Start: 06/07/20 08:05 Freq: Status: Active Protocol: Document 06/07/20 09:03 LRN (Rec: 06/07/20 10:31 LRN [id number]) Hip Strength Hip Manual Muscle Testing Right Flexion (L2) 5 Normal Extension (S1) 4 Good Left Flexion (L2) 1 Trace Extension (S1) 3- Fair- Abduction 3- Fair- Adduction 3- Fair- Comments Hip AD assessed in supine Knee Strength Knee Manual Muscle Testing Right Flexion (S2) 5 Normal Extension (L3) 5 Normal Left Flexion (S2) 2+ Poor+ Extension (L3) 2- Poor- Ankle/Foot Strength Ankle and Foot Manual Muscle Testing Left Comments Generally 5/5 Right Comments Generally 5/5 PT-OP-Q Treatments Start: 06/07/20 08:05 Freq: Status: Active Protocol: Document 07/29/20 10:39 LRN (Rec: 07/29/20 11:28 LRN [id number]) Cardio Equipment Bicycle (Upright) Duration (Minutes) 10 Resistance 6 Seat Position 5 Gym Equipment Cable Column (Body Solid) Leg Curl Details Leg curl Resistance 30# Reps/Time 10x 3 respectively Shuttle Recovery Unilateral Squats Details L leg squat, ended with R leg squat Resistance 50# Shuttle Recovery Platform Stable Reps/Time 15x 2 Bilateral Squats Details Yamilex Squats Resistance 75# Shuttle Recovery Platform Stable Reps/Time 15x 2 Therapeutic Exercises Supine Exercises Vidal Stretch Supine Exercise Name Vidal Test position stretch Side bilateral Reps/Minutes 60 sec yamilex Heel slides Supine Exercise Name Heel slides for L knee flexion stretch Side left Reps/Minutes 5' Comments ROM taken SAQ Supine Exercise Name SAQ Side left Resistance 0#, 1# Reps/Minutes 5' Comments 15 reps each Standing Exercises Step Downs Standing Exercise Name 8 step downs Side left Reps/Minutes 3' Step ups Standing Exercise Name 8 step ups Side left Reps/Minutes 3' Gait Training Gait Activity Stairs Device Used R rail for descend, no rails ascend Distance/Duration 1x Comments 8 steps, focusing on knee tracking and lowering with control when descending; PT-OP-R Modalities Start: 06/07/20 08:05 Freq: Status: Active Protocol: Document 07/08/20 10:36 LRN (Rec: 07/08/20 12:27 LRN [id number]) Hot Pack/Cold Pack Treatment Cold Pack Location L knee Patient Position Sitting Treatment Duration (minutes) 5 Comments Cold pack to knee while pt completed Questionnaire forms. PT-OP-T Assessment and Plan Start: 06/07/20 08:05 Freq: Status: Active Protocol: Document 07/29/20 10:39 LRN (Rec: 07/29/20 11:28 LRN [id number]) Physical Therapy Assessment Goals Six Impairment Decreased endurance (pt not leaving home) Short Term Goal (STG) Pt will be able to tolerate 10 ' on stationary exercise bike. STG Duration 08/21/20 (07/08/20: MET GOAL) [facility] Goal (LTG) Pt will be able to ambulate around a large warehouse store 30 minutes; without walker prior to fatigue. LTG Duration 09/05/20 (07/26/20: MET GOAL) Five Impairment Decreased function per LEFS score of 16 (prior level was 42) [facility] Goal (LTG) Improve functional ability per LEFS score to no less than 42 . (07/08/20: LEFS score is 33) LTG Duration 09/05/20 (07/29/20: Improving ) Four Impairment Decreased balance (not able to perform SLS or Rhomberg stance). Short Term Goal (STG) Pt will be able to mandarin speaking nanny Rhomberg for 10 sec's without difficulty in order to walk safely 150' with a cane or without a walker. STG Duration 07/25/20 (Late Entry: : MET GOAL) [facility] Goal (LTG) Pt will be able to L SLS at prior level (SLS 41 secs left, 59 secs right). (07/26/20: Left SLS is 60 secs with hands across chest). LTG Duration 09/05/20 (07/26/20: MET GOAL) Three Impairment Decreased L knee strength ( Flex 2+/5, Ext 2-/5, R is generally 5/5) Short Term Goal (STG) Pt will be able to improve L knee extension strength to 3/5 and flexion 3+/5 in order to transfer in/out of bed (lift L leg independently onto the plinth) without assist and ambulate safely with use of cane. STG Duration 08/21/20 (06/28/20: MET GOAL) Selling Specialist Goal (LTG) Pt will be able to improve L knee strength to 4/5 for ability to ambulate stairs with use of railing with 100% confidence. LTG Duration 09/05/20 Two Impairment Decreased L knee mobility ( Supine AROM in deg's: 40-70 L , 0-112 R) Short Term Goal (STG) Pt will be able to achieve L knee passive flexion of 100 deg's and will demonstrate the ability to perform active knee ext to at most 10 deg's lacking (sitting) for independent transfer sit to stand with minimal difficulty and minor use of hands, ability to tolerate riding a stationary bike going full revolution, and ease of getting into a car. STG Duration 08/21/20 (07/26/20: MET GOAL) Selling Specialist Goal (LTG) Pt will be able to achieve active L knee flexion 125 deg' s to tolerate ambulation on stairs with one rail without difficulty, transfer sit <> stand without pain, and tolerate full revolution on ex bike with pain no greater than 2-3/10. (07/26/20: L knee AROM flex is 128 deg's; Up stairs without difficulty, Down stairs with railing due to lack of confidence in L leg, sit to stand: pain in inferomedial knee 3-4/10. Full revolution around bike with pain rated 2/ 10 behind the L knee, normally stiff, not pain) LTG Duration 09/05/20 (07/26/20: Progressing) One Impairment Limited tolerance to HEP Selling Specialist Goal (LTG) Pt will be independent in a self care HEP for continued ROM and strengthening to achieve intermediate card tender pt goal of returning to ex in a local gym , riding an outdoor bike, and hiking. LTG Duration 09/05/20 (06/21/20: Progressing) Progress Towards Goals Progress Comments Function improved per LEFS of 36 was 33, no change with % impaired. L knee active flexion remains 128 degs. Assessment Summary Assessment L knee AROM is 128 deg's flexion. L knee strength improving. Pt is apprehensive with stairs, indicating lack of confidence in her L knee. L knee appeared more swollen today with pain complaints on bending of knee with stairs. Physical Therapy Plan Frequency and Duration Frequency of Treatment 2x/Week Plan of Care Start Date 06/07/20 Plan of Care End Date 09/05/20 Next Visit Focus/Plan Next Note Type Treatment Note Next Visit Plan Continue gait training focusing on increasing LLE stance time, proper hip shift and normal swing through (not laterally swinging LLE out to increase SURJIT), improve L knee strength long & short arcs, to improve confidence on descending stairs.
--- NOTE | 2020-08-02 16:51 | PT.OTN ---
Current Diagnoses Unilateral primary osteoarthritis, left knee (08/02/20) Muscle weakness (generalized) (08/02/20) Unsteadiness on feet (08/02/20) Physical Therapy Treatment Note PT-OP-A Visit Information Start: 06/07/20 08:05 Freq: Status: Active Protocol: Document 08/02/20 10:39 LRN (Rec: 08/02/20 11:21 LRN [id number]) Out-Patient Physical Therapy Visit Information Visit Information Visit Type Treatment Note Visit Start Time 10:39 Visit Stop Time 15:17 Total Visit Minutes 38 Visit Number 16 Evaluation Information Evaluation Date 06/07/20 Precautions Precautions Hx of back pain due to scoliosis. [place] Palsy - 08/23/19, R side of face. R eye effected with difficulty vision due to excessive tears. PT-OP-B Current Condition Start: 06/07/20 08:05 Freq: Status: Active Protocol: Document 06/07/20 09:03 LRN (Rec: 06/07/20 10:31 LRN [id number]) Current Condition History of Current Condition Onset Date 05/31/20 Current Complaints L knee, lower leg & medial thigh throbbing pain. History of Current Condition Elective surgery for L TKA from history of patella dislocation causing arthritis Prior Treatments and Tests None Future Testing and Treatments Planned F/U post-operative visit on with Dr. Foster in [place] for 6 week f/u visit. Developmental History Developmental History According to pt: L knee dislocation history causing arthritis and bone on bone condition. Treatment Goals Patient/Caregiver Goals Work out in gym: Use bike or stepper with 2-3/ 10 pain. Stairs without difficulty using 1 rail. Strength: Stair amb 100% confidence with railing Walk to/from grocery/[employer] ( 30') store without walker. Use of cane in 2 weeks. L knee ROM: transfer normal, ease of getting into a car. Prior Functional Status Baseline Function- ADL's Independent Baseline Function- Mobility Independent Baseline Function- Gait Gait without assistive device. Current Functional Impairments (Reported) Functional Limitations- ADL's Not able to cook/food prep. Not able to grocery shop. Functional Limitations- Mobility/Gait Walker needed for gait. Use of hands to transfer. Needs self-assist to L LE to get in/out of bed. Showers with stool and grab bars. Functional Limitations- Work/School Not able to perform some form of employed work. Personal Factors Other Personal Factors That May Effect History of Patella Therapy/Recovery dislocations has caused apprehension and fear with exercising her LE's. History of Back pain. Current [place] Palsy affecting vision. R TKA surgery 01/07/20 PT-OP-C Subjective Start: 06/07/20 08:05 Freq: Status: Active Protocol: Document 08/02/20 10:39 LRN (Rec: 08/02/20 11:21 LRN [id number]) OP-PT Subjective Patient Comments Patient Comments States she has been doing more home exercises; therefore muscles of the anterior knee is sore. Stiff in the mornings. PT-OP-E Functional Tests Start: 06/07/20 08:05 Freq: Status: Active Protocol: Document 07/26/20 11:19 LRN (Rec: 07/26/20 12:23 LRN [id number]) Functional Tests Other SLS Score Left is 60+ secs with arms across chest. 15 secs arms free to move. PT-OP-G Mobility & Gait Start: 06/07/20 08:05 Freq: Status: Active Protocol: Document 06/21/20 10:29 LRN (Rec: 06/21/20 11:34 LRN [id number]) OP Mobility Evaluation Bed Mobility Supine to and from Sit Independent with lifting and moving L LE. Transfers Sit to Stand Independent PT-OP-J Posture/Palpation/Skin Start: 06/07/20 08:05 Freq: Status: Active Protocol: Document 06/07/20 09:03 LRN (Rec: 06/07/20 10:31 LRN [id number]) Posture Evaluation Position Standing Evaluation View Lateral Weight Distribution Weight Shifted Right Hip Posture (L) Flexed,(R) Flexed Palpation Assessment Location Two Palpation Location Lower leg Palpation Findings Edema One Palpation Location L knee Palpation Findings Edema,Muscle Guarding, Tenderness PT-OP-K Range of Motion Start: 06/07/20 08:05 Freq: Status: Active Protocol: Document 08/02/20 10:39 LRN (Rec: 08/02/20 11:21 LRN [id number]) Knee Goniometric Range of Motion Knee L knee supine Knee ROM WFL No Patient Position Sitting Flexion Active (degrees) 110 Extension Active (degrees) 0 PT-OP-M Strength Start: 06/07/20 08:05 Freq: Status: Active Protocol: Document 08/02/20 10:39 LRN (Rec: 08/02/20 11:21 LRN [id number]) Knee Strength Knee Manual Muscle Testing Left Flexion (S2) 5 Normal Extension (L3) 5 Normal PT-OP-Q Treatments Start: 06/07/20 08:05 Freq: Status: Active Protocol: Document 08/02/20 10:39 LRN (Rec: 08/02/20 11:21 LRN [id number]) Cardio Equipment Bicycle (Upright) Duration (Minutes) 10 Resistance 6 Seat Position 5 Gym Equipment Cable Column (Body Solid) Leg Curl Details Leg curl Resistance 35# Reps/Time 10x 3 respectively Shuttle Recovery Unilateral Squats Details L leg squat, ended with R leg squat Resistance 50# Shuttle Recovery Platform Stable Reps/Time 15x 2 Bilateral Squats Details Adithya Squats Resistance 50#, 75# Shuttle Recovery Platform Stable Reps/Time 15x each Therapeutic Exercises Standing Exercises Sit to stand Standing Exercise Name Sit to Stand to Sit Reps/Minutes 5' Comments Working on having foot farther behind. Gait Training Gait Activity Walking Description Proper wgt shift L and balance on swing through of RLE Surface Level Distance/Duration 9' Comments Physical cuing slowly removed with pt able to properly shift after training. Stairs Description Descending on 6 step Distance/Duration 1x Comments Pt L knee was sore from prior ex and did not tolerate stair training. PT-OP-R Modalities Start: 06/07/20 08:05 Freq: Status: Active Protocol: Document 07/08/20 10:36 LRN (Rec: 07/08/20 12:27 LRN [id number]) Hot Pack/Cold Pack Treatment Cold Pack Location L knee Patient Position Sitting Treatment Duration (minutes) 5 Comments Cold pack to knee while pt completed Questionnaire forms. PT-OP-T Assessment and Plan Start: 06/07/20 08:05 Freq: Status: Active Protocol: Document 08/02/20 10:39 LRN (Rec: 08/02/20 11:21 LRN [id number]) Physical Therapy Assessment Goals Five Impairment Decreased function per LEFS score of 16 (prior level was 42) Group Home Goal (LTG) Improve functional ability per LEFS score to no less than 42 . (07/08/20: LEFS score is 33) LTG Duration 09/05/20 (07/29/20: Improving ) Three Impairment Decreased L knee strength ( Flex 2+/5, Ext 2-/5, R is generally 5/5) Short Term Goal (STG) Pt will be able to improve L knee extension strength to 3/5 and flexion 3+/5 in order to transfer in/out of bed (lift L leg independently onto the plinth) without assist and ambulate safely with use of cane. STG Duration 08/21/20 (06/28/20: MET GOAL) Group Home Goal (LTG) Pt will be able to improve L knee strength to 4/5 for ability to ambulate stairs with use of railing with 100% confidence. LTG Duration 09/05/20 Two Impairment Decreased L knee mobility ( Supine AROM in deg's: 40-70 L , 0-112 R) Short Term Goal (STG) Pt will be able to achieve L knee passive flexion of 100 deg's and will demonstrate the ability to perform active knee ext to at most 10 deg's lacking (sitting) for independent transfer sit to stand with minimal difficulty and minor use of hands, ability to tolerate riding a stationary bike going full revolution, and ease of getting into a car. STG Duration 08/21/20 (07/26/20: MET GOAL) Statistical Engineer Goal (LTG) Pt will be able to achieve active L knee flexion 125 deg' s to tolerate ambulation on stairs with one rail without difficulty, transfer sit <> stand without pain, and tolerate full revolution on ex bike with pain no greater than 2-3/10. (07/26/20: L knee AROM flex is 128 deg's; Up stairs without difficulty, Down stairs with railing due to lack of confidence in L leg, sit to stand: pain in inferomedial knee 3-4/10. 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 LTG Duration 09/05/20 (06/21/20: Progressing) Progress Towards Goals Progress Comments L knee strength improved to normal 5/5. Normal gait mechanics after much training, but with fatigue, leaning left was present. Further training needed. Assessment Summary Assessment L knee swelling limiting knee flex and stair ambulation. L SLS limiting gait mechanics. Limited due to tightness of L hip flexor. Physical Therapy Plan Frequency and Duration Frequency of Treatment 2x/Week Plan of Care Start Date 06/07/20 Plan of Care End Date 09/05/20 Next Visit Focus/Plan Next Note Type Treatment Note Next Visit Plan Continue gait training focusing on increasing LLE stance time, proper hip shift, to improve tolerance to ecc knee flexion (sit to stand from chair) to improve confidence on descending stairs.
--- NOTE | 2020-08-05 10:33 | PT-OP ANOTE ---
Pt Attends in discomfort and requesting hold on today's therapy and resume next week. For greatest benefit of allowed visit by insurance this was a good suggestion; therefore held today's appt due to pt's increased soreness of the LLE.
--- NOTE | 2020-08-09 12:24 | PT.OTN ---
Current Diagnoses Unilateral primary osteoarthritis, left knee (08/09/20) Muscle weakness (generalized) (08/09/20) Unsteadiness on feet (08/09/20) Physical Therapy Treatment Note PT-OP-A Visit Information Start: 06/07/20 08:05 Freq: Status: Active Protocol: Document 08/09/20 10:34 LRN (Rec: 08/09/20 11:17 LRN [id number]) Out-Patient Physical Therapy Visit Information Visit Information Visit Type Treatment Note Visit Note 7 visits since PN Visit Start Time 10:34 Visit Stop Time 11:16 Total Visit Minutes 42 Visit Number 17 Evaluation Information Evaluation Date 06/07/20 Precautions Precautions Hx of back pain due to scoliosis. [place] Palsy - 08/23/19, R side of face. R eye effected with difficulty vision due to excessive tears. PT-OP-B Current Condition Start: 06/07/20 08:05 Freq: Status: Active Protocol: Document 06/07/20 09:03 LRN (Rec: 06/07/20 10:31 LRN [id number]) Current Condition History of Current Condition Onset Date 05/31/20 Current Complaints L knee, lower leg & medial thigh throbbing pain. History of Current Condition Elective surgery for L TKA from history of patella dislocation causing arthritis Prior Treatments and Tests None Future Testing and Treatments Planned F/U post-operative visit on with Dr. Foster in Nov for 6 week f/u visit. Developmental History Developmental History According to pt: L knee dislocation history causing arthritis and bone on bone condition. Treatment Goals Patient/Caregiver Goals Work out in gym: Use bike or stepper with 2-3/ 10 pain. Stairs without difficulty using 1 rail. Strength: Stair amb 100% confidence with railing Walk to/from grocery/[employer] ( 30') store without walker. Use of cane in 2 weeks. L knee ROM: transfer normal, ease of getting into a car. Prior Functional Status Baseline Function- ADL's Independent Baseline Function- Mobility Independent Baseline Function- Gait Gait without assistive device. Current Functional Impairments (Reported) Functional Limitations- ADL's Not able to cook/food prep. Not able to grocery shop. Functional Limitations- Mobility/Gait Walker needed for gait. Use of hands to transfer. Needs self-assist to L LE to get in/out of bed. Showers with stool and grab bars. Functional Limitations- Work/School Not able to perform some form of employed work. Personal Factors Other Personal Factors That May Effect History of Patella Therapy/Recovery dislocations has caused apprehension and fear with exercising her LE's. History of Back pain. Current [place] Palsy affecting vision. R TKA surgery 01/07/20 PT-OP-C Subjective Start: 06/07/20 08:05 Freq: Status: Active Protocol: Document 08/09/20 10:34 LRN (Rec: 08/09/20 11:17 LRN [id number]) OP-PT Subjective Patient Comments Patient Comments R knee has been popping, L knee pain is same going down stairs, but finds it easier and more natural. Met ortho surgeon 3 weeks ago and at that time the R knee wasn't popping, but will see him again next week (08/17/20) and will discuss. PT-OP-E Functional Tests Start: 06/07/20 08:05 Freq: Status: Active Protocol: Document 07/26/20 11:19 LRN (Rec: 07/26/20 12:23 LRN [id number]) Functional Tests Other SLS Score Left is 60+ secs with arms across chest. 15 secs arms free to move. PT-OP-G Mobility & Gait Start: 06/07/20 08:05 Freq: Status: Active Protocol: Document 06/21/20 10:29 LRN (Rec: 06/21/20 11:34 LRN [id number]) OP Mobility Evaluation Bed Mobility Supine to and from Sit Independent with lifting and moving L LE. Transfers Sit to Stand Independent PT-OP-J Posture/Palpation/Skin Start: 06/07/20 08:05 Freq: Status: Active Protocol: Document 06/07/20 09:03 LRN (Rec: 06/07/20 10:31 LRN [id number]) Posture Evaluation Position Standing Evaluation View Lateral Weight Distribution Weight Shifted Right Hip Posture (L) Flexed,(R) Flexed Palpation Assessment Location Two Palpation Location Lower leg Palpation Findings Edema One Palpation Location L knee Palpation Findings Edema,Muscle Guarding, Tenderness PT-OP-K Range of Motion Start: 06/07/20 08:05 Freq: Status: Active Protocol: Document 08/09/20 10:34 LRN (Rec: 08/09/20 11:17 LRN [id number]) Knee Goniometric Range of Motion Knee Left Knee ROM WFL No Patient Position Supine Flexion Active (degrees) 125 PT-OP-M Strength Start: 06/07/20 08:05 Freq: Status: Active Protocol: Document 08/02/20 10:39 LRN (Rec: 08/02/20 11:21 LRN [id number]) Knee Strength Knee Manual Muscle Testing Left Flexion (S2) 5 Normal Extension (L3) 5 Normal PT-OP-Q Treatments Start: 06/07/20 08:05 Freq: Status: Active Protocol: Document 08/09/20 10:34 LRN (Rec: 08/09/20 11:17 LRN [id number]) Cardio Equipment Bicycle (Upright) Duration (Minutes) 10 Resistance 6 Seat Position 5 Gym Equipment Cable Column (Body Solid) Leg Curl Details Leg curl Resistance 35# Reps/Time 10x 3 respectively Shuttle Recovery R Unilateral squat Details R Unilateral Squat Resistance 50# Shuttle Recovery Platform Stable Reps/Time 15x, rest, 15x 2 Unilateral Squats Details L leg squat, ended with R leg squat Resistance 50# Shuttle Recovery Platform Stable Reps/Time 15x, rest, 15x 2 Bilateral Squats Details Adithya Squats Resistance 75# Shuttle Recovery Platform Stable Reps/Time 15x 3 Therapeutic Exercises Supine Exercises Vidal Stretch Supine Exercise Name Vidal Test position stretch Side bilateral Reps/Minutes 60 sec adithya Heel slides Supine Exercise Name Heel slides for L knee flexion stretch Side left Reps/Minutes 5' Comments ROM taken Gait Training Gait Activity Stairs Description Descending on 6 step Distance/Duration 4' Comments Pt L knee was sore from prior ex. Self-Care/Home Management Treatment Education Patient Education Joint Protection,Pain Management Other Education Educated PT-OP-R Modalities Start: 06/07/20 08:05 Freq: Status: Active Protocol: Document 07/08/20 10:36 LRN (Rec: 07/08/20 12:27 LRN [id number]) Hot Pack/Cold Pack Treatment Cold Pack Location L knee Patient Position Sitting Treatment Duration (minutes) 5 Comments Cold pack to knee while pt completed Questionnaire forms. PT-OP-T Assessment and Plan Start: 06/07/20 08:05 Freq: Status: Active Protocol: Document 08/09/20 10:34 LRN (Rec: 08/09/20 11:17 LRN [id number]) Physical Therapy Assessment Goals Five Impairment Decreased function per LEFS score of 16 (prior level was 42) Process Improvement Engineer Goal (LTG) Improve functional ability per LEFS score to no less than 42 . (07/08/20: LEFS score is 33) LTG Duration 09/05/20 (07/29/20: Improving ) Three Impairment Decreased L knee strength ( Flex 2+/5, Ext 2-/5, R is generally 5/5) Short Term Goal (STG) Pt will be able to improve L knee extension strength to 3/5 and flexion 3+/5 in order to transfer in/out of bed (lift L leg independently onto the plinth) without assist and ambulate safely with use of cane. STG Duration 08/21/20 (06/28/20: MET GOAL) Process Improvement Engineer Goal (LTG) Pt will be able to improve L knee strength to 4/5 for ability to ambulate stairs with use of railing with 100% confidence. LTG Duration 09/05/20 Two Impairment Decreased L knee mobility ( Supine AROM in deg's: 40-70 L , 0-112 R) Short Term Goal (STG) Pt will be able to achieve L knee passive flexion of 100 deg's and will demonstrate the ability to perform active knee ext to at most 10 deg's lacking (sitting) for independent transfer sit to stand with minimal difficulty and minor use of hands, ability to tolerate riding a stationary bike going full revolution, and ease of getting into a car. STG Duration 08/21/20 (07/26/20: MET GOAL) Residential Goal (LTG) Pt will be able to achieve active L knee flexion 125 deg' s to tolerate ambulation on stairs with one rail without difficulty, transfer sit <> stand without pain, and tolerate full revolution on ex bike with pain no greater than 2-3/10. (07/26/20: L knee AROM flex is 128 deg's; Up stairs without difficulty, Down stairs with railing due to lack of confidence in L leg, sit to stand: pain in inferomedial knee 3-4/10. 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 LTG Duration 09/05/20 (06/21/20: Progressing) Assessment Summary Assessment Pt L knee AROM is same, pt needed encouragement to resume HEP of stretching L knee to improve ROM for ease with stair ambulation. Tightness of the L knee hinders pt's descending on stairs due to stiffness/pain. R knee popping today was corrected by very slight lateral mob of patella while cycling. Physical Therapy Plan Frequency and Duration Frequency of Treatment 2x/Week Plan of Care Start Date 06/07/20 Plan of Care End Date 09/05/20 Next Visit Focus/Plan Next Note Type Treatment Note Next Visit Plan Improve L hip flexor mobility. Continue gait training focusing on increasing LLE stance time, proper hip shift, to improve tolerance to ecc knee flexion (sit to stand from chair) to improve confidence on descending stairs. Strengthen L knee and include R knee due to popping that hinders her gait.
--- NOTE | 2020-08-22 09:17 | PT.OTN ---
Current Diagnoses Unilateral primary osteoarthritis, left knee (08/22/20) Muscle weakness (generalized) (08/22/20) Unsteadiness on feet (08/22/20) Physical Therapy Treatment Note PT-OP-A Visit Information Start: 06/07/20 08:05 Freq: Status: Active Protocol: Document 08/22/20 08:16 LRN (Rec: 08/22/20 09:02 LRN [id number]) Out-Patient Physical Therapy Visit Information Visit Information Visit Type Treatment Note Visit Start Time 08:17 Visit Stop Time 09:00 Total Visit Minutes 43 Visit Number 18 Evaluation Information Evaluation Date 06/07/20 Precautions Precautions Hx of back pain due to scoliosis. [place] Palsy - 08/23/19, R side of face. R eye effected with difficulty vision due to excessive tears. PT-OP-B Current Condition Start: 06/07/20 08:05 Freq: Status: Active Protocol: Document 06/07/20 09:03 LRN (Rec: 06/07/20 10:31 LRN [id number]) Current Condition History of Current Condition Onset Date 05/31/20 Current Complaints L knee, lower leg & medial thigh throbbing pain. History of Current Condition Elective surgery for L TKA from history of patella dislocation causing arthritis Prior Treatments and Tests None Future Testing and Treatments Planned F/U post-operative visit on with Dr. Foster in [place] for 6 week f/u visit. Developmental History Developmental History According to pt: L knee dislocation history causing arthritis and bone on bone condition. Treatment Goals Patient/Caregiver Goals Work out in gym: Use bike or stepper with 2-3/ 10 pain. Stairs without difficulty using 1 rail. Strength: Stair amb 100% confidence with railing Walk to/from grocery/[employer] ( 30') store without walker. Use of cane in 2 weeks. L knee ROM: transfer normal, ease of getting into a car. Prior Functional Status Baseline Function- ADL's Independent Baseline Function- Mobility Independent Baseline Function- Gait Gait without assistive device. Current Functional Impairments (Reported) Functional Limitations- ADL's Not able to cook/food prep. Not able to grocery shop. Functional Limitations- Mobility/Gait Walker needed for gait. Use of hands to transfer. Needs self-assist to L LE to get in/out of bed. Showers with stool and grab bars. Functional Limitations- Work/School Not able to perform some form of employed work. Personal Factors Other Personal Factors That May Effect History of Patella Therapy/Recovery dislocations has caused apprehension and fear with exercising her LE's. History of Back pain. Current [place] Palsy affecting vision. R TKA surgery 01/07/20 PT-OP-C Subjective Start: 06/07/20 08:05 Freq: Status: Active Protocol: Document 08/22/20 08:16 LRN (Rec: 08/22/20 09:02 LRN [id number]) OP-PT Subjective Patient Comments Patient Comments L knee feels stronger. Going downstairs is not always painfree. R knee sometimes is popping. Talked to ortho physician and was told not to worry of popping because no pain. She is to not do 8 step ups but lower hgt step ups. PT-OP-E Functional Tests Start: 06/07/20 08:05 Freq: Status: Active Protocol: Document 07/26/20 11:19 LRN (Rec: 07/26/20 12:23 LRN [id number]) Functional Tests Other SLS Score Left is 60+ secs with arms across chest. 15 secs arms free to move. PT-OP-G Mobility & Gait Start: 06/07/20 08:05 Freq: Status: Active Protocol: Document 06/21/20 10:29 LRN (Rec: 06/21/20 11:34 LRN [id number]) OP Mobility Evaluation Bed Mobility Supine to and from Sit Independent with lifting and moving L LE. Transfers Sit to Stand Independent PT-OP-J Posture/Palpation/Skin Start: 06/07/20 08:05 Freq: Status: Active Protocol: Document 06/07/20 09:03 LRN (Rec: 06/07/20 10:31 LRN [id number]) Posture Evaluation Position Standing Evaluation View Lateral Weight Distribution Weight Shifted Right Hip Posture (L) Flexed,(R) Flexed Palpation Assessment Location Two Palpation Location Lower leg Palpation Findings Edema One Palpation Location L knee Palpation Findings Edema,Muscle Guarding, Tenderness PT-OP-K Range of Motion Start: 06/07/20 08:05 Freq: Status: Active Protocol: Document 08/22/20 08:16 LRN (Rec: 08/22/20 09:02 LRN [id number]) Knee Goniometric Range of Motion Knee Right Knee ROM WFL Yes Patient Position Supine Flexion Active (degrees) 132 Left Knee ROM WFL No Patient Position Supine Flexion Active (degrees) 127 PT-OP-M Strength Start: 06/07/20 08:05 Freq: Status: Active Protocol: Document 08/02/20 10:39 LRN (Rec: 08/02/20 11:21 LRN [id number]) Knee Strength Knee Manual Muscle Testing Left Flexion (S2) 5 Normal Extension (L3) 5 Normal PT-OP-Q Treatments Start: 06/07/20 08:05 Freq: Status: Active Protocol: Document 08/22/20 08:16 LRN (Rec: 08/22/20 09:02 LRN [id number]) Cardio Equipment Bicycle (Upright) Duration (Minutes) 10 Resistance 6 Seat Position 5 Gym Equipment Cable Column (Body Solid) Leg Curl Details Leg curl Resistance 35# Reps/Time 10x 3 Shuttle Recovery R Unilateral squat Details R Unilateral Squat Resistance 50# Shuttle Recovery Platform Stable Reps/Time 10x, rest, 15x 2 alernating with other leg Unilateral Squats Details L leg squat, ended with R leg squat Resistance 50# Shuttle Recovery Platform Stable Reps/Time 10x, rest, 15x 2 alernating with other leg Bilateral Squats Details Adithya Squats Resistance 75# Shuttle Recovery Platform Stable Reps/Time 15x 3 Gait Training Gait Activity Walking Description Proper wgt shift L and balance on swing through of RLE Surface Level Distance/Duration 2' Comments Physical cuing slowly removed with pt able to properly shift after training. Stairs Description Descending on 6 step Distance/Duration 1' Comments Pt L knee weak with slight pain on descent. Neuro Re-Education Treatment Balance Activities SLS Details SLS with stepping fwd/bkwd with opposite foot Surface Level Reps/Duration 2' PT-OP-R Modalities Start: 06/07/20 08:05 Freq: Status: Active Protocol: Document 07/08/20 10:36 LRN (Rec: 07/08/20 12:27 LRN [id number]) Hot Pack/Cold Pack Treatment Cold Pack Location L knee Patient Position Sitting Treatment Duration (minutes) 5 Comments Cold pack to knee while pt completed Questionnaire forms. PT-OP-T Assessment and Plan Start: 06/07/20 08:05 Freq: Status: Active Protocol: Document 08/22/20 08:16 LRN (Rec: 08/22/20 09:02 LRN [id number]) Physical Therapy Assessment Goals Five Impairment Decreased function per LEFS score of 16 (prior level was 42) Senior Living Goal (LTG) Improve functional ability per LEFS score to no less than 42 . (07/08/20: LEFS score is 33) LTG Duration 09/05/20 (07/29/20: Improving ) Three Impairment Decreased L knee strength ( Flex 2+/5, Ext 2-/5, R is generally 5/5) Short Term Goal (STG) Pt will be able to improve L knee extension strength to 3/5 and flexion 3+/5 in order to transfer in/out of bed (lift L leg independently onto the plinth) without assist and ambulate safely with use of cane. STG Duration 08/21/20 (06/28/20: MET GOAL) Senior Living Goal (LTG) Pt will be able to improve L knee strength to 4/5 for ability to ambulate stairs with use of railing with 100% confidence. LTG Duration 09/05/20 Two Impairment Decreased L knee mobility ( Supine AROM in deg's: 40-70 L , 0-112 R) Short Term Goal (STG) Pt will be able to achieve L knee passive flexion of 100 deg's and will demonstrate the ability to perform active knee ext to at most 10 deg's lacking (sitting) for independent transfer sit to stand with minimal difficulty and minor use of hands, ability to tolerate riding a stationary bike going full revolution, and ease of getting into a car. STG Duration 08/21/20 (07/26/20: MET GOAL) Senior Living Goal (LTG) Pt will be able to achieve active L knee flexion 125 deg' s to tolerate ambulation on stairs with one rail without difficulty, transfer sit <> stand without pain, and tolerate full revolution on ex bike with pain no greater than 2-3/10. (07/26/20: L knee AROM flex is 128 deg's; Up stairs without difficulty, Down stairs with railing due to lack of confidence in L leg, sit to stand: pain in inferomedial knee 3-4/10. 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 LTG Duration 09/05/20 (06/21/20: Progressing) Progress Towards Goals Progress Comments L knee AROM improved from 125 to 127 degs. Assessment Summary Assessment L knee AROM is improved to 127 deg's flex after aerobic ex. Pt is having no complaints with L knee and no popping in R . Pt gait is with wide SURJIT and slow speed. Pt is able to normalize gait mechanics but speed is slow. Pt is apprehensive of DC due to her reverting to stiff gait mechanics when not concentrating on her gait, and her fear of knee pain. Physical Therapy Plan Frequency and Duration Frequency of Treatment 2x/Week Plan of Care Start Date 06/07/20 Plan of Care End Date 09/05/20 Next Visit Focus/Plan Next Note Type Treatment Note Next Visit Plan If further therapy is approved , continue with check of Goals (chely 3 & 4), improve L hip flexor mobility. Continue gait training focusing on improving speed and mechanics of gait, and L knee AROM and confidence in descending stairs, with possible DC to HEP next week or decrease therapy to 1x/2 wks. Also monitor for improved LLE stance time, proper hip shift, tolerance to ecc knee flexion (sit to stand from chair), and L knee strength (include R knee due to popping that hinders her gait).
--- NOTE | 2020-08-30 13:26 | PT.OTN ---
Current Diagnoses Unilateral primary osteoarthritis, left knee (08/30/20) Muscle weakness (generalized) (08/30/20) Unsteadiness on feet (08/30/20) Physical Therapy Treatment Note PT-OP-A Visit Information Start: 06/07/20 08:05 Freq: Status: Active Protocol: Document 08/30/20 11:23 LRN (Rec: 08/30/20 12:27 LRN [id number]) Out-Patient Physical Therapy Visit Information Visit Information Visit Type Progress Note Visit Note 9 visit after PN Visit Start Time 11:23 Visit Stop Time 12:07 Total Visit Minutes 44 Visit Number 19 Evaluation Information Evaluation Date 06/07/20 Precautions Precautions Hx of back pain due to scoliosis. [place] Palsy - 08/23/19, R side of face. R eye effected with difficulty vision due to excessive tears. PT-OP-B Current Condition Start: 06/07/20 08:05 Freq: Status: Active Protocol: Document 06/07/20 09:03 LRN (Rec: 06/07/20 10:31 LRN [id number]) Current Condition History of Current Condition Onset Date 05/31/20 Current Complaints L knee, lower leg & medial thigh throbbing pain. History of Current Condition Elective surgery for L TKA from history of patella dislocation causing arthritis Prior Treatments and Tests None Future Testing and Treatments Planned F/U post-operative visit on with Dr. Foster in Nov for 6 week f/u visit. Developmental History Developmental History According to pt: L knee dislocation history causing arthritis and bone on bone condition. Treatment Goals Patient/Caregiver Goals Work out in gym: Use bike or stepper with 2-3/ 10 pain. Stairs without difficulty using 1 rail. Strength: Stair amb 100% confidence with railing Walk to/from grocery/[employer] ( 30') store without walker. Use of cane in 2 weeks. L knee ROM: transfer normal, ease of getting into a car. Prior Functional Status Baseline Function- ADL's Independent Baseline Function- Mobility Independent Baseline Function- Gait Gait without assistive device. Current Functional Impairments (Reported) Functional Limitations- ADL's Not able to cook/food prep. Not able to grocery shop. Functional Limitations- Mobility/Gait Walker needed for gait. Use of hands to transfer. Needs self-assist to L LE to get in/out of bed. Showers with stool and grab bars. Functional Limitations- Work/School Not able to perform some form of employed work. Personal Factors Other Personal Factors That May Effect History of Patella Therapy/Recovery dislocations has caused apprehension and fear with exercising her LE's. History of Back pain. Current [place] Palsy affecting vision. R TKA surgery 01/07/20 PT-OP-C Subjective Start: 06/07/20 08:05 Freq: Status: Active Protocol: Document 08/30/20 11:23 LRN (Rec: 08/30/20 12:27 LRN [id number]) OP-PT Subjective Patient Comments Patient Comments 60% confident with stair ambulation using 1 railing. Believes she is not where she needs to be and requests therapy continues at least next week and maybe longer at 1x/week. Patient Questionnaires Lower Extremity Functional Scale LEFS Score 39 LEFS Impairment 40 to 59% Impaired (Score 32- 47) PT-OP-E Functional Tests Start: 06/07/20 08:05 Freq: Status: Active Protocol: Document 07/26/20 11:19 LRN (Rec: 07/26/20 12:23 LRN [id number]) Functional Tests Other SLS Score Left is 60+ secs with arms across chest. 15 secs arms free to move. PT-OP-G Mobility & Gait Start: 06/07/20 08:05 Freq: Status: Active Protocol: Document 06/21/20 10:29 LRN (Rec: 06/21/20 11:34 LRN [id number]) OP Mobility Evaluation Bed Mobility Supine to and from Sit Independent with lifting and moving L LE. Transfers Sit to Stand Independent PT-OP-J Posture/Palpation/Skin Start: 06/07/20 08:05 Freq: Status: Active Protocol: Document 06/07/20 09:03 LRN (Rec: 06/07/20 10:31 LRN [id number]) Posture Evaluation Position Standing Evaluation View Lateral Weight Distribution Weight Shifted Right Hip Posture (L) Flexed,(R) Flexed Palpation Assessment Location Two Palpation Location Lower leg Palpation Findings Edema One Palpation Location L knee Palpation Findings Edema,Muscle Guarding, Tenderness PT-OP-K Range of Motion Start: 06/07/20 08:05 Freq: Status: Active Protocol: Document 08/30/20 11:23 LRN (Rec: 08/30/20 12:27 LRN [id number]) Knee Goniometric Range of Motion Knee L knee supine Patient Position Supine Flexion Active (degrees) 130 Extension Active (degrees) 0 R knee supine Knee ROM WFL Yes Flexion Active (degrees) 135 Extension Active (degrees) 0 PT-OP-M Strength Start: 06/07/20 08:05 Freq: Status: Active Protocol: Document 08/02/20 10:39 LRN (Rec: 08/02/20 11:21 LRN [id number]) Knee Strength Knee Manual Muscle Testing Left Flexion (S2) 5 Normal Extension (L3) 5 Normal PT-OP-Q Treatments Start: 06/07/20 08:05 Freq: Status: Active Protocol: Document 08/30/20 11:23 LRN (Rec: 08/30/20 12:27 LRN [id number]) Cardio Equipment Bicycle (Upright) Duration (Minutes) 10 Resistance 6 Seat Position 5 Therapeutic Exercises Supine Exercises Heel slides Supine Exercise Name Heel slides for L knee flexion stretch Side left Reps/Minutes 3' Comments ROM taken Gait Training Gait Activity Walking Description Increasing speed of gait & safety with turning Surface Level Distance/Duration 4' Comments Sound cuing for gait jatin progressing to no cuing. 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 Neuro Re-Education Treatment Balance Activities SLS Details SLS Surface Soft blue foam square Equipment // bars, blue foam square Reps/Duration 4' Tandem Stance Details Tandem: Arms across chest: EO, EC Reps/Duration 4' Comments RLE infront of LLE more difficulty than when LLE is in front. Poor control with EC Rhomberg stance Details Rhomberg stance: Arms across chest: EO, EC Surface Blue foam square Equipment // bars & blue foam square Reps/Duration 4' Comments Pt able to stand > 1 minute without LOB. PT-OP-R Modalities Start: 06/07/20 08:05 Freq: Status: Active Protocol: Document 07/08/20 10:36 LRN (Rec: 07/08/20 12:27 LRN [id number]) Hot Pack/Cold Pack Treatment Cold Pack Location L knee Patient Position Sitting Treatment Duration (minutes) 5 Comments Cold pack to knee while pt completed Questionnaire forms. PT-OP-T Assessment and Plan Start: 06/07/20 08:05 Freq: Status: Active Protocol: Document 08/30/20 11:23 LRN (Rec: 08/30/20 12:27 LRN [id number]) Physical Therapy Assessment Rehab Potential Rehabilitation Potential Good Evaluation Complexity Number of Personal Factors/Comorbidities 3 or More Number of Body Systems Impaired 3 Clinical Presentation at Evaluation Evolving Impairments Impairments Activity Tolerance,Balance, Edema,Functional Mobility,Gait ,Pain,ROM,Soft Tissue Mobility ,Strength Goals Five Impairment Decreased function per LEFS score of 16 (prior level was 42) Skilled Nursing Goal (LTG) Improve functional ability per LEFS score to no less than 42 . (08/30/19: LEFS score is 39) LTG Duration 09/05/20 (08/30/19: Improving) Three Impairment Decreased L knee strength ( Flex 2+/5, Ext 2-/5, R is generally 5/5) Short Term Goal (STG) Pt will be able to improve L knee extension strength to 3/5 and flexion 3+/5 in order to transfer in/out of bed (lift L leg independently onto the plinth) without assist and ambulate safely with use of cane. STG Duration 08/21/20 (06/28/20: MET GOAL) Ward Secretary Goal (LTG) Pt will be able to improve L knee strength to 4/5 for ability to ambulate stairs with use of railing with 100% confidence. LTG Duration 09/05/20 Two Impairment Decreased L knee mobility ( Supine AROM in deg's: 40-70 L , 0-112 R) Short Term Goal (STG) Pt will be able to achieve L knee passive flexion of 100 deg's and will demonstrate the ability to perform active knee ext to at most 10 deg's lacking (sitting) for independent transfer sit to stand with minimal difficulty and minor use of hands, ability to tolerate riding a stationary bike going full revolution, and ease of getting into a car. STG Duration 08/21/20 (07/26/20: MET GOAL) Skilled Nursing Goal (LTG) Pt will be able to achieve active L knee flexion 125 deg' s to tolerate ambulation on stairs with one rail without difficulty, transfer sit <> stand without pain, and tolerate full revolution on ex bike with pain no greater than 2-3/10. (08/30/19: L knee AROM flex is 130 deg's; Up stairs without difficulty, Down stairs slow and cautious without railing 60% confidence in L leg. 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 LTG Duration 09/05/20 (06/21/20: Progressing) Progress Towards Goals Progress Comments L knee function improved per LEFS score of 39 (was 33). L knee AROM improved from 127 degs to 130 deg's (R knee AROM is 135 degs). Pt confidence in stair amb improving with the pt demonstrating ability to descend stairs (slow and cautious) withour use of railing. Assessment Summary Assessment L knee AROM improved. Pain with descending of stairs in anterior and posterior knee without use of railing. With railing only pain anteriolaterally, probably due to decreased functional strength. Gait mechanics improve with increased speed of gait. Turning is slow and with stiff legs. Pt progressing in confidence on stairs, able to descend slowly and cautiously without use of railing. Pt has no complaints of R knee popping, only stiffness, probably due to swelling at knee that is visible. Wearing of support hose on R as well as L will probably help with stiffness of the knee. Physical Therapy Plan Frequency and Duration Frequency of Treatment 1x/Week Plan of Care Start Date 08/30/20 Plan of Care End Date 10/14/20 Therapeutic Interventions Therapeutic Interventions Balance Training,Gait Training ,Home Exercise Program,Manual Therapy,Neuromuscular Re- education,Patient/Caregiver Education,Self-Care/Home Management,Soft Tissue Mobilization,Taping, Therapeutic Activities, Therapeutic Exercises Modalities Cold Pack/Ice Massage,Hot Packs Next Visit Focus/Plan Next Note Type Treatment Note Next Visit Plan Check L knee strength (Goal 3) and assess transfer ability ( sit to stand), improve L hip flexor mobility. Continue gait training focusing on improving speed and mechanics of gait, and confidence in descending stairs (L knee strengthening/balance training ), possible DC to HEP next week or decrease therapy to 1x /2 wks. Monitor for improved LLE stance time, proper hip shift, tolerance to ecc knee flexion (sit to stand from chair), and L knee strength ( include R knee due to popping that hinders her gait).
--- NOTE | 2020-08-30 13:27 | PT.OPPOC ---
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 Primary Care Provider Specialty: Family Practice Address: [address] [place] [address], [id number] Email: [email or web address] Marcelo Daley DO Attending Provider Non-Staff Referring Provider Specialty: Orthopedics Address: [address] [place] [address], [place], [address] Email: Plan Of Care PT-OP-T Assessment and Plan Start: 06/07/20 08:05 Freq: Status: Active Protocol: Document 08/30/20 11:23 LRN (Rec: 08/30/20 12:27 LRN [id number]) Physical Therapy Assessment Rehab Potential Rehabilitation Potential Good Evaluation Complexity Number of Personal Factors/Comorbidities 3 or More Number of Body Systems Impaired 3 Clinical Presentation at Evaluation Evolving Impairments Impairments Activity Tolerance,Balance, Edema,Functional Mobility,Gait ,Pain,ROM,Soft Tissue Mobility ,Strength Goals Five Impairment Decreased function per LEFS score of 16 (prior level was 42) Driver/Guide Goal (LTG) Improve functional ability per LEFS score to no less than 42 . (08/30/19: LEFS score is 39) LTG Duration 09/05/20 (08/30/19: Improving) Three Impairment Decreased L knee strength ( Flex 2+/5, Ext 2-/5, R is generally 5/5) Short Term Goal (STG) Pt will be able to improve L knee extension strength to 3/5 and flexion 3+/5 in order to transfer in/out of bed (lift L leg independently onto the plinth) without assist and ambulate safely with use of cane. STG Duration 08/21/20 (06/28/20: MET GOAL) Halfway Goal (LTG) Pt will be able to improve L knee strength to 4/5 for ability to ambulate stairs with use of railing with 100% confidence. LTG Duration 09/05/20 Two Impairment Decreased L knee mobility ( Supine AROM in deg's: 40-70 L , 0-112 R) Short Term Goal (STG) Pt will be able to achieve L knee passive flexion of 100 deg's and will demonstrate the ability to perform active knee ext to at most 10 deg's lacking (sitting) for independent transfer sit to stand with minimal difficulty and minor use of hands, ability to tolerate riding a stationary bike going full revolution, and ease of getting into a car. STG Duration 08/21/20 (07/26/20: MET GOAL) Driver/Guide Goal (LTG) Pt will be able to achieve active L knee flexion 125 deg' s to tolerate ambulation on stairs with one rail without difficulty, transfer sit <> stand without pain, and tolerate full revolution on ex bike with pain no greater than 2-3/10. (08/30/19: L knee AROM flex is 130 deg's; Up stairs without difficulty, Down stairs slow and cautious without railing 60% confidence in L leg. Full revolution around bike without difficulty) LTG Duration 09/05/20 (08/30/19: Progressing) One Impairment Limited tolerance to HEP Driver/Guide Goal (LTG) Pt will be independent in a self care HEP for continued ROM and strengthening to achieve detention pt goal of returning to ex in a local gym , riding an outdoor bike, and hiking. LTG Duration 09/05/20 (06/21/20: Progressing) Progress Towards Goals Progress Comments L knee function improved per LEFS score of 39 (was 33). L knee AROM improved from 127 degs to 130 deg's (R knee AROM is 135 degs). Pt confidence in stair amb improving with the pt demonstrating ability to descend stairs (slow and cautious) withour use of railing. Assessment Summary Assessment L knee AROM improved. Pain with descending of stairs in anterior and posterior knee without use of railing. With railing only pain anteriolaterally, probably due to decreased functional strength. Gait mechanics improve with increased speed of gait. Turning is slow and with stiff legs. Pt progressing in confidence on stairs, able to descend slowly and cautiously without use of railing. Pt has no complaints of R knee popping, only stiffness, probably due to swelling at knee that is visible. Wearing of support hose on R as well as L will probably help with stiffness of the knee. Physical Therapy Plan Frequency and Duration Frequency of Treatment 1x/Week Plan of Care Start Date 08/30/20 Plan of Care End Date 10/14/20 Therapeutic Interventions Therapeutic Interventions Balance Training,Gait Training ,Home Exercise Program,Manual Therapy,Neuromuscular Re- education,Patient/Caregiver Education,Self-Care/Home Management,Soft Tissue Mobilization,Taping, Therapeutic Activities, Therapeutic Exercises Modalities Cold Pack/Ice Massage,Hot Packs Next Visit Focus/Plan Next Note Type Treatment Note Next Visit Plan Check L knee strength (Goal 3) and assess transfer ability ( sit to stand), improve L hip flexor mobility. Continue gait training focusing on improving speed and mechanics of gait, and confidence in descending stairs (L knee strengthening/balance training ), possible DC to HEP next week or decrease therapy to 1x /2 wks. Monitor for improved LLE stance time, proper hip shift, tolerance to ecc knee flexion (sit to stand from chair), and L knee strength ( include R knee due to popping that hinders her gait). Plan of Care Dates Plan of Care Start Date 08/30/20 Plan of Care End Date 10/14/20 Electronically Signed by: Moira Son, PT 08/30/20 0336 Please Sign and Return: I have reviewed this Plan of Care and certify that the skilled therapy services above are required to meet the patient?s needs. Physician Signature Date Printed Name and Credentials Clinical Instructor Signature Printed Name and Credentials
--- NOTE | 2020-08-30 17:29 | PT.OTN ---
Current Diagnoses Unilateral primary osteoarthritis, left knee (08/30/20) Muscle weakness (generalized) (08/30/20) Unsteadiness on feet (08/30/20) Physical Therapy Treatment Note PT-OP-A Visit Information Start: 06/07/20 08:05 Freq: Status: Active Protocol: Document 08/30/20 11:23 LRN (Rec: 08/30/20 12:27 LRN [id number]) Out-Patient Physical Therapy Visit Information Visit Information Visit Type Progress Note Visit Note 9 visit after PN Visit Start Time 11:23 Visit Stop Time 12:07 Total Visit Minutes 44 Visit Number 19 Evaluation Information Evaluation Date 06/07/20 Precautions Precautions Hx of back pain due to scoliosis. Carroll Palsy - 08/23/19, R side of face. R eye effected with difficulty vision due to excessive tears. PT-OP-B Current Condition Start: 06/07/20 08:05 Freq: Status: Active Protocol: Document 06/07/20 09:03 LRN (Rec: 06/07/20 10:31 LRN [id number]) Current Condition History of Current Condition Onset Date 05/31/20 Current Complaints L knee, lower leg & medial thigh throbbing pain. History of Current Condition Elective surgery for L TKA from history of patella dislocation causing arthritis Prior Treatments and Tests None Future Testing and Treatments Planned F/U post-operative visit on with Dr. Foster in Nov for 6 week f/u visit. Developmental History Developmental History According to pt: L knee dislocation history causing arthritis and bone on bone condition. Treatment Goals Patient/Caregiver Goals Work out in gym: Use bike or stepper with 2-3/ 10 pain. Stairs without difficulty using 1 rail. Strength: Stair amb 100% confidence with railing Walk to/from grocery/[employer] ( 30') store without walker. Use of cane in 2 weeks. L knee ROM: transfer normal, ease of getting into a car. Prior Functional Status Baseline Function- ADL's Independent Baseline Function- Mobility Independent Baseline Function- Gait Gait without assistive device. Current Functional Impairments (Reported) Functional Limitations- ADL's Not able to cook/food prep. Not able to grocery shop. Functional Limitations- Mobility/Gait Walker needed for gait. Use of hands to transfer. Needs self-assist to L LE to get in/out of bed. Showers with stool and grab bars. Functional Limitations- Work/School Not able to perform some form of employed work. Personal Factors Other Personal Factors That May Effect History of Patella Therapy/Recovery dislocations has caused apprehension and fear with exercising her LE's. History of Back pain. Current Carroll Palsy affecting vision. R TKA surgery 01/07/20 PT-OP-C Subjective Start: 06/07/20 08:05 Freq: Status: Active Protocol: Document 08/30/20 11:23 LRN (Rec: 08/30/20 12:27 LRN [id number]) OP-PT Subjective Patient Comments Patient Comments 60% confident with stair ambulation using 1 railing. Believes she is not where she needs to be and requests therapy continues at least next week and maybe longer at 1x/week. Patient Questionnaires Lower Extremity Functional Scale LEFS Score 39 LEFS Impairment 40 to 59% Impaired (Score 32- 47) PT-OP-E Functional Tests Start: 06/07/20 08:05 Freq: Status: Active Protocol: Document 07/26/20 11:19 LRN (Rec: 07/26/20 12:23 LRN [id number]) Functional Tests Other SLS Score Left is 60+ secs with arms across chest. 15 secs arms free to move. PT-OP-G Mobility & Gait Start: 06/07/20 08:05 Freq: Status: Active Protocol: Document 06/21/20 10:29 LRN (Rec: 06/21/20 11:34 LRN [id number]) OP Mobility Evaluation Bed Mobility Supine to and from Sit Independent with lifting and moving L LE. Transfers Sit to Stand Independent PT-OP-J Posture/Palpation/Skin Start: 06/07/20 08:05 Freq: Status: Active Protocol: Document 06/07/20 09:03 LRN (Rec: 06/07/20 10:31 LRN [id number]) Posture Evaluation Position Standing Evaluation View Lateral Weight Distribution Weight Shifted Right Hip Posture (L) Flexed,(R) Flexed Palpation Assessment Location Two Palpation Location Lower leg Palpation Findings Edema One Palpation Location L knee Palpation Findings Edema,Muscle Guarding, Tenderness PT-OP-K Range of Motion Start: 06/07/20 08:05 Freq: Status: Active Protocol: Document 08/30/20 11:23 LRN (Rec: 08/30/20 12:27 LRN [id number]) Knee Goniometric Range of Motion Knee L knee supine Patient Position Supine Flexion Active (degrees) 130 Extension Active (degrees) 0 R knee supine Knee ROM WFL Yes Flexion Active (degrees) 135 Extension Active (degrees) 0 PT-OP-M Strength Start: 06/07/20 08:05 Freq: Status: Active Protocol: Document 08/02/20 10:39 LRN (Rec: 08/02/20 11:21 LRN [id number]) Knee Strength Knee Manual Muscle Testing Left Flexion (S2) 5 Normal Extension (L3) 5 Normal PT-OP-Q Treatments Start: 06/07/20 08:05 Freq: Status: Active Protocol: Document 08/30/20 11:23 LRN (Rec: 08/30/20 12:27 LRN [id number]) Cardio Equipment Bicycle (Upright) Duration (Minutes) 10 Resistance 6 Seat Position 5 Therapeutic Exercises Supine Exercises Heel slides Supine Exercise Name Heel slides for L knee flexion stretch Side left Reps/Minutes 3' Comments ROM taken Gait Training Gait Activity Walking Description Increasing speed of gait & safety with turning Surface Level Distance/Duration 4' Comments Sound cuing for gait jatin progressing to no cuing. Stairs Description Descending on 6 step Distance/Duration 15' Comments Pt L knee weak with slight pain floor covering printer/anter without railing and only anterior with railing, on descent. Neuro Re-Education Treatment Balance Activities SLS Details SLS Surface Soft blue foam square Equipment // bars, blue foam square Reps/Duration 4' Tandem Stance Details Tandem: Arms across chest: EO, EC Reps/Duration 4' Comments RLE infront of LLE more difficulty than when LLE is in front. Poor control with EC Rhomberg stance Details Rhomberg stance: Arms across chest: EO, EC Surface Blue foam square Equipment // bars & blue foam square Reps/Duration 4' Comments Pt able to stand > 1 minute without LOB. PT-OP-R Modalities Start: 06/07/20 08:05 Freq: Status: Active Protocol: Document 07/08/20 10:36 LRN (Rec: 07/08/20 12:27 LRN [id number]) Hot Pack/Cold Pack Treatment Cold Pack Location L knee Patient Position Sitting Treatment Duration (minutes) 5 Comments Cold pack to knee while pt completed Questionnaire forms. PT-OP-T Assessment and Plan Start: 06/07/20 08:05 Freq: Status: Active Protocol: Document 08/30/20 11:23 LRN (Rec: 08/30/20 12:27 LRN [id number]) Physical Therapy Assessment Rehab Potential Rehabilitation Potential Good Evaluation Complexity Number of Personal Factors/Comorbidities 3 or More Number of Body Systems Impaired 3 Clinical Presentation at Evaluation Evolving Impairments Impairments Activity Tolerance,Balance, Edema,Functional Mobility,Gait ,Pain,ROM,Soft Tissue Mobility ,Strength Goals Five Impairment Decreased function per LEFS score of 16 (prior level was 42) Skilled Nursing Goal (LTG) Improve functional ability per LEFS score to no less than 42 . (08/30/19: LEFS score is 39) LTG Duration 09/05/20 (08/30/19: Improving) Three Impairment Decreased L knee strength ( Flex 2+/5, Ext 2-/5, R is generally 5/5) Short Term Goal (STG) Pt will be able to improve L knee extension strength to 3/5 and flexion 3+/5 in order to transfer in/out of bed (lift L leg independently onto the plinth) without assist and ambulate safely with use of cane. STG Duration 08/21/20 (06/28/20: MET GOAL) Tool Salvage Worker Goal (LTG) Pt will be able to improve L knee strength to 4/5 for ability to ambulate stairs with use of railing with 100% confidence. LTG Duration 09/05/20 Two Impairment Decreased L knee mobility ( Supine AROM in deg's: 40-70 L , 0-112 R) Short Term Goal (STG) Pt will be able to achieve L knee passive flexion of 100 deg's and will demonstrate the ability to perform active knee ext to at most 10 deg's lacking (sitting) for independent transfer sit to stand with minimal difficulty and minor use of hands, ability to tolerate riding a stationary bike going full revolution, and ease of getting into a car. STG Duration 08/21/20 (07/26/20: MET GOAL) Skilled Nursing Goal (LTG) Pt will be able to achieve active L knee flexion 125 deg' s to tolerate ambulation on stairs with one rail without difficulty, transfer sit <> stand without pain, and tolerate full revolution on ex bike with pain no greater than 2-3/10. (08/30/19: L knee AROM flex is 130 deg's; Up stairs without difficulty, Down stairs slow and cautious without railing 60% confidence in L leg. 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 LTG Duration 09/05/20 (06/21/20: Progressing) Progress Towards Goals Progress Comments L knee function improved per LEFS score of 39 (was 33). L knee AROM improved from 127 degs to 130 deg's (R knee AROM is 135 degs). Pt confidence in stair amb improving with the pt demonstrating ability to descend stairs (slow and cautious) withour use of railing. Assessment Summary Assessment L knee AROM improved. Pain with descending of stairs in anterior and posterior knee without use of railing. With railing only pain anteriolaterally, probably due to decreased functional strength. Gait mechanics improve with increased speed of gait. Turning is slow and with stiff legs. Pt progressing in confidence on stairs, able to descend slowly and cautiously without use of railing. Pt has no complaints of R knee popping, only stiffness, probably due to swelling at knee that is visible. Wearing of support hose on R as well as L will probably help with stiffness of the knee. Physical Therapy Plan Frequency and Duration Frequency of Treatment 1x/Week Plan of Care Start Date 08/30/20 Plan of Care End Date 10/14/20 Therapeutic Interventions Therapeutic Interventions Balance Training,Gait Training ,Home Exercise Program,Manual Therapy,Neuromuscular Re- education,Patient/Caregiver Education,Self-Care/Home Management,Soft Tissue Mobilization,Taping, Therapeutic Activities, Therapeutic Exercises Modalities Cold Pack/Ice Massage,Hot Packs Next Visit Focus/Plan Next Note Type Treatment Note Next Visit Plan Check L knee strength (Goal 3) and assess transfer ability ( sit to stand), improve L hip flexor mobility. Continue gait training focusing on improving speed and mechanics of gait, and confidence in descending stairs (L knee strengthening/balance training ), possible DC to HEP next week or decrease therapy to 1x /2 wks. Monitor for improved LLE stance time, proper hip shift, tolerance to ecc knee flexion (sit to stand from chair), and L knee strength ( include R knee due to popping that hinders her gait).
--- NOTE | 2020-09-06 11:41 | PT.OTN ---
Current Diagnoses Unilateral primary osteoarthritis, left knee (09/06/20) Muscle weakness (generalized) (09/06/20) Unsteadiness on feet (09/06/20) Physical Therapy Treatment Note PT-OP-A Visit Information Start: 06/07/20 08:05 Freq: Status: Active Protocol: Document 09/06/20 10:30 LRN (Rec: 09/06/20 11:38 LRN [id number]) Out-Patient Physical Therapy Visit Information Visit Information Visit Type Progress Note Visit Note 10th visit after PN Visit Start Time 10:30 Visit Stop Time 11:20 Total Visit Minutes 50 Visit Number 20 Evaluation Information Evaluation Date 06/07/20 Precautions Precautions Hx of back pain due to scoliosis. [place] Palsy - 08/23/19, R side of face. R eye effected with difficulty vision due to excessive tears. PT-OP-B Current Condition Start: 06/07/20 08:05 Freq: Status: Active Protocol: Document 06/07/20 09:03 LRN (Rec: 06/07/20 10:31 LRN [id number]) Current Condition History of Current Condition Onset Date 05/31/20 Current Complaints L knee, lower leg & medial thigh throbbing pain. History of Current Condition Elective surgery for L TKA from history of patella dislocation causing arthritis Prior Treatments and Tests None Future Testing and Treatments Planned F/U post-operative visit on with Dr. Foster in Nov for 6 week f/u visit. Developmental History Developmental History According to pt: L knee dislocation history causing arthritis and bone on bone condition. Treatment Goals Patient/Caregiver Goals Work out in gym: Use bike or stepper with 2-3/ 10 pain. Stairs without difficulty using 1 rail. Strength: Stair amb 100% confidence with railing Walk to/from grocery/[employer] ( 30') store without walker. Use of cane in 2 weeks. L knee ROM: transfer normal, ease of getting into a car. Prior Functional Status Baseline Function- ADL's Independent Baseline Function- Mobility Independent Baseline Function- Gait Gait without assistive device. Current Functional Impairments (Reported) Functional Limitations- ADL's Not able to cook/food prep. Not able to grocery shop. Functional Limitations- Mobility/Gait Walker needed for gait. Use of hands to transfer. Needs self-assist to L LE to get in/out of bed. Showers with stool and grab bars. Functional Limitations- Work/School Not able to perform some form of employed work. Personal Factors Other Personal Factors That May Effect History of Patella Therapy/Recovery dislocations has caused apprehension and fear with exercising her LE's. History of Back pain. Current [place] Palsy affecting vision. R TKA surgery 01/07/20 PT-OP-C Subjective Start: 06/07/20 08:05 Freq: Status: Active Protocol: Document 09/06/20 10:30 LRN (Rec: 09/06/20 11:38 LRN [id number]) OP-PT Subjective Patient Comments Patient Comments Doing okay Patient Questionnaires Lower Extremity Functional Scale LEFS Score 36 LEFS Impairment 40 to 59% Impaired (Score 32- 47) PT-OP-E Functional Tests Start: 06/07/20 08:05 Freq: Status: Active Protocol: Document 09/06/20 10:30 LRN (Rec: 09/06/20 11:38 LRN [id number]) Functional Tests Other Walking speed Name of Test Walking speed Score 20'/6 = 4 ft.sec Comment Stiff RLE around curve if RLE is on outside, but normal when on inside. PT-OP-G Mobility & Gait Start: 06/07/20 08:05 Freq: Status: Active Protocol: Document 06/21/20 10:29 LRN (Rec: 06/21/20 11:34 LRN [id number]) OP Mobility Evaluation Bed Mobility Supine to and from Sit Independent with lifting and moving L LE. Transfers Sit to Stand Independent PT-OP-J Posture/Palpation/Skin Start: 06/07/20 08:05 Freq: Status: Active Protocol: Document 06/07/20 09:03 LRN (Rec: 06/07/20 10:31 LRN [id number]) Posture Evaluation Position Standing Evaluation View Lateral Weight Distribution Weight Shifted Right Hip Posture (L) Flexed,(R) Flexed Palpation Assessment Location Two Palpation Location Lower leg Palpation Findings Edema One Palpation Location L knee Palpation Findings Edema,Muscle Guarding, Tenderness PT-OP-K Range of Motion Start: 06/07/20 08:05 Freq: Status: Active Protocol: Document 09/06/20 10:30 LRN (Rec: 09/06/20 11:38 LRN [id number]) Knee Goniometric Range of Motion Knee L knee supine Knee ROM WFL No Patient Position Supine Flexion Active (degrees) 130 Extension Active (degrees) 0 R knee supine Knee ROM WFL Yes Flexion Active (degrees) 140 Extension Active (degrees) 0 PT-OP-M Strength Start: 06/07/20 08:05 Freq: Status: Active Protocol: Document 09/06/20 10:30 LRN (Rec: 09/06/20 11:38 LRN [id number]) Knee Strength Knee Manual Muscle Testing Right Flexion (S2) 5 Normal Extension (L3) 5 Normal Left Flexion (S2) 4+ Good+ Extension (L3) 5 Normal PT-OP-Q Treatments Start: 06/07/20 08:05 Freq: Status: Active Protocol: Document 09/06/20 10:30 LRN (Rec: 09/06/20 11:38 LRN [id number]) Cardio Equipment Bicycle (Upright) Duration (Minutes) 10 Resistance 6 Seat Position 5 Gym Equipment Cable Column (Body Solid) Leg Curl Details Leg curl Resistance 30# Reps/Time 10x 3 Therapeutic Exercises Supine Exercises Heel slides Supine Exercise Name Heel slides & knee flex for L knee flexion stretch Side left Reps/Minutes 4' Comments ROM taken Standing Exercises Knee flex Standing Exercise Name Heel to buttock Side bilateral Reps/Minutes 10x 3 Ankle PF Standing Exercise Name Heel raises with feet in 3 positions Side bilateral Reps/Minutes 10x each Comments Extra time for training Gait Training Gait Activity Walking Description Speed of gait training, gait mechanics around curves, turning mechanics. Surface Level Distance/Duration 22' Comments Cuing, turning on toes, and lifting heel to buttock around curves. 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 When pointing toes going down there is no pain at posterior knee. Self-Care/Home Management Treatment Education Patient Education Home Exercise Program Activities Self-Care/Home Management Activities Pt I/S to focus on L hamstring and gastrocsoleus strengthening, and gait mechanics for walking and turning. PT-OP-R Modalities Start: 06/07/20 08:05 Freq: Status: Active Protocol: Document 07/08/20 10:36 LRN (Rec: 07/08/20 12:27 LRN [id number]) Hot Pack/Cold Pack Treatment Cold Pack Location L knee Patient Position Sitting Treatment Duration (minutes) 5 Comments Cold pack to knee while pt completed Questionnaire forms. PT-OP-T Assessment and Plan Start: 06/07/20 08:05 Freq: Status: Active Protocol: Document 09/06/20 10:30 LRN (Rec: 09/06/20 11:38 LRN [id number]) Physical Therapy Assessment Goals Five Impairment Decreased function per LEFS score of 16 (prior level was 42) Detention Goal (LTG) Improve functional ability per LEFS score to no less than 42 . (09/06/20: LEFS is 36, previoiusly was better at 39 on 08/30/20) LTG Duration 09/05/20 (08/30/19: Improved, 09/06/20: Worsened) Three Impairment Decreased L knee strength ( Flex 2+/5, Ext 2-/5, R is generally 5/5) Short Term Goal (STG) Pt will be able to improve L knee extension strength to 3/5 and flexion 3+/5 in order to transfer in/out of bed (lift L leg independently onto the plinth) without assist and ambulate safely with use of cane. STG Duration 08/21/20 (06/28/20: MET GOAL) Railway Station Manager Goal (LTG) Pt will be able to improve L knee strength to 4/5 for ability to ambulate stairs with use of railing with 100% confidence. LTG Duration 09/05/20 Two Impairment Decreased L knee mobility ( Supine AROM in deg's: 40-70 L , 0-112 R) Short Term Goal (STG) Pt will be able to achieve L knee passive flexion of 100 deg's and will demonstrate the ability to perform active knee ext to at most 10 deg's lacking (sitting) for independent transfer sit to stand with minimal difficulty and minor use of hands, ability to tolerate riding a stationary bike going full revolution, and ease of getting into a car. STG Duration 08/21/20 (07/26/20: MET GOAL) Detention Goal (LTG) Pt will be able to achieve active L knee flexion 125 deg' s to tolerate ambulation on stairs with one rail without difficulty, transfer sit <> stand without pain, and tolerate full revolution on ex bike with pain no greater than 2-3/10. (09/06/19: L knee AROM flex is 130 deg's; Up stairs without difficulty, Down stairs with 1 railing with confidence. Full revolution around bike and sit<>stand without pain) LTG Duration 09/05/20 (09/06/20: MET GOAL) One Impairment Limited tolerance to HEP Railway Station Manager Goal (LTG) Pt will be independent in a self care HEP for continued ROM and strengthening to achieve intermediate pt goal of returning to ex in a local gym , riding an outdoor bike, and hiking. LTG Duration 09/05/20 (06/21/20: Progressing) Progress Towards Goals Progress Comments Goal #3 MET. Pt does have pain sometimes in anterior and posterior knee with descending of stairs, but pt is confident with stairs when using railing. Assessment Summary Assessment No c/o of L knee popping today . Pt has pain in L LE on descending of stairs posteriorly if not activating her gastrocnemius ms during ambulation (leading with toes going down stairs). Her L knee mobility is very good in ROM. Hamstring strength is slightly decreased at 4+/5 (R is 5/5). Physical Therapy Plan Frequency and Duration Frequency of Treatment 1x/Week Plan of Care Start Date 08/30/20 Plan of Care End Date 10/14/20 Next Visit Focus/Plan Next Note Type Treatment Note Next Visit Plan Assess confidence level with stairs & 1 rail (LTG #3, monitor L hip flexor mobility. Continue gait training focusing on improving speed and mechanics of gait, and confidence in descending stairs (L knee strengthening/ balance training), possible DC to HEP or decrease therapy to 1x/2 wks. Monitor for improved LLE stance time, proper hip shift, tolerance to ecc knee flexion (sit to stand from chair), and L knee strength (include R knee due to popping that hinders her gait).
--- NOTE | 2020-09-20 12:30 | PT.OTN ---
Current Diagnoses Unilateral primary osteoarthritis, left knee (09/20/20) Muscle weakness (generalized) (09/20/20) Unsteadiness on feet (09/20/20) Physical Therapy Treatment Note PT-OP-A Visit Information Start: 06/07/20 08:05 Freq: Status: Active Protocol: Document 09/20/20 10:34 LRN (Rec: 09/20/20 11:31 LRN [id number]) Out-Patient Physical Therapy Visit Information Visit Information Visit Type Treatment Note Visit Start Time 10:34 Visit Stop Time 11:13 Total Visit Minutes 39 Visit Number 21 Evaluation Information Evaluation Date 06/07/20 Precautions Precautions Hx of back pain due to scoliosis. [place] Palsy - 08/23/19, R side of face. R eye effected with difficulty vision due to excessive tears. PT-OP-B Current Condition Start: 06/07/20 08:05 Freq: Status: Active Protocol: Document 06/07/20 09:03 LRN (Rec: 06/07/20 10:31 LRN [id number]) Current Condition History of Current Condition Onset Date 05/31/20 Current Complaints L knee, lower leg & medial thigh throbbing pain. History of Current Condition Elective surgery for L TKA from history of patella dislocation causing arthritis Prior Treatments and Tests None Future Testing and Treatments Planned F/U post-operative visit on with Dr. Foster in [place] for 6 week f/u visit. Developmental History Developmental History According to pt: L knee dislocation history causing arthritis and bone on bone condition. Treatment Goals Patient/Caregiver Goals Work out in gym: Use bike or stepper with 2-3/ 10 pain. Stairs without difficulty using 1 rail. Strength: Stair amb 100% confidence with railing Walk to/from grocery/[employer] ( 30') store without walker. Use of cane in 2 weeks. L knee ROM: transfer normal, ease of getting into a car. Prior Functional Status Baseline Function- ADL's Independent Baseline Function- Mobility Independent Baseline Function- Gait Gait without assistive device. Current Functional Impairments (Reported) Functional Limitations- ADL's Not able to cook/food prep. Not able to grocery shop. Functional Limitations- Mobility/Gait Walker needed for gait. Use of hands to transfer. Needs self-assist to L LE to get in/out of bed. Showers with stool and grab bars. Functional Limitations- Work/School Not able to perform some form of employed work. Personal Factors Other Personal Factors That May Effect History of Patella Therapy/Recovery dislocations has caused apprehension and fear with exercising her LE's. History of Back pain. Current [place] Palsy affecting vision. R TKA surgery 01/07/20 PT-OP-C Subjective Start: 06/07/20 08:05 Freq: Status: Active Protocol: Document 09/20/20 10:34 LRN (Rec: 09/20/20 11:31 LRN [id number]) OP-PT Subjective Patient Comments Patient Comments States she doesn't have to think about walking as much. Has been walking around. Patient Questionnaires Lower Extremity Functional Scale LEFS Score 44 LEFS Impairment 40 to 59% Impaired (Score 32- 47) OP-PT Pain Assessment Pain Assessment Grid Paper Pain Assessment Grid Completed Yes Location L knee Pain Location Details Around L knee joint Intensity 2 Scale Used Numeric (0 - 10) Description Aching Description- Other R side is tight feeling. Pain Duration Present except at rest Pain Aggravating Factors Activity PT-OP-E Functional Tests Start: 06/07/20 08:05 Freq: Status: Active Protocol: Document 09/20/20 10:34 LRN (Rec: 09/20/20 11:31 LRN [id number]) Functional Tests Timed Up and Go (TUG) Score 9.25 TUG Impairment Rating 0% Impaired (Score 10) Other Walking speed Name of Test Walking speed Score 5.66 = 3.5 ft.sec SLS Name of Test SLS arms across chest Score L-37, R-60 PT-OP-G Mobility & Gait Start: 06/07/20 08:05 Freq: Status: Active Protocol: Document 06/21/20 10:29 LRN (Rec: 06/21/20 11:34 LRN [id number]) OP Mobility Evaluation Bed Mobility Supine to and from Sit Independent with lifting and moving L LE. Transfers Sit to Stand Independent PT-OP-J Posture/Palpation/Skin Start: 06/07/20 08:05 Freq: Status: Active Protocol: Document 06/07/20 09:03 LRN (Rec: 06/07/20 10:31 LRN [id number]) Posture Evaluation Position Standing Evaluation View Lateral Weight Distribution Weight Shifted Right Hip Posture (L) Flexed,(R) Flexed Palpation Assessment Location Two Palpation Location Lower leg Palpation Findings Edema One Palpation Location L knee Palpation Findings Edema,Muscle Guarding, Tenderness PT-OP-K Range of Motion Start: 06/07/20 08:05 Freq: Status: Active Protocol: Document 09/20/20 10:34 LRN (Rec: 09/20/20 11:31 LRN [id number]) Knee Goniometric Range of Motion Knee L knee supine Knee ROM WFL Yes Patient Position Supine Flexion Active (degrees) 135 Extension Active (degrees) 0 R knee supine Knee ROM WFL Yes Flexion Active (degrees) 135 Extension Active (degrees) 0 PT-OP-M Strength Start: 06/07/20 08:05 Freq: Status: Active Protocol: Document 09/20/20 10:34 LRN (Rec: 09/20/20 11:31 LRN [id number]) Knee Strength Knee Manual Muscle Testing Right Flexion (S2) 5 Normal Extension (L3) 5 Normal Left Flexion (S2) 5 Normal Extension (L3) 5 Normal PT-OP-Q Treatments Start: 06/07/20 08:05 Freq: Status: Active Protocol: Document 09/20/20 10:34 LRN (Rec: 09/20/20 11:31 LRN [id number]) Cardio Equipment Bicycle (Upright) Duration (Minutes) 10 Resistance 6 Seat Position 5 Gym Equipment Cable Column (Body Solid) Leg Extension Details Leg Ext Resistance 10# Reps/Time 15x 2 Leg Curl Details Leg curl Resistance 30# Reps/Time 10x 3 Therapeutic Exercises Supine Exercises Heel slides Supine Exercise Name Heel slides & knee flex for L knee flexion stretch Side left Reps/Minutes 8' Comments ROM taken Sitting Exercises AROM Sitting Exercise Name Adithya knees Side bilateral Reps/Minutes 2' Comments MMT taken Gait Training Gait Activity TUG Description Walking: fast & safe speed Device Used None Distance/Duration 4' Treatment Focus Safety with gait with turning. Comments 2 reps Walking Description Speed of gait training for normal gait and mechanics Surface Level Distance/Duration 3' Stairs Description Ascending/Descending 6 step Distance/Duration 3' Comments Pt reporting 100% confidence in stairs without use of railing. PT-OP-R Modalities Start: 06/07/20 08:05 Freq: Status: Active Protocol: Document 07/08/20 10:36 LRN (Rec: 07/08/20 12:27 LRN [id number]) Hot Pack/Cold Pack Treatment Cold Pack Location L knee Patient Position Sitting Treatment Duration (minutes) 5 Comments Cold pack to knee while pt completed Questionnaire forms. PT-OP-T Assessment and Plan Start: 06/07/20 08:05 Freq: Status: Active Protocol: Document 09/20/20 10:34 LRN (Rec: 09/20/20 11:31 LRN [id number]) Physical Therapy Assessment Goals Six Impairment Decreased endurance (pt not leaving home) Short Term Goal (STG) Pt will be able to tolerate 10 ' on stationary exercise bike. STG Duration 08/21/20 (07/08/20: MET GOAL) Manager Chinese Goal (LTG) Pt will be able to ambulate around a large warehouse store 30 minutes; without walker prior to fatigue. LTG Duration 09/05/20 (07/26/20: MET GOAL) Five Impairment Decreased function per LEFS score of 16 (prior level was 42) Manager Chinese Goal (LTG) Improve functional ability per LEFS score to no less than 42 . (09/20/20: LEFS is 44, previously was 39 on 08/30/20) LTG Duration 09/05/20 (09/20/19: MET GOAL) Four Impairment Decreased balance (not able to perform SLS or [place] stance). 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 STG Duration 07/25/20 (Late Entry: : MET GOAL) Manager Chinese Goal (LTG) Pt will be able to L SLS at prior level (SLS 41 secs left, 59 secs right). (07/26/20: Left SLS is 60 secs with hands across chest). LTG Duration 09/05/20 (07/26/20: MET GOAL) Three Impairment Decreased L knee strength ( Flex 2+/5, Ext 2-/5, R is generally 5/5) Short Term Goal (STG) Pt will be able to improve L knee extension strength to 3/5 and flexion 3+/5 in order to transfer in/out of bed (lift L leg independently onto the plinth) without assist and ambulate safely with use of cane. STG Duration 08/21/20 (06/28/20: MET GOAL) Manager Chinese Goal (LTG) Pt will be able to improve L knee strength to 4/5 for ability to ambulate stairs with use of railing with 100% confidence. LTG Duration 09/05/20 (09/20/19: MET GOAL) Two Impairment Decreased L knee mobility ( Supine AROM in deg's: 40-70 L , 0-112 R) Short Term Goal (STG) Pt will be able to achieve L knee passive flexion of 100 deg's and will demonstrate the ability to perform active knee ext to at most 10 deg's lacking (sitting) for independent transfer sit to stand with minimal difficulty and minor use of hands, ability to tolerate riding a stationary bike going full revolution, and ease of getting into a car. STG Duration 08/21/20 (07/26/20: MET GOAL) Alf Goal (LTG) Pt will be able to achieve active L knee flexion 125 deg' s to tolerate ambulation on stairs with one rail without difficulty, transfer sit <> stand without pain, and tolerate full revolution on ex bike with pain no greater than 2-3/10. (09/06/19: L knee AROM flex is 130 deg's; Up stairs without difficulty, Down stairs with 1 railing with confidence. 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 (09/20/20: Not able to return to local gym due to COVID or biking due to winter weather). LTG Duration (09/20/20: Partial GOAL MET) Progress Towards Goals Progress Comments TUG 9.25 secs = 0% Impaired, ( initially was 28.36, 100% Impaired (Score 20)). LEFS 44, 40 to 59% Impaired ( Score 32-47). Walking speed: 5.66 = 3.5 ft .sec (was 4 ft/sec). SLS w/arms across chest: L-37 , R-60. Assessment Summary Assessment Pt has functional L knee AROM is 0-135 (R is 0-135). Her confidence with stair ambulation is 100% without use of railing and she demonstrates safe and controlled ambulation on stairs and level ground. Her gait mechanics is much more natural with less concentration needed for normal gait while walking. Her L single leg stance show she should work towards improving it to 60+ secs (was measured as 37). The pt has done very well with therapy and is ready for discharge to her self care HEP. Pt met her goals and is ready to be discharged to a HEP. Physical Therapy Plan Discharge Physical Therapy Discharge Reasons Goals Met Discharge Comments Pt is now ready to work towards her longterm goal of returning to an exercise gym once they reopen and to riding a bike after the winter months. Thank you for your referral.
== END 2020-09-30 12:12 ==
LOC: PHYS 10:30
PROVIDERS: Family Provider Nurse Practitioner; PCP Nurse Practitioner; Referring Provider Orthopaedic Surgery; Visit Provider Orthopaedic Surgery
DX: M17.12 Unilateral primary osteoarthritis, left knee (principal); M62.81 Muscle weakness (generalized); R26.81 Unsteadiness on feet
CPT/HCPCS: 97110; 97112; 97116; 97162

== ENCOUNTER → 2021-09-20 07:48 | Outpatient (CLI) | payer OTHER, MEDICAID, SELFPAY ==
[2021-09-20 08:48] LABS: Add Manual Diff / Slide Review NO; Basophils Absolute Auto 0 /uL (0-100); Basophils Percent Auto 1.2 % (0-2); Eosinophils Absolute Auto 200 /uL (0-450); Eosinophils Percent Auto 4.7 % (2-4); Hematocrit 41.8 % (36-46); Hemoglobin 14.1 g/dL (12.0-16.0); Lymphocytes Absolute Auto 1300 /uL (1100-4500); Mean Corpuscular HGB Conc 33.7 % (30-36); Mean Corpuscular Hemoglobin 29.9 PG (26-34); Mean Corpuscular Volume 88.5 fL (80-100); Monocytes Absolute Auto 500 /uL (0-900); Monocytes Percent Auto 14.3 % (3-14); Neutrophils Absolute Auto 1500 /uL (1500-7000); Neutrophils Percent Auto 42.8 % (50-75); Platelet Count 228 X10^3/uL (150-400); Red Blood Cell Count 4.72 X10^6/uL (4.0-5.2); Red Cell Distribution Width 13.9 % (11.6-14.8); White Blood Cell Count 3.6 X10^3/uL (4.5-11.0)
[2021-09-20 09:03] LABS: Alanine Aminotransferase 22 IU/L (<35); Albumin 4.6 g/dL (3.5-5.0); Albumin Globulin Ratio 1.7 (1.0-2.8); Alkaline Phosphatase 54 U/L (38-126); Aspartate Aminotransferase 32 IU/L (14-36); BUN Creatinine Ratio 15.7 (6-22); Bilirubin Total 0.6 mg/dL (0.2-1.3); Blood Urea Nitrogen 13 mg/dL (7-17); Calcium 9.8 mg/dL (8.4-10.2); Carbon Dioxide 32 mmol/L (22-32); Chloride 99 mmol/L (98-107); Cholesterol 222 mg/dL (140-199); Estimated Glomerular Filt Rate > 60.0 mL/min (>60); Globulin 2.7 g/dL (1.7-4.1); Glucose 101 mg/dL (70-100); HDL Cholesterol 93 mg/dL (40-60); HEMOLYSIS < 15 (0-50); LDL Cholesterol Calculated 116 mg/dL (<100); Potassium 4.3 mmol/L (3.4-5.1); Sodium 135 mmol/L (137-145); Total Protein 7.3 g/dL (6.3-8.2); Triglycerides 64 mg/dL (35-150)
[2021-09-20 09:24] LABS: Free T3, Triiodothyronine Free 2.98 pg/mL (2.77-5.27); Free T4, Direct Thyroxine 0.99 ng/dL (0.78-2.19)
[2021-09-20 09:38] LABS: Thyroid Stimulating Hormone 2.31 uIU/mL (0.47-4.68)
== END ==
PROVIDERS: Family Provider Nurse Practitioner; PCP Nurse Practitioner; Referring Provider Nurse Practitioner; Visit Provider Nurse Practitioner
DX: Z00.00 Encounter for general adult medical examination without abnormal findings (principal)
CPT/HCPCS: 36415; 80053; 80061; 84439; 84443; 84481; 85025

== ENCOUNTER → 2022-07-26 10:00 | Outpatient (CLI) | payer OTHER, MEDICAID, SELFPAY ==
--- NOTE | 2022-07-26 10:01 | DI.RAD.S_ITS ---
PROCEDURE: XR HIP W PEL IF DONE RT 2V INDICATIONS: right hip pain TECHNIQUE: AP pelvis with lateral view(s) of the right hip(s). COMPARISON: None. FINDINGS: Bones: No fractures or dislocations. Both hips have mild degenerative changes with subchondral sclerosis and osteophytes. The sacroiliac joints have mild degenerative changes. Pelvic ring appears intact. No suspicious bony lesions. Soft tissues: The visualized bowel gas pattern is normal. No suspicious soft tissue calcifications. IMPRESSION: Degenerative changes of the right hip. Dictated by: Ian Diaz M.D. on 07/26/2022 at 12:52 Approved by: Ian Diaz M.D. on 07/26/2022 at 12:54
== END ==
PROVIDERS: Family Provider Nurse Practitioner; PCP Nurse Practitioner; Referring Provider Nurse Practitioner; Visit Provider Nurse Practitioner
DX: M25.551 Pain in right hip (principal)
CPT/HCPCS: 73502

== ENCOUNTER → 2022-08-08 16:38 | Outpatient (CLI) | payer OTHER, MEDICAID, SELFPAY ==
--- NOTE | 2022-08-08 16:38 | DI.MG.S_ITS ---
BILATERAL DIGITAL SCREENING MAMMOGRAM 3D/2D WITH CAD: 08/08/2022 CLINICAL: Routine screening. Family history of breast cancer. Comparison is made to exams dated: 08/29/2019 mammogram, 05/05/2018 mammogram, and 09/14/2016 mammogram - [facility]. Both breasts are extremely dense, which lowers the sensitivity of mammography (category d />75% glandular tissue). Current study was also evaluated with a Computer Aided Detection (CAD) system. No significant masses, calcifications, or other findings are seen in either breast. There has been no significant interval change. IMPRESSION: NEGATIVE There is no mammographic evidence of malignancy. A 1 year screening mammogram is recommended. Based on Tyrer-Cuzick model (a risk assessment model), the patient's lifetime risk is 20.7% and her 10 year risk is 8.7%. If a patient has an elevated risk, a more comprehensive evaluation should be considered and/or a referral to a genetic counselor. The [place] [employer], [employer], and NCCN Guidelines advise the consideration of Breast MRI as an adjunct to screening mammography in patients whose Lifetime risk to develop breast cancer is 20% or higher. This exam was interpreted at Station ID: [id number]. NOTE: For mammograms, a report in lay terms will be sent to the patient. Approximately 15% of breast malignancies will not be visualized mammographically. In the management of a palpable breast mass, a negative mammogram must not discourage biopsy of a clinically suspicious lesion. Electronically Signed By: Tree perez/nikita:08/09/2022 09:50:28 letter sent: Normal Exam ACR BI-RADS Category 1: Negative [id number]
== END ==
PROVIDERS: Family Provider Nurse Practitioner; PCP Nurse Practitioner; Referring Provider Nurse Practitioner; Visit Provider Nurse Practitioner
DX: Z12.31 Encounter for screening mammogram for malignant neoplasm of breast (principal); Z80.3 Family history of malignant neoplasm of breast
CPT/HCPCS: 77063; 77067

== ENCOUNTER → 2022-09-14 16:29 | Outpatient (CLI) | payer OTHER, MEDICAID, SELFPAY ==
--- NOTE | 2022-09-14 16:31 | DI.RAD.S_ITS ---
PROCEDURE: XR LUMBAR SPINE 2-3V INDICATIONS: chronic back pain TECHNIQUE: 3 views of the lumbar spine were acquired. COMPARISON: None. FINDINGS: Bones: Leftward spinal curvature. There are 5 lumbar type vertebral bodies. Vertebral body heights are otherwise well maintained. Utgb-rz-iwvwjlvu overall spondylosis with facet arthropathy and disc space height loss. Soft tissues: Large stool burden. IMPRESSION: Pizv-pd-txzxvzsm spondylosis and leftward spinal curvature. If there is high concern for further derangement, consider MRI evaluation. Dictated by: Talon Pelaez M.D. on 09/14/2022 at 17:04 Approved by: Talon Pelaez M.D. on 09/14/2022 at 17:06
--- NOTE | 2022-09-14 16:31 | DI.RAD.S_ITS ---
PROCEDURE: XR CERVICAL SPINE 2V OR 3V INDICATIONS: chronic back pain TECHNIQUE: 3 view(s) of the cervical spine were acquired. COMPARISON: None. FINDINGS: Bones: Trace anterolisthesis of C3 on C4, C4 on C5. Trace retrolisthesis of C5 on C6. Overall straightening of normal cervical lordosis. Mild to moderate overall spondylosis, with multilevel disc space height loss and facet arthropathy particularly in the lower lumbar spine. Vertebral body heights are well maintained. Normal C1 on C2 alignment on odontoid view. Soft tissues: No prevertebral soft tissue swelling. IMPRESSION: Qwtc-[id number] spondylosis and multilevel spondylolisthesis. If there is high concern for further derangement, consider MRI evaluation. Dictated by: Talon Pelaez M.D. on 09/14/2022 at 17:03 Approved by: Talon Pelaez M.D. on 09/14/2022 at 17:04
--- NOTE | 2022-09-14 16:31 | DI.RAD.S_ITS ---
PROCEDURE: XR THORACIC SPINE 3V INDICATIONS: chronic back pain TECHNIQUE: 2 views of the thoracic spine were acquired. COMPARISON: None. FINDINGS: Bones: Vertebral body heights are well maintained. There are 12 pairs of ribs. Trace rightward spinal curvature in the lower thoracic spine. No significant malalignment. Mild overall spondylosis. Soft tissues: No paravertebral stripe thickening. IMPRESSION: No acute radiographic abnormality. Mild overall spondylosis. Trace rightward lower thoracic spinal curvature. Dictated by: Talon Pelaez M.D. on 09/14/2022 at 17:06 Approved by: Talon Pelaez M.D. on 09/14/2022 at 17:07
== END ==
PROVIDERS: Family Provider Nurse Practitioner; PCP Nurse Practitioner; Referring Provider Nurse Practitioner; Visit Provider Nurse Practitioner
DX: M47.812 Spondylosis without myelopathy or radiculopathy, cervical region (principal); M43.12 Spondylolisthesis, cervical region; M47.816 Spondylosis without myelopathy or radiculopathy, lumbar region; M47.814 Spondylosis without myelopathy or radiculopathy, thoracic region; M54.9 Dorsalgia, unspecified; G89.29 Other chronic pain
CPT/HCPCS: 72040; 72072; 72100

== ENCOUNTER → 2022-12-03 07:11 | Outpatient (CLI) | payer OTHER, MEDICAID, SELFPAY ==
[2022-12-03 08:53] LABS: Hematocrit 40.4 % (36-46); Hemoglobin 13.8 g/dL (12.0-16.0); Mean Corpuscular HGB Conc 34.3 % (30-36); Mean Corpuscular Hemoglobin 29.8 PG (26-34); Mean Corpuscular Volume 87.1 fL (80-100); Platelet Count 201 X10^3/uL (150-400); Red Blood Cell Count 4.63 X10^6/uL (4.0-5.2); White Blood Cell Count 3.8 X10^3/uL (4.5-11.0)
[2022-12-03 09:25] LABS: Alanine Aminotransferase 15 IU/L (<35); Albumin 4.2 g/dL (3.5-5.0); Albumin Globulin Ratio 1.5 (1.0-2.8); Alkaline Phosphatase 49 U/L (38-126); Aspartate Aminotransferase 26 IU/L (14-36); BUN Creatinine Ratio 18.8 (6-22); Bilirubin Total 0.9 mg/dL (0.2-1.3); Blood Urea Nitrogen 13 mg/dL (7-17); Calcium 9.1 mg/dL (8.4-10.2); Carbon Dioxide 27 mmol/L (22-32); Chloride 95 mmol/L (98-107); Cholesterol 227 mg/dL (140-199); Estimated Glomerular Filt Rate > 60 mL/min (>60); Globulin 2.8 g/dL (1.7-4.1); Glucose 87 mg/dL (80-110); HDL Cholesterol 84 mg/dL (40-60); HEMOLYSIS 23 (0-50); LDL Cholesterol Calculated 126 mg/dL (<100); Potassium 4.1 mmol/L (3.4-5.1); Sodium 131 mmol/L (137-145); Triglycerides 87 mg/dL (35-150)
[2022-12-03 09:46] LABS: Microalbumi Creatinin Ratio Ur 10.2 ug/mg CR (<30); Microalbumin Urine Random 0.8 mg/dL (0-1.6)
[2022-12-03 18:38] LABS: Hep C Virus Ab w/Reflex Quant NEGATIVE s/c (NEGATIVE)
[2022-12-04 08:14] LABS: Labcorp Hemoglobin (Hb) A1c 5.7 % (4.8-5.6)
[2022-12-04 14:29] LABS: Fecal Immunochemical Test Negative (Negative)
== END ==
PROVIDERS: Family Provider Nurse Practitioner; PCP Nurse Practitioner; Referring Provider Nurse Practitioner; Visit Provider Nurse Practitioner
DX: Z00.00 Encounter for general adult medical examination without abnormal findings (principal); Z12.11 Encounter for screening for malignant neoplasm of colon; Z11.59 Encounter for screening for other viral diseases
CPT/HCPCS: 36415; 80053; 80061; 82043; 82274; 82570; 83036; 84439; 84443; 85027; 86803

== ENCOUNTER → 2022-12-14 09:27 | Outpatient (CLI) | payer OTHER, MEDICAID, SELFPAY ==
--- NOTE | 2022-12-14 09:28 | DI.US.S_ITS ---
PROCEDURE: US BREAST RT LIMITED COMPARISON: [facility], , BREAST RIGHT, 08/18/2013, 14:24. INDICATIONS: lateral breast lump 9 oclock FINDINGS: IMPRESSION: Dictated by: Moira Gordillo M.D. on 12/14/2022 at 10:43 Approved by: Moira Gordillo M.D. on 12/14/2022 at 10:46
--- NOTE | 2022-12-14 09:28 | DI.MG.S_ITS ---
UNILATERAL RIGHT DIGITAL DIAGNOSTIC MAMMOGRAM 3D/2D: 12/14/2022 CLINICAL: Right breast lump. Comparison is made to exams dated: 08/08/2022 mammogram, 08/29/2019 mammogram, and 05/05/2018 mammogram - [facility]. The right breast is extremely dense, which lowers the sensitivity of mammography (category d />75% glandular tissue). No significant masses, calcifications, or other findings are seen in the breast. IMPRESSION: INCOMPLETE: NEEDS ADDITIONAL IMAGING EVALUATION There is no mammographic abnormality seen in the right breast to correspond with the palpable abnormality, however, targeted ultrasound of the right breast is recommended and will be performed immediately following this exam. Future imaging is recommended as follows: 08/09/2023 screening mammogram. Based on Tyrer-Cuzick model (a risk assessment model), the patient's lifetime risk is 20.7% and her 10 year risk is 8.7%. If a patient has an elevated risk, a more comprehensive evaluation should be considered and/or a referral to a genetic counselor. The [employer], [employer], and NCCN Guidelines advise the consideration of Breast MRI as an adjunct to screening mammography in patients whose Lifetime risk to develop breast cancer is 20% or higher. This exam was interpreted at Station ID: [id number]. NOTE: For mammograms, a report in lay terms will be sent to the patient. Approximately 15% of breast malignancies will not be visualized mammographically. In the management of a palpable breast mass, a negative mammogram must not discourage biopsy of a clinically suspicious lesion. Electronically Signed By: Moira Gordillo M.D. lk/:12/14/2022 10:02:56 ACR BI-RADS Category 0: Incomplete [id number]
--- NOTE | 2022-12-14 10:14 | DI.US.S_ITS ---
Patient Name: TAMY WANG date: 1960 Sex: F Attending Physician: Jose Indications: Date: 12/14/2022 10:46 At the request of: RADHA KEVIN Procedure: US breast RT limited ULTRASOUND OF RIGHT BREAST: 12/14/2022 CLINICAL: Palpable right breast lump. Comparison is made to exams dated: 12/14/2022 mammogram, 08/08/2022 mammogram, 08/29/2019 mammogram, and 05/05/2018 mammogram - [facility]. Color flow and real-time ultrasound of the right breast were performed on the areas of interest. Jiang scale images of the real-time examination were reviewed. There is a 0.9 cm x 1.3 cm x 2.6 cm mass in the right pectoral musculature deep to the breast at 8 o'clock posterior depth. This mass is hypoechoic. This correlates as palpated and may correlate with a region of lobulated fat seen only on the true lateral view at a posterior depth. IMPRESSION: INCOMPLETE: NEEDS ADDITIONAL IMAGING EVALUATION The 0.9 cm x 1.3 cm x 2.6 cm mass in the right breast is indeterminate. An MRI is recommended. This exam was interpreted at Station ID: [id number]. Electronically Signed By: Moira barker/:12/14/2022 10:46:35 letter sent: Additional Imaging Needed Ultrasound BI-RADS: 0 Indeterminate
== END ==
PROVIDERS: Family Provider Nurse Practitioner; PCP Nurse Practitioner; Referring Provider Nurse Practitioner; Visit Provider Nurse Practitioner
DX: N63.13 Unspecified lump in the right breast, lower outer quadrant (principal); R92.8 Other abnormal and inconclusive findings on diagnostic imaging of breast
CPT/HCPCS: 76642; 77065; G0279

== ENCOUNTER → 2023-01-18 15:43 | Outpatient (CLI) | payer OTHER, MEDICAID, SELFPAY ==
--- NOTE | 2023-01-18 15:44 | DI.MRI.S_ITS ---
BREAST MRI OF BOTH BREASTS: 01/22/2023 CLINICAL: MRI for high risk breast CA, abnormal mammogram. PROCEDURE: MR BREAST BI WO/W CON INDICATIONS: high risk breast cancer >20% lifetime, abnormal US rt breast TECHNIQUE: The patient was placed prone in a dedicated breast imaging coil. Precontrast axial STIR and 3D FLASH without fat saturation sequences were obtained. Both before and after bolus injection of contrast, sequential 1-minute axial 3D FLASH with fat saturation sequences for 3 time points, with subtraction images and maximum intensity projections (MIP's) generated. Delayed sagittal FLASH images with fat saturation were also obtained. CONTRAST: 20 cc Prohance IV contrast. Computer-aided detection, including computer algorithm analysis of MRI image data for lesion detection and characterization, pharmacokinetic analysis, with further physician review for interpretation, was performed. COMPARISON: [facility], , US BREAST RT LIMITED, 12/14/2022, 10:14. [facility], , MM DIAGNOSTIC MAMMO UNILAT RT, 12/14/2022, 9:48. [facility], MM SCREENING MAMMO BI, 08/08/2022, 16:57. [facility], MM SCREENING MAMMO BI, 08/29/2019, 10:34. [facility], MM SCREENING MAMMO BI, 05/05/2018, 12:45, 10/10/2010. FINDINGS: Image quality: Excellent. There is mild background parenchymal enhancement. Right breast: Palpable abnormality in the 8:00 region posterior depth seen on prior mammogram and ultrasound. There is a circumscribed lipoma measuring 2.6 x 1.7 x 1.5 cm, ( and ). No suspicious T2 signal or enhancement. Lipoma abuts the chest wall. 1:00 posterior depth mass measuring 1.4 x 1.3 x 1.3 cm, ( and ). There are T2 dark septations and dystrophic calcifications seen on prior mammograms. Kinetic analysis demonstrates slow initial phase and persistent delayed phase. This mass is decreased in size compared to remote mammograms. This mass is consistent with a benign fibroadenoma. Left breast: No mass or suspicious enhancement. Miscellaneous: No enlarged lymph nodes. IMPRESSION: BENIGN Right breast 8:00 posterior depth palpable abnormality is consistent with a benign lipoma. Right breast 1:00 posterior depth calcified mass is consistent with a benign fibroadenoma. No suspicious mass or enhancement in either breast. No enlarged lymph nodes. BIRADS 2 A 1 year screening mammogram is recommended. Patient also qualifies for continued screening breast MRI. COMMENT: The imaging literature indicates that a negative contrast breast MRI examination has a high sensitivity and a moderate specificity for detecting and excluding invasive carcinomas to a detection threshold of 3-5 mm; nonetheless, appropriate clinical and mammographic follow-up are recommended. MRI is not sensitive for detecting DCIS (ductal carcinoma in situ) and may not detect large invasive neoplasms that show only minimal enhancement such as mucinous carcinoma. If there are suspicious calcifications or clinically worrisome palpable masses, then biopsy should still be considered. Invasive neoplasms can be hidden by co-existent and benign enhancement caused by mastitis, hormone therapy effects, radiation therapy, , and recent biopsy or surgery. False positive examinations can occur in a number of circumstances, including breasts that have recently been subject to invasive procedures and those that contain atypical ductal hyperplasia, hormonally stimulated glandular tissue, fat necrosis, or radial scars. Dictated by: Davon Flanagan M.D. on 01/22/2023 at 9:28 This exam was interpreted at Station ID: [id number]. Electronically Signed By: Davon Flanagan M.D. slc/:01/22/2023 10:29:05 letter sent: Normal Exam ACR BI-RADS Category 2: Benign Finding(s) 3342F
== END ==
PROVIDERS: Family Provider Nurse Practitioner; PCP Nurse Practitioner; Referring Provider Nurse Practitioner; Visit Provider Nurse Practitioner
DX: Z12.39 Encounter for other screening for malignant neoplasm of breast (principal); R92.8 Other abnormal and inconclusive findings on diagnostic imaging of breast
CPT/HCPCS: 77049; A9579

== ENCOUNTER → 2024-02-19 08:00 | Outpatient (CLI) | payer OTHER, MEDICAID, SELFPAY ==
[2024-02-19 08:41] LABS: Add Manual Diff / Slide Review NO; Basophils Absolute Auto 0 /uL (0-100); Basophils Percent Auto 1.1 % (0-2); Eosinophils Absolute Auto 100 /uL (0-450); Eosinophils Percent Auto 2.5 % (2-4); Hematocrit 40.7 % (36-46); Hemoglobin 13.8 g/dL (12.0-16.0); Lymphocytes Absolute Auto 2000 /uL (1100-4500); Mean Corpuscular HGB Conc 33.9 % (30-36); Mean Corpuscular Hemoglobin 29.6 PG (26-34); Mean Corpuscular Volume 87.2 fL (80-100); Monocytes Absolute Auto 500 /uL (0-900); Neutrophils Absolute Auto 1300 /uL (1500-7000); Neutrophils Percent Auto 33.4 % (50-75); Platelet Count 219 X10^3/uL (150-400); Red Blood Cell Count 4.67 X10^6/uL (4.0-5.2); Red Cell Distribution Width 13.9 % (11.6-14.8); White Blood Cell Count 3.9 X10^3/uL (4.5-11.0)
[2024-02-19 08:57] LABS: Hemoglobin A1C% w Est Avg Glu 5.7 % (4.0-6.0)
[2024-02-19 09:27] LABS: Alanine Aminotransferase 16 IU/L (<35); Albumin 4.6 g/dL (3.5-5.0); Albumin Globulin Ratio 1.6 (1.0-2.8); Alkaline Phosphatase 56 U/L (38-126); Aspartate Aminotransferase 29 IU/L (14-36); BUN Creatinine Ratio 14.8 (6-22); Bilirubin Total 0.7 mg/dL (0.2-1.3); Blood Urea Nitrogen 12 mg/dL (7-17); Calcium 9.1 mg/dL (8.4-10.2); Carbon Dioxide 27 mmol/L (22-32); Chloride 103 mmol/L (98-107); Cholesterol 259 mg/dL (140-199); Estimated Glomerular Filt Rate > 60 mL/min (>60); Globulin 2.8 g/dL (1.7-4.1); Glucose 96 mg/dL (80-110); HDL Cholesterol 89 mg/dL (40-60); HEMOLYSIS < 15 (0-50); LDL Cholesterol Calculated 156 mg/dL (<100); Potassium 4.7 mmol/L (3.4-5.1); Sodium 137 mmol/L (137-145); Total Protein 7.4 g/dL (6.3-8.2); Triglycerides 71 mg/dL (35-150)
[2024-02-19 09:40] LABS: Free T3, Triiodothyronine Free 3.24 pg/mL (2.77-5.27); Free T4, Direct Thyroxine 1.11 ng/dL (0.78-2.19)
[2024-02-19 09:54] LABS: Thyroid Stimulating Hormone 3.97 uIU/mL (0.47-4.68)
== END ==
LOC: LAB 08:01
PROVIDERS: Family Provider Nurse Practitioner; PCP Nurse Practitioner; Referring Provider Nurse Practitioner; Visit Provider Nurse Practitioner
DX: Z00.00 Encounter for general adult medical examination without abnormal findings (principal)
CPT/HCPCS: 36415; 80053; 80061; 83036; 84439; 84443; 84481; 85025

== ENCOUNTER → 2024-07-15 15:45 | Outpatient (CLI) | payer OTHER, MEDICAID, SELFPAY ==
[2024-07-17 08:37] LABS: Fecal Immunochemical Test Negative (Negative)
== END ==
PROVIDERS: Family Provider Nurse Practitioner; PCP Nurse Practitioner Family; Referring Provider Nurse Practitioner Family; Visit Provider Nurse Practitioner Family
DX: Z12.11 Encounter for screening for malignant neoplasm of colon (principal)
CPT/HCPCS: 82274

== ENCOUNTER → 2024-07-29 11:10 | Outpatient (CLI) | payer OTHER, MEDICAID, SELFPAY ==
--- NOTE | 2024-07-29 11:13 | DI.RAD.S_ITS ---
PROCEDURE: XR LUMBAR SPINE 2-3V INDICATIONS: low back pain, increasing TECHNIQUE: 3 views of the lumbar spine were acquired. COMPARISON: [facility], CR, XR LUMBAR SPINE 2-3V, 09/14/2022, 16:29. FINDINGS: Bones: 5 [id number] vertebrae are present. There is stable bony alignment with levocurvature of the lumbar spine. No acute vertebral body compression fractures. No suspicious bony lesions. Stable appearance of mild-moderate multilevel lumbar spondylosis and associated facet arthropathy. Soft tissues: Overlying bowel gas pattern is normal. No suspicious soft tissue calcifications. IMPRESSION: Stable appearance of multilevel mild-moderate lumbar spondylosis with unchanged appearance of levocurvature of the lumbar spine. Dictated by: Emmanuel Amador M.D. on 07/29/2024 at 15:58 Approved by: Emmanuel Amador M.D. on 07/29/2024 at 15:59
== END ==
PROVIDERS: Family Provider Nurse Practitioner; PCP Nurse Practitioner Family; Referring Provider Nurse Practitioner Family; Visit Provider Nurse Practitioner Family
DX: M47.816 Spondylosis without myelopathy or radiculopathy, lumbar region (principal); M54.50 Low back pain, unspecified
CPT/HCPCS: 72100; 81002

== ENCOUNTER → 2024-08-25 10:43 | Outpatient (CLI) | payer OTHER, SELFPAY ==
--- NOTE | 2024-08-25 10:45 | DI.US.S_ITS ---
PROCEDURE: US PELVIC COMPLETE INDICATIONS: pelvic pain, tenderness TECHNIQUE: Real-time scanning was performed of the pelvic organs, with image documentation. Additional endovaginal scanning was necessary due to incomplete visualization of the adnexal and endometrial structures by transabdominal scanning. COMPARISON: [facility], , PELVIC COMPLETE, 04/27/2014, 11:17. FINDINGS: Uterus: Uterus is anteverted and normal in size at 6.6 x 2.4 x 5.0 cm. The myometrium is homogeneous. The endometrium measures 3.8 mm on the left and 2.2 mm on the right in combined thickness. Bicornuate uterus. Ovaries: The right ovary measures 2.0 x 0.9 x 2.2 cm, with a calculated ovarian volume of 2.2 cc. The left ovary measures 2.1 x 1.4 x 1.2 cm, with a calculated ovarian volume of 1.8 cc. The ovaries have a normal sonographic appearance. Less than 12 follicles can be seen in each ovary. No adnexal masses are seen. Other: No pathologic free abdominal or pelvic fluid. IMPRESSION: Bicornuate uterus. Ovaries are normal in appearance. No definite cause for patient's symptoms is identified. We strive to produce accurate, complete, and clear reports of imaging services. To assist us in improving patient care, this report was composed using standard report templates and voice recognition software. Therefore, it may contain abnormal punctuation, insertions and/or omissions. Occasional wrong-word or sound-alike substitutions may occur. Though we review the report and make efforts to correct it, we do recommend that the report be read carefully in proper context to recognize any text inaccuracies. Dictated by: Inderjit Walton M.D. on 08/27/2024 at 8:27 Approved by: Inderjit Walton M.D. on 08/27/2024 at 8:31
== END ==
PROVIDERS: Family Provider Nurse Practitioner; PCP Nurse Practitioner Family; Referring Provider Nurse Practitioner Family; Visit Provider Nurse Practitioner Family
DX: R10.2 Pelvic and perineal pain (principal); Q51.3 Bicornate uterus
CPT/HCPCS: 76830; 76856

== ENCOUNTER → 2024-10-16 08:39 | Outpatient (CLI) | payer OTHER, SELFPAY ==
--- NOTE | 2024-10-16 08:40 | DI.US.S_ITS ---
LIMITED ULTRASOUND OF RIGHT BREAST AND AXILLA: 10/16/2024 CLINICAL: Palpable right breast lump. Comparison is made to exams dated: 10/16/2024 mammogram, 01/22/2023 breast MRI, 12/14/2022 ultrasound, 12/14/2022 mammogram, and 08/08/2022 mammogram - [facility]. Color flow and real-time ultrasound of the right breast 8-10 o'clock, and axilla regions were performed. Jiang scale images of the real-time examination were reviewed. There is a 2.4 cm x 3.4 cm x 1.6 cm irregular/ oval, possibly fatty mass with an indistinct margin in the right breast/ chest wall at 9 o'clock posterior depth 9 cm from the nipple. The mass is situated deep to the pectoralis muscle insinuating itself between two rib arcs. This irregular mass is hypoechoic. This correlates as palpated and with breast MRI findings of a fatty mass. Color flow imaging demonstrates that there is no vascularity present, although central vascularity was present on prior MRI. This has increased in size compared to 2022 when it measures 2.6 x 1.7 x 1.5 cm. No significant abnormalities were seen sonographically in the right axilla. 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 A surgical consult for excision is recommended. Further imaging such as contrast enhanced chest CT should be considered. Findings and recommendations were conveyed to the patient at time of exam. This exam was interpreted at Station ID: [id number]. Electronically Signed By: Lilia sargent/:10/16/2024 13:40:54 letter sent: Clinical Evaluation ACR BI-RADS Category 4A: Suspicious
--- NOTE | 2024-10-16 08:40 | DI.MG.S_ITS ---
BILATERAL DIGITAL DIAGNOSTIC MAMMOGRAM 3D/2D: 10/16/2024 CLINICAL: Right breast lipoma/lump and pain. Comparison is made to exams dated: 01/22/2023 breast MRI, 08/08/2022 mammogram, and 08/29/2019 mammogram - [facility]. The breasts are extremely dense, which lowers the sensitivity of mammography (category d />75% glandular tissue). There is an area of mild, fine, architectural distortion and a round, 7 mm lymph node in the right breast at 10 o'clock in the posterior depth that correlate with palpable abnormality and reported pain. There also are a benign fibroadenoma with coarse calcifications in the right breast at 1 o'clock in the posterior depth that has not significantly changed. No significant masses, calcifications, or other findings are seen in either breast. IMPRESSION: INCOMPLETE: NEED ADDITIONAL IMAGING EVALUATION The area of minimal architectural distortion and node corresponds to the palpable painful area. No significant mammographic change. Ultrasound is recommended for full evaluation of this area. This was performed immediately following this exam. Bilateral mammograms are otherwise stable. Based on Tyrer-Cuzick model (a risk assessment model), the patient's lifetime risk is 20.2% and her 10 year risk is 9.1%. If a patient has an elevated risk, a more comprehensive evaluation should be considered and/or a referral to a genetic counselor. The [employer], [employer], and NCCN Guidelines advise the consideration of Breast MRI as an adjunct to screening mammography in patients whose Lifetime risk to develop breast cancer is 20% or higher. This exam was interpreted at Station ID: [id number]. NOTE: For mammograms, a report in lay terms will be sent to the patient. Approximately 15% of breast malignancies will not be visualized mammographically. In the management of a palpable breast mass, a negative mammogram must not discourage biopsy of a clinically suspicious lesion. Electronically Signed By: Lilia sargent/:10/16/2024 09:47:25 letter sent: Additional Imaging Needed ACR BI-RADS Category 0: Incomplete: Need Additional Imaging Evaluation
== END ==
PROVIDERS: Family Provider Nurse Practitioner; PCP Nurse Practitioner Family; Referring Provider Nurse Practitioner Family; Visit Provider Nurse Practitioner Family
DX: R92.2 Inconclusive mammogram (principal); N63.15 Unspecified lump in the right breast, overlapping quadrants; N64.4 Mastodynia; R92.343 Mammographic extreme density, bilateral breasts
CPT/HCPCS: 76642; 77066; G0279

== ENCOUNTER 2025-01-06 11:53 | Day surgery (SDC) | payer OTHER, SELFPAY ==
[2024-12-30 13:18] VITALS: BMI 23.6
--- NOTE | 2025-01-06 | PATH_ITS ---
[facility] Accession Number: [id number] No. of containers..01 Tissue . 01 Material submitted: . chest - RIGHT CHEST WALL TISSUE . 01 Diagnosis: RIGHT CHEST WALL, EXCISION: Benign vascular proliferation, compatible with an arteriovenous malformation. Negative for malignancy. ELOINA 01/13/2025 1633 Local . 01 Electronically signed: . Lacy Palacios DO, Pathologist NPI- [id number] . 01 Gross description: . Received in formalin with two identifiers and right chest wall tissue, is an irregular jesus soft tissue fragment weighing less than 1 gram and measuring 1.0 x 1.0 x 0.7 cm. The specimen is inked blue and sectioned to reveal a jesus to brown, soft cut surface. Submitted entirely in A1. . The specimen was removed on 01/06/2025, time not provided. Cold ischemic time cannot be calculated. Total fixation time is approximately 56 hours. ([id number]) /MRV 01/08/2025 1609 Local . 01 Pathologist provided ICD-10: Q27.30 . 01 CPT . 04379 Specimen Comment: A courtesy copy of this report has been sent to [phone] Performed at: [address] [facility], [place], [place] [id number] MD Jorge Luis Santana MD Phone: [phone]
[2025-01-06 12:26] VITALS: BP 135/74; PULSE 73; RESP 16; TEMP 36.7; O2SAT 100; BMI 23.6
[2025-01-06] MEDS: LACTATED RINGERS 1,000 ML 42 ML IV ×2 (12:43→14:57)
--- NOTE | 2025-01-06 14:25 | P.HP_ITS ---
History of Present Illness History of Present Illness Date Patient Seen: 01/06/25 Time Patient Seen: 14:26 Chief complaint: Right Breast Biopsy/Lumpectomy Narrative: Sintia is a 64-year-old woman with a mass in the right lateral just lateral to the right breast. It was likely a lipoma however there was a small possibility could be a sarcoma based on imaging. See the office note from last month for details. 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 At increased risk for malignant neoplasm of breast Insomnia Arthralgia Hyperlipidemia Depression Hyponatremia Hyperglycemia Patient new to provider Unintentional weight loss Generalized anxiety disorder Brantley's palsy Bicornuate uterus Esophageal spasm Surgical History Status post dilation and curettage (04/2011) Status post breast biopsy (09/2005) Status post breast biopsy (06/2003) Social History marital status: household members: spouse lives independently: Yes occupational status: employed Smoking Status: Never smoker alcohol intake: current substance use type: does not use Meds Home Medications and Allergies Home Medications Medication Instructions Recorded Confirmed Type iron bisglycinate 25mg 25 mg PO .QD 08/02/21 01/06/25 History lidocaine 5 % topical patch See Rx Instructions .Route 08/29/22 01/06/25 Rx .COMPLEX #90 patches estradiol 10 mcg vaginal tablet 10 mcg vaginal DAILY #90 tabs 03/05/24 01/06/25 Rx pregabalin 50 mg capsule 150 mg PO QPM 12/30/24 01/06/25 History Allergies Allergy/AdvReac Type Severity Reaction Status Date / Time capsaicin Allergy Verified 01/06/25 12:13 gabapentin Allergy Verified 01/06/25 12:13 Exam Vital Signs (past 8 hours): - 01/06/25 12:26 Temperature 98.1 F Pulse Rate 73 Respiratory Rate 16 Blood Pressure 135/74 Pulse Oximetry 100 Oxygen Delivery Method Room Air Oxygen Delivery Method Room Air Narrative Exam Narrative: There is a 3-4 cm soft mobile mass in the right lateral chest wall lateral to the breast Assessment & Plan Assessment and plan (1) Lipoma of breast: Status: Inactive Plan Excisional biopsy in the OR Time-Based Coding :: [TOTAL MINUTES] spent with patient and on the chart (including review of chart, obtaining history, exam, reviewing outside data, placing orders, documenting exam and treatment plan, and counseling patient) on [DATE]. PROFEE Route Clerk Document charge(s): No
--- NOTE | 2025-01-06 14:45 | SUR.OPER ---
Supine on padded OR bed, head on pillow, arms secured on padded arm boards at <90 degrees abduction, legs uncrossed, safety belt at thigh, tape over blanket over lower legs.
[2025-01-06] MEDS: BUPIVACAINE 0.5% (PF) 30 ML VIAL INJ (14:50)
[2025-01-06 15:26] VITALS: BP 130/63; PULSE 75; RESP 15; TEMP 36.6; O2SAT 97
--- NOTE | 2025-01-06 15:29 | P.OP_ITS ---
Operative Date/Time/Diagnoses Date of procedure: 01/06/25 Time of procedure: 15:29 Pre-op diagnosis: Right lateral chest wall mass Post-op diagnosis: same Procedure & Clinicians Procedure: Excisional biopsy of right lateral chest wall mass Same procedure as scheduled: Yes Surgeon: Boy Franco Incident Analyst: Valentin Schreiber Anesthesia Type: General Operative Notes Findings: Dilated vein Estimated Blood Loss (mL): 20 Procedure in detail: Patient was brought to the operating room and placed on the table in the supine position with the arms abducted. General anesthesia was induced. The right chest wall was prepped and draped in the usual fashion and a time-out was performed. We made a 5 cm transverse incision over the palpable mass and dissected down through the subcutaneous adipose tissue. Initially it appeared that there was a mass deep to some of the serratus muscle fibers however during dissection we encountered brisk venous bleeding which was quickly controlled with a clamp followed by 2 [id number] sutures of 3-0 Vicryl. Upon further inspection appeared that the muscle tissue was in fact a dilated vein lying just external to the chest wall. Silk sutures were placed around the distal and proximal aspect of the dilated portion of the vein and tied off and the dilated segment of the vein was resected and sent to path. We injected some local along the external periosteum of the ribs and into the surrounding subcutaneous adipose tissue and closed in layers using multiple interrupted 3-0 Vicryl dermal sutures followed by a running 4-0 Monocryl subcuticular stitch. EBL: 20 mL Specimen: Right chest wall venous structure Valentin CLEMENS provided assistance with exposure, retraction and closure of incisions. Complications: none Post-operative Condition: stable Disposition: PACU
[2025-01-06 15:31] VITALS: BP 133/64; PULSE 78; RESP 14; O2SAT 97
[2025-01-06 15:36] VITALS: BP 136/70; PULSE 74; RESP 14; O2SAT 98
[2025-01-06 15:46] VITALS: BP 134/66; PULSE 74; RESP 14; O2SAT 98
[2025-01-06 15:47] VITALS: PULSE 74; RESP 14; TEMP 36.1; O2SAT 98
[2025-01-06] MEDS: OXYCODONE/ACETAMINOPHEN 5/325 TABLET 1 TAB PO (16:00)
== END 2025-01-06 16:27 | disposition home or self-care (01) ==
PROVIDERS: Family Provider Nurse Practitioner; PCP Nurse Practitioner Family; Referring Provider Surgery; Visit Provider Surgery
PROC: (CPT 19301; principal; 2025-01-06 13:30)
DX: R22.2 Localized swelling, mass and lump, trunk (principal); D17.1 Benign lipomatous neoplasm of skin and subcutaneous tissue of trunk
CPT/HCPCS: 11406; 12032; J1100; J2250; J2704; J3010